=== PATIENT | male | born 1945 | race Caucasian/White ===

== ENCOUNTER 2018-11-20 11:04 | Inpatient (IN) ==
[~2018-11-20 11:04] MED LIST: *HR* Etomidate 20 MG/10 ML AMPUL IVP ONE; *HR* Norepinephrine 4 MG/4 ML VIAL IVC ONE; *HR* Succinylcholine 200 MG/10 ML VIAL IVP ONE; D5% in Water 250 ML IV BAG IV ONE
--- NOTE | 2018-11-20 13:12 | Pulmonology History & Physical ---
<Niranjan Ruiz - Last Filed: 11/20/18 15:39> Date of Encounter: 11/20/18 Time of Encounter: 13:12 Assessment and Plan (1) Sepsis Current visit: Yes Status: Acute -Likely 2/2 pneumonia -2L fluid bolus today at [facility] prior to transfer -Tachypneic, tachycardic, 95F rectal temp but BP stable on arrival -WBC 43.2, lactic 7.7, trop 0.06 -Received zosyn today at the [facility] -CT chest abd/plv -BC x2, UA and culture, sputum culture ordered -Start empiric broad spectrum abx which will deescalate as cultures return Qualifiers: Sepsis type: sepsis due to unspecified organism Qualified Code(s): A41.9 - Sepsis, unspecified organism (2) GI bleed Current visit: Yes Status: Suspected -Melena occasionally over the last 2 weeks -Hgb 11/18/18 13.4 at [facility] -Received new anticoagulation 2/2 DVT at the [facility] -Hgb on transfer here 7.3, BUN 46 -Getting type and screen, trending hgb -GI consult for likely endoscopy Qualifiers: GI bleed type/associated pathology: melena Qualified Code(s): K92.1 - Melena (3) ANY (acute kidney injury) Current visit: Yes Status: Acute -Cr at [facility] 11/19/18 0.79 -Cr on transfer from [facility] 1.74, BUN 46 -On vanc and zosyn now -Will continue trend renal function and avoid nephrotoxins as can (4) COPD (chronic obstructive pulmonary disease) Current visit: Yes Status: Acute -Hx of COPD -Progressive dyspnea and yellow productive cough over last 2 weeks -Scheduled bronchodilators Qualifiers: COPD type: emphysema Emphysema type: unspecified Qualified Code(s): J43.9 - Emphysema, unspecified (5) Anemia Current visit: Yes Status: Acute -Hgb 13.4 11/18/18 at the [facility] -Hgb on arrival here 7.3 -Occult stool pos at [facility] -GI bleed vs large rectus sheath hematoma on CT -Will transfuse PRBC today -Trend H&H Qualifiers: Anemia type: unspecified type Qualified Code(s): D64.9 - Anemia, unspecified (6) Lactic acidemia Current visit: Yes Status: Acute -Lactic on arrival 7.3 -Likely 2/2 sepsis basilar pneumonia (7) Leukocytosis Current visit: Yes Status: Acute -WBC 43.2 11/20/18 -Management as above Qualifiers: Leukocytosis type: unspecified Qualified Code(s): D72.829 - Elevated white blood cell count, unspecified (8) Elevated troponin Current visit: Yes Status: Acute -Likely 2/2 demand ischemia from hypotension -[facility] -Repeat here 0.06 -Will trend (9) Right leg DVT Current visit: Yes Status: Acute -R leg DVT at [facility] -RLE doppler here as no record Qualifiers: Affected thrombotic vein of extremity: unspecified vein of extremity Chronicity: unspecified Qualified Code(s): I82.401 - Acute embolism and thrombosis of unspecified deep veins of right lower extremity (10) DVT prophylaxis Current visit: Yes Status: Acute -SCDs as acute drop in hgb History of Present Illness Chief complaint: Acute anemia HPI: Mr. Gomez is a 73 year old male with pmh significant for COPD, HTN, HLD, and multiple previous CVA's. Over the last 2 weeks he has had a yellow productive cough, worsening dyspnea, and occasional black stools. He was admitted to the [facility] on 11/17/18 and was being treated for presumed pneumonia. He was found to have R lower leg asymmetrical swelling which d dimer was obtained and found to be normal. A subsequent LE doppler found a subacute DVT in RLE and was started on lovenox. He had a no evidence of PE on CTA chest. Today he was switched to apixaban for anticoagulation. This morning he became acutely hypotensive and unresponsive. He was given 2L fluid bolus which brought his BP to 80s/40s and mental status improved along with no acute ekg changes. Labs showed acute drop in hgb from 13.4 on 11/18/18 to 8.9 this morning, occult stool pos, wbc 36.6, Cr 1.2, and trop 0.07. [facility] and [facility] transfer to [facility] for continued management. He denies diplopia, blurry vision, dizziness/lightheadedness, chest pain, palpitations, dyspnea, hematemasis, N/V, dysuria, hematuria, new melena, hematochezia. Past Med Surg Social Fam HX - Past Medical History Medical history: COPD, hyperlipidemia, hypertension - Social History Smoking Status: Never smoker Smokeless Tobacco Status: No Alcohol use: none Medications and Allergies Acetaminophen [Tylenol] 650 mg PO Q8H PRN 11/20/18 [History] Amlodipine Besylate 2.5 mg PO DAILY 11/20/18 [History] Apixaban [Eliquis] 2.5 mg PO BID 11/20/18 [History] Atorvastatin Calcium [Lipitor] 20 mg PO DAILY 11/20/18 [History] Bisacodyl [Woman's Laxative] 10 mg PO DAILY PRN 11/20/18 [History] Budesonide/Formoterol 160/4.5 [Symbicort 160/4.5] 2 puff IH BIDR 11/20/18 [History] Calcium Carbonate 650 mg PO DAILY 11/20/18 [History] Carboxymethylcellulose Sodium [Refresh Tears] 1 drop BOTH EYES TID PRN 11/20/18 [History] Chlorhexidine Rinse 15 ml PO BID 11/20/18 [History] Clopidogrel [Plavix] 75 mg PO DAILY 11/20/18 [History] Docusate [Colace] 200 mg PO BID 11/20/18 [History] Escitalopram [Lexapro] 10 mg PO DAILY 11/20/18 [History] Guaifenesin 400 mg PO TID 11/20/18 [History] Insulin ASPART [NovoLOG] 0 unit SQ TIDWM 11/20/18 [History] Ipratropium/Albuterol Neb [Duoneb] 3 ml IH Q4HR PRN 11/20/18 [History] Lisinopril [Zestril] 20 mg PO DAILY 11/20/18 [History] Metoprolol Succinate [Toprol Xl] 75 mg PO DAILY 11/20/18 [History] Mineral Oil 133 ml RC DAILY PRN 11/20/18 [History] Omeprazole [PriLOSEC] 20 mg PO DAILY 11/20/18 [History] Simethicone [Gas-X] 160 mg PO BID PRN 11/20/18 [History] Tamsulosin HCl [Flomax] 0.4 mg PO DAILY 11/20/18 [History] Zolpidem [Ambien] 5 mg PO HS 11/20/18 [History] hydrOXYzine HCl [Hydroxyzine HCl] 25 mg PO TID 11/20/18 [History] Allergy/AdvReac Type Severity Reaction Status Date / Time tolmetin Allergy Rash Verified 11/05/18 14:39 All Systems: The remainder of the systems were reviewed and are negative Physical Examination General appearance: no acute distress, alert Eyes: nonicteric ENT: oropharynx dry Neck: supple Effort: normal Inspection: normal Auscultation: bilateral: diminished breath sounds, wheezes (scattered), rhonchi (scattered) Cardiovascular: regular rate and rhythm Gastrointestinal: normoactive bowel sounds, soft, non-tender, other (L sided palpable mass) Integumentary: normal Extremities: no cyanosis, no edema, pink and warm normal mental status, non-focal exam mood appropriate, affect normal Results - Laboratory Findings CBC and BMP: 11/20/18 12:43 11/20/18 12:45 <Kris Owusu M - Last Filed: 11/20/18 22:25> Date of Encounter: 11/20/18 History of Present Illness HPI: Mr. Gomez is a 73 year old male All Systems: The remainder of the systems were reviewed and are negative Results - Laboratory Findings CBC and BMP: 11/20/18 12:43 11/20/18 12:45 Abnormal lab findings: Abnormal lab results Chloride 113 mEq/L (98-107) H 11/20/18 12:45 Carbon Dioxide 21 mEq/L (23-29) L 11/20/18 12:45 BUN 46 mg/dL (8-23) H 11/20/18 12:45 1.74 mg/dL (0.70-1.30) H 11/20/18 12:45 Est GFR ( Amer) 47 (> 60) L 11/20/18 12:45 Est GFR (Non-Af Amer) 39 (> 60) L 11/20/18 12:45 Glucose 116 mg/dL (70-105) H 11/20/18 12:45 313 (280-300) H 11/20/18 12:45 Lactic Acid 7.7 mmol/L (0.5-2.2) H* 11/20/18 13:04 Calcium 7.1 mg/dL (8.6-10.3) L 11/20/18 12:45 0.06 ng/mL (< 0.04) H* 11/20/18 12:44 - Attending Attestation I examined this patient and my medical decision-making was reviewed with the Resident Physician. I agree with the documented findings, disposition and treatment plan as described except to the extent set forth below. Patient seen and examined. Received a call from physician from [facility] regarding this patient that he has evidence of bleeding and he has received anticoagulation and he was hypotensive and [facility]. Labs, radiology, chart personally reviewed. 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 I suspect this is metabolic in nature, Pulmonary: Acceptable oxygenation and ventilation and he has evidence of COPD and he is on bronchodilators. Unfortunately his condition worsen and with acute respiratory fialure and need to follow up on the ABG. Patient not able to protect his airway. Cardiovascular: stable at this time. I was told he is hypotensive in the [facility] and I recommended blood transfusion or fluid and stabilized blood pressure before he transferred to [facility].Subsequently patient in shock which is most likely combination of hemorrhagic and septic in nature. GI: Nutrition per dietary and GI prophylaxis per routine Heme: DVT prophylaxis per routine. Patient has evidence of anemia which is secondary to blood loss. 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 Patient has large hematoma and general surgery has been consulted. ID: Continue antibiotics and plan to de-escalation with lactic acidosis and this secondary to sepsis. Patient has received fluid in [facility] and will receive blood. Need to culture for source of sepsis, which could be pneumonia. Family said he was hospitalized in a different hospital. Renal; urine out put and renal funtion reviewed. Patient to be on bicarb drip.and there is evidence of ANY and suspect this could get worse. Endorcine: blood glucose is monitored Lines: all lines checked and no evidence of infections Skin: skin care to prevent pressure ulcers per nursing routine care Discussed plan of care with family at the bedside. Prognosis is poor with this s evere lactic acidosis. I spent 55 min of Critical Care time with this patient. It involved decision making of high complexity to assess, manipulate, and support vital organ system failure and/or to prevent further life threatening deterioration of the patient's condition. The time involved in the performance of separately reportable procedures was not counted toward critical care time.
[2018-11-20 13:33] LABS: Mean Platelet Volume 10.5 fL (9.4-12.4); Nucleated Red Blood Cells 0.1 /100 WBC (0); Red Cell Distribution Width 15.7 % (11.5-14.5)
[2018-11-20 13:35] LABS: Hematocrit 23.5 % (37.5-50.1); Hemoglobin 7.3 g/dL (12.9-16.9); Mean Corpuscular HGB Conc 31.1 g/dL (31.6-35.5); Mean Corpuscular Hemoglobin 29.9 pg (28.0-33.3); Mean Corpuscular Volume 96.3 fL (83.0-100.0); Platelet Count 190 K/mcL (140-400); Red Blood Count 2.44 M/mcL (4.19-5.50)
[2018-11-20 13:35] LABS: Calcium 7.1 mg/dL (8.6-10.3)
[2018-11-20] MEDS ORDERED: Acetaminophen 325 MG TABLET PO PRN (13:37)
[2018-11-20] MEDS ORDERED: Naloxone 0.4 MG/ML INJ IVP PRN (13:37)
[2018-11-20 13:48] LABS: Troponin I 0.06 ng/mL (< 0.04)
[2018-11-20 13:58] LABS: Lymphocytes # 0.9 K/mcL (0.6-4.6); Monocytes # 0.9 K/mcL (0.0-1.3); Neutrophils # 41.5 K/mcL (1.6-8.9); Platelet Estimate Normal (Normal)
[2018-11-20 13:59] LABS: Anisocytosis 1+ (Not Present)
[2018-11-20 14:00] LABS: Albumin 2.2 g/dL (3.5-5.7); Albumin/Globulin Ratio 1.8 (1.1-2.2); Bilirubin,Direct 0.2 mg/dL (0.0-0.2); Bilirubin,Indirect 0.7 mg/dL (0.0-1.2); Bilirubin,Total 0.9 mg/dL (0.3-1.0); Globulin 1.2 g/dL (2.4-3.5); Total Protein 3.4 g/dL (6.4-8.9)
[2018-11-20] MEDS ORDERED: *HR* Dextrose 50 % in Water (Syg) 50 ML SYRINGE IVP PRN (14:09)
[2018-11-20] MEDS ORDERED: Dextrose Gel 15 GM/37.5 ML TUBE PO PRN ×2 (14:09)
[2018-11-20] MEDS ORDERED: D5% in Water 1,000 ML IVC PRN (14:09)
[2018-11-20] MEDS ORDERED: Ipratropium/Albuterol Neb 3 ML IH PRN (14:13)
[2018-11-20 15:23] LABS: Estimated Average Glucose 140 mg/dl; Hemoglobin A1C 6.5 %
[2018-11-20] MEDS: Ipratropium/Albuterol Neb 3 ML IH SCH ×2 (16:12→22:10)
[2018-11-20 16:25] LABS: INR 1.4; Prothrombin Time 15.7 Seconds (9.4-12.1)
[2018-11-20 16:28] LABS: Activated Partial Thrombo Time 27.1 Seconds (26.0-36.0)
[2018-11-20] MEDS ORDERED: 0.9 % Sodium Chloride 250 ML ONE (16:34)
[2018-11-20] MEDS: Piperacillin/Tazobactam 3.375 GM in 0.9 % Sodium Chloride Mini Bag 100 ML IVPB SCH (16:56)
[2018-11-20 17:30] LABS: ABG Base Excess -12 mEq/L (-2 to 3); ABG HCO3 16 mEq/L (21-27); ABG Oxygen Saturation 96 % (95-98); ABG PCO2 44 mmHg (35-45); ABG PH 7.16 pH Units (7.32-7.45); ABG PO2 105 mmHg (85-104); ABG TCO2 17 mEq/L (20-26)
[2018-11-20] MEDS: Norepinephrine 4 MG in D5% in Water 250 ML IVC SCH ×2 (17:45→23:58)
--- NOTE | 2018-11-20 17:45 | AcuteCare Surgery Consult Note ---
Date of Encounter: 11/20/18 Time of Encounter: 17:42 Assessment and Plan (1) Anemia Current Visit: Yes Status: Acute 73M with sepsis and associated drop in blood pressure, GCS 6 and acute blood loss anemia wiht associated evidence of dehydration; strongly advise intubation to protect airway NPO IVF IV abx hold anticoagulation trend h/h transfuse as needed recommend treating sepsis actively and monitor hgb will continue to follow no acute surgery Qualifiers: Anemia type: unspecified type Qualified Code(s): D64.9 - Anemia, unspecified History of Present Illness Consult date: 11/20/18 History of present illness: 73M PMH significant for COPD, HTN, HLD, and multiple previous CVA's who was evaluated at an OSH for respiratory insufficiency, likely exacerbation of COPD vs PNA. While an inpatient he developed a DVT and started on therapeutic lovenox. He was transferred to [facility] due to acute blood loss anemia (hgb decrea sed from 13 to ~ 7). No reports of rectal bleeding. A CT scan was obtained which demonstrated a sizeable rectus sheath hematoma. At present the patient is unresponsive, pressures dropping but normal HR; General surgery was consulted for management recommendations; Past Med Surg Social Fam HX - Past Medical History Medical history: COPD, hyperlipidemia, hypertension - Social History Smoking Status: Never smoker Smokeless Tobacco Status: No Alcohol use: none - Additional Family History Additional family history: non contributory Medications and Allergies Acetaminophen [Tylenol] 650 mg PO Q8H PRN 11/20/18 [History] Amlodipine Besylate 2.5 mg PO DAILY 11/20/18 [History] Apixaban [Eliquis] 2.5 mg PO BID 11/20/18 [History] Atorvastatin Calcium [Lipitor] 20 mg PO DAILY 11/20/18 [History] Bisacodyl [Woman's Laxative] 10 mg PO DAILY PRN 11/20/18 [History] Budesonide/Formoterol 160/4.5 [Symbicort 160/4.5] 2 puff IH BIDR 11/20/18 [History] Calcium Carbonate 650 mg PO DAILY 11/20/18 [History] Carboxymethylcellulose Sodium [Refresh Tears] 1 drop BOTH EYES TID PRN 11/20/18 [History] Chlorhexidine Rinse 15 ml PO BID 11/20/18 [History] Clopidogrel [Plavix] 75 mg PO DAILY 11/20/18 [History] Docusate [Colace] 200 mg PO BID 11/20/18 [History] Escitalopram [Lexapro] 10 mg PO DAILY 11/20/18 [History] Guaifenesin 400 mg PO TID 11/20/18 [History] Insulin ASPART [NovoLOG] 0 unit SQ TIDWM 11/20/18 [History] Ipratropium/Albuterol Neb [Duoneb] 3 ml IH Q4HR PRN 11/20/18 [History] Lisinopril [Zestril] 20 mg PO DAILY 11/20/18 [History] Metoprolol Succinate [Toprol Xl] 75 mg PO DAILY 11/20/18 [History] Mineral Oil 133 ml RC DAILY PRN 11/20/18 [History] Omeprazole [PriLOSEC] 20 mg PO DAILY 11/20/18 [History] Simethicone [Gas-X] 160 mg PO BID PRN 11/20/18 [History] Tamsulosin HCl [Flomax] 0.4 mg PO DAILY 11/20/18 [History] Zolpidem [Ambien] 5 mg PO HS 11/20/18 [History] hydrOXYzine HCl [Hydroxyzine HCl] 25 mg PO TID 11/20/18 [History] Allergy/AdvReac Type Severity Reaction Status Date / Time tolmetin Allergy Rash Verified 11/05/18 14:39 Review of Systems All systems PM: 12 point ROS negative besides HPI findings General Surgery Exam Initial Vital Signs Pulse Resp BP Pulse Ox 101 27 130/102 92 11/20/18 13:11 11/20/18 13:11 11/20/18 13:11 11/20/18 13:11 - General physical appearance no distress, other (non responsive; does not respond to pain) - Eyes normal ocular movement - ENT normal mucosa, no hearing loss - Neck trachea midline, no lymphadectomy - Respiratory normal expansion, normal respiratory effort - Cardiovascular Cardiovascular exam: Present: RRR - Abdomen Abdomen general surgery: Present: soft, distended (point of distension along L side) - Integumentary Integumentary general surgery: Present: warm and dry - Neurologic Present: other (non responsive to pain and verbal stimuli, does not make verbal response; eyes are open, GCS ~ 6) Exam Initial Vital Signs Pulse Resp BP Pulse Ox 101 27 130/102 92 11/20/18 13:11 11/20/18 13:11 11/20/18 13:11 11/20/18 13:11 Results - Labs 11/20/18 12:43 11/20/18 12:45 Abnormal lab results WBC 43.2 K/mcL (4.3-11.1) H* 11/20/18 12:43 RBC 2.44 M/mcL (4.19-5.50) L 11/20/18 12:43 Hgb 7.3 g/dL (12.9-16.9) L 11/20/18 12:43 Hct 23.5 % (37.5-50.1) L 11/20/18 12:43 MCHC 31.1 g/dL (31.6-35.5) L 11/20/18 12:43 RDW 15.7 % (11.5-14.5) H 11/20/18 12:43 41.5 K/mcL (1.6-8.9) H 11/20/18 12:43 Nucleated RBCs/100 WBC 0.1 /100 WBC (0) H 11/20/18 12:43 1+ (Not Present) A 11/20/18 12:43 PT 15.7 Seconds (9.4-12.1) H 11/20/18 15:56 ABG pH 7.16 pH Units (7.32-7.45) L* 11/20/18 17:26 ABG pO2 105 mmHg (85-104) H 11/20/18 17:26 ABG HCO3 16 mEq/L (21-27) L 11/20/18 17:26 ABG Total CO2 17 mEq/L (20-26) L 11/20/18 17:26 ABG Base Excess -12 mEq/L (-2 to 3) L 11/20/18 17:26 Chloride 113 mEq/L (98-107) H 11/20/18 12:45 Carbon Dioxide 21 mEq/L (23-29) L 11/20/18 12:45 BUN 46 mg/dL (8-23) H 11/20/18 12:45 1.74 mg/dL (0.70-1.30) H 11/20/18 12:45 Est GFR ( Amer) 47 (> 60) L 11/20/18 12:45 Est GFR (Non-Af Amer) 39 (> 60) L 11/20/18 12:45 Glucose 116 mg/dL (70-105) H 11/20/18 12:45 6.5 % (-5.6) H 11/20/18 13:04 313 (280-300) H 11/20/18 12:45 Lactic Acid 9.8 mmol/L (0.5-2.2) H* 11/20/18 17:01 Calcium 7.1 mg/dL (8.6-10.3) L 11/20/18 12:45 AST 413 Units/L (13-39) H 11/20/18 12:44 ALT 651 Units/L (7-52) H 11/20/18 12:44 0.06 ng/mL (< 0.04) H* 11/20/18 12:44 3.4 g/dL (6.4-8.9) L 11/20/18 12:44 2.2 g/dL (3.5-5.7) L 11/20/18 12:44 1.2 g/dL (2.4-3.5) L 11/20/18 12:44 Crossmatch See Detail 11/20/18 13:04 Diabetes panel 11/20/18 11/20/18 11/20/18 Range/Units 12:44 12:45 13:04 Sodium 145 (136-145) mEq/L Potassium 5.0 (3.5-5.1) mEq/L Chloride 113 H (98-107) mEq/L Carbon Dioxide 21 L (23-29) mEq/L BUN 46 H (8-23) mg/dL Creatinine 1.74 H (0.70-1.30) mg/dL Glucose 116 H (70-105) mg/dL Hemoglobin A1c 6.5 H ( - 5.6) % Calcium 7.1 L (8.6-10.3) mg/dL AST 413 H (13-39) Units/L ALT 651 H (7-52) Units/L Alkaline Phosphatase 53 (34-104) Units/L Albumin 2.2 L (3.5-5.7) g/dL Calcium panel 11/20/18 11/20/18 Range/Units 12:44 12:45 Calcium 7.1 L (8.6-10.3) mg/dL Albumin 2.2 L (3.5-5.7) g/dL Pituitary panel 11/20/18 Range/Units 12:45 Sodium 145 (136-145) mEq/L Potassium 5.0 (3.5-5.1) mEq/L Chloride 113 H (98-107) mEq/L Carbon Dioxide 21 L (23-29) mEq/L BUN 46 H (8-23) mg/dL Creatinine 1.74 H (0.70-1.30) mg/dL Glucose 116 H (70-105) mg/dL Calcium 7.1 L (8.6-10.3) mg/dL Adrenal panel 11/20/18 11/20/18 Range/Units 12:44 12:45 Sodium 145 (136-145) mEq/L Potassium 5.0 (3.5-5.1) mEq/L Chloride 113 H (98-107) mEq/L Carbon Dioxide 21 L (23-29) mEq/L BUN 46 H (8-23) mg/dL Creatinine 1.74 H (0.70-1.30) mg/dL Glucose 116 H (70-105) mg/dL Calcium 7.1 L (8.6-10.3) mg/dL Total Bilirubin 0.9 (0.3-1.0) mg/dL AST 413 H (13-39) Units/L ALT 651 H (7-52) Units/L Alkaline Phosphatase 53 (34-104) Units/L Albumin 2.2 L (3.5-5.7) g/dL All other labs normal. - Imaging CT scan - abdomen: report reviewed, image reviewed CT scan - pelvis: report reviewed, image reviewed Consult Discharge Plan - Plan [facility]: [facility] [Primary Care Provider] -
--- NOTE | 2018-11-20 18:01 | Procedure Note ---
Date of procedure: 11/20/18 Pre-op diagnosis: Resp failure Post-op diagnosis: same Procedure: A time-out was completed verifying correct patient, procedure, site, positioning, and special equipment if applicable. The patient was placed in a flat position. Sedation was obtained using 20mg etomidate and paralyzed with 120mg succinylcholine. The patient was easily ventilated using an ambu bag. The MAC 3 blade was used and inserted into the oropharynx at which time there was a Grade 1 view of the vocal cords. A 7.5-martiniquais endotracheal tube was inserted and visualized going through the vocal cords. The stylette was removed. Colorimetric change was visualized on the CO2 meter. Breath sounds were heard in both lung hilliard equally. The endotracheal tube was placed at 22 cm, measured at the lips. Dr Nolasco was present for the entire procedure. A chest x-ray was ordered to assess for pneumothorax and verify endotrachealtube placement. Anesthesia: IV sedation Surgeon: Niranjan Ruiz Was there an marketing assistant manager present: No Estimated blood loss (cc): 0 Specimen: N/A Pathology: none sent Condition: critical Disposition: ICU
[2018-11-20] MEDS ORDERED: Artificial Tears SOLN 15 ML BOTTLE BOTH EYES PRN (18:09)
--- NOTE | 2018-11-20 18:57 | Procedure Note ---
<Karl Vences - Last Filed: 11/20/18 18:49> Date of procedure: 11/20/18 Pre-op diagnosis: Gastrointestinal Bleed Post-op diagnosis: same Procedure: Right Femoral central venous catheter was placed for hypotension secondary to gastrointestinal bleed. Signed consent was obtained from family as patient was sedated. Risks including bleeding, infection, were related as well as benefits of procedure including application of blood pressure supporting medications and high volume fluid resuscitation. Ultrasound was used to identify the right common femoral vein and artery. This site was cleaned and draped in the usual sterile fashion. Sterile ultrasound was again used to identify the right femoral vein. Introducer needle was inserted into the right common femoral vein under negative pressure under ultrasound guidance until dark venous blood return was noted. Introducer needle was held in place and guidewire was inserted without resistance, a small gallito in the skin was made and the dilator was introduced and withdrawn, a triple-lumen central venous catheter was then advanced over the guidewire and secured in place. Guidewire was then withdrawn and each lumen of the central venous catheter was tested for dark venous blood return and flushed without resistance. The central venous catheter was then sutured in place. The procedure was completed without incident and the patient tolerated it well. Dr. Dasilva was present during the entire procedure. . Anesthesia: IV sedation Surgeon: Karl Vences Was there an delinquent tax collection assistant present: Yes Shoe Dresser: Kevan Davenport Estimated blood loss (cc): 5 Specimen: none Pathology: none sent Condition: stable Disposition: ICU <Kris Owusu - Last Filed: 11/21/18 10:58> Procedure: I examined this patient and my medical decision-making was reviewed with the Resident Physician. I agree with the documented findings, disposition and treatment plan as described except to the extent set forth below. I was aware of central line placement, but physically was not there.
[2018-11-20] MEDS: FentaNYL (PF) 1,000 MCG in 0.9 % Sodium Chloride 80 ML IVC SCH (19:14)
[2018-11-20] MEDS: Dexmedetomidine HCl 400 MCG/100 ML MLS IVC SCH (19:59)
[2018-11-20] MEDS: Chlorhexidine Rinse 15 ML MOUTHWASH MM SCH (19:59)
[2018-11-20] MEDS: Sodium Bicarbonate 150 MEQ in D5% in Water 1,000 ML IVC SCH (20:19)
[2018-11-20] MEDS: Albumin 25% 25gram/100mL 25 GM/100 ML IV.SOLN IVC SCH ×2 (21:58→22:32)
[2018-11-20] MEDS: Insulin LISPRO 300 UNITS/3 ML VIAL SQ SCH (21:59)
[2018-11-20] MEDS: Pantoprazole 40 MG VIAL IVP SCH (22:00)
[2018-11-20] MEDS: Artificial Tears SOLN 15 ML BOTTLE BOTH EYES SCH (22:33)
[2018-11-21] MEDS: Piperacillin/Tazobactam 3.375 GM in 0.9 % Sodium Chloride Mini Bag 100 ML IVPB SCH ×3 (00:07→16:25)
[2018-11-21] MEDS: Insulin LISPRO 300 UNITS/3 ML VIAL SQ SCH ×4 (00:22→17:46)
[2018-11-21] MEDS: Artificial Tears SOLN 15 ML BOTTLE BOTH EYES SCH ×6 (00:22→21:12)
[2018-11-21] MEDS: Dexmedetomidine HCl 400 MCG/100 ML MLS IVC SCH ×2 (01:56→06:33)
[2018-11-21] MEDS: Norepinephrine 8 MG in D5% in Water 500 ML IVC SCH ×3 (01:57→19:11)
[2018-11-21] MEDS: Ipratropium/Albuterol Neb 3 ML IH SCH ×4 (03:28→21:25)
[2018-11-21 03:38] LABS: Monocytes % 1.6 %; Nucleated Red Blood Cells 0.1 /100 WBC (0)
[2018-11-21 03:39] LABS: Basophils # 0.1 K/mcL (0.0-0.2); Basophils % 0.2 %; Hematocrit 27.2 % (37.5-50.1); Immature Granulocytes % 1.9 % (0-4); Lymphocytes # 0.9 K/mcL (0.6-4.6); Mean Corpuscular HGB Conc 33.1 g/dL (31.6-35.5); Mean Corpuscular Volume 90.7 fL (83.0-100.0); Mean Platelet Volume 10.9 fL (9.4-12.4); Monocytes # 0.7 K/mcL (0.0-1.3); Neutrophils # 41.1 K/mcL (1.6-8.9); Platelet Count 119 K/mcL (140-400); Red Cell Distribution Width 16.2 % (11.5-14.5); Segmented Neutrophils % 94.3 %
[2018-11-21 03:46] LABS: INR 1.9; Prothrombin Time 21.7 Seconds (9.4-12.1)
[2018-11-21 03:57] LABS: Calcium 6.6 mg/dL (8.6-10.3); Magnesium 2.3 mg/dL (1.6-2.6); Phosphorous 10.3 mg/dL (2.7-4.5); Potassium 5.7 mEq/L (3.5-5.1)
[2018-11-21] MEDS: FentaNYL (PF) 1,000 MCG in 0.9 % Sodium Chloride 80 ML IVC SCH ×2 (04:05→22:25)
[2018-11-21 04:13] LABS: Platelet Estimate Decreased (Normal)
[2018-11-21 05:09] LABS: ABG Base Excess -8 mEq/L (-2 to 3); ABG HCO3 18 mEq/L (21-27); ABG Oxygen Saturation 94 % (95-98); ABG PCO2 36 mmHg (35-45); ABG PO2 78 mmHg (85-104); ABG TCO2 19 mEq/L (20-26); Blood Gas PEEP 5 cm H2O; Blood Gas Respiration Rate 12; Blood Gas VT 500 cc
[2018-11-21] MEDS: Pantoprazole 40 MG VIAL IVP SCH ×2 (05:17→17:39)
--- NOTE | 2018-11-21 06:50 | Pulmonology Progress Note ---
<Niranjan Ruiz - Last Filed: 11/21/18 10:53> Date of Encounter: 11/21/18 Time of Encounter: 06:50 Assessment and Plan (1) Sepsis Current Visit: Yes Status: Acute -Likely 2/2 pneumonia -2L fluid bolus 11/20/[address] prior to transfer -Tachypneic, tachycardic, 95F rectal temp but BP stable on arrival -WBC 43.2, lactic 7.7, trop 0.06 on arrival -Received zosyn 11/20/[address] -CT chest abd/plv 11/20/18: hazy opacities at lung bases atelectasis or pneumonia, underlying emphysema. Cholelithiasis. Very large left sided rectus sheath hematoma -WBC 43.6, lactic down from 9.8 to 7.3 after bicarb infusion started yesterday -Continue bicarb drip till tomorrow -BC x2, UA and culture, sputum culture pending -BP very labile yesterday with MAPs dropping into 40's, requiring pressor support to maintain MAP -Continue empiric vanc (day 2) and pip/tazo (day 2) which will deescalate as cultures return -TTE pending as BP remains very labile and start stress dose steroids Qualifiers: Sepsis type: sepsis due to unspecified organism Qualified Code(s): A41.9 - Sepsis, unspecified organism (2) Acute respiratory failure with hypoxia Current Visit: Yes Status: Acute -Awake, alert and talking on arrival -Resp and mental status declined and became hypoxic and apneic requiring intubation -ABG at time of intubation pH 7.16, paCO2 44, paO2 105, hco3 16, 96% on 13L O2 via oxymask -ABG 11/21/18: pH 7.3, paCO2 36, paO2 78, HCO3 18, 94% on 40% FiO2 -Continue mechanical ventilation today (3) GI bleed Current Visit: Yes Status: Suspected -Melena occasionally over the last 2 weeks -Hgb 11/18/[address] -Received new anticoagulation 2/[address] -Hgb on transfer here 11/20/18 7.3, BUN 46 -Got 2 units PRBCs yesterday and hgb stable today at -Acute care surg following without plans for intervention till more stable Qualifiers: GI bleed type/associated pathology: melena Qualified Code(s): K92.1 - Melena (4) ANY (acute kidney injury) Current Visit: Yes Status: Acute -Cr at CT 11/19/18 0.79 -Cr on transfer from CT 11/20/18 1.74, BUN 46 -On vanc and zosyn (day 2) -Renal function worsening. Cr 2.82, BUN 63 today -Will give some IVF today and transition from vanc and zosyn as early as can based on culture findings -Will continue trend renal function and avoid nephrotoxins as can (5) COPD (chronic obstructive pulmonary disease) Current Visit: Yes Status: Acute -Hx of COPD -Progressive dyspnea and yellow productive cough over last 2 weeks -Scheduled bronchodilators Qualifiers: COPD type: emphysema Emphysema type: unspecified Qualified Code(s): J43.9 - Emphysema, unspecified (6) Anemia Current Visit: Yes Status: Acute -Hgb 13.4 11/18/[address] -Hgb on arrival here 7.3 -Occult stool pos at CT -GI bleed vs large rectus sheath hematoma on CT -Transfused 2 units PRBC yesterday with hgb stable at 9 today -Trend H&H and transfuse as indicated Qualifiers: Anemia type: other cause Other causes of anemia: other cause, not class ified Qualified Code(s): D64.89 - Other specified anemias (7) Right leg DVT Current Visit: Yes Status: Acute -R leg DVT at CT -RLE doppler prelim pos for DVT R posterior tibial vein -Anticoagulation not indicated and pending final read might need IVC filter Qualifiers: Affected thrombotic vein of extremity: unspecified vein of extremity Chronicity: unspecified Qualified Code(s): I82.401 - Acute embolism and thromb osis of unspecified deep veins of right lower extremity (8) High anion gap metabolic acidosis Current Visit: Yes Status: Acute -AG 11 on arrival -AG increased today to 15 likely 2/2 lactic acidosis (9) Lactic acidemia Current Visit: Yes Status: Acute -Lactic on arrival 7.3 -Likely 2/2 sepsis basilar pneumonia -Peak 9.8 and repeat this morning 7.3 after bicarb drip (10) Leukocytosis Current Visit: Yes Status: Acute -WBC 43.2 11/20/18 -WBC 43.6 today -Management as above Qualifiers: Leukocytosis type: unspecified Qualified Code(s): D72.829 - Elevated white blood cell count, unspecified (11) Elevated troponin Current Visit: Yes Status: Acute -Likely 2/2 demand ischemia from hypotension -[facility]07 [facility] -Repeat here 0.06 -Minimal increase on repeats 0.11-0.16 -Will trend (12) DVT prophylaxis Current Visit: Yes Status: Acute -SCDs as acute drop in hgb Subjective Principal diagnosis: Sepsis Interval history: Period of being awake and alert overnight despite sedation running. BP continues to be labile with titration of pressors. Objective PUL Vital signs: Last Vital Signs Temp 97.2 F L 11/20/18 22:57 Pulse 90 11/21/18 06:00 Resp 21 11/21/18 06:00 BP 104/64 11/21/18 06:00 Pulse Ox 96 11/21/18 06:00 General appearance: no acute distress, other (follows commands with sedation lower) Eyes: nonicteric ENT: oropharynx dry Effort: other (on vent) Auscultation: bilateral: rhonchi (scattered ) Cardiovascular: regular rate and rhythm Gastrointestinal: hypoactive bowel sounds, soft, non-tender, other (L sided mass palpable ) Integumentary: other (scattered bruising ) Extremities: no cyanosis, pulses normal, cool, edema other (sedated but will follow commands and answer simple questions with lower sedation ) Ventilator Settings Ventilator Settings: Ventilator Settings, Last 8 Hours Ventilator Tidal Volume 500 Setting Ventilator Tidal Volume 500 Setting Ventilator Tidal Volume 500 Setting Ventilator Tidal Volume 500 Setting Ventilator Tidal Volume 500 Setting Ventilator Tidal Volume 500 Setting Ventilator Tidal Volume 500 Setting Ventilator Tidal Volume 500 Setting Ventilator Respiratory Rate 12 Setting Ventilator Respiratory Rate 12 Setting Ventilator Respiratory Rate 12 Setting Ventilator Respiratory Rate 12 Setting Ventilator Respiratory Rate 12 Setting Ventilator Respiratory Rate 12 Setting Ventilator Respiratory Rate 12 Setting Ventilator Respiratory Rate 12 Setting Actual Respiratory Rate 21 Actual Respiratory Rate 16 Actual Respiratory Rate 22 Positive End Expiratory 5 Pressure Positive End Expiratory 5 Pressure Positive End Expiratory 5 Pressure Positive End Expiratory 5 Pressure Positive End Expiratory 5 Pressure Positive End Expiratory 5 Pressure Positive End Expiratory 5 Pressure Positive End Expiratory 5 Pressure Peak Inspiratory Airway 16 Pressure Peak Inspiratory Airway 16 Pressure Peak Inspiratory Airway 17 Pressure Peak Inspiratory Airway 15 Pressure Peak Inspiratory Airway 11 Pressure Peak Inspiratory Airway 16 Pressure Peak Inspiratory Airway 15 Pressure Results - Laboratory Findings CBC and BMP: 11/21/18 03:20 11/21/18 03:20 ABG ABG pH 7.30 pH Units (7.32-7.45) L 11/21/18 05:05 ABG pCO2 36 mmHg (35-45) 11/21/18 05:05 ABG pO2 78 mmHg (85-104) L 11/21/18 05:05 ABG O2 Saturation 94 % (95-98) L 11/21/18 05:05 PT/INR, D-dimer PT 21.7 Seconds (9.4-12.1) H 11/21/18 03:20 Abnormal lab findings: Abnormal lab results WBC 43.6 K/mcL (4.3-11.1) H* 11/21/18 03:20 RBC 3.00 M/mcL (4.19-5.50) L 11/21/18 03:20 Hgb 9.0 g/dL (12.9-16.9) L D 11/21/18 03:20 Hct 27.2 % (37.5-50.1) L 11/21/18 03:20 MCHC 31.1 g/dL (31.6-35.5) L 11/20/18 12:43 RDW 16.2 % (11.5-14.5) H 11/21/18 03:20 Plt Count 119 K/mcL (140-400) L 11/21/18 03:20 41.1 K/mcL (1.6-8.9) H 11/21/18 03:20 Nucleated RBCs/100 WBC 0.1 /100 WBC (0) H 11/21/18 03:20 Decreased (Normal) L 11/21/18 03:20 1+ (Not Present) A 11/20/18 12:43 PT 21.7 Seconds (9.4-12.1) H 11/21/18 03:20 ABG pH 7.30 pH Units (7.32-7.45) L 11/21/18 05:05 ABG pO2 78 mmHg (85-104) L 11/21/18 05:05 ABG HCO3 18 mEq/L (21-27) L 11/21/18 05:05 ABG Total CO2 19 mEq/L (20-26) L 11/21/18 05:05 ABG O2 Saturation 94 % (95-98) L 11/21/18 05:05 ABG Base Excess -8 mEq/L (-2 to 3) L 11/21/18 05:05 Potassium 5.7 mEq/L (3.5-5.1) H 11/21/18 03:20 Chloride 113 mEq/L (98-107) H 11/20/18 12:45 Carbon Dioxide 22 mEq/L (23-29) L 11/21/18 03:20 BUN 63 mg/dL (8-23) H 11/21/18 03:20 2.82 mg/dL (0.70-1.30) H 11/21/18 03:20 Est GFR ( Amer) 27 (> 60) L 11/21/18 03:20 Est GFR (Non-Af Amer) 22 (> 60) L 11/21/18 03:20 Glucose 240 mg/dL (70-105) H 11/21/18 03:20 POC Glucose 131 mg/dL (70-99) H 11/21/18 00:12 6.5 % (-5.6) H 11/20/18 13:04 318 (280-300) H 11/21/18 03:20 Lactic Acid 7.3 mmol/L (0.5-2.2) H* 11/21/18 03:20 Calcium 6.6 mg/dL (8.6-10.3) L 11/21/18 03:20 Phosphorus 10.3 mg/dL (2.7-4.5) H 11/21/18 03:20 AST 413 Units/L (13-39) H 11/20/18 12:44 ALT 651 Units/L (7-52) H 11/20/18 12:44 0.16 ng/mL (< 0.04) H* 11/21/18 03:20 3.4 g/dL (6.4-8.9) L 11/20/18 12:44 2.2 g/dL (3.5-5.7) L 11/20/18 12:44 1.2 g/dL (2.4-3.5) L 11/20/18 12:44 Crossmatch See Detail 11/20/18 13:04 - Microbiology Findings Microbiology Findings: Microbiology, Last 48 Hours 11/20/18 14:37 Blood Culture - Preliminary Peripheral Venipuncture Culture is incubating and being continuously monitored for growth. Final report to follow. 11/20/18 14:26 Blood Culture - Preliminary Peripheral Venipuncture Culture is incubating and being continuously monit ored for growth. Final report to follow. - Clinical Findings Intake & Output: Intake & Output 11/20/18 11/20/18 11/21/18 15:59 23:59 07:59 Intake Total 3000 / 4399 1399 / 4399 928 / 928 Output Total 100 / 100 5 / 5 Balance 3000 / 4299 1299 / 4299 923 / 923 Weight 97 kg 99.7 kg Consult Discharge Plan - Plan [facility]errals: [facility] [Primary Care Provider[facility] - <Kris Owusu - Last Filed: 11/21/18 22:57> Date of Encounter: 11/21/18 Objective PUL Vital signs: Last Vital Signs Temp 98.3 F 11/21/18 09:00 Pulse 63 11/21/18 11:00 Resp 18 11/21/18 11:00 BP 88/51 11/21/18 11:00 Pulse Ox 94 11/21/18 11:00 Ventilator Settings Ventilator Settings: Ventilator Settings, Last 8 Hours Ventilator Tidal Volume 550 Setting Ventilator Tidal Volume 550 Setting Ventilator Tidal Volume 550 Setting Ventilator Tidal Volume 550 Setting Ventilator Tidal Volume 550 Setting Ventilator Tidal Volume 500 Setting Ventilator Tidal Volume 500 Setting Ventilator Tidal Volume 500 Setting Ventilator Tidal Volume 500 Setting Ventilator Respiratory Rate 12 Setting Ventilator Respiratory Rate 12 Setting Ventilator Respiratory Rate 12 Setting Ventilator Respiratory Rate 12 Setting Ventilator Respiratory Rate 12 Setting Ventilator Respiratory Rate 12 Setting Ventilator Respiratory Rate 12 Setting Ventilator Respiratory Rate 12 Setting Ventilator Respiratory Rate 12 Setting Actual Respiratory Rate 19 Actual Respiratory Rate 22 Actual Respiratory Rate 17 Actual Respiratory Rate 19 Actual Respiratory Rate 20 Actual Respiratory Rate 21 Positive End Expiratory 5 Pressure Positive End Expiratory 5 Pressure Positive End Expiratory 5 Pressure Positive End Expiratory 5 Pressure Positive End Expiratory 5 Pressure Positive End Expiratory 5 Pressure Positive End Expiratory 5 Pressure Positive End Expiratory 5 Pressure Positive End Expiratory 5 Pressure Peak Inspiratory Airway 18 Pressure Peak Inspiratory Airway 19 Pressure Peak Inspiratory Airway 18 Pressure Peak Inspiratory Airway 17 Pressure Peak Inspiratory Airway 16 Pressure Peak Inspiratory Airway 16 Pressure Peak Inspiratory Airway 16 Pressure Peak Inspiratory Airway 17 Pressure Results - Laboratory Findings CBC and BMP: 11/21/18 15:00 11/21/18 03:20 ABG ABG pH 7.30 pH Units (7.32-7.45) L 11/21/18 05:05 ABG pCO2 36 mmHg (35-45) 11/21/18 05:05 ABG pO2 78 mmHg (85-104) L 11/21/18 05:05 ABG O2 Saturation 94 % (95-98) L 11/21/18 05:05 PT/INR, D-dimer PT 21.7 Seconds (9.4-12.1) H 11/21/18 03:20 Abnormal lab findings: Abnormal lab results WBC 43.6 K/mcL (4.3-11.1) H* 11/21/18 03:20 RBC 3.00 M/mcL (4.19-5.50) L 11/21/18 03:20 Hgb 9.0 g/dL (12.9-16.9) L D 11/21/18 03:20 Hct 27.2 % (37.5-50.1) L 11/21/18 03:20 MCHC 31.1 g/dL (31.6-35.5) L 11/20/18 12:43 RDW 16.2 % (11.5-14.5) H 11/21/18 03:20 Plt Count 119 K/mcL (140-400) L 11/21/18 03:20 41.1 K/mcL (1.6-8.9) H 11/21/18 03:20 Nucleated RBCs/100 WBC 0.1 /100 WBC (0) H 11/21/18 03:20 Decreased (Normal) L 11/21/18 03:20 1+ (Not Present) A 11/20/18 12:43 PT 21.7 Seconds (9.4-12.1) H 11/21/18 03:20 ABG pH 7.30 pH Units (7.32-7.45) L 11/21/18 05:05 ABG pO2 78 mmHg (85-104) L 11/21/18 05:05 ABG HCO3 18 mEq/L (21-27) L 11/21/18 05:05 ABG Total CO2 19 mEq/L (20-26) L 11/21/18 05:05 ABG O2 Saturation 94 % (95-98) L 11/21/18 05:05 ABG Base Excess -8 mEq/L (-2 to 3) L 11/21/18 05:05 Potassium 5.7 mEq/L (3.5-5.1) H 11/21/18 03:20 Chloride 113 mEq/L (98-107) H 11/20/18 12:45 Carbon Dioxide 22 mEq/L (23-29) L 11/21/18 03:20 BUN 63 mg/dL (8-23) H 11/21/18 03:20 2.82 mg/dL (0.70-1.30) H 11/21/18 03:20 Est GFR ( Amer) 27 (> 60) L 11/21/18 03:20 Est GFR (Non-Af Amer) 22 (> 60) L 11/21/18 03:20 Glucose 240 mg/dL (70-105) H 11/21/18 03:20 POC Glucose 232 mg/dL (70-99) H 11/21/18 06:14 6.5 % (-5.6) H 11/20/18 13:04 318 (280-300) H 11/21/18 03:20 Lactic Acid 7.3 mmol/L (0.5-2.2) H* 11/21/18 03:20 Calcium 6.6 mg/dL (8.6-10.3) L 11/21/18 03:20 Phosphorus 10.3 mg/dL (2.7-4.5) H 11/21/18 03:20 AST 413 Units/L (13-39) H 11/20/18 12:44 ALT 651 Units/L (7-52) H 11/20/18 12:44 0.16 ng/mL (< 0.04) H* 11/21/18 03:20 3.4 g/dL (6.4-8.9) L 11/20/18 12:44 2.2 g/dL (3.5-5.7) L 11/20/18 12:44 1.2 g/dL (2.4-3.5) L 11/20/18 12:44 Turbid (Clear) A 11/21/18 08:50 Trace mg/dL (Negative) H 11/21/18 08:50 Small (Negative) H 11/21/18 08:50 5-15 per hpf (0-3) H 11/21/18 08:50 Ur Squamous Epith Cells Many per lpf (None-Few) H 11/21/18 08:50 Ur Culture Indicated? YES (NO) A 11/21/18 08:50 Crossmatch See Detail 11/20/18 13:04 - Microbiology Findings Microbiology Findings: Microbiology, Last 48 Hours 11/20/18 14:37 Blood Culture - Preliminary Peripheral Venipuncture Culture is incubating and being continuously mo nitored for growth. Final report to follow. 11/20/18 14:26 Blood Culture - Preliminary Peripheral Venipuncture Culture is incubating and being continuously monitored for growth. Final report to follow. - Clinical Findings Intake & Output: Intake & Output 11/20/18 11/21/18 11/21/18 23:59 07:59 15:59 Intake Total 1399 / 4399 928 / 2499 1571 / 2499 Output Total 100 / 100 5 / 80 75 / 80 Balance 1299 / 4299 923 / 2419 1496 / 2419 Weight 99.7 kg - Attending Attestation I examined this patient and my medical decision-making was reviewed with the Resident Physician. I agree with the documented findings, disposition and treatment plan as described except to the extent set forth below. Patient seen and examined. Labs, radiology, chart personally reviewed. 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 Mental status change is still not clear to me, suspect could be from hypoperfusion and anemia and will consider neurology consultation if no improvement. Pulmonary: Acceptable oxygenation and ventilation and overall reasonable and acceptable ABG with changing vent setting based on the ABG result. Cardiovascular: Patient remain in shock and still suspect septic in nature, however it is not clear source at this time and also could be hypoperfusion from blood loss and vasodilatory shock. Patient has received packed RBC. General surgery is consulted and appreciate the input. GI: Nutrition per dietary and GI prophylaxis per routine. A doubt to discuss his GI bleed, however may need endoscopy when more clinically stable. Heme: DVT prophylaxis per routine. Continue monitoring H&H. Awaiting for the result of the Doppler and then we will check with the vascular service if venus hernandez will need IVC filter since not able to anticoagulate him because of his bleeding. ID: Continue antibiotics and plan to de-escalation and clearly there is evidence of spesis and physician from [facility] called with the result of positive blood culture and he is already covered with bronad spectrum antibiotics. Renal; urine out put and renal function reviewed. There is evidence of acute kidney injury which is most likely ATN in nature and will give him more fluid hoping this is will improve his renal function, if no improvement then will consult nephrology for possible need of renal replacement therapy. Endorcine: blood glucose is monitored Lines: all lines checked and no evidence of infections Skin: skin care to prevent pressure ulcers per nursing routine care I spent 40 min of Critical Care time with this patient. It involved decision making of high complexity to assess, manipulate, and support vital organ system failure and/or to prevent further life threatening deterioration of the patient's condition. The time involved in the performance of separately reportable procedures was not counted toward critical care time.
[2018-11-21] MEDS ORDERED: 0.9 % Sodium Chloride 500 ML IVC ONE ×2 (08:11→16:22)
[2018-11-21] MEDS: Sodium Bicarbonate 150 MEQ in D5% in Water 1,000 ML IVC SCH ×2 (08:27→19:33)
[2018-11-21] MEDS ORDERED: 0.9 % Sodium Chloride 500 ML ONE ×2 (08:35→16:30)
[2018-11-21] MEDS: Chlorhexidine Rinse 15 ML MOUTHWASH MM SCH ×2 (08:38→21:12)
[2018-11-21 09:38] LABS: Bilirubin,Urine Small (Negative); Blood,Urine Negative (Negative); Clarity,Urine Turbid (Clear); Color,Urine Dark Yellow (Yellow); Glucose,Urine (UA) Normal (Normal); Ketones,Urine Trace mg/dL (Negative); Leukocyte Esterase,Urine Negative (Negative); Nitrite,Urine Negative (Negative); Protein,Urine Trace mg/dL (Neg-Trace); Specific Gravity,Urine 1.023 (1.010-1.025); Urobilinogen,Urine Normal (Normal)
[2018-11-21 09:41] LABS: Bacteria,Urine None Seen per hpf (None-Few); Hyaline Casts,Urine None Seen per lpf (None-Few); RBC,Urine 0-3 per hpf (0-3); Squamous Epithelial Cell,Urine Many per lpf (None-Few)
--- NOTE | 2018-11-21 10:29 | AcuteCareSurgery Progress Note ---
Date of Encounter: 11/21/18 Time of Encounter: 10:26 - Assessment and Plan (1) Anemia Current Visit: Yes Status: Acute 73M multiple comorbidities with rectus sheath hematoma; h/h stable, responded to transfusion; dehydrated related to acute blood loss anemia and sepsis (ABLA > sepsis). trend h/h; if stable x 48hrs, then no need to continue to trend if continues to drop consider bleeding scan vs angio for localization transfuse if needed sepsis and other ICU cares per primary/ICU will continue to follow Qualifiers: Anemia type: other cause Other causes of anemia: other cause, not classified Qualified Code(s): D64.89 - Other specified anemias Subjective Patient reports: other (intubated; on pressors; h/h responded appropriately to transfusions) Objective Vital Signs - Last 8 Hours Temp Pulse Resp BP Pulse Ox 11/21/18 10:00 79 19 93/50 11/21/18 09:45 19 115/72 97 11/21/18 09:00 98.3 F 66 19 110/48 96 11/21/18 08:00 98.3 F 81 20 114/55 96 11/21/18 07:36 19 64/35 95 11/21/18 07:00 82 19 110/46 94 11/21/18 06:00 90 21 104/64 96 11/21/18 05:00 94 24 89/56 96 11/21/18 04:00 93 21 106/47 95 11/21/18 03:28 22 110/56 96 11/21/18 03:00 84 20 82/69 94 Intake and Output 11/20/18 11/21/18 11/21/18 23:59 07:59 15:59 Intake Total 1399 / 4399 928 / 2499 1571 / 2499 Output Total 100 / 100 5 / 80 75 / 80 Balance 1299 / 4299 923 / 2419 1496 / 2419 Intake: IV Fluids 679 / 679 928 / 2499 1571 / 2499 0.9 % Sodium Chloride 250 ML @ 75 / 75 0 mls/hr .ROUTE .STK-MED ONE Rx #:[id number] PRECEDEX Premix 400 mcg In 100 200 / 218 18 / 218 ml @ 0.2 MCG/KG/HR 4.85 mls/hr IVC .[id number] [facility] Rx#:[id number] FentaNYL (PF) 1,000 MCG In 0.9 123 / 123 % Sodium Chloride 80 ML @ 50 MCG/HR 5 mls/hr IVC CONT [facility] Rx #:[id number] Levophed 4 MG In Dextrose 5% 254 / 254 250 ML @ 8 MCG/MIN 30.48 mls/hr IVC CONT [facility] Rx#:[id number] Levophed 8 MG In Dextrose 5% 508 / 508 500 ML @ 8 MCG/MIN 30.48 mls/hr IVC CONT [facility] Rx#:[id number] Diprivan 1,000 mg In 100 ml @ 5 40 / 40 MCG/KG/MIN 2.91 mls/hr IVC . Q24H [facility] Rx#:[id number] Sodium Bicarbonate 150 MEQ In 355 / 1150 795 / 1150 Dextrose 5% 1,000 ML @ 100 mls/ hr IVC .[id number] [facility] Rx#: [id number] Calcium Gluconate 1,000 MG In 0 110 / 110 .9 % Sodium Chloride 100 ML @ 220 mls/hr IVPB ONCE ONE Rx#: [id number] Zosyn 3.375 GM In 0.9 % Sodium 100 / 100 100 / 100 Chloride (Mini-Bag +) 100 ML @ 25 mls/hr IVPB Q8HR [facility] Rx#: [id number] Vancocin 1,500 MG In 0.9 % 250 / 250 250 / 250 Sodium Chloride 250 ML @ 166. 667 mls/hr IVPB Q24H [facility] Rx#: [id number] Oral 0 / 0 Blood Product 720 / 720 Rbcs Leuko Poor As-1 Unit 350 / 350 [id number] Rbcs Leuko Poor As-3 2nd Unit 370 / 370 [id number] Output: Catheter 100 / 100 5 / 30 25 / 30 Gastric Drainage 0 / 0 0 / 50 50 / 50 Other: # Urine Diapers 0 Weight 99.7 kg Blood Glucose* 74 131 Patient Weight 11/21/18 23:59 Weight 99.7 kg - General physical appearance other (intubated) - Respiratory other (vent breath sounds; equal chest wall expansion) - Cardiovascular Cardiovascular exam: Present: RRR - Abdomen Abdomen: Present: soft (non distended on my exam) - Labs 11/21/18 03:20 05/11/19 03:20 Diabetes panel 11/20/18 11/20/18 11/20/18 Range/Units 12:44 12:45 13:04 Sodium 145 (136-145) mEq/L Potassium 5.0 (3.5-5.1) mEq/L Chloride 113 H (98-107) mEq/L Carbon Dioxide 21 L (23-29) mEq/L BUN 46 H (8-23) mg/dL Creatinine 1.74 H (0.70-1.30) mg/dL Glucose 116 H (70-105) mg/dL Hemoglobin A1c 6.5 H ( - 5.6) % Calcium 7.1 L (8.6-10.3) mg/dL AST 413 H (13-39) Units/L ALT 651 H (7-52) Units/L Alkaline Phosphatase 53 (34-104) Units/L Albumin 2.2 L (3.5-5.7) g/dL 11/21/18 Range/Units 03:20 Sodium 141 (136-145) mEq/L Potassium 5.7 H (3.5-5.1) mEq/L Chloride 106 (98-107) mEq/L Carbon Dioxide 22 L (23-29) mEq/L BUN 63 H (8-23) mg/dL Creatinine 2.82 H (0.70-1.30) mg/dL Glucose 240 H (70-105) mg/dL Hemoglobin A1c ( - 5.6) % Calcium 6.6 L (8.6-10.3) mg/dL AST (13-39) Units/L ALT (7-52) Units/L Alkaline Phosphatase (34-104) Units/L Albumin (3.5-5.7) g/dL Calcium panel 11/20/18 11/20/18 11/21/18 Range/Units 12:44 12:45 03:20 Calcium 7.1 L 6.6 L (8.6-10.3) mg/dL Phosphorus 10.3 H (2.7-4.5) mg/dL Albumin 2.2 L (3.5-5.7) g/dL Pituitary panel 11/20/18 11/21/18 Range/Units 12:45 03:20 Sodium 145 141 (136-145) mEq/L Potassium 5.0 5.7 H (3.5-5.1) mEq/L Chloride 113 H 106 (98-107) mEq/L Carbon Dioxide 21 L 22 L (23-29) mEq/L BUN 46 H 63 H (8-23) mg/dL Creatinine 1.74 H 2.82 H (0.70-1.30) mg/dL Glucose 116 H 240 H (70-105) mg/dL Calcium 7.1 L 6.6 L (8.6-10.3) mg/dL Adrenal panel 11/20/18 11/20/18 11/21/18 Range/Units 12:44 12:45 03:20 Sodium 145 141 (136-145) mEq/L Potassium 5.0 5.7 H (3.5-5.1) mEq/L Chloride 113 H 106 (98-107) mEq/L Carbon Dioxide 21 L 22 L (23-29) mEq/L BUN 46 H 63 H (8-23) mg/dL Creatinine 1.74 H 2.82 H (0.70-1.30) mg/dL Glucose 116 H 240 H (70-105) mg/dL Calcium 7.1 L 6.6 L (8.6-10.3) mg/dL Total Bilirubin 0.9 (0.3-1.0) mg/dL AST 413 H (13-39) Units/L ALT 651 H (7-52) Units/L Alkaline Phosphatase 53 (34-104) Units/L Albumin 2.2 L (3.5-5.7) g/dL Consult Discharge Plan - Plan [facility]errals: [facility] [Primary Care Provider] -
[2018-11-21] MEDS: Hydrocortisone Sodium Succ 100 MG/2 ML VIAL IVP SCH ×2 (11:35→17:39)
[2018-11-21] MEDS ORDERED: Vancomycin 1 EACH in 0.9 % Sodium Chloride 250 ML IVPB PRN (14:15)
[2018-11-21 15:31] LABS: Hematocrit 26.2 % (37.5-50.1); Hemoglobin 8.8 g/dL (12.9-16.9)
[2018-11-21] MEDS ORDERED: Albumin 25% 25gram/100mL 25 GM/100 ML IV.SOLN IVPB ONE (16:16)
[2018-11-22] MEDS: Hydrocortisone Sodium Succ 100 MG/2 ML VIAL IVP SCH ×5 (00:04→23:04)
[2018-11-22] MEDS: Artificial Tears SOLN 15 ML BOTTLE BOTH EYES SCH ×7 (00:04→23:04)
[2018-11-22] MEDS: Dexmedetomidine HCl 400 MCG/100 ML MLS IVC SCH ×2 (00:04→08:33)
[2018-11-22] MEDS: Insulin LISPRO 300 UNITS/3 ML VIAL SQ SCH ×5 (00:05→23:44)
[2018-11-22] MEDS: Piperacillin/Tazobactam 3.375 GM in 0.9 % Sodium Chloride Mini Bag 100 ML IVPB SCH ×3 (00:05→19:19)
[2018-11-22] MEDS: Ipratropium/Albuterol Neb 3 ML IH SCH ×4 (03:28→22:01)
[2018-11-22 05:06] LABS: Basophils % 0.1 %; Hemoglobin 7.7 g/dL (12.9-16.9); Mean Corpuscular Volume 87.6 fL (83.0-100.0); Nucleated Red Blood Cells 0.2 /100 WBC (0); Red Cell Distribution Width 15.9 % (11.5-14.5)
[2018-11-22 05:08] LABS: Immature Granulocytes % 0.9 % (0-4); Lymphocytes # 0.8 K/mcL (0.6-4.6); Lymphocytes % 2.7 %; Mean Corpuscular Hemoglobin 30.7 pg (28.0-33.3); Mean Platelet Volume 11.7 fL (9.4-12.4); Monocytes # 0.2 K/mcL (0.0-1.3); Monocytes % 0.7 %; Neutrophils # 27.7 K/mcL (1.6-8.9); Red Blood Count 2.51 M/mcL (4.19-5.50); Segmented Neutrophils % 95.6 %
[2018-11-22] MEDS: Pantoprazole 40 MG VIAL IVP SCH ×2 (05:24→18:30)
[2018-11-22 05:28] LABS: Platelet Count 72 K/mcL (140-400)
[2018-11-22 05:29] LABS: Platelet Estimate Decreased (Normal)
[2018-11-22 05:39] LABS: Albumin 2.2 g/dL (3.5-5.7); Albumin/Globulin Ratio 1.8 (1.1-2.2); Bilirubin,Direct 0.6 mg/dL (0.0-0.2); Bilirubin,Indirect 0.5 mg/dL (0.0-1.2); Bilirubin,Total 1.1 mg/dL (0.3-1.0); Calcium 5.4 mg/dL (8.6-10.3); Globulin 1.2 g/dL (2.4-3.5); Phosphorous 7.3 mg/dL (2.7-4.5); Potassium 4.4 mEq/L (3.5-5.1); Total Protein 3.4 g/dL (6.4-8.9)
[2018-11-22 06:02] LABS: ABG Base Excess 1 mEq/L (-2 to 3); ABG HCO3 25 mEq/L (21-27); ABG Oxygen Saturation 94 % (95-98); ABG PCO2 35 mmHg (35-45); ABG PH 7.46 pH Units (7.32-7.45); ABG PO2 68 mmHg (85-104); ABG TCO2 26 mEq/L (20-26); Blood Gas Modality AF; Blood Gas PEEP 5 cm H2O; Blood Gas Respiration Rate 12; Blood Gas VT 550 cc
[2018-11-22] MEDS: Sodium Bicarbonate 150 MEQ in D5% in Water 1,000 ML IVC SCH ×2 (06:50→17:53)
[2018-11-22] MEDS: Chlorhexidine Rinse 15 ML MOUTHWASH MM SCH ×2 (08:32→20:06)
--- NOTE | 2018-11-22 08:55 | Pulmonology Progress Note ---
<JerocharlyKris balderas M - Last Filed: 11/22/18 10:30> Date of Encounter: 11/22/18 Objective PUL Vital signs: Last Vital Signs Temp 97.8 F 11/22/18 09:24 Pulse 87 11/22/18 09:24 Resp 22 11/22/18 09:29 BP 86/50 11/22/18 09:29 Pulse Ox 100 11/22/18 09:29 Ventilator Settings Ventilator Settings: Ventilator Settings, Last 8 Hours Ventilator Tidal Volume 500 Setting Ventilator Tidal Volume 500 Setting Ventilator Tidal Volume 500 Setting Ventilator Tidal Volume 550 Setting Ventilator Tidal Volume 550 Setting Ventilator Tidal Volume 550 Setting Ventilator Tidal Volume 550 Setting Ventilator Tidal Volume 550 Setting Ventilator Respiratory Rate 12 Setting Ventilator Respiratory Rate 12 Setting Ventilator Respiratory Rate 12 Setting Ventilator Respiratory Rate 12 Setting Ventilator Respiratory Rate 12 Setting Ventilator Respiratory Rate 12 Setting Ventilator Respiratory Rate 12 Setting Actual Respiratory Rate 18 Actual Respiratory Rate 18 Actual Respiratory Rate 17 Positive End Expiratory 5 Pressure Positive End Expiratory 5 Pressure Positive End Expiratory 5 Pressure Positive End Expiratory 5 Pressure Positive End Expiratory 5 Pressure Positive End Expiratory 5 Pressure Positive End Expiratory 5 Pressure Peak Inspiratory Airway 13 Pressure Peak Inspiratory Airway 6.5 Pressure Peak Inspiratory Airway 18 Pressure Peak Inspiratory Airway 17 Pressure Peak Inspiratory Airway 11 Pressure Peak Inspiratory Airway 18 Pressure Results - Laboratory Findings CBC and BMP: 11/22/18 04:45 11/22/18 04:45 ABG ABG pH 7.46 pH Units (7.32-7.45) H 11/22/18 05:58 ABG pCO2 35 mmHg (35-45) 11/22/18 05:58 ABG pO2 68 mmHg (85-104) L 11/22/18 05:58 ABG O2 Saturation 94 % (95-98) L 11/22/18 05:58 PT/INR, D-dimer PT 21.7 Seconds (9.4-12.1) H 11/21/18 03:20 Abnormal lab findings: Abnormal lab results WBC 29.0 K/mcL (4.3-11.1) H 11/22/18 04:45 RBC 2.51 M/mcL (4.19-5.50) L 11/22/18 04:45 Hgb 7.7 g/dL (12.9-16.9) L 11/22/18 04:45 Hct 22.0 % (37.5-50.1) L 11/22/18 04:45 MCHC 31.1 g/dL (31.6-35.5) L 11/20/18 12:43 RDW 15.9 % (11.5-14.5) H 11/22/18 04:45 Plt Count 72 K/mcL (140-400) L 11/22/18 04:45 27.7 K/mcL (1.6-8.9) H 11/22/18 04:45 Nucleated RBCs/100 WBC 0.2 /100 WBC (0) H 11/22/18 04:45 Decreased (Normal) L 11/22/18 04:45 1+ (Not Present) A 11/20/18 12:43 PT 21.7 Seconds (9.4-12.1) H 11/21/18 03:20 ABG pH 7.46 pH Units (7.32-7.45) H 11/22/18 05:58 ABG pO2 68 mmHg (85-104) L 11/22/18 05:58 ABG HCO3 18 mEq/L (21-27) L 11/21/18 05:05 ABG Total CO2 19 mEq/L (20-26) L 11/21/18 05:05 ABG O2 Saturation 94 % (95-98) L 11/22/18 05:58 ABG Base Excess -8 mEq/L (-2 to 3) L 11/21/18 05:05 Potassium 5.7 mEq/L (3.5-5.1) H 11/21/18 03:20 Chloride 113 mEq/L (98-107) H 11/20/18 12:45 Carbon Dioxide 22 mEq/L (23-29) L 11/21/18 03:20 BUN 74 mg/dL (8-23) H 11/22/18 04:45 4.16 mg/dL (0.70-1.30) H 11/22/18 04:45 Est GFR ( Amer) 17 (> 60) L 11/22/18 04:45 Est GFR (Non-Af Amer) 14 (> 60) L 11/22/18 04:45 Glucose 218 mg/dL (70-105) H 11/22/18 04:45 POC Glucose 232 mg/dL (70-99) H 11/21/18 06:14 6.5 % (-5.6) H 11/20/18 13:04 311 (280-300) H 11/22/18 04:45 Lactic Acid 3.3 mmol/L (0.5-2.2) H 11/22/18 04:45 Calcium 5.4 mg/dL (8.6-10.3) L* 11/22/18 04:45 Phosphorus 7.3 mg/dL (2.7-4.5) H 11/22/18 04:45 1.1 mg/dL (0.3-1.0) H 11/22/18 04:45 0.6 mg/dL (0.0-0.2) H 11/22/18 04:45 AST 2179 Units/L (13-39) H 11/22/18 04:45 ALT 3370 Units/L (7-52) H 11/22/18 04:45 0.21 ng/mL (< 0.04) H* 11/21/18 13:15 3.4 g/dL (6.4-8.9) L 11/22/18 04:45 2.2 g/dL (3.5-5.7) L 11/22/18 04:45 1.2 g/dL (2.4-3.5) L 11/22/18 04:45 Turbid (Clear) A 11/21/18 08:50 Trace mg/dL (Negative) H 11/21/18 08:50 Small (Negative) H 11/21/18 08:50 5-15 per hpf (0-3) H 11/21/18 08:50 Ur Squamous Epith Cells Many per lpf (None-Few) H 11/21/18 08:50 Ur Culture Indicated? YES (NO) A 11/21/18 08:50 Vancomycin Trough 23 mcg/mL (5-10) H 11/22/18 04:45 Crossmatch See Detail 11/20/18 13:04 - Microbiology Findings Microbiology Findings: Microbiology, Last 48 Hours 11/21/18 08:50 Urine Culture - Preliminary Urine,Clean Catch Culture is incubating. 11/20/18 14:37 Blood Culture - Preliminary Peripheral Venipuncture Culture is incubating and being continuously monitored for growth. Final report to follow. 11/20/18 14:26 Blood Culture - Preliminary Peripheral Venipuncture Culture is incubating and being continuously monitored for growth. Final report to follow. - Clinical Findings Intake & Output: Intake & Output 11/21/18 11/22/18 11/22/18 23:59 07:59 15:59 Intake Total 2349 / 5714 1350 / 1800 450 / 1800 Output Total 20 / 110 220 / 220 Balance 2329 / 5604 1130 / 1580 450 / 1580 Weight 106.1 kg Consult Discharge Plan - Plan [facility]errals: [facility] [Primary Care Provider] - - Attending Attestation I examined this patient and my medical decision-making was reviewed with the Resident Physician. I agree with the documented findings, disposition and treatment plan as described except to the extent set forth below. Patient seen and examined. Labs, radiology, chart personally reviewed. Agree with resident's history and physical, assessment, plan with following comments: CLIMBING GUIDE: Patient follows simple commands, continue sedation due to hemodynamic instability as well as management synchrony Pulmonary: Acceptable oxygenation and ventilation and patient is not stable for spontaneous breathing trial. Bronchoscopy was discussed with the family since no respiratory culture was able to obtain and for diagnostic BAL this procedure was done and also airway inspection. Change FiO2 and also reviewed ABG and a ppropriate and change was made. Cardiovascular: Patient remained in shock and septic in nature. Continue broad- spectrum antibiotics and transfused packed RBC which hopefully would help of blood pressure. GI: Nutrition per dietary and GI prophylaxis per routine. Suspect shock liver and supportive treatment at this time. Heme: DVT prophylaxis per routine ID: Continue antibiotics and plan to de-escalation Renal; urine out put and renal function reviewed and nephrology consultation. Discussed with urology to evaluate for scrotum hematoma which is unclear to me the cause behind it and it has any retirement consequences. Endorcine: blood glucose is monitored Lines: all lines checked and no evidence of infections Skin: skin care to prevent pressure ulcers per nursing routine care I spent 40 min of Critical Care time with this patient. It involved decision making of high complexity to assess, manipulate, and support vital organ system failure and/or to prevent further life threatening deterioration of the patient's condition. The time involved in the performance of separately reportable procedures was not counted toward critical care time. <Krystal Berkowitz - Last Filed: 11/22/18 13:55> Date of Encounter: 11/22/18 Time of Encounter: 13:12 Assessment and Plan (1) Sepsis Current Visit: Yes Status: Acute -Likely 2/2 pneumonia -2L fluid bolus 11/20/18 at [facility] prior to transfer -Tachypneic, tachycardic, 95F rectal temp but BP stable on arrival -WBC 43.2, lactic 7.7, trop 0.06 on arrival -Received zosyn 11/20/18 at the [facility] -CT chest abd/plv 11/20/18: hazy opacities at lung bases atelectasis or pneumonia, underlying emphysema. Cholelithiasis. Very large left sided rectus sheath hematoma -WBC 43.6, lactic down from 9.8 to 7.3 after bicarb infusion started 11/20/18 -Bicarb stopped 11/22/18 -BC x2, UA and culture NGTD - Sputum culture with BAL on 11/22/18, results pending -BP very labile yesterday with MAPs dropping into 40's, requiring pressor support to maintain MAP, currently on precedex, fentanyl, propofol, and levophed -Continue empiric vanc (day 3) and pip/tazo (day 3) which will deescalate as cultures return -Continue stress dose steroids -Patient's LFTs are also significantly elevated in the 1999/2999s today, suspect this is secondary to shock liver, we will start TPN feeds at this point in time, per dietitian recommendations TTE performed 11/21/18: did not show any structure on examination, spoke with cardiology, will order ELSA for patient Qualifiers: Sepsis type: sepsis due to unspecified organism Qualified Code(s): A41.9 - Sepsis, unspecified organism (2) GI bleed Current Visit: Yes Status: Suspected -Melena occasionally over the last 2 weeks -Hgb 11/18/18 13.4 at [facility] -Received lovenox and apixaban 2/2 DVT at the [facility] -Hgb on transfer here 11/20/18 7.3, BUN 46 -Got 2 units PRBCs 11/20/18 -Today Hgb of 7.7, will transfuse 1 unit today -Acute care surg following without plans for intervention till more stable Qualifiers: GI bleed type/associated pathology: melena Qualified Code(s): K92.1 - Melena (3) Acute respiratory failure with hypoxia Current Visit: Yes Status: Acute -Awake, alert and talking on arrival -Resp and mental status declined and became hypoxic and apneic requiring intubation -ABG at time of intubation pH 7.16, paCO2 44, paO2 105, hco3 16, 96% on 13L O2 via oxymask -ABG 11/21/18: pH 7.3, paCO2 36, paO2 78, HCO3 18, 94% on 40% FiO2 -ABG 11/22/18: pH 7.46 PaCO2 35, PaO2 68, HCO3 25 93% on 40 % FiO2 -Continue mechanical ventilation today (4) COPD (chronic obstructive pulmonary disease) Current Visit: Yes Status: Acute -Hx of COPD -Progressive dyspnea and yellow productive cough over last 2 weeks -Scheduled bronchodilators Qualifiers: COPD type: emphysema Emphysema type: unspecified Qualified Code(s): J43.9 - Emphysema, unspecified (5) Bruise of scrotum Current Visit: Yes Status: Acute -appears to be dependent scrotal edema with ecchymosis given rectus sheath bleed - will consult to urology for definitive treatment Qualifiers: Encounter type: initial encounter Qualified Code(s): S30.22XA - Contusion of scrotum and testes, initial encounter (6) Elevated troponin Current Visit: Yes Status: Acute -Likely 2/2 demand ischemia from hypotension -Trop 0.07 at [facility] today -Repeat here 0.06 -Minimal increase on repeats 0.11-0.16 --> 0.21 on 11/21/18 -Will trend (7) ANY (acute kidney injury) Current Visit: Yes Status: Acute -Cr at [facility] 11/19/18 0.79 -Cr on transfer from [facility] 11/20/18 1.74, BUN 46 -On vanc and zosyn (day 2) -Renal function worsening. Cr 2.82, BUN 63 11/21/18, Today SCreat 4.34, will consult to nephrology -Will give some IVF today and transition from vanc and zosyn as early as can based on culture findings -Will continue trend renal function and avoid nephrotoxins as can (8) High anion gap metabolic acidosis Current Visit: Yes Status: Acute -AG 11 on arrival -AG 13, down from 15 yesterday, likely 2/2 lactic acidosis (9) Lactic acidemia Current Visit: Yes Status: Acute LA continues to decrease, 3.3 today LA AG is 13 today Will continue to monitor (10) Right leg DVT Current Visit: Yes Status: Acute Patient with known R sided LE DVT Consult to vascular surgery Recommendation to give Vit K [address] Jimenez, will place right IVC filter FFP 2 units following IVC placement Qualifiers: Affected thrombotic vein of extremity: unspecified vein of extremity Chronicity: unspecified Qualified Code(s): I82.401 - Acute embolism and thrombosis of unspecified deep veins of right lower extremity (11) Anemia Current Visit: Yes Status: Acute -Hgb 13.4 11/18/18 at the [facility] -Hgb on arrival here 7.3 -Occult stool pos at [facility] -GI bleed vs large rectus sheath hematoma on CT -Transfused 3 units PRBCs total, 2 units FFP -Trend H&H and transfuse as indicated Qualifiers: Anemia type: other cause Other causes of anemia: other cause, not classified Qualified Code(s): D64.89 - Other specified anemias (12) DVT prophylaxis Current Visit: Yes Status: Acute SCDs IVC filter placed to the right IVC today per vascular Subjective Principal diagnosis: Sepsis Interval history: Patient is intubated, unable to provide further history. He is in no acute distress this morning. Objective PUL Vital signs: Last Vital Signs Temp 98.1 F 11/22/18 04:00 Pulse 83 11/22/18 08:00 Resp 22 11/22/18 08:00 BP 81/46 11/22/18 08:00 Pulse Ox 95 11/22/18 08:00 General appearance: no acute distress Eyes: nonicteric ENT: oropharynx dry Mallampati (class): 3 Neck: supple Effort: normal Auscultation: bilateral: diminished breath sounds Cardiovascular: regular rate and rhythm Gastrointestinal: normoactive bowel sounds, non-tender, other (Large distended abdomen) Integumentary: normal Extremities: no cyanosis, pulses normal Musculoskeletal: no deformities unable to assess due to mental status Ventilator Settings Ventilator Settings: Ventilator Settings, Last 8 Hours Ventilator Tidal Volume 500 Setting Ventilator Tidal Volume 500 Setting Ventilator Tidal Volume 550 Setting Ventilator Tidal Volume 550 Setting Ventilator Tidal Volume 550 Setting Ventilator Tidal Volume 550 Setting Ventilator Tidal Volume 550 Setting Ventilator Tidal Volume 550 Setting Ventilator Tidal Volume 550 Setting Ventilator Respiratory Rate 12 Setting Ventilator Respiratory Rate 12 Setting Ventilator Respiratory Rate 12 Setting Ventilator Respiratory Rate 12 Setting Ventilator Respiratory Rate 12 Setting Ventilator Respiratory Rate 12 Setting Ventilator Respiratory Rate 12 Setting Ventilator Respiratory Rate 12 Setting Actual Respiratory Rate 18 Actual Respiratory Rate 17 Actual Respiratory Rate 18 Positive End Expiratory 5 Pressure Positive End Expiratory 5 Pressure Positive End Expiratory 5 Pressure Positive End Expiratory 5 Pressure Positive End Expiratory 5 Pressure Positive End Expiratory 5 Pressure Positive End Expiratory 5 Pressure Positive End Expiratory 5 Pressure Peak Inspiratory Airway 6.5 Pressure Peak Inspiratory Airway 18 Pressure Peak Inspiratory Airway 17 Pressure Peak Inspiratory Airway 11 Pressure Peak Inspiratory Airway 18 Pressure Peak Inspiratory Airway 18 Pressure Peak Inspiratory Airway 19 Pressure Results - Laboratory Findings CBC and BMP: 11/22/18 10:20 11/22/18 10:20 ABG ABG pH 7.46 pH Units (7.32-7.45) H 11/22/18 05:58 ABG pCO2 35 mmHg (35-45) 11/22/18 05:58 ABG pO2 68 mmHg (85-104) L 11/22/18 05:58 ABG O2 Saturation 94 % (95-98) L 11/22/18 05:58 PT/INR, D-dimer PT 21.7 Seconds (9.4-12.1) H 11/21/18 03:20 Abnormal lab findings: Abnormal lab results WBC 29.0 K/mcL (4.3-11.1) H 11/22/18 04:45 RBC 2.51 M/mcL (4.19-5.50) L 11/22/18 04:45 Hgb 7.7 g/dL (12.9-16.9) L 11/22/18 04:45 Hct 22.0 % (37.5-50.1) L 11/22/18 04:45 MCHC 31.1 g/dL (31.6-35.5) L 11/20/18 12:43 RDW 15.9 % (11.5-14.5) H 11/22/18 04:45 Plt Count 72 K/mcL (140-400) L 11/22/18 04:45 27.7 K/mcL (1.6-8.9) H 11/22/18 04:45 Nucleated RBCs/100 WBC 0.2 /100 WBC (0) H 11/22/18 04:45 Decreased (Normal) L 11/22/18 04:45 1+ (Not Present) A 11/20/18 12:43 PT 21.7 Seconds (9.4-12.1) H 11/21/18 03:20 ABG pH 7.46 pH Units (7.32-7.45) H 11/22/18 05:58 ABG pO2 68 mmHg (85-104) L 11/22/18 05:58 ABG HCO3 18 mEq/L (21-27) L 11/21/18 05:05 ABG Total CO2 19 mEq/L (20-26) L 11/21/18 05:05 ABG O2 Saturation 94 % (95-98) L 11/22/18 05:58 ABG Base Excess -8 mEq/L (-2 to 3) L 11/21/18 05:05 Potassium 5.7 mEq/L (3.5-5.1) H 11/21/18 03:20 Chloride 113 mEq/L (98-107) H 11/20/18 12:45 Carbon Dioxide 22 mEq/L (23-29) L 11/21/18 03:20 BUN 74 mg/dL (8-23) H 11/22/18 04:45 4.16 mg/dL (0.70-1.30) H 11/22/18 04:45 Est GFR ( Amer) 17 (> 60) L 11/22/18 04:45 Est GFR (Non-Af Amer) 14 (> 60) L 11/22/18 04:45 Glucose 218 mg/dL (70-105) H 11/22/18 04:45 POC Glucose 232 mg/dL (70-99) H 11/21/18 06:14 6.5 % (-5.6) H 11/20/18 13:04 311 (280-300) H 11/22/18 04:45 Lactic Acid 3.3 mmol/L (0.5-2.2) H 11/22/18 04:45 Calcium 5.4 mg/dL (8.6-10.3) L* 11/22/18 04:45 Phosphorus 7.3 mg/dL (2.7-4.5) H 11/22/18 04:45 1.1 mg/dL (0.3-1.0) H 11/22/18 04:45 0.6 mg/dL (0.0-0.2) H 11/22/18 04:45 AST 2179 Units/L (13-39) H 11/22/18 04:45 ALT 3370 Units/L (7-52) H 11/22/18 04:45 0.21 ng/mL (< 0.04) H* 11/21/18 13:15 3.4 g/dL (6.4-8.9) L 11/22/18 04:45 2.2 g/dL (3.5-5.7) L 11/22/18 04:45 1.2 g/dL (2.4-3.5) L 11/22/18 04:45 Turbid (Clear) A 11/21/18 08:50 Trace mg/dL (Negative) H 11/21/18 08:50 Small (Negative) H 11/21/18 08:50 5-15 per hpf (0-3) H 11/21/18 08:50 Ur Squamous Epith Cells Many per lpf (None-Few) H 11/21/18 08:50 Ur Culture Indicated? YES (NO) A 11/21/18 08:50 Vancomycin Trough 23 mcg/mL (5-10) H 11/22/18 04:45 Crossmatch See Detail 11/20/18 13:04 - Microbiology Findings Microbiology Findings: Microbiology, Last 48 Hours 11/21/18 08:50 Urine Culture - Preliminary Urine,Clean Catch Culture is incubating. 11/20/18 14:37 Blood Culture - Preliminary Peripheral Venipuncture Culture is incubating and being continuously monitored for growth. Final report to follow. 11/20/18 14:26 Blood Culture - Preliminary Peripheral Venipuncture Culture is incubating and being continuously monitored for growth. Final report to follow. - Diagnostic Findings Chest x-ray: report reviewed, image reviewed - Clinical Findings Intake & Output: Intake & Output 11/21/18 11/22/18 11/22/18 23:59 07:59 15:59 Intake Total 2349 / 5714 1350 / 1450 100 / 1450 Output Total 20 / 110 220 / 220 Balance 2329 / 5604 1130 / 1230 100 / 1230 Weight 106.1 kg
[2018-11-22] MEDS ORDERED: 0.9 % Sodium Chloride 500 ML ONE ×3 (09:00→15:54)
[2018-11-22] MEDS ORDERED: Potassium Phosphate 44 MEQ in 0.9 % Sodium Chloride 250 ML IVPB PRN (09:06)
[2018-11-22] MEDS ORDERED: *HR* Phytonadione 10 MG/ML AMPUL SQ ONE ×2 (09:52→10:34)
[2018-11-22] MEDS ORDERED: Heparin 1,000 UNITS/500 mL 500 ML ONE (10:39)
[2018-11-22] MEDS ORDERED: ISOVUE-370 200 ML INFUS..BTL ONE (10:39)
[2018-11-22 10:44] LABS: Hematocrit 24.6 % (37.5-50.1); Hemoglobin 8.5 g/dL (12.9-16.9)
--- NOTE | 2018-11-22 10:45 | Vascular/Endovasc Consult Note ---
Date of Encounter: 11/22/18 Time of Encounter: 10:30 Assessment and Plan (1) Right leg DVT Current Visit: Yes Status: Acute The patient has a right lower extremity deep vein thrombosis. He has a large left rectus sheath hematoma and recent gastrointestinal bleeding. He is currently intubated. He is not a candidate for anticoagulation. An inferior vena cava filter has been recommended. The risks, benefits and alternatives were discussed with the patient's family and all questions were answered. This understanding and wished to proceed. Qualifiers: Affected thrombotic vein of extremity: unspecified vein of extremity Chronicity: unspecified Qualified Code(s): I82.401 - Acute embolism and thrombosis of unspecified deep veins of right lower extremity (2) GI bleed Current Visit: Yes Status: Suspected Qualifiers: GI bleed type/associated pathology: melena Qualified Code(s): K92.1 - Melena (3) COPD (chronic obstructive pulmonary disease) Current Visit: Yes Status: Acute The patient is currently being treated for pneumonia Qualifiers: COPD type: emphysema Emphysema type: unspecified Qualified Code(s): J43.9 - Emphysema, unspecified - History of Present Illness Consult date: 11/22/18 Requesting physician: Krystal Berkowitz Consult reason: Bleeding risk Chief complaint: Deep vein thrombosis History of present illness: Mr. Gomez is a 73 year old male with a history of hypertension, hyperlipidemia and COPD. The patient was admitted to [facility] with progressive pneumonia, deep vein thrombosis and gastrointestinal bleeding with anemia. He was found have a rectus sheath hematoma. The patient was intubated and due to his anemia he was not a candidate for further anticoagulation. Vascular surgery was counseled for further evaluation and consideration for inferior vena cava filter placement. The examination the patient is intubated and to provide additional details regarding his health. Past Med Surg Social Fam HX - Past Medical History Medical history: COPD, hyperlipidemia, hypertension - Social History Smoking Status: Never smoker Smokeless Tobacco Status: No Alcohol use: none - Additional Family History Additional family history: The patient is unable to provide a family history due to sedation and intubation. Medications and Allergies Acetaminophen [Tylenol] 650 mg PO Q8H PRN 11/20/18 [History] Amlodipine Besylate 2.5 mg PO DAILY 11/20/18 [History] Apixaban [Eliquis] 2.5 mg PO BID 11/20/18 [History] Atorvastatin Calcium [Lipitor] 20 mg PO DAILY 11/20/18 [History] Bisacodyl [Woman's Laxative] 10 mg PO DAILY PRN 11/20/18 [History] Budesonide/Formoterol 160/4.5 [Symbicort 160/4.5] 2 puff IH BIDR 11/20/18 [History] Calcium Carbonate 650 mg PO DAILY 11/20/18 [History] Carboxymethylcellulose Sodium [Refresh Tears] 1 drop BOTH EYES TID PRN 11/20/18 [History] Chlorhexidine Rinse 15 ml PO BID 11/20/18 [History] Clopidogrel [Plavix] 75 mg PO DAILY 11/20/18 [History] Docusate [Colace] 200 mg PO BID 11/20/18 [History] Escitalopram [Lexapro] 10 mg PO DAILY 11/20/18 [History] Guaifenesin 400 mg PO TID 11/20/18 [History] Insulin ASPART [NovoLOG] 0 unit SQ TIDWM 11/20/18 [History] Ipratropium/Albuterol Neb [Duoneb] 3 ml IH Q4HR PRN 11/20/18 [History] Lisinopril [Zestril] 20 mg PO DAILY 11/20/18 [History] Metoprolol Succinate [Toprol Xl] 75 mg PO DAILY 11/20/18 [History] Mineral Oil 133 ml RC DAILY PRN 11/20/18 [History] Omeprazole [PriLOSEC] 20 mg PO DAILY 11/20/18 [History] Simethicone [Gas-X] 160 mg PO BID PRN 11/20/18 [History] Tamsulosin HCl [Flomax] 0.4 mg PO DAILY 11/20/18 [History] Zolpidem [Ambien] 5 mg PO HS 11/20/18 [History] hydrOXYzine HCl [Hydroxyzine HCl] 25 mg PO TID 11/20/18 [History] Allergy/AdvReac Type Severity Reaction Status Date / Time tolmetin Allergy Rash Verified 11/05/18 14:39 All Systems Review: The remainder of the systems were reviewed and are negative Exam Vital Signs, Last 4 Hours Temp Pulse Resp BP Pulse Ox 11/22/18 09:29 22 86/50 100 11/22/18 09:24 97.8 F 87 22 94/56 100 11/22/18 09:09 98.5 F 80 22 110/52 11/22/18 08:00 83 22 81/46 95 11/22/18 07:00 81 19 111/56 94 General: Present: Other (Sedated and intubated) HEENT: Present: Normocephaly, Trachea midline, Pupils equal Neck: Absent: JVD, Lymphadenopathy, Left Carotid bruit, Right Carotid bruit Cardiac: Present: Reg Rate and Rhythm, Normal S1 and S2 Lungs: Present: Decreased breath sounds (Breath sounds decreased at the bilateral bases) Neuro: Present: Other (Patient unable to cooperate for a neurologic exam) Abdomen: Absent: Soft (Firmness tenderness and ecchymosis noted on the right lateral abdomen and flank) Vascular: Present: Normal capillary refill, Edema (Trace bilateral lower extremity edema). Absent: Cyanosis Consult Discharge Plan - Plan Referrals: [facility] [Primary Care Provider] -
[2018-11-22 10:49] LABS: VBG Ionized Calcium 0.69 mmol/L (1.15-1.35)
[2018-11-22 10:52] LABS: INR 1.5; Prothrombin Time 16.7 Seconds (9.4-12.1)
[2018-11-22 10:54] LABS: Activated Partial Thrombo Time 35.2 Seconds (26.0-36.0)
[2018-11-22 10:59] LABS: Basophils % 0.1 %; Immature Granulocytes % 0.7 % (0-4); Lymphocytes # 0.7 K/mcL (0.6-4.6); Lymphocytes % 2.5 %; Mean Corpuscular HGB Conc 34.7 g/dL (31.6-35.5); Mean Corpuscular Hemoglobin 29.8 pg (28.0-33.3); Mean Platelet Volume 11.5 fL (9.4-12.4); Monocytes # 0.2 K/mcL (0.0-1.3); Monocytes % 0.7 %; Neutrophils # 26.7 K/mcL (1.6-8.9); Nucleated Red Blood Cells 0.2 /100 WBC (0); Red Blood Count 2.85 M/mcL (4.19-5.50); Red Cell Distribution Width 15.5 % (11.5-14.5)
[2018-11-22 11:01] LABS: Platelet Count 67 K/mcL (140-400)
[2018-11-22 11:03] LABS: Phosphorous 7.2 mg/dL (2.7-4.5)
[2018-11-22 11:07] LABS: Calcium 5.7 mg/dL (8.6-10.3); Potassium 4.5 mEq/L (3.5-5.1)
--- NOTE | 2018-11-22 11:16 | Urology - Consult Note ---
Date of Encounter: 11/22/18 Time of Encounter: 11:13 - Assessment and Plan (1) Bruise of scrotum Current Visit: Yes Status: Acute Assessment and plan: Exam reveals developing mild to moderate scrotal edema with ecchymosis from tr acking of rectus sheath hematoma into the dartos layer of the scrotum. There is no evidence of vascular compromise. There is no evidence of infection. Plan: Though bruising may appear worse over the next day or 2, this should be a self- limited problem requiring no urologic interventions. We will follow along with you. Qualifiers: Encounter type: initial encounter Qualified Code(s): S30.22XA - Contusion of scrotum and testes, initial encounter Urology CN:HPI Consult date: 11/22/18 Requesting physician: Kris Owusu History of present illness: 73-year-old gentleman was placed on anticoagulation for DVT. The patient developed hypotension and rapidly developing anemia with drop in hemoglobin to 7. He is transferred to [place] further evaluation and management. These found have a spontaneous bleed of the rectus sheath with a large rectal sheath hematoma as source. Patient stabilizing in ICU when scrotal exam shows change with some ecchymosis noted. Patient is intubated and ventilated and is unable to give history. Past Med Surg Social Fam HX - Past Medical History Medical history: COPD, hyperlipidemia, hypertension - Social History Smoking Status: Never smoker Smokeless Tobacco Status: No Alcohol use: none Medications and Allergies Acetaminophen [Tylenol] 650 mg PO Q8H PRN 11/20/18 [History] Amlodipine Besylate 2.5 mg PO DAILY 11/20/18 [History] Apixaban [Eliquis] 2.5 mg PO BID 11/20/18 [History] Atorvastatin Calcium [Lipitor] 20 mg PO DAILY 11/20/18 [History] Bisacodyl [Woman's Laxative] 10 mg PO DAILY PRN 11/20/18 [History] Budesonide/Formoterol 160/4.5 [Symbicort 160/4.5] 2 puff IH BIDR 11/20/18 [History] Calcium Carbonate 650 mg PO DAILY 11/20/18 [History] Carboxymethylcellulose Sodium [Refresh Tears] 1 drop BOTH EYES TID PRN 11/20/18 [History] Chlorhexidine Rinse 15 ml PO BID 11/20/18 [History] Clopidogrel [Plavix] 75 mg PO DAILY 11/20/18 [History] Docusate [Colace] 200 mg PO BID 11/20/18 [History] Escitalopram [Lexapro] 10 mg PO DAILY 11/20/18 [History] Guaifenesin 400 mg PO TID 11/20/18 [History] Insulin ASPART [NovoLOG] 0 unit SQ TIDWM 11/20/18 [History] Ipratropium/Albuterol Neb [Duoneb] 3 ml IH Q4HR PRN 11/20/18 [History] Lisinopril [Zestril] 20 mg PO DAILY 11/20/18 [History] Metoprolol Succinate [Toprol Xl] 75 mg PO DAILY 11/20/18 [History] Mineral Oil 133 ml RC DAILY PRN 11/20/18 [History] Omeprazole [PriLOSEC] 20 mg PO DAILY 11/20/18 [History] Simethicone [Gas-X] 160 mg PO BID PRN 11/20/18 [History] Tamsulosin HCl [Flomax] 0.4 mg PO DAILY 11/20/18 [History] Zolpidem [Ambien] 5 mg PO HS 11/20/18 [History] hydrOXYzine HCl [Hydroxyzine HCl] 25 mg PO TID 11/20/18 [History] Allergy/AdvReac Type Severity Reaction Status Date / Time tolmetin Allergy Rash Verified 11/05/18 14:39 Review of Systems ROS unobtainable: due to endotracheal tube Exam Initial Vital Signs Pulse Resp BP Pulse Ox 101 27 130/102 92 11/20/18 13:11 11/20/18 13:11 11/20/18 13:11 11/20/18 13:11 - General physical appearance Present: other (Intubated sedated) - Eyes Present: other (Intubated sedated) - ENT Present: normal nares, normal mucosa - Neck Present: trachea midline - Respiratory Present: other (Intubated sedated) - Abdomen Abdomen: Present: soft, distended - Genitourinary Testicles: Present: other (Tracking of blood from rectus sheath hematoma into the subcutaneous tissues of the scrotum. There is mild to moderate edema with some ecchymosis. No evidence of vascular compromise.) - Integumentary Present: no rash, no growths - Neurologic Present: other (Intubated and sedated) - Musculoskeletal Present: other (Intubated and sedated) Urology Results - Labs 11/22/18 10:20 11/22/18 10:20 Abnormal lab results WBC 27.8 K/mcL (4.3-11.1) H 11/22/18 10:20 RBC 2.85 M/mcL (4.19-5.50) L 11/22/18 10:20 Hgb 8.5 g/dL (12.9-16.9) L 11/22/18 10:20 Hct 24.6 % (37.5-50.1) L 11/22/18 10:20 MCHC 31.1 g/dL (31.6-35.5) L 11/20/18 12:43 RDW 15.5 % (11.5-14.5) H 11/22/18 10:20 Plt Count 67 K/mcL (140-400) L 11/22/18 10:20 27.7 K/mcL (1.6-8.9) H 11/22/18 04:45 Nucleated RBCs/100 WBC 0.2 /100 WBC (0) H 11/22/18 10:20 Decreased (Normal) L 11/22/18 04:45 1+ (Not Present) A 11/20/18 12:43 PT 16.7 Seconds (9.4-12.1) H 11/22/18 10:20 ABG pH 7.46 pH Units (7.32-7.45) H 11/22/18 05:58 ABG pO2 68 mmHg (85-104) L 11/22/18 05:58 ABG HCO3 18 mEq/L (21-27) L 11/21/18 05:05 ABG Total CO2 19 mEq/L (20-26) L 11/21/18 05:05 ABG O2 Saturation 94 % (95-98) L 11/22/18 05:58 ABG Base Excess -8 mEq/L (-2 to 3) L 11/21/18 05:05 Potassium 5.7 mEq/L (3.5-5.1) H 11/21/18 03:20 Chloride 97 mEq/L (98-107) L 11/22/18 10:20 Carbon Dioxide 22 mEq/L (23-29) L 11/21/18 03:20 BUN 77 mg/dL (8-23) H 11/22/18 10:20 4.34 mg/dL (0.70-1.30) H 11/22/18 10:20 Est GFR ( Amer) 16 (> 60) L 11/22/18 10:20 Est GFR (Non-Af Amer) 14 (> 60) L 11/22/18 10:20 Glucose 248 mg/dL (70-105) H 11/22/18 10:20 POC Glucose 232 mg/dL (70-99) H 11/21/18 06:14 6.5 % (-5.6) H 11/20/18 13:04 315 (280-300) H 11/22/18 10:20 Lactic Acid 3.3 mmol/L (0.5-2.2) H 11/22/18 04:45 Calcium 5.7 mg/dL (8.6-10.3) L* 11/22/18 10:20 Venous Ioniz Calcium 0.69 mmol/L (1.15-1.35) L 11/22/18 10:46 Phosphorus 7.2 mg/dL (2.7-4.5) H 11/22/18 10:20 1.1 mg/dL (0.3-1.0) H 11/22/18 04:45 0.6 mg/dL (0.0-0.2) H 11/22/18 04:45 AST 2179 Units/L (13-39) H 11/22/18 04:45 ALT 3370 Units/L (7-52) H 11/22/18 04:45 0.21 ng/mL (< 0.04) H* 11/21/18 13:15 3.4 g/dL (6.4-8.9) L 11/22/18 04:45 2.2 g/dL (3.5-5.7) L 11/22/18 04:45 1.2 g/dL (2.4-3.5) L 11/22/18 04:45 Turbid (Clear) A 11/21/18 08:50 Trace mg/dL (Negative) H 11/21/18 08:50 Small (Negative) H 11/21/18 08:50 5-15 per hpf (0-3) H 11/21/18 08:50 Ur Squamous Epith Cells Many per lpf (None-Few) H 11/21/18 08:50 Ur Culture Indicated? YES (NO) A 11/21/18 08:50 Vancomycin Trough 23 mcg/mL (5-10) H 11/22/18 04:45 Crossmatch See Detail 11/20/18 13:04 Diabetes panel 11/22/18 11/22/18 Range/Units 04:45 10:20 Sodium 136 137 (136-145) mEq/L Potassium 4.4 4.5 (3.5-5.1) mEq/L Chloride 98 97 L (98-107) mEq/L Carbon Dioxide 27 27 (23-29) mEq/L BUN 74 H 77 H (8-23) mg/dL Creatinine 4.16 H 4.34 H (0.70-1.30) mg/dL Glucose 218 H 248 H (70-105) mg/dL Calcium 5.4 L* 5.7 L* (8.6-10.3) mg/dL AST 2179 H (13-39) Units/L ALT 3370 H (7-52) Units/L Alkaline Phosphatase 60 (34-104) Units/L Albumin 2.2 L (3.5-5.7) g/dL Calcium panel 11/22/18 11/22/18 11/22/18 Range/Units 04:45 10:20 10:20 Calcium 5.4 L* 5.7 L* (8.6-10.3) mg/dL Phosphorus 7.3 H 7.2 H (2.7-4.5) mg/dL Albumin 2.2 L (3.5-5.7) g/dL Pituitary panel 11/22/18 11/22/18 Range/Units 04:45 10:20 Sodium 136 137 (136-145) mEq/L Potassium 4.4 4.5 (3.5-5.1) mEq/L Chloride 98 97 L (98-107) mEq/L Carbon Dioxide 27 27 (23-29) mEq/L BUN 74 H 77 H (8-23) mg/dL Creatinine 4.16 H 4.34 H (0.70-1.30) mg/dL Glucose 218 H 248 H (70-105) mg/dL Calcium 5.4 L* 5.7 L* (8.6-10.3) mg/dL Adrenal panel 11/22/18 11/22/18 Range/Units 04:45 10:20 Sodium 136 137 (136-145) mEq/L Potassium 4.4 4.5 (3.5-5.1) mEq/L Chloride 98 97 L (98-107) mEq/L Carbon Dioxide 27 27 (23-29) mEq/L BUN 74 H 77 H (8-23) mg/dL Creatinine 4.16 H 4.34 H (0.70-1.30) mg/dL Glucose 218 H 248 H (70-105) mg/dL Calcium 5.4 L* 5.7 L* (8.6-10.3) mg/dL Total Bilirubin 1.1 H (0.3-1.0) mg/dL AST 2179 H (13-39) Units/L ALT 3370 H (7-52) Units/L Alkaline Phosphatase 60 (34-104) Units/L Albumin 2.2 L (3.5-5.7) g/dL All other labs normal. - Imaging CT scan - abdomen: image reviewed CT scan - pelvis: image reviewed (CT images reviewed and interpreted independently) Consult Discharge Plan - Plan [facility]Primary Care Provider[facility] -
--- NOTE | 2018-11-22 11:18 | Nephrology Consult Note ---
Date of Encounter: 11/22/18 Time of Encounter: 11:17 Assessment and Plan (1) ANY (acute kidney injury) Current Visit: Yes Status: Acute Patient has multifactorial oliguric ANY with a rapidly rising creatinine. Patient with anemia, vancomycin exposure, and septic shock. Patient may need dialysis in 1-2 days of renal function doesn't improved. Avoid unnecessary nephrotoxins. Adjust medications as needed for renal function. If no improvement will likely need a dialysis line and dialysis on Friday. Thank you for the consult. Will follow with you. Patient critically ill. 32 minutes spent in the care of this critically ill patient. (2) Septic shock Current Visit: Yes Status: Acute Per primary team. (3) Acute respiratory failure with hypoxia Current Visit: Yes Status: Acute Patient is intubated. (4) Anemia Current Visit: Yes Status: Acute Patient with hematoma. Qualifiers: Anemia type: other cause Other causes of anemia: other cause, not classifi ed Qualified Code(s): D64.89 - Other specified anemias (5) COPD (chronic obstructive pulmonary disease) Current Visit: Yes Status: Acute Qualifiers: COPD type: emphysema Emphysema type: unspecified Qualified Code(s): J43.9 - Emphysema, unspecified (6) Elevated troponin Current Visit: Yes Status: Acute Per primary team. (7) Right leg DVT Current Visit: Yes Status: Acute IVC filter placed by Vascular surgery. Qualifiers: Affected thrombotic vein of extremity: unspecified vein of extremity Chronicity: unspecified Qualified Code(s): I82.401 - Acute embolism and thrombosis of unspecified deep veins of right lower extremity History of Present Illness - Reason for Consult Consult date: 11/22/18 Acute Kidney Injury - Chief Complaint ANY - History of Present Illness Mr. Gomez is a 73 year old male with pmh significant for COPD, HTN, HLD, and multiple previous CVA's. He presented from [facility] where he was being treated for pnemonia. He developed shock and was transferred to [place]. Here he was found to have ANY with an unknown baseline. [facility] was consulted for assistance with ANY. Patient is critically ill, intubated and sedated unable to provide history. Past Med Surg Social Fam HX - Past Medical History Medical history: COPD, hyperlipidemia, hypertension - Social History Smoking Status: Never smoker Smokeless Tobacco Status: No Alcohol use: none Medications and Allergies Acetaminophen [Tylenol] 650 mg PO Q8H PRN 11/20/18 [History] Amlodipine Besylate 2.5 mg PO DAILY 11/20/18 [History] Apixaban [Eliquis] 2.5 mg PO BID 11/20/18 [History] Atorvastatin Calcium [Lipitor] 20 mg PO DAILY 11/20/18 [History] Bisacodyl [Woman's Laxative] 10 mg PO DAILY PRN 11/20/18 [History] Budesonide/Formoterol 160/4.5 [Symbicort 160/4.5] 2 puff IH BIDR 11/20/18 [History] Calcium Carbonate 650 mg PO DAILY 11/20/18 [History] Carboxymethylcellulose Sodium [Refresh Tears] 1 drop BOTH EYES TID PRN 11/20/18 [History] Chlorhexidine Rinse 15 ml PO BID 11/20/18 [History] Clopidogrel [Plavix] 75 mg PO DAILY 11/20/18 [History] Docusate [Colace] 200 mg PO BID 11/20/18 [History] Escitalopram [Lexapro] 10 mg PO DAILY 11/20/18 [History] Guaifenesin 400 mg PO TID 11/20/18 [History] Insulin ASPART [NovoLOG] 0 unit SQ TIDWM 11/20/18 [History] Ipratropium/Albuterol Neb [Duoneb] 3 ml IH Q4HR PRN 11/20/18 [History] Lisinopril [Zestril] 20 mg PO DAILY 11/20/18 [History] Metoprolol Succinate [Toprol Xl] 75 mg PO DAILY 11/20/18 [History] Mineral Oil 133 ml RC DAILY PRN 11/20/18 [History] Omeprazole [PriLOSEC] 20 mg PO DAILY 11/20/18 [History] Simethicone [Gas-X] 160 mg PO BID PRN 11/20/18 [History] Tamsulosin HCl [Flomax] 0.4 mg PO DAILY 11/20/18 [History] Zolpidem [Ambien] 5 mg PO HS 11/20/18 [History] hydrOXYzine HCl [Hydroxyzine HCl] 25 mg PO TID 11/20/18 [History] Allergy/AdvReac Type Severity Reaction Status Date / Time tolmetin Allergy Rash Verified 11/05/18 14:39 Review of Systems ROS unobtainable: due to endotracheal tube, due to mental status Exam - Vital Signs Vital signs: Initial Vital Signs Pulse Resp BP Pulse Ox 101 27 130/102 92 11/20/18 13:11 11/20/18 13:11 11/20/18 13:11 11/20/18 13:11 Vital Signs - Last 8 Hours Temp Pulse Resp BP Pulse Ox 11/22/18 10:54 97.7 F 85 24 141/73 96 11/22/18 09:29 22 86/50 100 11/22/18 09:24 97.8 F 87 22 94/56 100 11/22/18 09:09 98.5 F 80 22 110/52 11/22/18 08:00 83 22 81/46 95 11/22/18 07:00 81 19 111/56 94 11/22/18 06:11 18 96/54 94 11/22/18 06:00 80 19 96/54 95 11/22/18 05:00 82 23 125/62 91 11/22/18 04:00 98.1 F 84 18 120/53 94 11/22/18 03:29 17 129/55 94 Intake and Output 11/21/18 11/22/18 11/22/18 23:59 07:59 15:59 Intake Total 2349 / 5714 1350 / 1800 450 / 1800 Output Total 20 / 110 220 / 220 Balance 2329 / 5604 1130 / 1580 450 / 1580 Intake: IV Fluids 2349 / 5714 1350 / 1450 100 / 1450 0.9 % Sodium Chloride 500 ML @ 500 / 500 999 mls/hr IVC .Q31M [facility] Rx#: [id number] PRECEDEX Premix 400 mcg In 100 82 / 300 100 / 100 ml @ 0.2 MCG/KG/HR 4.85 mls/hr IVC .[id number] [facility] Rx#:[id number] FentaNYL (PF) 1,000 MCG In 0.9 77 / 200 % Sodium Chloride 80 ML @ 50 MCG/HR 5 mls/hr IVC CONT [facility] Rx #:[id number] Levophed 8 MG In Dextrose 5% 280 / 1054 500 ML @ 8 MCG/MIN 30.48 mls/hr IVC [facility] Rx#:[id number] Diprivan 1,000 mg In 100 ml @ 5 60 / 100 100 / 100 MCG/KG/MIN 2.91 mls/hr IVC . Q24H [facility] Rx#:[id number] Sodium Bicarbonate 150 MEQ In 1150 / 2300 1150 / 1150 Dextrose 5% 1,000 ML @ 100 mls/ hr IVC .[id number] [facility] Rx#: [id number] Flexbumin 25 gm In 100 ml @ 60 100 / 100 mls/hr IVPB ONCE [facility] Rx#: [id number] Zosyn 3.375 GM In 0.9 % Sodium 100 / 300 100 / 100 Chloride (Mini-Bag +) 100 ML @ 25 mls/hr IVPB Q8HR [facility] Rx#: [id number] Oral 0 / 0 Blood Product 350 / 350 Rbcs Leuko Poor As-3 2nd Unit 350 / 350 [id number] Output: Catheter 20 / 60 20 / 20 Gastric Drainage 0 / 50 200 / 200 Other: Weight 106.1 kg Blood Glucose* 232 215 Patient Weight 11/22/18 23:59 Weight 106.1 kg - General Appearance General appearance: well-developed, well-nourished EENT: ATNC Neck: supple Respiratory: course breath sounds Cardiology: edema, regular rate Gastrointestinal: no tenderness Integumentary: warm and dry Additional Comments: unobtainable. patient sedated. Musculoskeletal: no cyanosis Additional Comments: Unobtainable patient is sedated. Results - Lab Results 11/22/18 10:20 11/22/18 10:20 Most recent lab results 11/22/18 11/22/18 11/22/18 04:45 05:58 10:20 ABG pH 7.46 H ABG pCO2 35 ABG pO2 68 L ABG HCO3 25 ABG O2 Saturation 94 L Calcium 5.4 L* Phosphorus 7.3 H 7.2 H Magnesium 2.0 2.0 11/22/18 10:20 ABG pH ABG pCO2 ABG pO2 ABG HCO3 ABG O2 Saturation Calcium 5.7 L* Phosphorus Magnesium Consult Discharge Plan - Plan [facility]errals: [facility] [Primary Care Provider] -
[2018-11-22 11:27] LABS: Platelet Estimate Decreased (Normal)
--- NOTE | 2018-11-22 12:05 | AcuteCareSurgery Progress Note ---
<Phong Landa N - Last Filed: 11/22/18 12:03> Date of Encounter: 11/22/18 Time of Encounter: 09:30 - Assessment and Plan (1) Anemia Current Visit: Yes Status: Acute 73-year-old male with large rectus sheath hematoma required 3 packed RBCs Recommend continue to trend H&H and transfuse as needed Consider bleeding scan versus angio We will continue to follow Qualifiers: Anemia type: other cause Other causes of anemia: other cause, not classified Qualified Code(s): D64.89 - Other specified anemias Subjective Narrative: Patient remains on ventilator pressure support. 1 g decreased in hemoglobin since yesterday evening. Leukocytosis trending down but LFTs trended up. Objective Vital Signs - Last 8 Hours Temp Pulse Resp BP Pulse Ox 11/22/18 10:54 97.7 F 85 24 141/73 96 11/22/18 09:29 22 86/50 100 11/22/18 09:24 97.8 F 87 22 94/56 100 11/22/18 09:09 98.5 F 80 22 110/52 11/22/18 08:00 83 22 81/46 95 11/22/18 07:00 81 19 111/56 94 11/22/18 06:11 18 96/54 94 11/22/18 06:00 80 19 96/54 95 11/22/18 05:00 82 23 125/62 91 Intake and Output 11/21/18 11/22/18 11/22/18 23:59 07:59 15:59 Intake Total 2349 / 5714 1350 / 1800 450 / 1800 Output Total 20 / 110 220 / 220 Balance 2329 / 5604 1130 / 1580 450 / 1580 Intake: IV Fluids 2349 / 5714 1350 / 1450 100 / 1450 0.9 % Sodium Chloride 500 ML @ 500 / 500 999 mls/hr IVC .Q31M [facility] Rx#: [id number] PRECEDEX Premix 400 mcg In 100 82 / 300 100 / 100 ml @ 0.2 MCG/KG/HR 4.85 mls/hr IVC .[id number] [facility] Rx#:[id number] FentaNYL (PF) 1,000 MCG In 0.9 77 / 200 % Sodium Chloride 80 ML @ 50 MCG/HR 5 mls/hr IVC [facility] Rx #:[id number] Levophed 8 MG In Dextrose 5% 280 / 1054 500 ML @ 8 MCG/MIN 30.48 mls/hr IVC CONT [facility] Rx#:[id number] Diprivan 1,000 mg In 100 ml @ 5 60 / 100 100 / 100 MCG/KG/MIN 2.91 mls/hr IVC . Q24H [facility] Rx#:[id number] Sodium Bicarbonate 150 MEQ In 1150 / 2300 1150 / 1150 Dextrose 5% 1,000 ML @ 100 mls/ hr IVC .[id number] [facility] Rx#: [id number] Flexbumin 25 gm In 100 ml @ 60 100 / 100 mls/hr IVPB ONCE [facility] Rx#: [id number] Zosyn 3.375 GM In 0.9 % Sodium 100 / 300 100 / 100 Chloride (Mini-Bag +) 100 ML @ 25 mls/hr IVPB Q8HR [facility] Rx#: [id number] Oral 0 / 0 Blood Product 350 / 350 Rbcs Leuko Poor As-3 2nd Unit 350 / 350 [id number] Output: Catheter 20 60 20 / 20 Gastric Drainage 0 / 50 200 / 200 Other: Weight 106.1 kg Blood Glucose* 232 215 Patient Weight 11/22/18 23:59 Weight 106.1 kg - General physical appearance other (Ventilator dependent) - Respiratory other (Intubated) - Cardiovascular Cardiovascular exam: Present: RRR - Abdomen Abdomen: Present: bowel sounds present, soft - Labs 11/22/18 10:20 11/22/18 10:20 Diabetes panel 11/22/18 11/22/18 Range/Units 04:45 10:20 Sodium 136 137 (136-145) mEq/L Potassium 4.4 4.5 (3.5-5.1) mEq/L Chloride 98 97 L (98-107) mEq/L Carbon Dioxide 27 27 (23-29) mEq/L BUN 74 H 77 H (8-23) mg/dL Creatinine 4.16 H 4.34 H (0.70-1.30) mg/dL Glucose 218 H 248 H (70-105) mg/dL Calcium 5.4 L* 5.7 L* (8.6-10.3) mg/dL AST 2179 H (13-39) Units/L ALT 3370 H (7-52) Units/L Alkaline Phosphatase 60 (34-104) Units/L Albumin 2.2 L (3.5-5.7) g/dL Calcium panel 11/22/18 11/22/18 11/22/18 Range/Units 04:45 10:20 10:20 Calcium 5.4 L* 5.7 L* (8.6-10.3) mg/dL Phosphorus 7.3 H 7.2 H (2.7-4.5) mg/dL Albumin 2.2 L (3.5-5.7) g/dL Pituitary panel 11/22/18 11/22/18 Range/Units 04:45 10:20 Sodium 136 137 (136-145) mEq/L Potassium 4.4 4.5 (3.5-5.1) mEq/L Chloride 98 97 L (98-107) mEq/L Carbon Dioxide 27 27 (23-29) mEq/L BUN 74 H 77 H (8-23) mg/dL Creatinine 4.16 H 4.34 H (0.70-1.30) mg/dL Glucose 218 H 248 H (70-105) mg/dL Calcium 5.4 L* 5.7 L* (8.6-10.3) mg/dL Adrenal panel 11/22/18 11/22/18 Range/Units 04:45 10:20 Sodium 136 137 (136-145) mEq/L Potassium 4.4 4.5 (3.5-5.1) mEq/L Chloride 98 97 L (98-107) mEq/L Carbon Dioxide 27 27 (23-29) mEq/L BUN 74 H 77 H (8-23) mg/dL Creatinine 4.16 H 4.34 H (0.70-1.30) mg/dL Glucose 218 H 248 H (70-105) mg/dL Calcium 5.4 L* 5.7 L* (8.6-10.3) mg/dL Total Bilirubin 1.1 H (0.3-1.0) mg/dL AST 2179 H (13-39) Units/L ALT 3370 H (7-52) Units/L Alkaline Phosphatase 60 (34-104) Units/L Albumin 2.2 L (3.5-5.7) g/dL Consult Discharge Plan - Plan [facility]errals: [facility] [Primary Care Provider[facility] - <Dylon Dumas - Last Filed: 11/22/18 16:39> Date of Encounter: 11/22/18 - Assessment and Plan (1) Anemia Current Visit: Yes Status: Acute Qualifiers: Anemia type: other cause Other causes of anemia: other cause, not classified Qualified Code(s): D64.89 - Other specified anemias Objective Vital Signs - Last 8 Hours Temp Pulse Resp BP Pulse Ox 11/22/18 16:19 97.8 F 85 22 140/57 93 11/22/18 16:04 97.6 F 92 20 135/54 93 11/22/18 16:00 91 20 135/54 93 11/22/18 15:00 86 21 146/58 93 11/22/18 14:55 18 93 11/22/18 14:00 83 22 150/59 94 11/22/18 13:46 97.9 F 91 24 117/51 91 11/22/18 13:26 20 149/60 93 11/22/18 13:15 97.5 F L 90 20 149/60 93 11/22/18 13:00 97.5 F L 86 21 149/60 93 11/22/18 12:00 90 22 160/65 94 11/22/18 11:00 83 22 95 11/22/18 10:54 97.7 F 85 24 141/73 96 11/22/18 10:00 89 20 127/58 94 11/22/18 09:29 22 86/50 100 11/22/18 09:24 97.8 F 87 22 94/56 100 11/22/18 09:09 98.5 F 80 22 110/52 11/22/18 09:00 83 20 110/52 96 Intake and Output 11/22/18 11/22/18 11/22/18 07:59 15:59 23:59 Intake Total 1350 / 2839 1489 / 2839 0 / 2839 Output Total 220 / 220 0 / 220 Balance 1130 / 2619 1489 / 2619 0 / 2619 Intake: IV Fluids 1350 / 2130 780 / 2130 PRECEDEX Premix 400 mcg In 100 100 / 100 ml @ 0.2 MCG/KG/HR 4.85 mls/hr IVC .[id number] [facility] Rx#:[id number] Levophed 8 MG In Dextrose 5% 470 / 470 500 ML @ 8 MCG/MIN 30.48 mls/hr IVC [facility] Rx#:[id number] Diprivan 1,000 mg In 100 ml @ 5 100 / 100 MCG/KG/MIN 2.91 mls/hr IVC . Q24H [facility] Rx#:[id number] Sodium Bicarbonate 150 MEQ In 1150 / 1150 Dextrose 5% 1,000 ML @ 100 mls/ hr IVC .[id number] [facility] Rx#: [id number] Calcium Gluconate 1,000 MG In 0 110 / 110 .9 % Sodium Chloride 100 ML @ 220 mls/hr IVPB Q6HR [facility] Rx#: [id number] Zosyn 3.375 GM In 0.9 % Sodium 100 / 200 100 / 200 Chloride (Mini-Bag +) 100 ML @ 25 mls/hr IVPB Q8HR [facility] Rx#: [id number] Oral 0 / 0 0 / 0 Blood Product 649 / 649 0 / 649 Plasma Unit [id number] 299 / 299 Plasma Unit [id number] 0 / 0 Rbcs Leuko Poor As-3 2nd Unit 350 / 350 [id number] Free Water 60 / 60 Output: Catheter 20 / 20 0 / 20 Gastric Drainage 200 / 200 Other: Weight 106.1 kg Blood Glucose* 215 240 Patient Weight 11/22/18 23:59 Weight 106.1 kg - Labs 11/22/18 10:20 11/22/18 10:20 Diabetes panel 11/22/18 11/22/18 Range/Units 04:45 10:20 Sodium 136 137 (136-145) mEq/L Potassium 4.4 4.5 (3.5-5.1) mEq/L Chloride 98 97 L (98-107) mEq/L Carbon Dioxide 27 27 (23-29) mEq/L BUN 74 H 77 H (8-23) mg/dL Creatinine 4.16 H 4.34 H (0.70-1.30) mg/dL Glucose 218 H 248 H (70-105) mg/dL Calcium 5.4 L* 5.7 L* (8.6-10.3) mg/dL AST 2179 H (13-39) Units/L ALT 3370 H (7-52) Units/L Alkaline Phosphatase 60 (34-104) Units/L Albumin 2.2 L (3.5-5.7) g/dL Calcium panel 11/22/18 11/22/18 11/22/18 Range/Units 04:45 10:20 10:20 Calcium 5.4 L* 5.7 L* (8.6-10.3) mg/dL Phosphorus 7.3 H 7.2 H (2.7-4.5) mg/dL Albumin 2.2 L (3.5-5.7) g/dL Pituitary panel 11/22/18 11/22/18 Range/Units 04:45 10:20 Sodium 136 137 (136-145) mEq/L Potassium 4.4 4.5 (3.5-5.1) mEq/L Chloride 98 97 L (98-107) mEq/L Carbon Dioxide 27 27 (23-29) mEq/L BUN 74 H 77 H (8-23) mg/dL Creatinine 4.16 H 4.34 H (0.70-1.30) mg/dL Glucose 218 H 248 H (70-105) mg/dL Calcium 5.4 L* 5.7 L* (8.6-10.3) mg/dL Adrenal panel 11/22/18 11/22/18 Range/Units 04:45 10:20 Sodium 136 137 (136-145) mEq/L Potassium 4.4 4.5 (3.5-5.1) mEq/L Chloride 98 97 L (98-107) mEq/L Carbon Dioxide 27 27 (23-29) mEq/L BUN 74 H 77 H (8-23) mg/dL Creatinine 4.16 H 4.34 H (0.70-1.30) mg/dL Glucose 218 H 248 H (70-105) mg/dL Calcium 5.4 L* 5.7 L* (8.6-10.3) mg/dL Total Bilirubin 1.1 H (0.3-1.0) mg/dL AST 2179 H (13-39) Units/L ALT 3370 H (7-52) Units/L Alkaline Phosphatase 60 (34-104) Units/L Albumin 2.2 L (3.5-5.7) g/dL - Attending Attestation I have personally seen and examined the patient. I have reviewed pertinent labs, imaging, progress notes, including this one. I have discussed the plan in thorough detail with the resident and nurse practitioner. I agree with the above assessment and plan.
--- NOTE | 2018-11-22 12:16 | Invasive Diagnostic Lab Proc ---
Name: Jarocho Gomez Date of Study: 11/22/2018 Date: 1945 Ht: 183.0 in Medical Record#: [id number] Age: 73 Wt: 106.1 lb Gender: Male BSA: 2.28 Order #: [id number] BMI: 31.68 Physicians Performing MD: Mariusz Jimenez MD Referring MD: Referring MD: Staff Name Position Time In Destini Nikki RT (R) Monitor Corinne Roach RN Sewer Builder DestiniLou vernonlee RT (R) Scrub Indications DVT, Unilateral Procedures Performed IVC FILTER PLACEMENT Pre-Procedure Checklist Informed consent is complete signed and on chart. H&P is on chart. ID band is on and ID verified with patient. Patient NPO for procedure The procedure was described for the patient and questions were answered. Blood Pressure: 117/57 ECG is on chart. Rhythm: NSR Plan of Care Patient will tolerate the procedure without complications. Adequate level of comfort will be maintained. Hemodynamics will remain stable Patient will recover from procedure without complications. Respiratory function will be maintained. Cardiac rhythm will remain stable. Patient temperature will be maintained. Patient and/or family have verbalized understanding of the procedure. Patient Education Chief Complaint/Reason for Test: IVC filter Developmental Category: Geriatric (65+ years) Learning Barriers: Sedated Education Needs: Procedure Education Method: Verbal Information Taught: IVC filter Educational Evaluation: Not ready to learn Note: Educated family on procedure and gained consent from the daughter for IVC filter placement prior to procedure. Intravenous Access Time IV Size Location DC'd Fluid/Drip Rate Units RN 20g 1 1/4" Patent On Arrival Lt Antecubital 20g 1 1/4" Patent On Arrival Lt Hand 20g 1 1/4" Patent On Arrival Rt Antecubital Triple Lumen Rt Femoral All IV medications Corinne Roach RN Allergies nkda Vital Signs Time BP Systolic BP Diastolic HR O2 Sats ASA 11:26 AM 11:26 AM 11:19 AM 117 57 94 94 11:24 AM 113 55 92 95 11:29 AM 113 53 91 94 11:34 AM 118 58 91 94 11:39 AM 123 58 90 93 Procedure Medications Time Medication Dose Units Method Route 11:28 AM Lidocaine 2% 10 ml Subcutaneous 11:20 AM Sodium Bicarbonate 100 ml/hr Intravenous 11:20 AM Propofol 15 mcg/kg/min Intravenous 11:20 AM Precedex 0.2 mcg/kg/min Intravenous 11:20 AM Fentanyl 50 mcg/hr Intravenous 11:20 AM Levophed 7 mcg/min Intravenous ASA Classification: Emergent Procedure: ASA score is assumed Kelly Score Preprocedure Postprocedure Activity 2- Moves 4 extremities sustained head lift Activity 2- Moves 4 extremities sustained head lift Circulation 2- SBP +/= 20 points of pre-anesthetic level Circulation 2- SBP +/= 20 points of pre-anesthetic level Consciousness 2- Awake and alert oriented x 3 Consciousness 2- Awake and alert oriented x 3 O2 Saturation 2- Able to maintain O2 satruation of 92% on room air O2 Saturation 2- Able to maintain O2 satruation of 92% on room air Respiratory 2- Able to deep breathe and cough well Respiratory 2- Able to deep breathe and cough well Total Score 10 Total Score 10 Contrast: Isovue 300- 150ml Contrast Amount: 10 ml Fluoro Dose: 91 mGy Procedure Log Time Note Entered By 11:20 AM Pt arrived to lift slab operator 2 at 11:20 [facility] 11:20 AM Nato Sanchez RN Position: Monitor Time in: :20 [facility] 11:20 AM Corinne Roach RN Position: Sewer Builder Time in: :20 [facility] 11:20 AM Nikki Georges RT (R) Position: Scrub Time in: :20 [facility] 11:20 AM Hair removed from procedure site in procedure lab using clippers. Bilateral groin prepped with Chloraprep by Corinne Roach RN, then patient was draped. Skin intact. [facility] 11:20 AM Physician arrived : [facility] 11: AM Primo completed [facility] 11:20 AM Sign in performed according to hospital policy. [facility] 11:20 AM Procedure start 11: [facility] 11:25 AM Time out perfomed [facility] : AM Time: Is patient comfortable and pain free?: Yes [facility] :26 AM Time: :LOC: 3 = Answers simple questions/follows commands [facility] 11:28 AM 11:28 10 ml Lidocaine 2% to left groin Subcutaneous Given By Mariusz Jimenez MD [facility] 11:29 AM Patient Charges- Cook Celect IVC Filter SN/LOT# [id number],Tray Pack and Pulse Oximetry. [email or web address] 11:32 AM Access obtain and IVC Filter sheath inserted Lt Femoral vein. jcallihan 11:32 AM Inferiorvenacavagram performed. [email or web address] 11:33 AM IVC Filter inserted into the inferior vena cava jcallihan 11:34 AM IVC Filter deployed into the inferior vena cava jcallihan 11:35 AM Procedure completed at 11:35 jcallan 11:36 AM Sign Out completed: Radiation Dose 90.99 mGy Fluoro Time: 1.0 minutes. Isovue 300- 150ml contrast 10 ml given by Mariusz Jimenez MD. Complications: None. Confirmed administered medications:Yes Sedation minutes 16 jcallan 11:36 AM Isovue 300- 150ml,1 bottle(s) used. jcallihan 11:20 AM 11:20 Patient arrived with Sodium Bicarbonate @ 100 ml/hr Intravenous jcallihan 11:20 AM 11:20 Patient arrived with Propofol @ 15 mcg/kg/min Intravenous jcallihan 11:20 AM 11:20 Patient arrived with Precedex @ 0.2 mcg/kg/min Intravenous [email or web address] 11:20 AM 11:20 Patient arrived with Fentanyl @ 50 mcg/hr Intravenous jcallihan 11:20 AM 11:20 Patient arrived with Levophed @ 7 mcg/min Intravenous jcallihan 11:40 AM Estimated Blood Loss: minimal jcallihan 11:40 AM Post Blood Pressure: 123/58 jcallihan 11:40 AM Post EKG: NSR jcallihan 11:40 AM 11:40 Post Pulses: Bilateral DP & PT 1+. jcallihan 11:40 AM 11:40 Post Pulses: Bilateral radial 1+. jcallihan 11:40 AM Information taught: IVC filter jcallihan 11:40 AM Education needs: Procedure, Plan of Care, and [facility] AM Learning barriers: None allan 11:40 AM Education methods: Verbal jcallan 11:40 AM Education evaluation: Able to repeat information [facility] 11:40 AM Patient pain level 0/10 jcallihan 11:41 AM Time: 11:26 Is patient comfortable and pain free?: [facility] AM Report given to MATTRESS STUFFER. Pt taken to ICU, Room # 8 11:40 [facility] 11:42 AM Time: 11:26LOC: 3 = Answers simple questions/follows commands [facility] Jimenez called and spoke to daughter and updated her on the procedure. [facility] AM Complications: None [facility] AM Fluoro Time: 1.0 minutes [facility] AM Isovue 300- 150ml contrast 10 ml given by Mariusz Jimenez MD [facility]:43 AM Radiation Dose 90.99 mGy [facility] 11:46 AM Venous sheath pulled using manual compression and V+Pad for 9 minutes by Nikki Georges RT (R) [facility] 11:46 AM Opsite applied [facility] 11:47 AM Site status No bleeding/hematoma - Lt Groin as reported by Nikki Georges RT (R) at 11:46 [facility] AM Patient out of room 11:47 [facility] Post Procedure Information Blood Pressure: 123/58 mmHg Rhythm: NSR Post procedure instructions given Report Given To: Ace Site Checks Time Location Status Staff Sheath In? Note 11:46:00 AM Lt Groin No bleeding/hematoma Nikki Georges RT (R) Pulses Time Site Pre Procedure Post Procedure Note 11:40:00 AM Bilateral DP & PT 1+ 1+ 11:40:00 AM Bilateral radial 1+ 1+ Updated by Nato Sanchez RN on 11/22/2018 12:09:36 PM electronically signed on 11/22/2018 12:09:59 PM with status of Final
[2018-11-22] MEDS: Norepinephrine 8 MG in D5% in Water 500 ML IVC SCH (12:42)
[2018-11-22] MEDS: FentaNYL (PF) 1,000 MCG in 0.9 % Sodium Chloride 80 ML IVC SCH (19:17)
[2018-11-22 20:07] LABS: VBG Ionized Calcium 0.69 mmol/L (1.15-1.35)
[2018-11-22 21:52] LABS: Hematocrit 21.2 % (37.5-50.1); Hemoglobin 7.4 g/dL (12.9-16.9)
[2018-11-22 22:06] LABS: Appearance of Body Fluid Cloudy (Clear); Source of Body Fluid RIGHT LOWER LOBE LUN; Volume of Body Fluid 13 mL
[2018-11-23] MEDS: Dexmedetomidine HCl 400 MCG/100 ML MLS IVC SCH (00:39)
[2018-11-23] MEDS: Artificial Tears SOLN 15 ML BOTTLE BOTH EYES SCH ×5 (03:16→20:08)
[2018-11-23 03:40] LABS: VBG Ionized Calcium 0.71 mmol/L (1.15-1.35)
[2018-11-23 03:42] LABS: Hematocrit 21.9 % (37.5-50.1); Hemoglobin 7.5 g/dL (12.9-16.9); Mean Corpuscular HGB Conc 34.2 g/dL (31.6-35.5); Monocytes % 0.6 %
[2018-11-23 03:44] LABS: Basophils % 0.1 %; Immature Granulocytes % 0.8 % (0-4); Immature Platelets 6.1 % (1.1-6.1); Lymphocytes # 0.3 K/mcL (0.6-4.6); Lymphocytes % 1.5 %; Mean Corpuscular Hemoglobin 29.8 pg (28.0-33.3); Mean Corpuscular Volume 86.9 fL (83.0-100.0); Mean Platelet Volume 10.9 fL (9.4-12.4); Monocytes # 0.1 K/mcL (0.0-1.3); Nucleated Red Blood Cells 0.2 /100 WBC (0); Red Blood Count 2.52 M/mcL (4.19-5.50); Red Cell Distribution Width 15.2 % (11.5-14.5)
[2018-11-23] MEDS: Ipratropium/Albuterol Neb 3 ML IH SCH ×4 (03:48→22:02)
[2018-11-23 03:51] LABS: Neutrophils # 21.6 K/mcL (1.6-8.9); Platelet Count 36 K/mcL (140-400)
[2018-11-23] MEDS: Sodium Bicarbonate 150 MEQ in D5% in Water 1,000 ML IVC SCH ×2 (03:56→15:21)
[2018-11-23 04:03] LABS: Albumin 2.2 g/dL (3.5-5.7); Albumin/Globulin Ratio 1.6 (1.1-2.2); Bilirubin,Direct 0.6 mg/dL (0.0-0.2); Bilirubin,Indirect 0.5 mg/dL (0.0-1.2); Bilirubin,Total 1.1 mg/dL (0.3-1.0); Calcium 5.5 mg/dL (8.6-10.3); Globulin 1.4 g/dL (2.4-3.5); Potassium 4.2 mEq/L (3.5-5.1); Total Protein 3.6 g/dL (6.4-8.9)
[2018-11-23 04:30] LABS: Platelet Estimate Decreased (Normal)
[2018-11-23] MEDS: Pantoprazole 40 MG VIAL IVP SCH ×2 (05:02→18:15)
[2018-11-23] MEDS: Hydrocortisone Sodium Succ 100 MG/2 ML VIAL IVP SCH ×2 (05:02→18:15)
[2018-11-23] MEDS: Insulin LISPRO 300 UNITS/3 ML VIAL SQ SCH ×3 (05:03→18:15)
[2018-11-23 05:24] LABS: ABG Base Excess 6 mEq/L (-2 to 3); ABG HCO3 30 mEq/L (21-27); ABG Oxygen Saturation 95 % (95-98); ABG PCO2 39 mmHg (35-45); ABG PO2 67 mmHg (85-104); ABG TCO2 31 mEq/L (20-26); Blood Gas Modality VC; Blood Gas PEEP 5 cm H2O; Blood Gas Respiration Rate 12; Blood Gas VT 500 cc
[2018-11-23] MEDS: Piperacillin/Tazobactam 3.375 GM in 0.9 % Sodium Chloride Mini Bag 100 ML IVPB SCH ×2 (08:00→20:09)
[2018-11-23] MEDS: Chlorhexidine Rinse 15 ML MOUTHWASH MM SCH ×2 (08:00→20:09)
--- NOTE | 2018-11-23 08:57 | AcuteCareSurgery Progress Note ---
<Phong Landa N - Last Filed: 11/23/18 08:55> Date of Encounter: 11/23/18 Time of Encounter: 08:30 - Assessment and Plan (1) Anemia Current Visit: Yes Status: Acute 73-year-old male with large rectus sheath hematoma required 3 packed RBCs Patient's hemoglobin stable at 7.5 previous day Recommend continuing to trend H&H and transfuse as needed At this time no surgical intervention is warranted Acute care surgery will sign off Qualifiers: Anemia type: other cause Other causes of anemia: other cause, not classified Qualified Code(s): D64.89 - Other specified anemias Subjective Narrative: Patient seen and examined at bedside this morning. He opens his eyes. He is currently on CPAP trial. Hemoglobin stable at 7.5 since previous day. Objective Vital Signs - Last 8 Hours Temp Pulse Resp BP Pulse Ox 11/23/18 08:00 96 21 128/56 93 11/23/18 07:50 98.3 F 11/23/18 07:49 95 11/23/18 07:00 88 19 128/56 76 11/23/18 06:17 21 116/52 93 11/23/18 06:02 95 20 138/58 94 11/23/18 05:01 96 20 121/53 94 11/23/18 05:00 96 20 121/53 94 11/23/18 04:00 97 22 127/55 94 11/23/18 03:48 22 102/49 94 11/23/18 03:13 81 11/23/18 03:12 79 19 120/57 93 11/23/18 03:00 79 19 120/57 93 11/23/18 02:00 76 19 125/55 92 11/23/18 01:14 19 105/53 92 11/23/18 01:00 81 19 114/54 92 Intake and Output 11/22/18 11/23/18 11/23/18 23:59 07:59 15:59 Intake Total 1861 / 4700 1555 / 1555 Output Total 20 / 240 30 / 30 Balance 1841 / 4460 1525 / 1525 Intake: IV Fluids 1508 / 3638 1435 / 1435 PRECEDEX Premix 400 mcg In 100 15 / 115 85 / 85 ml @ 0.2 MCG/KG/HR 4.85 mls/hr IVC .[id number] [facility] Rx#:[id number] FentaNYL (PF) 1,000 MCG In 0.9 100 / 100 % Sodium Chloride 80 ML @ 50 MCG/HR 5 mls/hr IVC CONT [facility] Rx #:[id number] Levophed 8 MG In Dextrose 5% 33 / 503 500 ML @ 8 MCG/MIN 30.48 mls/hr IVC CONT [facility] Rx#:[id number] Diprivan 1,000 mg In 100 ml @ 5 100 / 200 100 / 100 MCG/KG/MIN 2.91 mls/hr IVC . Q24H [facility] Rx#:[id number] Sodium Bicarbonate 150 MEQ In 1150 / 2300 1150 / 1150 Dextrose 5% 1,000 ML @ 100 mls/ hr IVC .[id number] [facility] Rx#: [id number] Calcium Gluconate 1,000 MG In 0 110 / 220 .9 % Sodium Chloride 100 ML @ 220 mls/hr IVPB Q6HR [facility] Rx#: [id number] Zosyn 3.375 GM In 0.9 % Sodium 100 / 100 Chloride (Mini-Bag +) 100 ML @ 25 mls/hr IVPB Q12H [facility] Rx#: [id number] Oral 0 / 0 Tube Feeding 43 / 43 Blood Product 250 / 899 Plasma Unit [id number] 250 / 250 Free Water 60 / 120 Free Water Intake Amount 120 / 120 Output: Catheter 30 / 30 Other: Stool Size Moderate Stool Consistency loose Weight 108 kg Patient Weight 11/23/18 23:59 Weight 108 kg - General physical appearance well developed - Eyes PERRL - Respiratory other (Intubated) - Cardiovascular Cardiovascular exam: Present: RRR - Abdomen Abdomen: Present: bowel sounds present, soft - Labs 11/23/18 03:20 11/23/18 03:20 Diabetes panel 11/22/18 11/23/18 Range/Units 10:20 03:20 Sodium 137 136 (136-145) mEq/L Potassium 4.5 4.2 (3.5-5.1) mEq/L Chloride 97 L 92 L (98-107) mEq/L Carbon Dioxide 27 28 (23-29) mEq/L BUN 77 H 79 H (8-23) mg/dL Creatinine 4.34 H 4.91 H (0.70-1.30) mg/dL Glucose 248 H 235 H (70-105) mg/dL Calcium 5.7 L* 5.5 L* (8.6-10.3) mg/dL AST 487 H (13-39) Units/L ALT 1636 H (7-52) Units/L Alkaline Phosphatase 64 (34-104) Units/L Albumin 2.2 L (3.5-5.7) g/dL Calcium panel 11/22/18 11/22/18 11/23/18 Range/Units 10:20 10:20 03:20 Calcium 5.7 L* 5.5 L* (8.6-10.3) mg/dL Phosphorus 7.2 H (2.7-4.5) mg/dL Albumin 2.2 L (3.5-5.7) g/dL Pituitary panel 11/22/18 11/23/18 Range/Units 10:20 03:20 Sodium 137 136 (136-145) mEq/L Potassium 4.5 4.2 (3.5-5.1) mEq/L Chloride 97 L 92 L (98-107) mEq/L Carbon Dioxide 27 28 (23-29) mEq/L BUN 77 H 79 H (8-23) mg/dL Creatinine 4.34 H 4.91 H (0.70-1.30) mg/dL Glucose 248 H 235 H (70-105) mg/dL Calcium 5.7 L* 5.5 L* (8.6-10.3) mg/dL Adrenal panel 11/22/18 11/23/18 Range/Units 10:20 03:20 Sodium 137 136 (136-145) mEq/L Potassium 4.5 4.2 (3.5-5.1) mEq/L Chloride 97 L 92 L (98-107) mEq/L Carbon Dioxide 27 28 (23-29) mEq/L BUN 77 H 79 H (8-23) mg/dL Creatinine 4.34 H 4.91 H (0.70-1.30) mg/dL Glucose 248 H 235 H (70-105) mg/dL Calcium 5.7 L* 5.5 L* (8.6-10.3) mg/dL Total Bilirubin 1.1 H (0.3-1.0) mg/dL AST 487 H (13-39) Units/L ALT 1636 H (7-52) Units/L Alkaline Phosphatase 64 (34-104) Units/L Albumin 2.2 L (3.5-5.7) g/dL Consult Discharge Plan - Plan [facility]errals: [facility] Care Provider[facility] - <Krupa GomezCaridad F - Last Filed: 11/23/18 10:52> Date of Encounter: 11/23/18 Objective Vital Signs - Last 8 Hours Temp Pulse Resp BP Pulse Ox 11/23/18 10:00 87 21 112/61 92 11/23/18 09:00 88 19 105/51 76 11/23/18 08:00 96 21 128/56 93 11/23/18 07:50 98.3 F 11/23/18 07:49 95 11/23/18 07:00 88 19 128/56 76 11/23/18 06:17 21 116/52 93 11/23/18 06:02 95 20 138/58 94 11/23/18 05:01 96 20 121/53 94 11/23/18 05:00 96 20 121/53 94 11/23/18 04:00 97 22 127/55 94 11/23/18 03:48 22 102/49 94 11/23/18 03:13 81 11/23/18 03:12 79 19 120/57 93 11/23/18 03:00 79 19 120/57 93 Intake and Output 11/22/18 11/23/18 11/23/18 23:59 07:59 15:59 Intake Total 1861 / 4700 1555 / 2292.8 737.8 / 2292.8 Output Total 20 / 240 30 / 30 0 / 30 Balance 1841 / 4460 1525 / 2262.8 737.8 / 2262.8 Intake: IV Fluids 1508 / 3638 1435 / 2172.8 737.8 / 2172.8 PRECEDEX Premix 400 mcg In 100 15 / 115 85 / 157 72 / 157 ml @ 0.2 MCG/KG/HR 4.85 mls/hr IVC .[id number] [facility] Rx#:[id number] FentaNYL (PF) 1,000 MCG In 0.9 100 / 100 75 / 75 % Sodium Chloride 80 ML @ 50 MCG/HR 5 mls/hr IVC CONT [facility] Rx #:[id number] Levophed 8 MG In Dextrose 5% 33 / 503 500 ML @ 8 MCG/MIN 30.48 mls/hr IVC CONT [facility] Rx#:[id number] Diprivan 1,000 mg In 100 ml @ 5 100 / 200 100 / 190.8 90.8 / 190.8 MCG/KG/MIN 2.91 mls/hr IVC . Q24H [facility] Rx#:[id number] Sodium Bicarbonate 150 MEQ In 1150 / 2300 1150 / 1650 500 / 1650 Dextrose 5% 1,000 ML @ 100 mls/ hr IVC .[id number] [facility] Rx#: [id number] Calcium Gluconate 1,000 MG In 0 110 / 220 .9 % Sodium Chloride 100 ML @ 220 mls/hr IVPB Q6HR [facility] Rx#: [id number] Zosyn 3.375 GM In 0.9 % Sodium 100 / 100 Chloride (Mini-Bag +) 100 ML @ 25 mls/hr IVPB Q12H [facility] Rx#: [id number] Oral 0 / 0 Tube Feeding 43 / 43 Blood Product 250 / 899 Plasma Unit [id number] 250 / 250 Free Water 60 / 120 Free Water Intake Amount 120 / 120 Output: Catheter 20 / 40 30 / 30 0 / 30 Other: Stool Size Moderate Stool Consistency loose Weight 108 kg Patient Weight 11/23/18 23:59 Weight 108 kg - Labs 11/23/18 03:20 11/23/18 03:20 Diabetes panel 11/22/18 11/23/18 Range/Units 10:20 03:20 Sodium 137 136 (136-145) mEq/L Potassium 4.5 4.2 (3.5-5.1) mEq/L Chloride 97 L 92 L (98-107) mEq/L Carbon Dioxide 27 28 (23-29) mEq/L BUN 77 H 79 H (8-23) mg/dL Creatinine 4.34 H 4.91 H (0.70-1.30) mg/dL Glucose 248 H 235 H (70-105) mg/dL Calcium 5.7 L* 5.5 L* (8.6-10.3) mg/dL AST 487 H (13-39) Units/L ALT 1636 H (7-52) Units/L Alkaline Phosphatase 64 (34-104) Units/L Albumin 2.2 L (3.5-5.7) g/dL Calcium panel 05/12/19 05/12/19 05/13/19 Range/Units 10:20 10:20 03:20 Calcium 5.7 L* 5.5 L* (8.6-10.3) mg/dL Phosphorus 7.2 H (2.7-4.5) mg/dL Albumin 2.2 L (3.5-5.7) g/dL Pituitary panel 11/22/18 11/23/18 Range/Units 10:20 03:20 Sodium 137 136 (136-145) mEq/L Potassium 4.5 4.2 (3.5-5.1) mEq/L Chloride 97 L 92 L (98-107) mEq/L Carbon Dioxide 27 28 (23-29) mEq/L BUN 77 H 79 H (8-23) mg/dL Creatinine 4.34 H 4.91 H (0.70-1.30) mg/dL Glucose 248 H 235 H (70-105) mg/dL Calcium 5.7 L* 5.5 L* (8.6-10.3) mg/dL Adrenal panel 11/22/18 11/23/18 Range/Units 10:20 03:20 Sodium 137 136 (136-145) mEq/L Potassium 4.5 4.2 (3.5-5.1) mEq/L Chloride 97 L 92 L (98-107) mEq/L Carbon Dioxide 27 28 (23-29) mEq/L BUN 77 H 79 H (8-23) mg/dL Creatinine 4.34 H 4.91 H (0.70-1.30) mg/dL Glucose 248 H 235 H (70-105) mg/dL Calcium 5.7 L* 5.5 L* (8.6-10.3) mg/dL Total Bilirubin 1.1 H (0.3-1.0) mg/dL AST 487 H (13-39) Units/L ALT 1636 H (7-52) Units/L Alkaline Phosphatase 64 (34-104) Units/L Albumin 2.2 L (3.5-5.7) g/dL - Attending Attestation I examined this patient and my medical decision-making was reviewed with the Resident Physician. I agree with the documented findings, disposition and tr eatment plan as described except to the extent set forth below.
--- NOTE | 2018-11-23 11:02 | Urology Progress Note ---
Date of Encounter: 11/23/18 Time of Encounter: 10:20 - Assessment and Plan (1) Bruise of scrotum Current Visit: Yes Status: Acute Assessment and plan: Patient is a 73-year-old male who presents with scrotal edema and ecchymosis s econdary to a rectus sheath hematoma. Patient underwent anticoagulation for DVT, and became hemodynamically unstable with spontaneous development of acute hemorrhage of the rectus sheath. At this time, no urologic surgical intervention is anticipated. We will continue to follow with daily examina tions. Dr. Dior will be in to reevaluate patient later this afternoon. Qualifiers: Encounter type: initial encounter Qualified Code(s): S30.22XA - Contusion of scrotum and testes, initial encounter Progress Note Narrative: Patient seen and examined lying in bed in no apparent distress. Patient is under sedation with mechanical ventilation. Reynaga catheter indwelling and draining transparent, clear yellow urine into bedside bag. Objective Initial Vital Signs Pulse Resp BP Pulse Ox 101 27 130/102 92 11/20/18 13:11 11/20/18 13:11 11/20/18 13:11 11/20/18 13:11 - General physical appearance Present: no distress, no pain - Respiratory Present: normal expansion, normal respiratory effort (Mechanical ventilation) - Abdomen Present: soft. Absent: distended - Genitourinary Present: other (Diffuse, extensive scrotal ecchymosis and edema) Urine Appearance: Present: Clear - Integumentary Present: no rash, no abnormal pigmentation - Musculoskeletal Present: other (+2 pitting edema on bilateral lower extremities) - Psychiatric Present: other (Patient under sedation) - Labs 11/23/18 03:20 11/23/18 03:20 Diabetes panel 11/22/18 11/23/18 Range/Units 10:20 03:20 Sodium 137 136 (136-145) mEq/L Potassium 4.5 4.2 (3.5-5.1) mEq/L Chloride 97 L 92 L (98-107) mEq/L Carbon Dioxide 27 28 (23-29) mEq/L BUN 77 H 79 H (8-23) mg/dL Creatinine 4.34 H 4.91 H (0.70-1.30) mg/dL Glucose 248 H 235 H (70-105) mg/dL Calcium 5.7 L* 5.5 L* (8.6-10.3) mg/dL AST 487 H (13-39) Units/L ALT 1636 H (7-52) Units/L Alkaline Phosphatase 64 (34-104) Units/L Albumin 2.2 L (3.5-5.7) g/dL Calcium panel 11/22/18 11/22/18 11/23/18 Range/Units 10:20 10:20 03:20 Calcium 5.7 L* 5.5 L* (8.6-10.3) mg/dL Phosphorus 7.2 H (2.7-4.5) mg/dL Albumin 2.2 L (3.5-5.7) g/dL Pituitary panel 11/22/18 11/23/18 Range/Units 10:20 03:20 Sodium 137 136 (136-145) mEq/L Potassium 4.5 4.2 (3.5-5.1) mEq/L Chloride 97 L 92 L (98-107) mEq/L Carbon Dioxide 27 28 (23-29) mEq/L BUN 77 H 79 H (8-23) mg/dL Creatinine 4.34 H 4.91 H (0.70-1.30) mg/dL Glucose 248 H 235 H (70-105) mg/dL Calcium 5.7 L* 5.5 L* (8.6-10.3) mg/dL Adrenal panel 11/22/18 11/23/18 Range/Units 10:20 03:20 Sodium 137 136 (136-145) mEq/L Potassium 4.5 4.2 (3.5-5.1) mEq/L Chloride 97 L 92 L (98-107) mEq/L Carbon Dioxide 27 28 (23-29) mEq/L BUN 77 H 79 H (8-23) mg/dL Creatinine 4.34 H 4.91 H (0.70-1.30) mg/dL Glucose 248 H 235 H (70-105) mg/dL Calcium 5.7 L* 5.5 L* (8.6-10.3) mg/dL Total Bilirubin 1.1 H (0.3-1.0) mg/dL AST 487 H (13-39) Units/L ALT 1636 H (7-52) Units/L Alkaline Phosphatase 64 (34-104) Units/L Albumin 2.2 L (3.5-5.7) g/dL Consult Discharge Plan - Plan [facility]errals: [facility]Primary Care Provider[facility] -
--- NOTE | 2018-11-23 11:15 | Nephrology Progress Note ---
Date of Encounter: 11/23/18 Time of Encounter: 11:15 - Assessment and Plan (1) ANY (acute kidney injury) Current Visit: Yes Status: Acute Patient has multifactorial oliguric ANY with a rapidly rising creatinine that seems to be at a plateau. Patient with anemia, vancomycin exposure, and septic shock. Patient may need dialysis in 1-2 days of renal function doesn't improve, but with creatinine stabilizing and increase in UOP he may be recovering renal function.. Avoid unnecessary nephrotoxins. Adjust medications as needed for renal function. Will hold on dialysis today. Patient critically ill. 35 minutes spent in the care of this critically ill patient. (2) Septic shock Current Visit: Yes Status: Acute (3) Acute respiratory failure with hypoxia Current Visit: Yes Status: Acute (4) Anemia Current Visit: Yes Status: Acute Qualifiers: Anemia type: other cause Other causes of anemia: other cause, not classified Qualified Code(s): D64.89 - Other specified anemias (5) COPD (chronic obstructive pulmonary disease) Current Visit: Yes Status: Acute Qualifiers: COPD type: emphysema Emphysema type: unspecified Qualified Code(s): J43.9 - Emphysema, unspecified (6) Elevated troponin Current Visit: Yes Status: Acute (7) Right leg DVT Current Visit: Yes Status: Acute Qualifiers: Affected thrombotic vein of extremity: unspecified vein of extremity Chronicity: unspecified Qualified Code(s): I82.401 - Acute embolism and thrombosis of unspecified deep veins of right lower extremity Subjective Principal diagnosis: Sepsis Interval history: Patient seen. He remains critically ill on the ventilator. ROS is unobtainable. Objective - Vital Signs Vital signs: Vital Signs Temp Pulse Resp BP Pulse Ox 11/23/18 11:00 88 19 111/53 70 11/23/18 10:00 87 21 112/61 92 11/23/18 09:00 88 19 105/51 76 11/23/18 08:00 96 21 128/56 93 11/23/18 07:50 98.3 F 11/23/18 07:49 95 11/23/18 07:00 88 19 128/56 76 11/23/18 06:17 21 116/52 93 11/23/18 06:02 95 20 138/58 94 11/23/18 05:01 96 20 121/53 94 11/23/18 05:00 96 20 121/53 94 11/23/18 04:00 97 22 127/55 94 11/23/18 03:48 22 102/49 94 11/23/18 03:13 81 11/23/18 03:12 79 19 120/57 93 11/23/18 03:00 79 19 120/57 93 11/23/18 02:00 76 19 125/55 92 11/23/18 01:14 19 105/53 92 11/23/18 01:00 81 19 114/54 92 11/23/18 00:00 97.4 F L 84 20 122/51 92 11/22/18 23:38 19 122/51 93 11/22/18 23:29 85 11/22/18 23:00 79 18 124/51 94 11/22/18 22:13 82 21 128/55 91 11/22/18 22:01 20 128/55 95 11/22/18 21:00 73 20 110/87 91 11/22/18 20:01 84 21 147/61 91 11/22/18 19:46 97.9 F 11/22/18 19:42 21 106/48 94 11/22/18 19:11 88 11/22/18 19:00 82 20 118/50 93 11/22/18 18:00 82 20 138/55 93 11/22/18 17:56 97.8 F 86 20 148/61 93 11/22/18 17:32 20 93 11/22/18 17:07 97.5 F L 11/22/18 17:00 80 21 136/49 92 11/22/18 16:19 97.8 F 85 22 140/57 93 11/22/18 16:04 97.6 F 92 20 135/54 93 11/22/18 16:00 91 20 135/54 93 11/22/18 15:00 86 21 146/58 93 11/22/18 14:55 18 93 11/22/18 14:00 83 22 150/59 94 11/22/18 13:46 97.9 F 91 24 117/51 91 11/22/18 13:26 20 149/60 93 11/22/18 13:15 97.5 F L 90 20 149/60 93 11/22/18 13:00 97.5 F L 86 21 149/60 93 11/22/18 12:00 90 22 160/65 94 Intake and Output 11/22/18 11/23/18 11/23/18 23:59 07:59 15:59 Intake Total 1861 / 4700 1555 / 2292.8 737.8 / 2292.8 Output Total 20 / 240 30 / 30 0 / 30 Balance 1841 / 4460 1525 / 2262.8 737.8 / 2262.8 Intake: IV Fluids 1508 / 3638 1435 / 2172.8 737.8 / 2172.8 PRECEDEX Premix 400 mcg In 100 15 / 115 85 / 157 72 / 157 ml @ 0.2 MCG/KG/HR 4.85 mls/hr IVC .[id number] [facility] Rx#:[id number] FentaNYL (PF) 1,000 MCG In 0.9 100 / 100 75 / 75 % Sodium Chloride 80 ML @ 50 MCG/HR 5 mls/hr IVC CONT [facility] Rx #:[id number] Levophed 8 MG In Dextrose 5% 33 / 503 500 ML @ 8 MCG/MIN 30.48 mls/hr IVC CONT [facility] Rx#:[id number] Diprivan 1,000 mg In 100 ml @ 5 100 / 200 100 / 190.8 90.8 / 190.8 MCG/KG/MIN 2.91 mls/hr IVC . Q24H [facility] Rx#:[id number] Sodium Bicarbonate 150 MEQ In 1150 / 2300 1150 / 1650 500 / 1650 Dextrose 5% 1,000 ML @ 100 mls/ hr IVC .[id number] [facility] Rx#: [id number] Calcium Gluconate 1,000 MG In 0 110 / 220 .9 % Sodium Chloride 100 ML @ 220 mls/hr IVPB Q6HR [facility] Rx#: [id number] Zosyn 3.375 GM In 0.9 % Sodium 100 / 100 Chloride (Mini-Bag +) 100 ML @ 25 mls/hr IVPB Q12H [facility] Rx#: [id number] Oral 0 / 0 Tube Feeding 43 / 43 Blood Product 250 / 899 Plasma Unit [id number] 250 / 250 Free Water 60 / 120 Free Water Intake Amount 120 / 120 Output: Catheter 20 / 40 30 / 30 0 / 30 Other: Stool Size Moderate Stool Consistency loose Weight 108 kg Patient Weight 11/23/18 23:59 Weight 108 kg - General Appearance General appearance: Present: well-developed, well-nourished, obese EENT: Present: ATNC Neck: Present: supple Respiratory: Present: course breath sounds Cardiology: Present: edema, regular rate Gastrointestinal: Present: no tenderness, obese Integumentary: Present: warm and dry Neurologic: Present: alert and oriented x3 Musculoskeletal: Present: no cyanosis Psychiatric: Present: mood/affect appropriate - Lab 11/23/18 03:20 11/23/18 11:15 Most recent lab results 11/23/18 11/23/18 03:20 05:21 ABG pH 7.50 H ABG pCO2 39 ABG pO2 67 L ABG HCO3 30 H ABG O2 Saturation 95 Calcium 5.5 L* Consult Discharge Plan - Plan [facility]errals: [facility] [Primary Care Provider] -
[2018-11-23 11:38] LABS: INR 1.1; Prothrombin Time 12.6 Seconds (9.4-12.1)
[2018-11-23 11:40] LABS: Activated Partial Thrombo Time 30.8 Seconds (26.0-36.0)
--- NOTE | 2018-11-23 11:43 | Pulmonology Progress Note ---
<Niranjan Ruiz - Last Filed: 11/23/18 12:39> Date of Encounter: 11/23/18 Time of Encounter: 06:40 Assessment and Plan (1) Sepsis Current Visit: Yes Status: Acute -Likely 2/2 pneumonia -2L fluid bolus 11/20/18 at [facility] prior to transfer -Tachypneic, tachycardic, 95F rectal temp but BP stable on arrival -WBC 43.2, lactic 7.7, trop 0.06 on arrival -Received zosyn 11/20/18 at the [facility] -CT chest abd/plv 11/20/18: hazy opacities at lung bases atelectasis or pneumonia, underlying emphysema. Cholelithiasis. Very large left sided rectus sheath hematoma -WBC 43.6, lactic down from 9.8 to 7.3 after bicarb infusion started yesterday -Bicarb drip stopped today -BC x2, UA and culture pending -Repeat BC x2 today -BAL 11/22/18 cultures pending -BP very labile 11/20/18 with MAPs dropping into 40's, requiring pressor support to maintain MAP -Continue empiric vanc (day 4) and pip/tazo (day 4) which will deescalate as cultures return -TTE 11/21/18 not able to visualize structures. Will repeat TTE today Qualifiers: Sepsis type: sepsis due to unspecified organism Qualified Code(s): A41.9 - Sepsis, unspecified organism (2) Acute respiratory failure with hypoxia Current Visit: Yes Status: Acute -Awake, alert and talking on arrival -Resp and mental status declined and became hypoxic and apneic requiring intubation -ABG at time of intubation pH 7.16, paCO2 44, paO2 105, hco3 16, 96% on 13L O2 via oxymask -ABG 11/23/18: pH 7.5, paCO2 39, paO2 67, HCO3 30, 95% on 40% FiO2 -Continue mechanical ventilation today (3) GI bleed Current Visit: Yes Status: Suspected -Melena occasionally over the last 2 weeks -Hgb 11/18/18 13.4 at [facility] -Received new anticoagulation 2/2 DVT at the [facility] -Hgb on transfer here 11/20/18 7.3, BUN 46 -Got 2 units PRBCs 11/20/18 and repeat hgb 9 -Hgb today 7.5 -Will monitor and transfuse as indicated -Acute care surg following without plans for intervention till more stable Qualifiers: GI bleed type/associated pathology: melena Qualified Code(s): K92.1 - Melena (4) SCAR (acute kidney injury) Current Visit: Yes Status: Acute -Cr at [facility] 11/19/18 0.79 -Cr on transfer from [facility] 11/20/18 1.74, BUN 46 -On vanc and zosyn (day 4) -Renal function worsening. Cr 4.91, BUN 79 today -Will transition from vanc and zosyn as early as can based on culture findings -Will continue trend renal function and avoid nephrotoxins as can -Neph following and expects renal function to improve without dialysis (5) COPD (chronic obstructive pulmonary disease) Current Visit: Yes Status: Acute -Hx of COPD -Progressive dyspnea and yellow productive cough over last 2 weeks -Scheduled bronchodilators Qualifiers: COPD type: emphysema Emphysema type: unspecified Qualified Code(s): J43.9 - Emphysema, unspecified (6) Anemia Current Visit: Yes Status: Acute -Hgb 13.4 11/18/18 at the [facility] -Hgb on arrival here 7.3 -Occult stool pos at [facility] -GI bleed vs large rectus sheath hematoma on CT -Transfused 2 units PRBC 11/20/18 with hgb repeat at 9 -Hgb 7.5 today -Trend H&H and transfuse as indicated Qualifiers: Anemia type: other cause Other causes of anemia: other cause, not classified Qualified Code(s): D64.89 - Other specified anemias (7) Right leg DVT Current Visit: Yes Status: Acute -R leg DVT at [facility] -RLE doppler prelim pos for DVT R posterior tibial vein -SVC filter placed 11/22/18 as anticoagulation contraindicated Qualifiers: Affected thrombotic vein of extremity: unspecified vein of extremity Chroni city: unspecified Qualified Code(s): I82.401 - Acute embolism and thrombosis of unspecified deep veins of right lower extremity (8) High anion gap metabolic acidosis Current Visit: Yes Status: Acute -AG 11 on arrival -AG increased 11/21/18 to 15 likely 2/2 lactic acidosis -AG 16 today (9) Lactic acidemia Current Visit: Yes Status: Acute -Lactic on arrival 7.3 -Likely 2/2 sepsis basilar pneumonia -Peak 9.8 started bicarb drip -Lactic 3.3 11/22/18 -Stop bicarb drip today (10) Leukocytosis Current Visit: Yes Status: Acute -WBC 43.2 11/20/18 -WBC 43.6 11/21/18 -Trending down with wbc 22.3 today -Management as above Qualifiers: Leukocytosis type: unspecified Qualified Code(s): D72.829 - Elevated white blood cell count, unspecified (11) Elevated troponin Current Visit: Yes Status: Acute -Likely 2/2 demand ischemia from hypotension -[facility] -Repeat here 0.06 -Minimal increase on repeats 0.11-0.16-0.21 (12) DVT prophylaxis Current Visit: Yes Status: Acute -SCDs as acute drop in hgb Subjective Principal diagnosis: Sepsis Interval history: No acute events overnight. Awake and alert on minimal sedation. Complains of L sided abdominal pain. Objective PUL Vital signs: Last Vital Signs Temp 98.3 F 11/23/18 07:50 Pulse 94 11/23/18 11:00 Resp 18 11/23/18 11:00 BP 111/53 11/23/18 11:00 Pulse Ox 92 11/23/18 11:00 General appearance: no acute distress, other (intubated) Eyes: nonicteric ENT: oropharynx dry Effort: other (on vent) Auscultation: bilateral: rhonchi (scattered ) Cardiovascular: regular rate and rhythm Gastrointestinal: normoactive bowel sounds, soft, tender (mild l side), non- distended Integumentary: normal Extremities: no cyanosis, pulses normal, edema other (intubated and sedated) other (intubated and sedated) Ventilator Settings Ventilator Settings: Ventilator Settings, Last 8 Hours Ventilator Tidal Volume 500 Setting Ventilator Tidal Volume 500 Setting Ventilator Tidal Volume 500 Setting Ventilator Tidal Volume 500 Setting Ventilator Tidal Volume 500 Setting Ventilator Tidal Volume 500 Setting Ventilator Tidal Volume 500 Setting Ventilator Respiratory Rate 12 Setting Ventilator Respiratory Rate 12 Setting Ventilator Respiratory Rate 12 Setting Ventilator Respiratory Rate 12 Setting Ventilator Respiratory Rate 12 Setting Ventilator Respiratory Rate 12 Setting Ventilator Respiratory Rate 12 Setting Actual Respiratory Rate 20 Actual Respiratory Rate 22 Actual Respiratory Rate 20 Actual Respiratory Rate 20 Actual Respiratory Rate 20 Actual Respiratory Rate 20 Positive End Expiratory 5 Pressure Positive End Expiratory 5 Pressure Positive End Expiratory 5 Pressure Positive End Expiratory 5 Pressure Positive End Expiratory 5 Pressure Positive End Expiratory 5 Pressure Positive End Expiratory 5 Pressure Peak Inspiratory Airway 6.7 Pressure Peak Inspiratory Airway 6.9 Pressure Peak Inspiratory Airway 6.7 Pressure Peak Inspiratory Airway 6.7 Pressure Peak Inspiratory Airway 6.7 Pressure Peak Inspiratory Airway 6.7 Pressure Results - Laboratory Findings CBC and BMP: 11/23/18 03:20 11/23/18 11:15 ABG ABG pH 7.50 pH Units (7.32-7.45) H 11/23/18 05:21 ABG pCO2 39 mmHg (35-45) 11/23/18 05:21 ABG pO2 67 mmHg (85-104) L 11/23/18 05:21 ABG O2 Saturation 95 % (95-98) 11/23/18 05:21 PT/INR, D-dimer PT 16.7 Seconds (9.4-12.1) H 11/22/18 10:20 Abnormal lab findings: Abnormal lab results WBC 22.3 K/mcL (4.3-11.1) H 11/23/18 03:20 RBC 2.52 M/mcL (4.19-5.50) L 11/23/18 03:20 Hgb 7.5 g/dL (12.9-16.9) L 11/23/18 03:20 Hct 21.9 % (37.5-50.1) L 11/23/18 03:20 MCHC 31.1 g/dL (31.6-35.5) L 11/20/18 12:43 RDW 15.2 % (11.5-14.5) H 11/23/18 03:20 Plt Count 36 K/mcL (140-400) L 11/23/18 03:20 21.6 K/mcL (1.6-8.9) H 11/23/18 03:20 0.3 K/mcL (0.6-4.6) L 11/23/18 03:20 Nucleated RBCs/100 WBC 0.2 /100 WBC (0) H 11/23/18 03:20 Decreased (Normal) L 11/23/18 03:20 1+ (Not Present) A 11/20/18 12:43 PT 16.7 Seconds (9.4-12.1) H 11/22/18 10:20 ABG pH 7.50 pH Units (7.32-7.45) H 11/23/18 05:21 ABG pO2 67 mmHg (85-104) L 11/23/18 05:21 ABG HCO3 30 mEq/L (21-27) H 11/23/18 05:21 ABG Total CO2 31 mEq/L (20-26) H 11/23/18 05:21 ABG O2 Saturation 94 % (95-98) L 11/22/18 05:58 ABG Base Excess 6 mEq/L (-2 to 3) H 11/23/18 05:21 Potassium 5.7 mEq/L (3.5-5.1) H 11/21/18 03:20 Chloride 92 mEq/L (98-107) L 11/23/18 03:20 Carbon Dioxide 22 mEq/L (23-29) L 11/21/18 03:20 BUN 79 mg/dL (8-23) H 11/23/18 03:20 4.91 mg/dL (0.70-1.30) H 11/23/18 03:20 Est GFR ( Amer) 14 (> 60) L 11/23/18 03:20 Est GFR (Non-Af Amer) 12 (> 60) L 11/23/18 03:20 Glucose 235 mg/dL (70-105) H 11/23/18 03:20 POC Glucose 247 mg/dL (70-99) H 11/23/18 04:52 6.5 % (-5.6) H 11/20/18 13:04 313 (280-300) H 11/23/18 03:20 Lactic Acid 3.3 mmol/L (0.5-2.2) H 11/22/18 04:45 Calcium 5.5 mg/dL (8.6-10.3) L* 11/23/18 03:20 Venous Ioniz Calcium 0.71 mmol/L (1.15-1.35) L 11/23/18 03:37 Phosphorus 7.2 mg/dL (2.7-4.5) H 11/22/18 10:20 1.1 mg/dL (0.3-1.0) H 11/23/18 03:20 0.6 mg/dL (0.0-0.2) H 11/23/18 03:20 AST 487 Units/L (13-39) H 11/23/18 03:20 ALT 1636 Units/L (7-52) H 11/23/18 03:20 0.21 ng/mL (< 0.04) H* 11/21/18 13:15 3.6 g/dL (6.4-8.9) L 11/23/18 03:20 2.2 g/dL (3.5-5.7) L 11/23/18 03:20 1.4 g/dL (2.4-3.5) L 11/23/18 03:20 Turbid (Clear) A 11/21/18 08:50 Trace mg/dL (Negative) H 11/21/18 08:50 Small (Negative) H 11/21/18 08:50 5-15 per hpf (0-3) H 11/21/18 08:50 Ur Squamous Epith Cells Many per lpf (None-Few) H 11/21/18 08:50 Ur Culture Indicated? YES (NO) A 11/21/18 08:50 Fluid Appearance Cloudy (Clear) A 11/22/18 12:23 Vancomycin Trough 23 mcg/mL (5-10) H 11/22/18 04:45 Crossmatch See Detail 11/20/18 13:04 - Microbiology Findings Microbiology Findings: Microbiology, Last 48 Hours 11/22/18 12:23 Respiratory Culture - Preliminary Right Lower Lobe Lung 11/21/18 08:50 Urine Culture - Final Urine,Clean Catch No growth. - Clinical Findings Intake & Output: Intake & Output 11/22/18 11/23/18 11/23/18 23:59 07:59 15:59 Intake Total 1861 / 4700 1555 / 2352.8 797.8 / 2352.8 Output Total 20 / 240 30 / 30 0 / 30 Balance 1841 / 4460 1525 / 2322.8 797.8 / 2322.8 Weight 108 kg Consult Discharge Plan - Plan [facility]errals: [facility] [Primary Care Provider[facility] - <Kika Yang - Last Filed: 11/23/18 21:38> Date of Encounter: 11/23/18 Objective PUL Vital signs: Last Vital Signs Temp 98.4 F 11/23/18 19:49 Pulse 100 11/23/18 20:00 Resp 20 11/23/18 19:00 BP 166/67 11/23/18 19:00 Pulse Ox 92 11/23/18 19:00 Ventilator Settings Ventilator Settings: Ventilator Settings, Last 8 Hours Actual Respiratory Rate 19 Positive End Expiratory 5 Pressure Peak Inspiratory Airway 10 Pressure Results - Laboratory Findings CBC and BMP: 11/23/18 16:10 11/23/18 11:15 ABG ABG pH 7.50 pH Units (7.32-7.45) H 11/23/18 05:21 ABG pCO2 39 mmHg (35-45) 11/23/18 05:21 ABG pO2 67 mmHg (85-104) L 11/23/18 05:21 ABG O2 Saturation 95 % (95-98) 11/23/18 05:21 PT/INR, D-dimer PT 12.6 Seconds (9.4-12.1) H 11/23/18 11:15 Abnormal lab findings: Abnormal lab results WBC 23.4 K/mcL (4.3-11.1) H 11/23/18 16:10 RBC 2.55 M/mcL (4.19-5.50) L 11/23/18 16:10 Hgb 7.7 g/dL (12.9-16.9) L 11/23/18 16:10 Hct 22.1 % (37.5-50.1) L 11/23/18 16:10 MCHC 31.1 g/dL (31.6-35.5) L 11/20/18 12:43 RDW 15.0 % (11.5-14.5) H 11/23/18 16:10 Plt Count 37 K/mcL (140-400) L 11/23/18 16:10 22.5 K/mcL (1.6-8.9) H 11/23/18 16:10 0.5 K/mcL (0.6-4.6) L 11/23/18 16:10 Nucleated RBCs/100 WBC 0.1 /100 WBC (0) H 11/23/18 16:10 Decreased (Normal) L 11/23/18 16:10 Immature Plt Fraction 7.2 % (1.1-6.1) H 11/23/18 16:10 1+ (Not Present) A 11/20/18 12:43 PT 12.6 Seconds (9.4-12.1) H 11/23/18 11:15 ABG pH 7.50 pH Units (7.32-7.45) H 11/23/18 05:21 ABG pO2 67 mmHg (85-104) L 11/23/18 05:21 ABG HCO3 30 mEq/L (21-27) H 11/23/18 05:21 ABG Total CO2 31 mEq/L (20-26) H 11/23/18 05:21 ABG O2 Saturation 94 % (95-98) L 11/22/18 05:58 ABG Base Excess 6 mEq/L (-2 to 3) H 11/23/18 05:21 Potassium 5.7 mEq/L (3.5-5.1) H 11/21/18 03:20 Chloride 93 mEq/L (98-107) L 11/23/18 11:15 Carbon Dioxide 30 mEq/L (23-29) H 11/23/18 11:15 BUN 82 mg/dL (8-23) H 11/23/18 11:15 5.58 mg/dL (0.70-1.30) H 11/23/18 11:15 Est GFR ( Amer) 12 (> 60) L 11/23/18 11:15 Est GFR (Non-Af Amer) 10 (> 60) L 11/23/18 11:15 Glucose 198 mg/dL (70-105) H 11/23/18 11:15 POC Glucose 247 mg/dL (70-99) H 11/23/18 04:52 6.5 % (-5.6) H 11/20/18 13:04 312 (280-300) H 11/23/18 11:15 Lactic Acid 3.3 mmol/L (0.5-2.2) H 11/22/18 04:45 Calcium 6.0 mg/dL (8.6-10.3) L* 11/23/18 11:15 Venous Ioniz Calcium 0.76 mmol/L (1.15-1.35) L 11/23/18 16:57 Phosphorus 7.2 mg/dL (2.7-4.5) H 11/22/18 10:20 1.1 mg/dL (0.3-1.0) H 11/23/18 03:20 0.6 mg/dL (0.0-0.2) H 11/23/18 03:20 AST 487 Units/L (13-39) H 11/23/18 03:20 ALT 1636 Units/L (7-52) H 11/23/18 03:20 0.21 ng/mL (< 0.04) H* 11/21/18 13:15 3.6 g/dL (6.4-8.9) L 11/23/18 03:20 2.2 g/dL (3.5-5.7) L 11/23/18 03:20 1.4 g/dL (2.4-3.5) L 11/23/18 03:20 Turbid (Clear) A 11/21/18 08:50 Trace mg/dL (Negative) H 11/21/18 08:50 Small (Negative) H 11/21/18 08:50 5-15 per hpf (0-3) H 11/21/18 08:50 Ur Squamous Epith Cells Many per lpf (None-Few) H 11/21/18 08:50 Ur Culture Indicated? YES (NO) A 11/21/18 08:50 Fluid Appearance Cloudy (Clear) A 11/22/18 12:23 Vancomycin Trough 23 mcg/mL (5-10) H 11/22/18 04:45 Crossmatch See Detail 11/20/18 13:04 - Microbiology Findings Microbiology Findings: Microbiology, Last 48 Hours 11/22/18 12:23 Respiratory Culture - Preliminary Right Lower Lobe Lung 11/23/18 11:15 Blood Culture - Preliminary Peripheral Venipuncture Culture is incubating and being continuously monitored for growth. Final report to follow. 11/23/18 11:15 Blood Culture - Preliminary Peripheral Venipuncture Culture is incubating and being continuously monitored for growth. Final report to follow. 11/21/18 08:50 Urine Culture - Final Urine,Clean Catch No growth. - Clinical Findings Intake & Output: Intake & Output 11/23/18 11/23/18 11/23/18 07:59 15:59 23:59 Intake Total 1555 / 2812.8 1257.8 / 2812.8 Output Total 30 / 0 / 70 40 / 70 Balance 1525 / 2742.8 1257.8 / 2742.8 -40 / 2742.8 Weight 108 kg - Attending Attestation I saw and evaluated this patient and my medical decision-making was reviewed with the Resident Physician. I agree with the documented findings, disposition and treatment plan as described except to the extent set forth below. We independently had [id number] contact with the patient I spent 45 minutes of Critical Care time with this patient. It involved decision making of high complexity to assess, manipulate, and support vital organ system failure and/or to prevent further life threatening deterioration of the patient 's condition. The time involved in the performance of separately reportable procedures was not counted toward critical care time. Patient seen and examined at bedside Labs, radiology, chart personally reviewed. Management was reviewed during multidisciplinary critical care rounds. TAX CLERK: Patient is conscious oriented following commands no evidence of encephalopathy Pulm: Patient has acceptable V/Q mismatch patient tolerated the spontaneous breathing trial will patient has some hydrostatic pulmonary edema complicated by diuresis because of kidney injury it is difficult to do diuresis Cards: Patient is hemodynamically stable septic shock resolved blood cultures are negative transthoracic echo was done no need of a transesophageal echo for now. FEN-GI: Patient is extubated to advance diet as tolerated. Has most likely having sepsis and ischemic Hepatitis the reason for lactic acidosis most likely due to both liver and kidney failure. Renal:Patient has worsening Acute kidney injury mostly sepsis induced a Scar and discussed nephrology expected to improve ID: To continue broad-spectrum antibiotics blood cultures latest one is negative waiting for the first blood culture sensitivity with gram-positive cocci in clusters which grew in outside facility Heme/Onc: Patient has thrombocytopenia was likely sepsis induced Endo: Glucose Monitored Integ/MSK: Skin Care per routine ICU Nursing Protocol to prevent ulcers. Lines: All lines examined without evidence of infection : Dispo: Critically ill high chance of respiratory failure extubation CODE: Full code
[2018-11-23 11:49] LABS: Potassium 4.4 mEq/L (3.5-5.1)
[2018-11-23] MEDS ORDERED: Albumin 25% 25gram/100mL 25 GM/100 ML IV.SOLN IVPB ONE (12:00)
[2018-11-23] MEDS ORDERED: Calcium Gluconate 2,000 MG in 0.9 % Sodium Chloride 100 ML IVPB ONE (12:00)
[2018-11-23] MEDS ORDERED: Perflutren Lipid Microsphere 1.3 ML in 0.9 % Sodium Chloride 8.7 ML IVP ONE (15:03)
[2018-11-23] MEDS ORDERED: Furosemide 40 MG/4 ML VIAL IVP ONE (15:58)
[2018-11-23 16:35] LABS: Nucleated Red Blood Cells 0.1 /100 WBC (0)
[2018-11-23 16:37] LABS: Hematocrit 22.1 % (37.5-50.1); Hemoglobin 7.7 g/dL (12.9-16.9); Immature Platelets 7.2 % (1.1-6.1); Mean Corpuscular HGB Conc 34.8 g/dL (31.6-35.5); Mean Corpuscular Hemoglobin 30.2 pg (28.0-33.3); Mean Corpuscular Volume 86.7 fL (83.0-100.0); Mean Platelet Volume 12.2 fL (9.4-12.4); Neutrophils # 22.5 K/mcL (1.6-8.9); Red Blood Count 2.55 M/mcL (4.19-5.50)
[2018-11-23 16:40] LABS: Platelet Count 37 K/mcL (140-400)
[2018-11-23 16:57] LABS: Lymphocytes # 0.5 K/mcL (0.6-4.6); Monocytes # 0.5 K/mcL (0.0-1.3); Platelet Estimate Decreased (Normal)
[2018-11-23 17:00] LABS: VBG Ionized Calcium 0.76 mmol/L (1.15-1.35)
[2018-11-23] MEDS ORDERED: traMADol 50 MG TABLET PO PRN (19:57)
[2018-11-23] MEDS: OXYCODONE Oral CONC 10 MG/0.5 ML ORAL.SYG SL PRN (21:33)
[2018-11-24] MEDS: Norepinephrine 8 MG in D5% in Water 500 ML IVC SCH (00:46)
[2018-11-24] MEDS: Artificial Tears SOLN 15 ML BOTTLE BOTH EYES SCH ×3 (00:46→07:55)
[2018-11-24] MEDS: Insulin LISPRO 300 UNITS/3 ML VIAL SQ SCH ×4 (00:46→17:18)
[2018-11-24] MEDS: Ipratropium/Albuterol Neb 3 ML IH SCH ×4 (04:48→22:48)
[2018-11-24] MEDS: Sodium Bicarbonate 150 MEQ in D5% in Water 1,000 ML IVC SCH (05:07)
[2018-11-24] MEDS: Hydrocortisone Sodium Succ 100 MG/2 ML VIAL IVP SCH ×2 (05:15→17:11)
[2018-11-24] MEDS: Pantoprazole 40 MG VIAL IVP SCH ×2 (05:15→17:11)
[2018-11-24] MEDS: OXYCODONE Oral CONC 10 MG/0.5 ML ORAL.SYG SL PRN ×3 (05:15→20:37)
[2018-11-24 05:29] LABS: ABG Base Excess 5 mEq/L (-2 to 3); ABG HCO3 29 mEq/L (21-27); ABG Oxygen Saturation 95 % (95-98); ABG PCO2 37 mmHg (35-45); ABG PO2 71 mmHg (85-104); ABG TCO2 30 mEq/L (20-26)
[2018-11-24 05:46] LABS: Nucleated Red Blood Cells 0.1 /100 WBC (0)
[2018-11-24 05:47] LABS: Hematocrit 23.9 % (37.5-50.1); Hemoglobin 8.2 g/dL (12.9-16.9); Lymphocytes # 0.5 K/mcL (0.6-4.6); Mean Corpuscular HGB Conc 34.3 g/dL (31.6-35.5); Mean Corpuscular Hemoglobin 29.9 pg (28.0-33.3); Mean Corpuscular Volume 87.2 fL (83.0-100.0); Mean Platelet Volume 11.5 fL (9.4-12.4); Platelet Count 49 K/mcL (140-400); Red Blood Count 2.74 M/mcL (4.19-5.50); Red Cell Distribution Width 15.4 % (11.5-14.5)
[2018-11-24 05:50] LABS: VBG Ionized Calcium 0.74 mmol/L (1.15-1.35)
[2018-11-24 05:58] LABS: Calcium 6.8 mg/dL (8.6-10.3); Magnesium 2.1 mg/dL (1.6-2.6); Phosphorous 7.4 mg/dL (2.7-4.5); Potassium 4.9 mEq/L (3.5-5.1)
[2018-11-24 06:38] LABS: Neutrophils # 24.8 K/mcL (1.6-8.9); Platelet Estimate Decreased (Normal)
--- NOTE | 2018-11-24 06:48 | Pulmonology Progress Note ---
<Niranjan Ruiz - Last Filed: 11/24/18 07:10> Date of Encounter: 11/24/18 Time of Encounter: 06:48 Assessment and Plan (1) Sepsis Current Visit: Yes Status: Acute -Likely 2/2 pneumonia -2L fluid bolus 11/20/18 at [facility] prior to transfer -Tachypneic, tachycardic, 95F rectal temp but BP stable on arrival -WBC 43.2, lactic 7.7, trop 0.06 on arrival -Received zosyn 11/20/18 at the [facility] -CT chest abd/plv 11/20/18: hazy opacities at lung bases atelectasis or pneumonia, underlying emphysema. Cholelithiasis. Very large left sided rectus sheath hematoma -WBC 43.6, lactic down from 9.8 to 3.3 after bicarb infusion started 11/20/18 -Bicarb drip stopped 11/23/18 -BC x2 drawn 11/20/18 prelim neg -Repeat BC x2 drawn 11/23/18 prelim neg -Urine culture negative -BAL 11/22/18 cultures prelim neg -BP very labile 11/20/18 with MAPs dropping into 40's, requiring pressor support to maintain MAP. MAP adequate off pressors now -Continue empiric vanc (day 5) and pip/tazo (day 5) which will deescalate as cultures return -TTE 11/21/18 not able to visualize structures -TTE 11/23/18 EF 60-65%, atypical septal motion consistent with BBB, mild LV diastolic dysfunction, valves not well visualized Qualifiers: Sepsis type: sepsis due to unspecified organism Qualified Code(s): A41.9 - Sepsis, unspecified organism (2) Acute respiratory failure with hypoxia Current Visit: Yes Status: Acute -Awake, alert and talking on arrival -Resp and mental status declined and became hypoxic and apneic requiring intubation -ABG at time of intubation pH 7.16, paCO2 44, paO2 105, hco3 16, 96% on 13L O2 via oxymask -ABG 11/23/18: pH 7.5, paCO2 39, paO2 67, HCO3 30, 95% on 40% FiO2 -Successfully extubated 11/23/18 (3) GI bleed Current Visit: Yes Status: Suspected -Melena occasionally over the last 2 weeks -Hgb 11/18/18 13.4 at [facility] -Received new anticoagulation 2/2 DVT at the [facility] -Hgb on transfer here 11/20/18 7.3, BUN 46 -Got 2 units PRBCs 11/20/18 and repeat hgb 9 -Hgb today 8.2 -Will monitor and transfuse as indicated -Acute care surg following without plans for intervention till more stable Qualifiers: GI bleed type/associated pathology: melena Qualified Code(s): K92.1 - Melena (4) ANY (acute kidney injury) Current Visit: Yes Status: Acute -Cr at [facility] 11/19/18 0.79 -Cr on transfer from [facility] 11/20/18 1.74, BUN 46 -On vanc and zosyn (day 4) -Renal function worsening. Cr 6.39, BUN 94 today -Will transition from vanc and zosyn as early as can based on culture findings -Will continue trend renal function and avoid nephrotoxins as can -Neph following -Will place temp dialysis catheter today as HD likely needed (5) COPD (chronic obstructive pulmonary disease) Current Visit: Yes Status: Acute -Hx of COPD -Progressive dyspnea and yellow productive cough over last 2 weeks -Scheduled bronchodilators Qualifiers: COPD type: emphysema Emphysema type: unspecified Qualified Code(s): J43.9 - Emphysema, unspecified (6) Anemia Current Visit: Yes Status: Acute -Hgb 13.4 11/18/18 at the [facility] -Hgb on arrival here 7.3 -Occult stool pos at [facility] -GI bleed vs large rectus sheath hematoma on CT -Transfused 2 units PRBC 11/20/18 with hgb repeat at 9 -Hgb 8.6 today -Trend and transfuse as indicated Qualifiers: Anemia type: other cause Other causes of anemia: other cause, not classified Qualified Code(s): D64.89 - Other specified anemias (7) Right leg DVT Current Visit: Yes Status: Acute -R leg DVT at [facility] -RLE doppler prelim pos for DVT R posterior tibial vein -SVC filter placed 11/22/18 as anticoagulation contraindicated Qualifiers: Affected thrombotic vein of extremity: unspecified vein of extremity Chronicity: unspecified Qualified Code(s): I82.401 - Acute embolism and thrombosis of unspecified deep veins of right lower extremity (8) High anion gap metabolic acidosis Current Visit: Yes Status: Acute -AG 11 on arrival -AG increased 11/21/18 to 15 likely 2/2 lactic acidosis -AG 18 today (9) Lactic acidemia Current Visit: Yes Status: Acute -Lactic on arrival 7.3 -Likely 2/2 sepsis basilar pneumonia -Peak 9.8 started bicarb drip -Lactic 3.3 11/22/18 -Stop bicarb drip today (10) Leukocytosis Current Visit: Yes Status: Acute -WBC 43.2 11/20/18 -WBC 43.6 11/21/18 -Trended down with wbc 22.3 yesterday -Increased slightly to 25.3 today -Management as above Qualifiers: Leukocytosis type: unspecified Qualified Code(s): D72.829 - Elevated white blood cell count, unspecified (11) Elevated troponin Current Visit: Yes Status: Acute -Likely 2/2 demand ischemia from hypotension -[facility]07 [facility] -Repeat here 0.06 -Minimal increase on repeats 0.11-0.16-0.21 (12) DVT prophylaxis Current Visit: Yes Status: Acute -SCDs as acute drop in hgb Subjective Principal diagnosis: Sepsis Interval history: No acute events overnight. No problems since extubation yesterday. Complains of L sided abdominal pain and back pain. Objective PUL Vital signs: Last Vital Signs Temp 98.7 F 11/24/18 04:21 Pulse 103 11/24/18 06:00 Resp 18 11/24/18 06:00 BP 152/70 11/24/18 06:00 Pulse Ox 94 11/24/18 06:00 General appearance: no acute distress, alert Eyes: nonicteric ENT: oropharynx dry Neck: supple Effort: normal Auscultation: bilateral: diminished breath sounds, rhonchi (scattered) Cardiovascular: regular rate and rhythm Gastrointestinal: normoactive bowel sounds, soft, tender, other (Distended ) Extremities: no cyanosis, pink and warm, pulses normal, edema (2-3+) normal mental status, non-focal exam mood appropriate, affect normal Results - Laboratory Findings CBC and BMP: 11/24/18 04:00 11/24/18 04:00 ABG ABG pH 7.50 pH Units (7.32-7.45) H 11/24/18 05:26 ABG pCO2 37 mmHg (35-45) 11/24/18 05:26 ABG pO2 71 mmHg (85-104) L 11/24/18 05:26 ABG O2 Saturation 95 % (95-98) 11/24/18 05:26 PT/INR, D-dimer PT 12.6 Seconds (9.4-12.1) H 11/23/18 11:15 Abnormal lab findings: Abnormal lab results WBC 25.3 K/mcL (4.3-11.1) H 11/24/18 04:00 RBC 2.74 M/mcL (4.19-5.50) L 11/24/18 04:00 Hgb 8.2 g/dL (12.9-16.9) L 11/24/18 04:00 Hct 23.9 % (37.5-50.1) L 11/24/18 04:00 MCHC 31.1 g/dL (31.6-35.5) L 11/20/18 12:43 RDW 15.4 % (11.5-14.5) H 11/24/18 04:00 Plt Count 49 K/mcL (140-400) L 11/24/18 04:00 24.8 K/mcL (1.6-8.9) H 11/24/18 04:00 0.5 K/mcL (0.6-4.6) L 11/24/18 04:00 Nucleated RBCs/100 WBC 0.1 /100 WBC (0) H 11/24/18 04:00 Decreased (Normal) L 11/24/18 04:00 Immature Plt Fraction 7.2 % (1.1-6.1) H 11/23/18 16:10 1+ (Not Present) A 11/20/18 12:43 PT 12.6 Seconds (9.4-12.1) H 11/23/18 11:15 ABG pH 7.50 pH Units (7.32-7.45) H 11/24/18 05:26 ABG pO2 71 mmHg (85-104) L 11/24/18 05:26 ABG HCO3 29 mEq/L (21-27) H 11/24/18 05:26 ABG Total CO2 30 mEq/L (20-26) H 11/24/18 05:26 ABG O2 Saturation 94 % (95-98) L 11/22/18 05:58 ABG Base Excess 5 mEq/L (-2 to 3) H 11/24/18 05:26 Potassium 5.7 mEq/L (3.5-5.1) H 11/21/18 03:20 Chloride 91 mEq/L (98-107) L 11/24/18 04:00 Carbon Dioxide 30 mEq/L (23-29) H 11/23/18 11:15 BUN 94 mg/dL (8-23) H 11/24/18 04:00 6.39 mg/dL (0.70-1.30) H 11/24/18 04:00 Est GFR ( Amer) 10 (> 60) L 11/24/18 04:00 Est GFR (Non-Af Amer) 9 (> 60) L 11/24/18 04:00 Glucose 169 mg/dL (70-105) H 11/24/18 04:00 POC Glucose 168 mg/dL (70-99) H 11/23/18 23:30 6.5 % (-5.6) H 11/20/18 13:04 315 (280-300) H 11/24/18 04:00 Lactic Acid 3.3 mmol/L (0.5-2.2) H 11/22/18 04:45 Calcium 6.8 mg/dL (8.6-10.3) L 11/24/18 04:00 Venous Ioniz Calcium 0.74 mmol/L (1.15-1.35) L 11/24/18 05:37 Phosphorus 7.4 mg/dL (2.7-4.5) H 11/24/18 04:00 1.1 mg/dL (0.3-1.0) H 11/23/18 03:20 0.6 mg/dL (0.0-0.2) H 11/23/18 03:20 AST 487 Units/L (13-39) H 11/23/18 03:20 ALT 1636 Units/L (7-52) H 11/23/18 03:20 0.21 ng/mL (< 0.04) H* 11/21/18 13:15 3.6 g/dL (6.4-8.9) L 11/23/18 03:20 2.2 g/dL (3.5-5.7) L 11/23/18 03:20 1.4 g/dL (2.4-3.5) L 11/23/18 03:20 Turbid (Clear) A 11/21/18 08:50 Trace mg/dL (Negative) H 11/21/18 08:50 Small (Negative) H 11/21/18 08:50 5-15 per hpf (0-3) H 11/21/18 08:50 Ur Squamous Epith Cells Many per lpf (None-Few) H 11/21/18 08:50 Ur Culture Indicated? YES (NO) A 11/21/18 08:50 Fluid Appearance Cloudy (Clear) A 11/22/18 12:23 Vancomycin Trough 23 mcg/mL (5-10) H 11/22/18 04:45 Crossmatch See Detail 11/20/18 13:04 - Microbiology Findings Microbiology Findings: Microbiology, Last 48 Hours 11/22/18 12:23 Respiratory Culture - Preliminary Right Lower Lobe Lung 11/23/18 11:15 Blood Culture - Preliminary Peripheral Venipuncture Culture is incubating and being continuously monitored for growth. Final report to follow. 11/23/18 11:15 Blood Culture - Preliminary Peripheral Venipuncture Culture is incubating and being continuously monitored for growth. Final report to follow. 11/21/18 08:50 Urine Culture - Final Urine,Clean Catch No growth. - Clinical Findings Intake & Output: Intake & Output 11/23/18 11/23/18 11/24/18 15:59 23:59 07:59 Intake Total 1257.8 / 2812.8 100 / 100 Output Total 0 / 70 40 / 70 40 / 40 Balance 1257.8 / 2742.8 -40 / 2742.8 60 / 60 Weight 111.8 kg Consult Discharge Plan - Plan [facility]errals: [facility]Primary Care Provider[facility] - <Kika Yang - Last Filed: 11/24/18 22:41> Date of Encounter: 11/24/18 Objective PUL Vital signs: Last Vital Signs Temp 97.8 F 11/24/18 19:42 Pulse 98 11/24/18 22:00 Resp 22 11/24/18 22:00 BP 116/59 11/24/18 22:00 Pulse Ox 100 11/24/18 22:00 Results - Laboratory Findings CBC and BMP: 11/24/18 19:06 11/24/18 04:00 ABG ABG pH 7.50 pH Units (7.32-7.45) H 11/24/18 05:26 ABG pCO2 37 mmHg (35-45) 11/24/18 05:26 ABG pO2 71 mmHg (85-104) L 11/24/18 05:26 ABG O2 Saturation 95 % (95-98) 11/24/18 05:26 PT/INR, D-dimer PT 11.4 Seconds (9.4-12.1) 11/24/18 09:35 Abnormal lab findings: Abnormal lab results WBC 25.3 K/mcL (4.3-11.1) H 11/24/18 04:00 RBC 2.74 M/mcL (4.19-5.50) L 11/24/18 04:00 Hgb 7.4 g/dL (12.9-16.9) L 11/24/18 19:06 Hct 22.0 % (37.5-50.1) L 11/24/18 19:06 MCHC 31.1 g/dL (31.6-35.5) L 11/20/18 12:43 RDW 15.4 % (11.5-14.5) H 11/24/18 04:00 Plt Count 49 K/mcL (140-400) L 11/24/18 04:00 24.8 K/mcL (1.6-8.9) H 11/24/18 04:00 0.5 K/mcL (0.6-4.6) L 11/24/18 04:00 Nucleated RBCs/100 WBC 0.1 /100 WBC (0) H 11/24/18 04:00 Decreased (Normal) L 11/24/18 04:00 Immature Plt Fraction 7.2 % (1.1-6.1) H 11/23/18 16:10 1+ (Not Present) A 11/20/18 12:43 PT 12.6 Seconds (9.4-12.1) H 11/23/18 11:15 ABG pH 7.50 pH Units (7.32-7.45) H 11/24/18 05:26 ABG pO2 71 mmHg (85-104) L 11/24/18 05:26 ABG HCO3 29 mEq/L (21-27) H 11/24/18 05:26 ABG Total CO2 30 mEq/L (20-26) H 11/24/18 05:26 ABG O2 Saturation 94 % (95-98) L 11/22/18 05:58 ABG Base Excess 5 mEq/L (-2 to 3) H 11/24/18 05:26 Potassium 5.7 mEq/L (3.5-5.1) H 11/21/18 03:20 Chloride 91 mEq/L (98-107) L 11/24/18 04:00 Carbon Dioxide 30 mEq/L (23-29) H 11/23/18 11:15 BUN 94 mg/dL (8-23) H 11/24/18 04:00 6.39 mg/dL (0.70-1.30) H 11/24/18 04:00 Est GFR ( Amer) 10 (> 60) L 11/24/18 04:00 Est GFR (Non-Af Amer) 9 (> 60) L 11/24/18 04:00 Glucose 169 mg/dL (70-105) H 11/24/18 04:00 POC Glucose 168 mg/dL (70-99) H 11/23/18 23:30 6.5 % (-5.6) H 11/20/18 13:04 315 (280-300) H 11/24/18 04:00 Lactic Acid 3.3 mmol/L (0.5-2.2) H 11/22/18 04:45 Calcium 6.8 mg/dL (8.6-10.3) L 11/24/18 04:00 Venous Ioniz Calcium 0.74 mmol/L (1.15-1.35) L 11/24/18 05:37 Phosphorus 7.4 mg/dL (2.7-4.5) H 11/24/18 04:00 1.1 mg/dL (0.3-1.0) H 11/23/18 03:20 0.6 mg/dL (0.0-0.2) H 11/23/18 03:20 AST 487 Units/L (13-39) H 11/23/18 03:20 ALT 1636 Units/L (7-52) H 11/23/18 03:20 0.21 ng/mL (< 0.04) H* 11/21/18 13:15 3.6 g/dL (6.4-8.9) L 11/23/18 03:20 2.2 g/dL (3.5-5.7) L 11/23/18 03:20 1.4 g/dL (2.4-3.5) L 11/23/18 03:20 Turbid (Clear) A 11/21/18 08:50 Trace mg/dL (Negative) H 11/21/18 08:50 Small (Negative) H 11/21/18 08:50 5-15 per hpf (0-3) H 11/21/18 08:50 Ur Squamous Epith Cells Many per lpf (None-Few) H 11/21/18 08:50 Ur Culture Indicated? YES (NO) A 11/21/18 08:50 Fluid Appearance Cloudy (Clear) A 11/22/18 12:23 Vancomycin Trough 23 mcg/mL (5-10) H 11/22/18 04:45 Hep Bs Antibody < 3.10 mIU/mL (10.00-) L 11/24/18 09:35 Crossmatch See Detail 11/20/18 13:04 - Microbiology Findings Microbiology Findings: Microbiology, Last 48 Hours 11/22/18 12:23 Respiratory Culture - Preliminary Right Lower Lobe Lung Gram Negative Pranay 11/23/18 11:15 Blood Culture - Preliminary Peripheral Venipuncture Culture is incubating and being continuously monitored for growth. Final report to follow. 11/23/18 11:15 Blood Culture - Preliminary Peripheral Venipuncture Culture is incubating and being continuously monitored for growth. Final report to follow. - Clinical Findings Intake & Output: Intake & Output 11/24/18 11/24/18 11/24/18 07:59 15:59 23:59 Intake Total 100 / 800 100 / 800 600 / 800 Output Total 40 / 1004 80 / 1004 884 / 1004 Balance 60 / -204 20 / -204 -284 / -204 Weight 111.8 kg - Attending Attestation Attending Attestation I saw and evaluated this patient and my medical decision-making was reviewed with the Resident Physician. I agree with the documented findings, disposition and treatment plan as described except to the extent set forth below. We independently had [id number] contact with the patient I spent 55 minutes of Critical Care time with this patient. It involved decision making of high complexity to assess, manipulate, and support vital organ system failure and/or to prevent further life threatening deterioration of the patient's condition. The time involved in the performance of separately reportable procedures was not counted toward critical care time. Patient seen and examined at bedside Labs, radiology, chart personally reviewed. Management was reviewed during multidisciplinary critical care rounds. [employer]TER: Patient is conscious oriented following commands no evidence of encephalopathy Pulm: Patient has acceptable V/Q mismatch patient tolerated the spontaneous breathing trial will patient has some hydrostatic pulmonary edema complicated by diuresis because of kidney injury it is difficult to do diuresis 11/24 patient was worsening hypoxic respiratory failure complicated by a metastatic pulmonary edema to continue diuresis. Cards: Patient is hemodynamically stable septic shock resolved blood cultures are negative transthoracic echo was done no need of a transesophageal echo for now. Patient is hemodynamically stable blood culture is not growing anything FEN-GI: Patient is extubated to advance diet as tolerated. Has most likely having sepsis and ischemic Hepatitis the reason for lactic acidosis most likely due to both liver and kidney failure. 11/24 liver and kidneys slowly recovering. Renal:Patient has worsening Acute kidney injury mostly sepsis induced a Any and discussed nephrology expected to improve ID: To continue broad-spectrum antibiotics blood cultures latest one is negative waiting for the first blood culture sensitivity with gram-positive cocci in clusters which grew in outside facility Heme/Onc: Patient has thrombocytopenia was likely sepsis induced Endo: Glucose Monitored Integ/MSK: Skin Care per routine ICU Nursing Protocol to prevent ulcers. Lines: All lines examined without evidence of infection : Dispo: Critically ill high chance of respiratory failure extubation CODE: Full code
--- NOTE | 2018-11-24 06:56 | Vascular/[facility] Progress Note ---
Date of Encounter: 11/23/18 Time of Encounter: 08:20 - Assessment and plan (1) Right leg DVT Current Visit: Yes Status: Acute The patient has a rectus sheath hematoma and a right lower extremity deep vein thrombosis. Anticoagulation remains contraindicated due to recent gastro- intestinal bleeding and A rectus sheath hematoma. An inferior vena cava filter was placed yesterday without competitions. The patient is no evidence of a hematoma. Filters for permanent placement. Pacemaker follow-up with vascular surgery as needed. Qualifiers: Affected thrombotic vein of extremity: unspecified vein of extremity Chronicity: unspecified Qualified Code(s): I82.401 - Acute embolism and thrombosis of unspecified deep veins of right lower extremity (2) GI bleed Current Visit: Yes Status: Suspected Qualifiers: GI bleed type/associated pathology: melena Qualified Code(s): K92.1 - Melena (3) COPD (chronic obstructive pulmonary disease) Current Visit: Yes Status: Acute Qualifiers: COPD type: emphysema Emphysema type: unspecified Qualified Code(s): J43.9 - Emphysema, unspecified - Subjective Interval history: The patient is intubated but responds to commands and is able to answer questions with head gestures. He reports left-sided abdominal pain and tenderness. Vital Signs, Last 4 Hours Temp Pulse Resp BP Pulse Ox 11/24/18 06:00 103 18 152/70 94 11/24/18 05:00 109 20 157/69 94 11/24/18 04:49 18 93 11/24/18 04:21 98.7 F 11/24/18 04:00 107 18 166/67 94 11/24/18 03:00 106 20 162/70 94 - Physical Examination General: Present: Well developed HEENT: Present: Pupils equal Neck: Absent: JVD Cardiac: Present: Normal S1 and S2 Lungs: Present: Other (Percent bilaterally, scattered rhonchi) Neuro: Present: Alert and responsive, No focal deficits noted Vascular: Present: Normal capillary refill, Edema (Right lower extremity edema), Surgical incisions (No hematoma). Absent: Cyanosis Abdomen: Present: Soft, Other (Left-sided abdominal tenderness) Results 11/24/18 04:00 11/24/18 04:00 Lab Results, Last 24 hours 11/23/18 11/23/18 11/23/18 11:15 11:15 16:10 WBC 23.4 H Hgb 7.7 L Hct 22.1 L Plt Count 37 L INR 1.1 APTT 30.8 Sodium 136 Potassium 4.4 Chloride 93 L Carbon Dioxide 30 H BUN 82 H Creatinine 5.58 H Glucose 198 H Calcium 6.0 L* Magnesium 11/24/18 11/24/18 04:00 04:00 WBC 25.3 H Hgb 8.2 L Hct 23.9 L Plt Count 49 L INR APTT Sodium 136 Potassium 4.9 Chloride 91 L Carbon Dioxide 27 BUN 94 H Creatinine 6.39 H Glucose 169 H Calcium 6.8 L Magnesium 2.1 Consult Discharge Plan - Plan [facility]errals: [facility] [Primary Care Provider] -
[2018-11-24] MEDS ORDERED: 0.9 % Sodium Chloride 250 ML IVC PRN (07:35)
[2018-11-24] MEDS ORDERED: *HR* Heparin 10,000 UNIT/10 ML VIAL IV PRN (07:35)
[2018-11-24] MEDS ORDERED: 0.9 % Sodium Chloride 1,000 ML PRIME SCH (07:45)
[2018-11-24] MEDS: Chlorhexidine Rinse 15 ML MOUTHWASH MM SCH (07:55)
[2018-11-24] MEDS: Piperacillin/Tazobactam 3.375 GM in 0.9 % Sodium Chloride Mini Bag 100 ML IVPB SCH ×2 (08:01→20:36)
--- NOTE | 2018-11-24 10:03 | Urology Progress Note ---
Date of Encounter: 11/24/18 Time of Encounter: 09:15 - Assessment and Plan (1) Bruise of scrotum Current Visit: Yes Status: Acute Assessment and plan: Patient is a 73-year-old male who presents with a rectus sheath hematoma. Scr otum is diffusely edematous with some worsening in bruising. Hemoglobin appears to be stabilizing at 8.2. Continue with indwelling Reynaga catheter and scrotal support. Dr. Dior will be in to reevaluate patient. Qualifiers: Encounter type: initial encounter Qualified Code(s): S30.22XA - Contusion of scrotum and testes, initial encounter Progress Note Narrative: Patient seen and examined lying in bed in no apparent distress. Patient resting with his eyes closed, but he is responsive to his name. Patient admits to some scrotal discomfort. Objective Initial Vital Signs Pulse Resp BP Pulse Ox 101 27 130/102 92 11/20/18 13:11 11/20/18 13:11 11/20/18 13:11 11/20/18 13:11 - General physical appearance Present: no distress, moderate pain - Respiratory Present: normal expansion. Absent: normal respiratory effort - Abdomen Present: soft, non tender - Genitourinary Absent: testicles non-tender scrotal mass/hydrocele: bilateral (Scrotum is diffusely edematous with significant ecchymosis) Urine Appearance: Present: Clear (Reynaga catheter indwelling and draining transparent, clear yellow urine into bedside bag) - Integumentary Present: no rash, no abnormal pigmentation - Musculoskeletal Present: normal posture - Psychiatric Present: oriented to person - Labs 11/24/18 04:00 11/24/18 04:00 Diabetes panel 11/23/18 11/24/18 Range/Units 11:15 04:00 Sodium 136 136 (136-145) mEq/L Potassium 4.4 4.9 (3.5-5.1) mEq/L Chloride 93 L 91 L (98-107) mEq/L Carbon Dioxide 30 H 27 (23-29) mEq/L BUN 82 H 94 H (8-23) mg/dL Creatinine 5.58 H 6.39 H (0.70-1.30) mg/dL Glucose 198 H 169 H (70-105) mg/dL Calcium 6.0 L* 6.8 L (8.6-10.3) mg/dL Calcium panel 05/13/19 05/14/19 Range/Units 11:15 04:00 Calcium 6.0 L* 6.8 L (8.6-10.3) mg/dL Phosphorus 7.4 H (2.7-4.5) mg/dL Pituitary panel 11/23/18 11/24/18 Range/Units 11:15 04:00 Sodium 136 136 (136-145) mEq/L Potassium 4.4 4.9 (3.5-5.1) mEq/L Chloride 93 L 91 L (98-107) mEq/L Carbon Dioxide 30 H 27 (23-29) mEq/L BUN 82 H 94 H (8-23) mg/dL Creatinine 5.58 H 6.39 H (0.70-1.30) mg/dL Glucose 198 H 169 H (70-105) mg/dL Calcium 6.0 L* 6.8 L (8.6-10.3) mg/dL Adrenal panel 11/23/18 11/24/18 Range/Units 11:15 04:00 Sodium 136 136 (136-145) mEq/L Potassium 4.4 4.9 (3.5-5.1) mEq/L Chloride 93 L 91 L (98-107) mEq/L Carbon Dioxide 30 H 27 (23-29) mEq/L BUN 82 H 94 H (8-23) mg/dL Creatinine 5.58 H 6.39 H (0.70-1.30) mg/dL Glucose 198 H 169 H (70-105) mg/dL Calcium 6.0 L* 6.8 L (8.6-10.3) mg/dL Consult Discharge Plan - Plan [facility]errals: [facility] [Primary Care Provider] -
[2018-11-24 10:09] LABS: Prothrombin Time 11.4 Seconds (9.4-12.1)
[2018-11-24 10:30] LABS: Hepatitis B Surface Antibody < 3.10 mIU/mL
[2018-11-24 10:41] LABS: Hepatitis B Surface Antigen Nonreactive (Nonreactive)
[2018-11-24] MEDS ORDERED: *HR* FentaNYL (PF) 100 MCG/2 ML VIAL IVP ONE ×2 (12:01→12:30)
[2018-11-24] MEDS: Nitroglycerin 25 MG/250 ML INFUS..BTL IVC SCH (12:10)
--- NOTE | 2018-11-24 12:39 | Nephrology Progress Note ---
Date of Encounter: 11/24/18 Time of Encounter: 12:39 (\) - Assessment and Plan (1) ANY (acute kidney injury) Current Visit: Yes Status: Acute Patient has multifactorial oliguric ANY with a rapidly rising creatinine that seems to be at a plateau. Patient with anemia, vancomycin exposure, and septic shock. Patient with volume overload. Will initiate dialysis today for volume removal and to address azotemia. Avoid unnecessary nephrotoxins. Adjust medications as needed for renal function. Patient was seen on dialysis. Patient critically ill. 34 minutes spent in the care of this critically ill patient. (2) Septic shock Current Visit: Yes Status: Acute Per primary team. (3) Acute respiratory failure with hypoxia Current Visit: Yes Status: Acute Patient is on Bipap. (4) Anemia Current Visit: Yes Status: Acute Qualifiers: Anemia type: other cause Other causes of anemia: other cause, not classified Qualified Code(s): D64.89 - Other specified anemias (5) COPD (chronic obstructive pulmonary disease) Current Visit: Yes Status: Acute Qualifiers: COPD type: emphysema Emphysema type: unspecified Qualified Code(s): J43.9 - Emphysema, unspecified (6) Elevated troponin Current Visit: Yes Status: Acute (7) Right leg DVT Current Visit: Yes Status: Acute Qualifiers: Affected thrombotic vein of extremity: unspecified vein of extremity Chronicity: unspecified Qualified Code(s): I82.401 - Acute embolism and thrombosis of unspecified deep veins of right lower extremity Subjective Principal diagnosis: Sepsis Interval history: Patient seen. He has no new complaint. He is dypsnic. He denies chest pain. ROS otherwise is stable. Objective - Vital Signs Vital signs: Vital Signs Temp Pulse Resp BP Pulse Ox 11/24/18 12:00 112 20 160/73 94 11/24/18 11:20 102 11/24/18 11:00 97.8 F 110 20 169/69 94 11/24/18 10:00 99 20 173/70 94 11/24/18 09:00 101 20 171/69 94 11/24/18 08:34 98.3 F 11/24/18 08:00 103 20 167/72 94 11/24/18 07:50 102 11/24/18 07:00 105 20 159/70 94 11/24/18 06:00 103 18 152/70 94 11/24/18 05:00 109 20 157/69 94 11/24/18 04:49 18 93 11/24/18 04:21 98.7 F 11/24/18 04:00 107 18 166/67 94 11/24/18 03:00 106 20 162/70 94 11/24/18 02:00 105 20 165/70 93 11/24/18 01:01 98.5 F 11/24/18 01:00 107 22 160/66 93 11/24/18 00:00 107 18 162/70 93 11/23/18 23:00 108 20 165/72 93 11/23/18 22:03 16 164/72 93 11/23/18 22:00 109 18 172/69 91 11/23/18 21:00 103 20 182/70 92 11/23/18 20:00 102 20 170/71 92 11/23/18 19:49 98.4 F 11/23/18 19:00 101 20 166/67 92 11/23/18 18:00 96 18 168/65 92 11/23/18 17:00 100 18 162/65 92 11/23/18 16:31 20 92 11/23/18 16:19 97.9 F 11/23/18 16:16 95 11/23/18 16:00 93 18 160/64 92 11/23/18 15:10 94 20 139/60 90 11/23/18 15:00 88 25 111/53 90 11/23/18 14:00 96 20 138/59 92 11/23/18 13:35 19 129/58 93 11/23/18 13:00 88 19 111/53 70 11/23/18 12:51 95 Intake and Output 11/23/18 11/24/18 11/24/18 23:59 07:59 15:59 Intake Total 100 / 100 Output Total 40 / 70 40 / 70 30 / 70 Balance -40 / 2742.8 60 / 30 -30 / 30 Intake: IV Fluids 100 / 100 Zosyn 3.375 GM In 0.9 % Sodium 100 / 100 Chloride (Mini-Bag +) 100 ML @ 25 mls/hr IVPB Q12H [facility] Rx#: [id number] Output: Catheter 40 / 70 40 / 70 30 / 70 Other: Weight 111.8 kg Blood Glucose* 168 147 Patient Weight 11/24/18 23:59 Weight 111.8 kg - General Appearance General appearance: Present: well-developed, well-nourished, obese EENT: Present: ATNC Respiratory: Present: rales, rhonchi Cardiology: Present: edema Additional Comments: tachycardic Gastrointestinal: Present: no tenderness Integumentary: Present: warm and dry Neurologic: Present: alert and oriented x3 Musculoskeletal: Present: no cyanosis Psychiatric: Present: agitated - Lab 11/25/18 03:40 11/25/18 03:40 Most recent lab results 11/24/18 11/24/18 04:00 05:26 ABG pH 7.50 H ABG pCO2 37 ABG pO2 71 L ABG HCO3 29 H ABG O2 Saturation 95 Calcium 6.8 L Phosphorus 7.4 H Magnesium 2.1 Consult Discharge Plan - Plan [facility]errals: [facility] [Primary Care Provider] -
--- NOTE | 2018-11-24 13:07 | Procedure Note ---
Date of procedure: 11/24/18 Pre-op diagnosis: Acute Kidney Injury Post-op diagnosis: same Procedure: Under strict aseptic precautions attempted right HD catheter insertion tried guidewire exchange over a right femoral central venous access while dilating [id number]-[id number] the wire got kinked second serial dilator did not go through procedure was abandoned. Pressure dressing was applied on the right groin bleeding was stopped. We will attempt right intrajugular HD cath. Was there an publisher assistant present: Yes In Flight Refueling System Repairer: Niranjan Ruiz Estimated blood loss (cc): 10 Specimen: none Pathology: none sent Condition: critical Disposition: ICU
[2018-11-24] MEDS ORDERED: *HR* Heparin 5,000 UNIT/ML VIAL ONE ×2 (14:59→18:24)
--- NOTE | 2018-11-24 15:38 | IR Procedure Note ---
Date of procedure: 11/24/18 Consent Obtained: Written consent Timeout: Correct patient and procedure verified, Correct site verified, Time out performed, Skin prep completed Local anesthetic: Lidocaine 1% Indications: needs dialysis Procedure Performed: right IJ tempcath Was there an engineering assistant present: No Site/Technique: right IJ Results/Findings: 16 cm tempcath Estimated blood loss (cc): 0 Post Procedure Treatment Plan: ok to use catheter Specimen: NA
[2018-11-24] MEDS: FentaNYL (PF) 1,000 MCG in 0.9 % Sodium Chloride 80 ML IVC SCH (18:07)
[2018-11-24] MEDS: Norepinephrine 4 MG in D5% in Water 250 ML IVC SCH (20:38)
[2018-11-24 20:53] LABS: Hemoglobin 7.4 g/dL (12.9-16.9)
[2018-11-25] MEDS: Dexmedetomidine HCl 400 MCG/100 ML MLS IVC SCH ×3 (01:26→15:26)
[2018-11-25] MEDS: Insulin LISPRO 300 UNITS/3 ML VIAL SQ SCH ×5 (01:26→23:32)
[2018-11-25 03:58] LABS: Basophils % 0.1 %; Mean Corpuscular Volume 89.3 fL (83.0-100.0); Nucleated Red Blood Cells 0.2 /100 WBC (0)
[2018-11-25 03:59] LABS: VBG Ionized Calcium 0.77 mmol/L (1.15-1.35)
[2018-11-25 04:00] LABS: Hematocrit 20.9 % (37.5-50.1); Hemoglobin 7.1 g/dL (12.9-16.9); Immature Platelets 10.5 % (1.1-6.1); Lymphocytes # 0.6 K/mcL (0.6-4.6); Lymphocytes % 2.6 %; Mean Corpuscular Hemoglobin 30.3 pg (28.0-33.3); Mean Platelet Volume 12.6 fL (9.4-12.4); Monocytes # 0.4 K/mcL (0.0-1.3); Monocytes % 1.9 %; Neutrophils # 21.7 K/mcL (1.6-8.9); Red Blood Count 2.34 M/mcL (4.19-5.50); Segmented Neutrophils % 94.4 %
[2018-11-25 04:05] LABS: Platelet Count 34 K/mcL (140-400)
[2018-11-25 04:20] LABS: Calcium 6.8 mg/dL (8.6-10.3); Magnesium 2.3 mg/dL (1.6-2.6); Phosphorous 9.5 mg/dL (2.7-4.5); Potassium 5.8 mEq/L (3.5-5.1)
[2018-11-25] MEDS: Ipratropium/Albuterol Neb 3 ML IH SCH ×4 (04:30→21:19)
[2018-11-25 04:40] LABS: Anisocytosis 1+ (Not Present); Hypochromasia Present (Not Present); Platelet Estimate Decreased (Normal); Polychromasia 1+ (Not Present)
[2018-11-25] MEDS: Hydrocortisone Sodium Succ 100 MG/2 ML VIAL IVP SCH ×2 (05:37→18:20)
[2018-11-25] MEDS: Pantoprazole 40 MG VIAL IVP SCH ×2 (05:37→18:20)
--- NOTE | 2018-11-25 06:14 | Pulmonology Progress Note ---
<Niranjan Ruiz - Last Filed: 11/25/18 11:34> Date of Encounter: 11/25/18 Time of Encounter: 06:14 Assessment and Plan (1) Sepsis Current Visit: Yes Status: Acute -Likely 2/2 pneumonia -2L fluid bolus 11/20/18 at [facility] prior to transfer -Tachypneic, tachycardic, 95F rectal temp but BP stable on arrival -WBC 43.2, lactic 7.7, trop 0.06 on arrival -Received zosyn 11/20/18 at the [facility] -CT chest abd/plv 11/20/18: hazy opacities at lung bases atelectasis or pneumonia, underlying emphysema. Cholelithiasis. Very large left sided rectus sheath hematoma -WBC 43.6, lactic down from 9.8 to 3.3 after bicarb infusion started 11/20/18 -Bicarb drip stopped 11/23/18 -[facility] BC's 1/2 prelim pos for coagulase neg gram pos cocci -BC x2 drawn 11/20/18 prelim neg -Repeat BC x2 drawn 11/23/18 prelim neg -Urine culture negative -BAL 11/22/18 culture RLL postive for Stenotrophomonas maltophilia- sensitive to levofloxacin and tmp-smx -BP very labile 11/20/18 with MAPs dropping into 40's, requiring pressor support to maintain MAP. MAP adequate off pressors now -Received 6 days vancomycin stopped 11/25/18 -Continue pip/tazo (day 6) which will deescalate as cultures finalize -TTE 11/21/18 not able to visualize structures -TTE 11/23/18 EF 60-65%, atypical septal motion consistent with BBB, mild LV diastolic dysfunction, valves not well visualized -Will start levofloxacin renally dosed for S maltophilia today -DC vancomycin today Qualifiers: Sepsis type: sepsis due to unspecified organism Qualified Code(s): A41.9 - Sepsis, unspecified organism (2) Acute respiratory failure with hypoxia Current Visit: Yes Status: Acute -Awake, alert and talking on arrival -Resp and mental status declined and became hypoxic and apneic requiring intu bation -ABG at time of intubation pH 7.16, paCO2 44, paO2 105, hco3 16, 96% on 13L O2 via oxymask -ABG 11/23/18: pH 7.5, paCO2 39, paO2 67, HCO3 30, 95% on 40% FiO2 -Successfully extubated 11/23/18 -Acutely hypoxic yesterday requiring BiPAP which tolerated well overnight -Expect breathing to improve when starts dialysis today (3) GI bleed Current Visit: Yes Status: Suspected -Melena occasionally over the last 2 weeks -Hgb 11/18/18 13.4 at ID -Received new anticoagulation 2/2 DVT at the ID -Hgb on transfer here 11/20/18 7.3, BUN 46 -Got 2 units PRBCs 11/20/18 and repeat hgb 9 -Hgb today 7.1, will repeat H&H this afternoon -Will monitor and transfuse as indicated -Acute care surg following without plans for intervention till more stable Qualifiers: GI bleed type/associated pathology: melena Qualified Code(s): K92.1 - Melena (4) ANY (acute kidney injury) Current Visit: Yes Status: Acute -Cr at ID 11/19/18 0.79 -Cr on transfer from ID 11/20/18 1.74, BUN 46 -On vanc and zosyn (day 4) -Renal function worsening. Cr 7.03, BUN 110 today -Will transition from vanc and zosyn as early as can based on culture findings -Will continue trend renal function and avoid nephrotoxins as can -Neph following -Temp dialysis catheter placed by IR and yesterday but did not run well which was pulled back 1 cm and ran well after -Dialysis to begin today via neph (5) COPD (chronic obstructive pulmonary disease) Current Visit: Yes Status: Acute -Hx of COPD -Progressive dyspnea and yellow productive cough over last 2 weeks -Scheduled bronchodilators Qualifiers: COPD type: emphysema Emphysema type: unspecified Qualified Code(s): J43.9 - Emphysema, unspecified (6) Anemia Current Visit: Yes Status: Acute -Hgb 13.4 11/18/18 at the ID -Hgb on arrival here 7.3 -Occult stool pos at ID -GI bleed vs large rectus sheath hematoma on CT -Transfused 2 units PRBC 11/20/18 with hgb repeat at 9 -Hgb 7.1 today and transfusing 2 units PRBC's and 1 unit platelets -Trend and transfuse as indicated Qualifiers: Anemia type: other cause Other causes of anemia: other cause, not classified Qualified Code(s): D64.89 - Other specified anemias (7) Right leg DVT Current Visit: Yes Status: Acute -R leg DVT at ID -RLE doppler prelim pos for DVT R posterior tibial vein -SVC filter placed 11/22/18 as anticoagulation contraindicated Qualifiers: Affected thrombotic vein of extremity: unspecified vein of extremity Chronicity: unspecified Qualified Code(s): I82.401 - Acute embolism and thrombosis of unspecified deep veins of right lower extremity (8) High anion gap metabolic acidosis Current Visit: Yes Status: Acute -AG 11 on arrival -AG increased 11/21/18 to 15 likely 2/2 lactic acidosis -AG 18 today (9) Lactic acidemia Current Visit: Yes Status: Acute -Lactic on arrival 7.3 -Likely 2/2 sepsis basilar pneumonia -Peak 9.8 started bicarb drip -Lactic 3.3 11/22/18 -Stop bicarb drip 11/23/18 (10) Leukocytosis Current Visit: Yes Status: Acute -WBC 43.2 11/20/18 -WBC 43.6 11/21/18 -Trended down with wbc 22.3 yesterday -Increased down to 23 from 25.3 today -Management as above Qualifiers: Leukocytosis type: unspecified Qualified Code(s): D72.829 - Elevated white blood cell count, unspecified (11) Thrombocytopenia Current Visit: Yes Status: Acute -Platelets 190 on arrival -Trended down since and low of 34 today -Transfusing 1 unit platelets today (12) Elevated troponin Current Visit: Yes Status: Acute -Likely 2/2 demand ischemia from hypotension -Trop 0.07 at ID today -Repeat here 0.06 -Minimal increase on repeats 0.11-0.16-0.21 (13) DVT prophylaxis Current Visit: Yes Status: Acute -SCDs as acute drop in hgb Subjective Principal diagnosis: Sepsis Interval history: No acute events overnight. Desaturated yesterday afternoon with sats in 60s and oxygenated well on BiPAP overnight. Still complains of L sided abdominal pain and back pain. Objective PUL Vital signs: Last Vital Signs Temp 97.5 F L 11/25/18 04:00 Pulse 98 11/25/18 05:00 Resp 23 11/25/18 05:00 BP 106/55 11/25/18 05:00 Pulse Ox 96 11/25/18 05:00 General appearance: no acute distress, alert, other (On BiPAP) Eyes: nonicteric ENT: oropharynx dry Effort: mildly labored Auscultation: bilateral: diminished breath sounds, rhonchi Cardiovascular: regular rate and rhythm Gastrointestinal: hypoactive bowel sounds, soft, tender (Diffusely but worse L side), other (distended ) Integumentary: other (Large hematoma L flank, scrotal hematoma ) Extremities: no cyanosis, pink and warm, edema (3+) normal mental status, non-focal exam mood appropriate, affect normal Results - Laboratory Findings CBC and BMP: 11/25/18 03:40 11/25/18 03:40 ABG ABG pH 7.50 pH Units (7.32-7.45) H 11/24/18 05:26 ABG pCO2 37 mmHg (35-45) 11/24/18 05:26 ABG pO2 71 mmHg (85-104) L 11/24/18 05:26 ABG O2 Saturation 95 % (95-98) 11/24/18 05:26 PT/INR, D-dimer PT 11.4 Seconds (9.4-12.1) 11/24/18 09:35 Abnormal lab findings: Abnormal lab results WBC 23.0 K/mcL (4.3-11.1) H 11/25/18 03:40 RBC 2.34 M/mcL (4.19-5.50) L 11/25/18 03:40 Hgb 7.1 g/dL (12.9-16.9) L 11/25/18 03:40 Hct 20.9 % (37.5-50.1) L 11/25/18 03:40 MCHC 31.1 g/dL (31.6-35.5) L 11/20/18 12:43 RDW 16.0 % (11.5-14.5) H 11/25/18 03:40 Plt Count 34 K/mcL (140-400) L 11/25/18 03:40 MPV 12.6 fL (9.4-12.4) H 11/25/18 03:40 21.7 K/mcL (1.6-8.9) H 11/25/18 03:40 0.5 K/mcL (0.6-4.6) L 11/24/18 04:00 Nucleated RBCs/100 WBC 0.2 /100 WBC (0) H 11/25/18 03:40 Decreased (Normal) L 11/25/18 03:40 Immature Plt Fraction 10.5 % (1.1-6.1) H 11/25/18 03:40 1+ (Not Present) A 11/25/18 03:40 Present (Not Present) A 11/25/18 03:40 1+ (Not Present) A 11/25/18 03:40 PT 12.6 Seconds (9.4-12.1) H 11/23/18 11:15 ABG pH 7.50 pH Units (7.32-7.45) H 11/24/18 05:26 ABG pO2 71 mmHg (85-104) L 11/24/18 05:26 ABG HCO3 29 mEq/L (21-27) H 11/24/18 05:26 ABG Total CO2 30 mEq/L (20-26) H 11/24/18 05:26 ABG O2 Saturation 94 % (95-98) L 11/22/18 05:58 ABG Base Excess 5 mEq/L (-2 to 3) H 11/24/18 05:26 Potassium 5.8 mEq/L (3.5-5.1) H 11/25/18 03:40 Chloride 93 mEq/L (98-107) L 11/25/18 03:40 Carbon Dioxide 30 mEq/L (23-29) H 11/23/18 11:15 BUN 110 mg/dL (8-23) H 11/25/18 03:40 7.03 mg/dL (0.70-1.30) H 11/25/18 03:40 Est GFR ( Amer) 9 (> 60) L 11/25/18 03:40 Est GFR (Non-Af Amer) 8 (> 60) L 11/25/18 03:40 Glucose 135 mg/dL (70-105) H 11/25/18 03:40 POC Glucose 125 mg/dL (70-99) H 11/24/18 23:59 6.5 % (-5.6) H 11/20/18 13:04 323 (280-300) H 11/25/18 03:40 Lactic Acid 3.3 mmol/L (0.5-2.2) H 11/22/18 04:45 Calcium 6.8 mg/dL (8.6-10.3) L 11/25/18 03:40 Venous Ioniz Calcium 0.77 mmol/L (1.15-1.35) L 11/25/18 03:56 Phosphorus 9.5 mg/dL (2.7-4.5) H 11/25/18 03:40 1.1 mg/dL (0.3-1.0) H 11/23/18 03:20 0.6 mg/dL (0.0-0.2) H 11/23/18 03:20 AST 487 Units/L (13-39) H 11/23/18 03:20 ALT 1636 Units/L (7-52) H 11/23/18 03:20 0.21 ng/mL (< 0.04) H* 11/21/18 13:15 3.6 g/dL (6.4-8.9) L 11/23/18 03:20 2.2 g/dL (3.5-5.7) L 11/23/18 03:20 1.4 g/dL (2.4-3.5) L 11/23/18 03:20 Turbid (Clear) A 11/21/18 08:50 Trace mg/dL (Negative) H 11/21/18 08:50 Small (Negative) H 11/21/18 08:50 5-15 per hpf (0-3) H 11/21/18 08:50 Ur Squamous Epith Cells Many per lpf (None-Few) H 11/21/18 08:50 Ur Culture Indicated? YES (NO) A 11/21/18 08:50 Fluid Appearance Cloudy (Clear) A 11/22/18 12:23 Vancomycin Trough 23 mcg/mL (5-10) H 11/22/18 04:45 Hep Bs Antibody < 3.10 mIU/mL (10.00-) L 11/24/18 09:35 Crossmatch See Detail 11/20/18 13:04 - Microbiology Findings Microbiology Findings: Microbiology, Last 48 Hours 11/22/18 12:23 Respiratory Culture - Preliminary Right Lower Lobe Lung Gram Negative Pranay 11/23/18 11:15 Blood Culture - Preliminary Peripheral Venipuncture Culture is incubating and being continuously monitored for growth. Final report to follow. 11/23/18 11:15 Blood Culture - Preliminary Peripheral Venipuncture Culture is incubating and being continuously monitored for growth. Final report to follow. - Clinical Findings Intake & Output: Intake & Output 11/24/18 11/24/18 11/25/18 15:59 23:59 07:59 Intake Total 100 / 800 600 / 800 210 / 210 Output Total 80 / 1004 884 / 1004 25 / 25 Balance 20 / -204 -284 / -204 185 / 185 Weight 110.3 kg Consult Discharge Plan - Plan [facility]errals: [facility] [Primary Care Provider[facility] - <Kika Yang - Last Filed: 11/25/18 22:11> Date of Encounter: 11/25/18 Objective PUL Vital signs: Last Vital Signs Temp 98.2 F 11/25/18 20:00 Pulse 65 11/25/18 21:00 Resp 17 11/25/18 21:21 BP 153/49 11/25/18 21:21 Pulse Ox 96 11/25/18 21:21 Ventilator Settings Ventilator Settings: Ventilator Settings, Last 8 Hours Ventilator Tidal Volume 450 Setting Ventilator Tidal Volume 450 Setting Ventilator Tidal Volume 450 Setting Ventilator Tidal Volume 450 Setting Ventilator Tidal Volume 450 Setting Ventilator Tidal Volume 450 Setting Ventilator Tidal Volume 450 Setting Ventilator Tidal Volume 450 Setting Ventilator Tidal Volume 450 Setting Ventilator Tidal Volume 450 Setting Ventilator Tidal Volume 450 Setting Ventilator Respiratory Rate 14 Setting Ventilator Respiratory Rate 14 Setting Ventilator Respiratory Rate 14 Setting Ventilator Respiratory Rate 14 Setting Ventilator Respiratory Rate 14 Setting Ventilator Respiratory Rate 14 Setting Ventilator Respiratory Rate 14 Setting Ventilator Respiratory Rate 14 Setting Ventilator Respiratory Rate 14 Setting Ventilator Respiratory Rate 14 Setting Ventilator Respiratory Rate 14 Setting Actual Respiratory Rate 16 Actual Respiratory Rate 17 Actual Respiratory Rate 18 Actual Respiratory Rate 20 Actual Respiratory Rate 21 Actual Respiratory Rate 17 Positive End Expiratory 5 Pressure Positive End Expiratory 5 Pressure Positive End Expiratory 5 Pressure Positive End Expiratory 5 Pressure Positive End Expiratory 5 Pressure Positive End Expiratory 5 Pressure Positive End Expiratory 5 Pressure Positive End Expiratory 5 Pressure Positive End Expiratory 5 Pressure Positive End Expiratory 5 Pressure Positive End Expiratory 5 Pressure Peak Inspiratory Airway 14 Pressure Peak Inspiratory Airway 8.7 Pressure Peak Inspiratory Airway 11 Pressure Peak Inspiratory Airway 8.5 Pressure Peak Inspiratory Airway 9.0 Pressure Peak Inspiratory Airway 11 Pressure Peak Inspiratory Airway 8.7 Pressure Peak Inspiratory Airway 7.9 Pressure Peak Inspiratory Airway 24 Pressure Peak Inspiratory Airway 24 Pressure Results - Laboratory Findings CBC and BMP: 11/25/18 03:40 11/25/18 03:40 ABG ABG pH 7.33 pH Units (7.32-7.45) 11/25/18 14:07 ABG pCO2 51 mmHg (35-45) H 11/25/18 14:07 ABG pO2 153 mmHg (85-104) H 11/25/18 14:07 ABG O2 Saturation 99 % (95-98) H 11/25/18 14:07 PT/INR, D-dimer PT 11.4 Seconds (9.4-12.1) 11/24/18 09:35 Abnormal lab findings: Abnormal lab results WBC 23.0 K/mcL (4.3-11.1) H 11/25/18 03:40 RBC 2.34 M/mcL (4.19-5.50) L 11/25/18 03:40 Hgb 7.1 g/dL (12.9-16.9) L 11/25/18 03:40 Hct 20.9 % (37.5-50.1) L 11/25/18 03:40 MCHC 31.1 g/dL (31.6-35.5) L 11/20/18 12:43 RDW 16.0 % (11.5-14.5) H 11/25/18 03:40 Plt Count 34 K/mcL (140-400) L 11/25/18 03:40 MPV 12.6 fL (9.4-12.4) H 11/25/18 03:40 21.7 K/mcL (1.6-8.9) H 11/25/18 03:40 0.5 K/mcL (0.6-4.6) L 11/24/18 04:00 Nucleated RBCs/100 WBC 0.2 /100 WBC (0) H 11/25/18 03:40 Decreased (Normal) L 11/25/18 03:40 Immature Plt Fraction 10.5 % (1.1-6.1) H 11/25/18 03:40 1+ (Not Present) A 11/25/18 03:40 Present (Not Present) A 11/25/18 03:40 1+ (Not Present) A 11/25/18 03:40 PT 12.6 Seconds (9.4-12.1) H 11/23/18 11:15 ABG pH 7.50 pH Units (7.32-7.45) H 11/24/18 05:26 ABG pCO2 51 mmHg (35-45) H 11/25/18 14:07 ABG pO2 153 mmHg (85-104) H 11/25/18 14:07 ABG HCO3 29 mEq/L (21-27) H 11/24/18 05:26 ABG Total CO2 28 mEq/L (20-26) H 11/25/18 14:07 ABG O2 Saturation 99 % (95-98) H 11/25/18 14:07 ABG Base Excess 5 mEq/L (-2 to 3) H 11/24/18 05:26 Potassium 5.8 mEq/L (3.5-5.1) H 11/25/18 03:40 Chloride 93 mEq/L (98-107) L 11/25/18 03:40 Carbon Dioxide 30 mEq/L (23-29) H 11/23/18 11:15 BUN 110 mg/dL (8-23) H 11/25/18 03:40 7.03 mg/dL (0.70-1.30) H 11/25/18 03:40 Est GFR ( Amer) 9 (> 60) L 11/25/18 03:40 Est GFR (Non-Af Amer) 8 (> 60) L 11/25/18 03:40 Glucose 135 mg/dL (70-105) H 11/25/18 03:40 POC Glucose 125 mg/dL (70-99) H 11/24/18 23:59 6.5 % (-5.6) H 11/20/18 13:04 323 (280-300) H 11/25/18 03:40 Lactic Acid 3.3 mmol/L (0.5-2.2) H 11/22/18 04:45 Calcium 6.8 mg/dL (8.6-10.3) L 11/25/18 03:40 Venous Ioniz Calcium 0.77 mmol/L (1.15-1.35) L 11/25/18 03:56 Phosphorus 9.5 mg/dL (2.7-4.5) H 11/25/18 03:40 1.1 mg/dL (0.3-1.0) H 11/23/18 03:20 0.6 mg/dL (0.0-0.2) H 11/23/18 03:20 AST 487 Units/L (13-39) H 11/23/18 03:20 ALT 1636 Units/L (7-52) H 11/23/18 03:20 0.21 ng/mL (< 0.04) H* 11/21/18 13:15 3.6 g/dL (6.4-8.9) L 11/23/18 03:20 2.2 g/dL (3.5-5.7) L 11/23/18 03:20 1.4 g/dL (2.4-3.5) L 11/23/18 03:20 Turbid (Clear) A 11/21/18 08:50 Trace mg/dL (Negative) H 11/21/18 08:50 Small (Negative) H 11/21/18 08:50 5-15 per hpf (0-3) H 11/21/18 08:50 Ur Squamous Epith Cells Many per lpf (None-Few) H 11/21/18 08:50 Ur Culture Indicated? YES (NO) A 11/21/18 08:50 Fluid Appearance Cloudy (Clear) A 11/22/18 12:23 Vancomycin Trough 23 mcg/mL (5-10) H 11/22/18 04:45 Hep Bs Antibody < 3.10 mIU/mL (10.00-) L 11/24/18 09:35 Crossmatch See Detail 11/25/18 14:51 - Microbiology Findings Microbiology Findings: Microbiology, Last 48 Hours 11/20/18 14:26 Blood Culture - Final Peripheral Venipuncture No growth. Final report. 11/20/18 14:37 Blood Culture - Final Peripheral Venipuncture No growth. Final report. 11/22/18 12:23 Respiratory Culture - Final Right Lower Lobe Lung Stenotrophomonas maltophilia - Clinical Findings Intake & Output: Intake & Output 11/25/18 11/25/18 11/25/18 07:59 15:59 23:59 Intake Total 320 / 3413.4 1225 / 3413.4 1868.4 / 3413.4 Output Total 65 / 467 377 / 467 Balance 295 / 2946.4 1160 / 2946.4 1491.4 / 2946.4 Weight 110.3 kg - Attending Attestation Attending Attestation I saw and evaluated this patient and my medical decision-making was reviewed with the Resident Physician. I agree with the documented findings, disposition and treatment plan as described except to the extent set forth below. We independently had [id number] contact with the patient I spent 60 minutes of Critical Care time with this patient. It involved decision making of high complexity to assess, manipulate, and support vital organ system failure and/or to prevent further life threatening deterioration of the margarette ent's condition. The time involved in the performance of separately reportable procedures was not counted toward critical care time. Patient seen and examined at bedside Labs, radiology, chart personally reviewed. Management was reviewed during multidisciplinary critical care rounds. 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 Pulm: Patient has acceptable V/Q mismatch patient tolerated the spontaneous breathing trial will patient has some hydrostatic pulmonary edema complicated by diuresis because of kidney injury it is difficult to do diuresis 11/24 patient was worsening hypoxic respiratory failure complicated by pulmonary edema to continue diuresis. 11/25 patient was worsening hypoxic respiratory failure complicated by a hydr ostatic pulmonary edema as of acute kidney injury we cannot diurese him. Cards: Patient is hemodynamically stable septic shock resolved blood cultures are negative transthoracic echo was done no need of a transesophageal echo for now. Patient is hemodynamically stable blood culture is not growing anything 11/25 patient had a transthoracic echo history the patient developed hemodynamic instability while doing dialysis dialysis was stopped. FEN-GI: Patient is extubated to advance diet as tolerated. Has most likely having sepsis and ischemic Hepatitis the reason for lactic acidosis most likely due to both liver and kidney failure. 11/24 liver and kidneys slowly recovering. 11/25 developed acute hypoxic respiratory failure contributed by worsening encephalopathy to continue lactulose any workup. Will help in hepatic en cephalopathy. Renal:Patient has worsening Acute kidney injury mostly sepsis induced a Any and discussed nephrology expected to improve. 11/25 patient was started on intermittent hemodialysis patient did not tolerated well might need [facility] tonight ID: To continue broad-spectrum antibiotics blood cultures latest one is negative waiting for the first blood culture sensitivity with gram-positive cocci in clusters which grew in outside facility 11/25 with broad-spectrum antibiotics the first blood cultures quite coagulase negative Staphylococcus will de-escalate vancomycin. Heme/Onc: Patient has thrombocytopenia was likely sepsis induced Endo: Glucose Monitored Integ/MSK: Skin Care per routine ICU Nursing Protocol to prevent ulcers. Lines: All lines examined without evidence of infection : Dispo: Critically ill CODE: Full code
[2018-11-25] MEDS: Piperacillin/Tazobactam 3.375 GM in 0.9 % Sodium Chloride Mini Bag 100 ML IVPB SCH ×2 (07:45→19:54)
[2018-11-25] MEDS ORDERED: Aminoglycoside Consult 1 EACH MC ONE (07:49)
[2018-11-25] MEDS ORDERED: *HR* Etomidate 20 MG/10 ML AMPUL IVP ONE (08:01)
[2018-11-25] MEDS ORDERED: *HR* Heparin 10,000 UNIT/10 ML VIAL IV PRN (08:04)
[2018-11-25] MEDS ORDERED: 0.9 % Sodium Chloride 250 ML IVC PRN (08:04)
[2018-11-25] MEDS ORDERED: Levofloxacin 750 MG/150 ML 750 MG/150 ML BAG IVPB SCH (09:00)
--- NOTE | 2018-11-25 10:18 | Urology Progress Note ---
Date of Encounter: 11/25/18 Time of Encounter: 09:40 - Assessment and Plan (1) Bruise of scrotum Current Visit: Yes Status: Acute Assessment and plan: Patient is a 73-year-old male who presents with a rectus sheath hematoma and s ubsequent ecchymosis of the scrotum. Continue with strict scrotal support. Pulmonary team anticipates improvement with dialysis. I do not anticipate any surgical intervention with urology, but we will continue to follow patient. Qualifiers: Encounter type: initial encounter Qualified Code(s): S30.22XA - Contusion of scrotum and testes, initial encounter Progress Note Narrative: Patient seen and examined lying in bed in no apparent distress. Nursing staff at bedside. Reynaga catheter indwelling and draining transparent, scant, clear yellow urine into bedside bag. Objective Initial Vital Signs Pulse Resp BP Pulse Ox 101 27 130/102 92 11/20/18 13:11 11/20/18 13:11 11/20/18 13:11 11/20/18 13:11 - General physical appearance Present: no distress, no pain - Respiratory Present: normal expansion. Absent: normal respiratory effort (moderate effort with BiPap) - Abdomen Present: soft, non tender - Genitourinary scrotal mass/hydrocele: bilateral (Significant, diffuse scrotal edema and ecchymosis relatively unchanged from yesterday's examination) Urine Appearance: Present: Clear - Integumentary Present: no rash, no growths - Musculoskeletal Present: other (+2 pitting edema bilateral lower extremities) - Psychiatric Present: oriented to person - Labs 11/25/18 03:40 11/25/18 03:40 Diabetes panel 11/25/18 Range/Units 03:40 Sodium 138 (136-145) mEq/L Potassium 5.8 H (3.5-5.1) mEq/L Chloride 93 L (98-107) mEq/L Carbon Dioxide 26 (23-29) mEq/L BUN 110 H (8-23) mg/dL Creatinine 7.03 H (0.70-1.30) mg/dL Glucose 135 H (70-105) mg/dL Calcium 6.8 L (8.6-10.3) mg/dL Calcium panel 11/25/18 Range/Units 03:40 Calcium 6.8 L (8.6-10.3) mg/dL Phosphorus 9.5 H (2.7-4.5) mg/dL Pituitary panel 11/25/18 Range/Units 03:40 Sodium 138 (136-145) mEq/L Potassium 5.8 H (3.5-5.1) mEq/L Chloride 93 L (98-107) mEq/L Carbon Dioxide 26 (23-29) mEq/L BUN 110 H (8-23) mg/dL Creatinine 7.03 H (0.70-1.30) mg/dL Glucose 135 H (70-105) mg/dL Calcium 6.8 L (8.6-10.3) mg/dL Adrenal panel 11/25/18 Range/Units 03:40 Sodium 138 (136-145) mEq/L Potassium 5.8 H (3.5-5.1) mEq/L Chloride 93 L (98-107) mEq/L Carbon Dioxide 26 (23-29) mEq/L BUN 110 H (8-23) mg/dL Creatinine 7.03 H (0.70-1.30) mg/dL Glucose 135 H (70-105) mg/dL Calcium 6.8 L (8.6-10.3) mg/dL Consult Discharge Plan - Plan [facility]errals: [facility] [Primary Care Provider] -
[2018-11-25] MEDS: Norepinephrine 4 MG in D5% in Water 250 ML IVC SCH ×3 (10:38→20:11)
[2018-11-25] MEDS ORDERED: 0.9 % Sodium Chloride 250 ML ONE (11:06)
[2018-11-25] MEDS ORDERED: Calcium Chloride 4,000 MG in 0.9 % Sodium Chloride 1,000 ML IVPB ONE (11:23)
[2018-11-25] MEDS: FentaNYL (PF) 1,000 MCG in 0.9 % Sodium Chloride 80 ML IVC SCH ×2 (11:27→18:21)
--- NOTE | 2018-11-25 11:46 | Nephrology Progress Note ---
Date of Encounter: 11/25/18 Time of Encounter: 11:46 - Assessment and Plan (1) ANY (acute kidney injury) Current Visit: Yes Status: Acute Patient has multifactorial oliguric AYN with a rapidly rising creatinine that seems to be at a plateau. Patient with anemia, vancomycin exposure, and septic shock. Patient with volume overload. Will attempt dialysis today after line change for volume removal and to address azotemia. Avoid unnecessary nephrotoxins. Adjust medications as needed for renal function. Patient was seen on dialysis. Patient was intubated prior to receiving dialysis today secondary to worsening respiratory failure. Patient critically ill. 31 minutes spent in the care of this critically ill patient. (2) Septic shock Current Visit: Yes Status: Acute Per primary team. (3) Acute respiratory failure with hypoxia Current Visit: Yes Status: Acute Patient is intubated. (4) Anemia Current Visit: Yes Status: Acute Qualifiers: Anemia type: other cause Other causes of anemia: other cause, not classified Qualified Code(s): D64.89 - Other specified anemias (5) COPD (chronic obstructive pulmonary disease) Current Visit: Yes Status: Acute Qualifiers: COPD type: emphysema Emphysema type: unspecified Qualified Code(s): J43.9 - Emphysema, unspecified (6) Elevated troponin Current Visit: Yes Status: Acute (7) Right leg DVT Current Visit: Yes Status: Acute Qualifiers: Affected thrombotic vein of extremity: unspecified vein of extremity Chronicity: unspecified Qualified Code(s): I82.401 - Acute embolism and thrombosis of unspecified deep veins of right lower extremity Subjective Principal diagnosis: Sepsis Interval history: Patient seen. He remains with dyspnea. Unable to perform dialysis yesterday secondary to the access malfunction. Objective - Vital Signs Vital signs: Vital Signs Temp Pulse Resp BP Pulse Ox 11/25/18 11:30 97.6 F 117 23 150/70 100 11/25/18 11:26 23 130/75 100 11/25/18 11:15 97.9 F 102 22 151/70 11/25/18 11:00 108 12 129/92 96 11/25/18 10:00 91 22 125/73 97 11/25/18 09:00 93 20 112/39 97 11/25/18 08:00 99 18 107/59 100 11/25/18 07:41 97.5 F L 11/25/18 07:00 99 20 114/53 95 11/25/18 06:00 100 22 110/53 96 11/25/18 05:00 98 23 106/55 96 11/25/18 04:31 20 107/55 99 11/25/18 04:00 97.5 F L 94 20 113/52 99 11/25/18 03:28 95 11/25/18 03:00 97 22 109/56 99 11/25/18 02:00 98 20 105/48 99 11/25/18 01:00 99 21 117/60 99 11/25/18 00:28 97 F L 11/25/18 00:00 98 20 114/59 99 11/24/18 23:00 98 24 114/65 99 11/24/18 22:50 21 118/61 100 11/24/18 22:00 98 22 116/59 100 11/24/18 21:00 98 23 115/55 100 11/24/18 20:00 108 25 108/62 100 11/24/18 19:42 97.8 F 11/24/18 19:00 110 20 102/53 100 11/24/18 18:00 115 20 95/49 100 11/24/18 17:40 97.7 F 18 104/65 11/24/18 17:32 72/40 11/24/18 17:20 109/55 11/24/18 17:05 120/68 11/24/18 17:00 114 20 120/60 100 11/24/18 16:40 66/47 11/24/18 16:35 110/98 11/24/18 16:20 20 143/67 11/24/18 16:00 107 20 136/67 100 11/24/18 15:56 18 138/69 100 11/24/18 15:52 97.9 F 11/24/18 15:18 102 11/24/18 15:00 106 20 135/71 94 11/24/18 14:00 108 20 160/75 94 11/24/18 13:00 108 20 142/66 94 11/24/18 12:00 112 20 160/73 94 Intake and Output 11/24/18 11/25/18 11/25/18 23:59 07:59 15:59 Intake Total 600 / 800 320 / 349 29 / 349 Output Total 884 / 1004 Balance -284 / -204 295 / 324 29 / 324 Intake: IV Fluids 320 / 349 29 / 349 PRECEDEX Premix 400 mcg In 100 4 / 4 ml @ 0.2 MCG/KG/HR 4.85 mls/hr IVC .[id number] [facility] Rx#:[id number] FentaNYL (PF) 1,000 MCG In 0.9 5 / 5 % Sodium Chloride 80 ML @ 50 MCG/HR 5 mls/hr IVC CONT [facility] Rx #:[id number] Levophed 4 MG In Dextrose 5% 20 / 20 250 ML @ 8 MCG/MIN 30.48 mls/hr IVC CONT [facility] Rx#:[id number] Calcium Gluconate 1,000 MG In 0 220 / 220 .9 % Sodium Chloride 100 ML @ 220 mls/hr IVPB Q6HR PRN Rx#: [id number] Zosyn 3.375 GM In 0.9 % Sodium 100 / 100 Chloride (Mini-Bag +) 100 ML @ 25 mls/hr IVPB Q12H [facility] Rx#: [id number] Blood Product 0 / 0 Platelet Pheresis Lp Irr 2nd 0 / 0 Unit [id number] Intake, Rinseback and Flushes 600 / 600 Output: Total Dialysis (HD) Output 884 / 884 Catheter Other: Weight 110.3 kg Blood Glucose* 125 Hemodialysis Net Fluid Removed 284 (mL) Patient Weight 11/25/18 23:59 Weight 110.3 kg - General Appearance General appearance: Present: well-developed, well-nourished, obese EENT: Present: ATNC Neck: Present: supple Respiratory: Present: course breath sounds Cardiology: Present: regular rate Dialysis Vascular Access: Venous Catheter Integumentary: Present: warm and dry Additional Comments: lethargic Musculoskeletal: Present: no cyanosis Psychiatric: Present: mood/affect appropriate - Lab 11/25/18 03:40 11/25/18 03:40 Most recent lab results 11/25/18 03:40 Calcium 6.8 L Phosphorus 9.5 H Magnesium 2.3 Consult Discharge Plan - Plan [facility]errals: [facility] [Primary Care Provider] -
--- NOTE | 2018-11-25 12:22 | Procedure Note ---
<Krystal Berkowitz - Last Filed: 11/25/18 12:33> Date of procedure: 11/25/18 Procedure: Endotracheal Intubation Date: 11/25/18 Time: 1115 Indication: Respiratory Distress Resident: Krystal Berkowitz DO Attending: Dr. Yang A time-out was completed verifying correct patient, procedure, site, positioning, and special equipment if applicable. The patient was placed in a flat position. Sedation was obtained using Etomidate 20mg. The patient was easily ventilated using an ambu bag. The [employer] was used and inse rted into the oropharynx at which time there was a Grade 1 view of the vocal cords. A 7.5-icelandic endotracheal tube was inserted and visualized going through the vocal cords. The stylette was removed. Colorimetric change was visualized on the CO2 meter. Breath sounds were heard in both lung hilliard equally. The endotracheal tube was placed at 21 cm, measured at the lips. Dr. Yang was present for the entire procedure. A chest x-ray was ordered to assess for pneumothorax and verify endotrachealtube placement. Estimated Blood Loss: 0ml The patient tolerated the procedure well and there were no complications. Was there an internet marketing assistant present: Yes Car Clerk Pullman: Kika Yang Estimated blood loss (cc): 0 Specimen: N/A Pathology: none sent <Kika Yang - Last Filed: 11/25/18 22:02> Procedure: I was present during the entire procedure consisting in the critical portion of the procedure.
[2018-11-25] MEDS ORDERED: CALCIUM CHLORIDE IVPB ONE (13:15)
[2018-11-25] MEDS ORDERED: SODIUM CHLORIDE 0.9% IVPB ONE (13:15)
[2018-11-25 14:09] LABS: ABG Base Excess 1 mEq/L (-2 to 3); ABG HCO3 27 mEq/L (21-27); ABG Oxygen Saturation 99 % (95-98); ABG PCO2 51 mmHg (35-45); ABG PH 7.33 pH Units (7.32-7.45); ABG PO2 153 mmHg (85-104); ABG TCO2 28 mEq/L (20-26); Blood Gas Modality ASSIST CONTROL; Blood Gas PEEP 5 cm H2O; Blood Gas Respiration Rate 14; Blood Gas VT 450 cc
[2018-11-25] MEDS ORDERED: *HR* Heparin 5,000 UNIT/ML VIAL ONE (14:20)
[2018-11-25] MEDS: Artificial Tears SOLN 15 ML BOTTLE BOTH EYES SCH ×3 (15:07→23:33)
[2018-11-25] MEDS ORDERED: 0.9 % Sodium Chloride 2,000 ML ONE (15:28)
[2018-11-25] MEDS ORDERED: 0.9 % Sodium Chloride 500 ML ONE (16:13)
[2018-11-25] MEDS: Nitroglycerin 25 MG/250 ML INFUS..BTL IVC SCH (19:47)
[2018-11-25] MEDS: Chlorhexidine Rinse 15 ML MOUTHWASH MM SCH (19:53)
[2018-11-25] MEDS ORDERED: *HR* Heparin 5,000 UNIT/ML VIAL IV PRN (20:33)
[2018-11-25] MEDS ORDERED: *HR* Alteplase (Cathflo) 2 MG VIAL IVP PRN (20:33)
[2018-11-25] MEDS: 0.9 % Sodium Chloride 1,000 ML PRIME SCH ×5 (22:25→23:32)
[2018-11-25] MEDS: PrismaSATE BGK 4/2.5 5,000 ML CRRT SCH ×3 (22:25)
[2018-11-25 23:09] LABS: Basophils % 0.2 %; Hematocrit 27.4 % (37.5-50.1); Immature Granulocytes % 2.4 % (0-4); Immature Platelets 9.5 % (1.1-6.1); Lymphocytes # 0.2 K/mcL (0.6-4.6); Lymphocytes % 0.9 %; Mean Corpuscular HGB Conc 32.8 g/dL (31.6-35.5); Mean Corpuscular Hemoglobin 29.7 pg (28.0-33.3); Mean Corpuscular Volume 90.4 fL (83.0-100.0); Mean Platelet Volume 12.5 fL (9.4-12.4); Monocytes # 0.5 K/mcL (0.0-1.3); Monocytes % 2.3 %; Neutrophils # 18.3 K/mcL (1.6-8.9); Nucleated Red Blood Cells 0.4 /100 WBC (0); Red Blood Count 3.03 M/mcL (4.19-5.50); Red Cell Distribution Width 15.4 % (11.5-14.5); Segmented Neutrophils % 94.2 %
[2018-11-25 23:11] LABS: VBG Ionized Calcium 0.93 mmol/L (1.15-1.35)
[2018-11-25 23:14] LABS: Platelet Count 23 K/mcL (140-400)
[2018-11-25 23:41] LABS: Platelet Estimate Marked Decrease (Normal)
[2018-11-26] MEDS: PrismaSATE BGK 4/2.5 5,000 ML CRRT SCH ×22 (01:04→21:06)
[2018-11-26] MEDS: 0.9 % Sodium Chloride 1,000 ML PRIME SCH ×17 (01:05→19:39)
[2018-11-26] MEDS: Norepinephrine 4 MG in D5% in Water 250 ML IVC SCH (01:27)
[2018-11-26] MEDS: Norepinephrine 8 MG in D5% in Water 250 ML IVC SCH (01:36)
[2018-11-26] MEDS: FentaNYL (PF) 1,000 MCG in 0.9 % Sodium Chloride 80 ML IVC SCH ×3 (03:02→19:08)
[2018-11-26] MEDS: Artificial Tears SOLN 15 ML BOTTLE BOTH EYES SCH ×6 (03:05→23:03)
[2018-11-26 04:00] LABS: VBG Ionized Calcium 0.96 mmol/L (1.15-1.35)
[2018-11-26] MEDS: Ipratropium/Albuterol Neb 3 ML IH SCH ×4 (04:04→21:45)
[2018-11-26 04:11] LABS: INR 0.9; Prothrombin Time 10.1 Seconds (9.4-12.1)
[2018-11-26 04:22] LABS: Albumin 2.6 g/dL (3.5-5.7); Albumin/Globulin Ratio 1.4 (1.1-2.2); Bilirubin,Direct 1.3 mg/dL (0.0-0.2); Bilirubin,Indirect 0.9 mg/dL (0.0-1.2); Bilirubin,Total 2.2 mg/dL (0.3-1.0); Globulin 1.8 g/dL (2.4-3.5); Total Protein 4.4 g/dL (6.4-8.9)
[2018-11-26 04:23] LABS: Calcium 7.8 mg/dL (8.6-10.3); Magnesium 2.3 mg/dL (1.6-2.6); Phosphorous 6.5 mg/dL (2.7-4.5); Potassium 5.6 mEq/L (3.5-5.1)
[2018-11-26 04:25] LABS: Lymphocytes % 1.8 %; Mean Corpuscular Hemoglobin 29.8 pg (28.0-33.3); Nucleated Red Blood Cells 0.1 /100 WBC (0)
[2018-11-26 04:27] LABS: Basophils % 0.1 %; Hematocrit 27.6 % (37.5-50.1); Hemoglobin 9.1 g/dL (12.9-16.9); Immature Granulocytes % 1.8 % (0-4); Lymphocytes # 0.3 K/mcL (0.6-4.6); Mean Corpuscular Volume 90.5 fL (83.0-100.0); Mean Platelet Volume 12.5 fL (9.4-12.4); Monocytes # 0.3 K/mcL (0.0-1.3); Monocytes % 2.2 %; Red Blood Count 3.05 M/mcL (4.19-5.50); Red Cell Distribution Width 15.5 % (11.5-14.5); Segmented Neutrophils % 94.1 %
[2018-11-26 04:32] LABS: Neutrophils # 14.3 K/mcL (1.6-8.9); Platelet Count 18 K/mcL (140-400)
[2018-11-26 04:52] LABS: Platelet Estimate Marked Decrease (Normal)
[2018-11-26 05:05] LABS: ABG Base Excess 2 mEq/L (-2 to 3); ABG HCO3 28 mEq/L (21-27); ABG Oxygen Saturation 96 % (95-98); ABG PCO2 50 mmHg (35-45); ABG PH 7.36 pH Units (7.32-7.45); ABG PO2 86 mmHg (85-104); ABG TCO2 30 mEq/L (20-26); Blood Gas Modality AutoFlow; Blood Gas PEEP 5 cm H2O; Blood Gas VT 450 cc
[2018-11-26] MEDS: Pantoprazole 40 MG VIAL IVP SCH ×2 (05:21→17:41)
[2018-11-26] MEDS: Hydrocortisone Sodium Succ 100 MG/2 ML VIAL IVP SCH ×2 (05:21→17:41)
[2018-11-26] MEDS: Insulin LISPRO 300 UNITS/3 ML VIAL SQ SCH ×4 (05:29→23:03)
--- NOTE | 2018-11-26 07:09 | Pulmonology Progress Note ---
<Niranjan Ruiz - Last Filed: 11/26/18 11:02> Date of Encounter: 11/26/18 Time of Encounter: 07:08 Assessment and Plan (1) Sepsis Current Visit: Yes Status: Acute -Likely 2/2 pneumonia -2L fluid bolus 11/20/18 at [facility] prior to transfer -Tachypneic, tachycardic, 95F rectal temp but BP stable on arrival -WBC 43.2, lactic 7.7, trop 0.06 on arrival -Received zosyn 11/20/18 at the [place] -CT chest abd/plv 11/20/18: hazy opacities at lung bases atelectasis or pneumonia, underlying emphysema. Cholelithiasis. Very large left sided rectus sheath hematoma -WBC 43.6, lactic down from 9.8 to 3.3 after bicarb infusion started 11/20/18 -Bicarb drip stopped 11/23/18 -[facility] BC's 1/2 prelim pos for coagulase neg gram pos cocci -BC x2 drawn 11/20/18 negative -Repeat BC x2 drawn 11/23/18 prelim neg -Urine culture negative -BAL 11/22/18 culture RLL postive for Stenotrophomonas maltophilia- sensitive to levofloxacin and tmp-smx -BP very labile 11/20/18 with MAPs dropping into 40's, requiring pressor support to maintain MAP. MAP adequate off pressors now -Received 6 days vancomycin stopped 11/25/18 -Continue pip/tazo (day 7) which will deescalate as cultures finalize -TTE 11/21/18 not able to visualize structures -TTE 11/23/18 EF 60-65%, atypical septal motion consistent with BBB, mild LV diastolic dysfunction, valves not well visualized -Continue levofloxacin (day 2) renally dosed for S maltophilia Qualifiers: Sepsis type: sepsis due to unspecified organism Qualified Code(s): A41.9 - Sepsis, unspecified organism (2) Acute respiratory failure with hypoxia Current Visit: Yes Status: Acute -Awake, alert and talking on arrival -Resp and mental status declined and became hypoxic and apneic requiring intubation -ABG at time of intubation pH 7.16, paCO2 44, paO2 105, hco3 16, 96% on 13L O2 via oxymask -Successfully extubated 11/23/18 -Acutely hypoxic 11/24/18 requiring BiPAP which tolerated well overnight -11/25/18 became apneic and hypoxic acutely with subsequent intubation -ABG 11/26/18: pH 7.36, paCO2 50, paO2 86, HCO3 28, 96% on 50% FiO2 -[employer] started yesterday via neph -Continue mechanical ventilation and expect breathing to improve with dialysis (3) GI bleed Current Visit: Yes Status: Suspected Likely bleeding 2/2 rectus sheath hematoma > GI bleed -Melena occasionally over the last 2 weeks -Hgb 11/18/18 13.4 at [facility] -Received new anticoagulation 2/2 DVT at the [facility] -Hgb on transfer here 11/20/18 7.3, BUN 46 -Got 2 units PRBCs 11/20/18 and repeat hgb 9 -Hgb today 9.1 -Will monitor and transfuse as indicated -Acute care surg following without plans for intervention till more stable Qualifiers: GI bleed type/associated pathology: melena Qualified Code(s): K92.1 - Melena (4) ANY (acute kidney injury) Current Visit: Yes Status: Acute -Cr at [facility] 11/19/18 0.79 -Cr on transfer from [facility] 11/20/18 1.74, BUN 46 -Renal function worsened to peak of Cr 7.03, BUN 110 on 11/25/18 -Will continue trend renal function and avoid nephrotoxins as can -Neph following -Temp dialysis catheter placed by IR -[employer] started 11/25/18 via neph -Cr 4.35, BUN 68, K 5.6 today (5) COPD (chronic obstructive pulmonary disease) Current Visit: Yes Status: Acute -Hx of COPD -Progressive dyspnea and yellow productive cough over last 2 weeks -Scheduled bronchodilators Qualifiers: COPD type: emphysema Emphysema type: unspecified Qualified Code(s): J43.9 - Emphysema, unspecified (6) Anemia Current Visit: Yes Status: Acute -Hgb 13.4 11/18/18 at the [facility] -Hgb on arrival here 7.3 -Occult stool pos at [facility] -GI bleed vs large rectus sheath hematoma on CT -Transfused 2 units PRBC 11/20/18 with hgb repeat at 9 -Transfused total 5 units PRBCs -Hgb 9.1 today -Trend and transfuse as indicated Qualifiers: Anemia type: other cause Other causes of anemia: other cause, not classified Qualified Code(s): D64.89 - Other specified anemias (7) Right leg DVT Current Visit: Yes Status: Acute -R leg DVT at [facility] -RLE doppler prelim pos for DVT R posterior tibial vein -SVC filter placed 11/22/18 as anticoagulation contraindicated Qualifiers: Affected thrombotic vein of extremity: unspecified vein of extremity Chronicity: unspecified Qualified Code(s): I82.401 - Acute embolism and thrombosis of unspecified deep veins of right lower extremity (8) High anion gap metabolic acidosis Current Visit: Yes Status: Acute -AG 11 on arrival -AG increased 11/21/18 to 15 likely 2/2 lactic acidosis -AG 13 today (9) Lactic acidemia Current Visit: Yes Status: Acute -Lactic on arrival 7.3 -Likely 2/2 sepsis basilar pneumonia -Peak 9.8 started bicarb drip -Lactic 3.3 11/22/18 -Stop bicarb drip 11/23/18 (10) Leukocytosis Current Visit: Yes Status: Acute -WBC 43.2 11/20/18 -WBC 43.6 11/21/18 -Continuing to trend down, wbc 15.2 today -Management as above Qualifiers: Leukocytosis type: unspecified Qualified Code(s): D72.829 - Elevated white blood cell count, unspecified (11) Thrombocytopenia Current Visit: Yes Status: Acute -Platelets 190 on arrival -Trended down since and low of 18 today -Has transfused total 2 unit's platelets (12) Elevated troponin Current Visit: Yes Status: Acute -Likely 2/2 demand ischemia from hypotension -Trop 0.07 at [facility] today -Repeat here 0.06 -Minimal increase on repeats 0.11-0.16-0.21 (13) DVT prophylaxis Current Visit: Yes Status: Acute -SCDs as acute drop in hgb Subjective Principal diagnosis: Sepsis Interval history: No acute events overnight. Repeat cbc after platelets 18 and second pack ordered. Intubated yesterday. Mallorie started. Objective PUL Vital signs: Last Vital Signs Temp 96.6 F L 11/26/18 06:54 Pulse 90 11/26/18 06:54 Resp 15 11/26/18 06:54 BP 132/65 11/26/18 06:54 Pulse Ox 100 11/26/18 06:54 General appearance: no acute distress, other (intubated and sedated) Eyes: nonicteric ENT: oropharynx dry Auscultation: bilateral: diminished breath sounds, rhonchi (scattered) Cardiovascular: regular rate and rhythm Gastrointestinal: hypoactive bowel sounds, soft, other (distended, large L flank hematoma ) Integumentary: other (Large L flank hematoma, scrotal hematoma ) Extremities: no cyanosis, pink and warm, pulses normal, edema other (sedated) other (sedated) Ventilator Settings Ventilator Settings: Ventilator Settings, Last 8 Hours Ventilator Tidal Volume 450 Setting Ventilator Tidal Volume 450 Setting Ventilator Tidal Volume 450 Setting Ventilator Tidal Volume 450 Setting Ventilator Tidal Volume 450 Setting Ventilator Tidal Volume 450 Setting Ventilator Tidal Volume 450 Setting Ventilator Tidal Volume 450 Setting Ventilator Tidal Volume 450 Setting Ventilator Tidal Volume 450 Setting Ventilator Tidal Volume 450 Setting Ventilator Tidal Volume 450 Setting Ventilator Respiratory Rate 14 Setting Ventilator Respiratory Rate 14 Setting Ventilator Respiratory Rate 14 Setting Ventilator Respiratory Rate 14 Setting Ventilator Respiratory Rate 14 Setting Ventilator Respiratory Rate 14 Setting Ventilator Respiratory Rate 14 Setting Ventilator Respiratory Rate 14 Setting Ventilator Respiratory Rate 14 Setting Ventilator Respiratory Rate 14 Setting Ventilator Respiratory Rate 14 Setting Ventilator Respiratory Rate 14 Setting Actual Respiratory Rate 15 Actual Respiratory Rate 16 Actual Respiratory Rate 17 Actual Respiratory Rate 16 Actual Respiratory Rate 18 Actual Respiratory Rate 15 Actual Respiratory Rate 15 Actual Respiratory Rate 15 Actual Respiratory Rate 15 Actual Respiratory Rate 17 Actual Respiratory Rate 19 Positive End Expiratory 5 Pressure Positive End Expiratory 5 Pressure Positive End Expiratory 5 Pressure Positive End Expiratory 5 Pressure Positive End Expiratory 5 Pressure Positive End Expiratory 5 Pressure Positive End Expiratory 5 Pressure Positive End Expiratory 5 Pressure Positive End Expiratory 5 Pressure Positive End Expiratory 5 Pressure Positive End Expiratory 5 Pressure Positive End Expiratory 5 Pressure Peak Inspiratory Airway 4.8 Pressure Peak Inspiratory Airway 25 Pressure Peak Inspiratory Airway 25 Pressure Peak Inspiratory Airway 25 Pressure Peak Inspiratory Airway 22 Pressure Peak Inspiratory Airway 26 Pressure Peak Inspiratory Airway 23 Pressure Peak Inspiratory Airway 25 Pressure Peak Inspiratory Airway 11 Pressure Peak Inspiratory Airway 12 Pressure Peak Inspiratory Airway 11 Pressure Results - Laboratory Findings CBC and BMP: 11/26/18 03:32 11/26/18 03:32 ABG ABG pH 7.36 pH Units (7.32-7.45) 11/26/18 05:02 ABG pCO2 50 mmHg (35-45) H 11/26/18 05:02 ABG pO2 86 mmHg (85-104) 11/26/18 05:02 ABG O2 Saturation 96 % (95-98) 11/26/18 05:02 PT/INR, D-dimer PT 10.1 Seconds (9.4-12.1) 11/26/18 03:32 Abnormal lab findings: Abnormal lab results WBC 15.2 K/mcL (4.3-11.1) H 11/26/18 03:32 RBC 3.05 M/mcL (4.19-5.50) L 11/26/18 03:32 Hgb 9.1 g/dL (12.9-16.9) L 11/26/18 03:32 Hct 27.6 % (37.5-50.1) L 11/26/18 03:32 MCHC 31.1 g/dL (31.6-35.5) L 11/20/18 12:43 RDW 15.5 % (11.5-14.5) H 11/26/18 03:32 Plt Count 18 K/mcL (140-400) L* 11/26/18 03:32 MPV 12.5 fL (9.4-12.4) H 11/26/18 03:32 14.3 K/mcL (1.6-8.9) H 11/26/18 03:32 0.3 K/mcL (0.6-4.6) L 11/26/18 03:32 Nucleated RBCs/100 WBC 0.1 /100 WBC (0) H 11/26/18 03:32 Marked Decrease (Normal) L 11/26/18 03:32 Immature Plt Fraction 14.0 % (1.1-6.1) H 11/26/18 03:32 1+ (Not Present) A 11/25/18 03:40 Present (Not Present) A 11/25/18 03:40 1+ (Not Present) A 11/25/18 03:40 PT 12.6 Seconds (9.4-12.1) H 11/23/18 11:15 618 mg/dL (169-393) H D 11/26/18 03:32 ABG pH 7.50 pH Units (7.32-7.45) H 11/24/18 05:26 ABG pCO2 50 mmHg (35-45) H 11/26/18 05:02 ABG pO2 153 mmHg (85-104) H 11/25/18 14:07 ABG HCO3 28 mEq/L (21-27) H 11/26/18 05:02 ABG Total CO2 30 mEq/L (20-26) H 11/26/18 05:02 ABG O2 Saturation 99 % (95-98) H 11/25/18 14:07 ABG Base Excess 5 mEq/L (-2 to 3) H 11/24/18 05:26 Potassium 5.6 mEq/L (3.5-5.1) H 11/26/18 03:32 Chloride 97 mEq/L (98-107) L 11/26/18 03:32 Carbon Dioxide 30 mEq/L (23-29) H 11/23/18 11:15 BUN 68 mg/dL (8-23) H 11/26/18 03:32 4.35 mg/dL (0.70-1.30) H 11/26/18 03:32 Est GFR ( Amer) 16 (> 60) L 11/26/18 03:32 Est GFR (Non-Af Amer) 14 (> 60) L 11/26/18 03:32 Glucose 151 mg/dL (70-105) H 11/26/18 03:32 POC Glucose 130 mg/dL (70-99) H 11/25/18 23:15 6.5 % (-5.6) H 11/20/18 13:04 307 (280-300) H 11/26/18 03:32 Lactic Acid 3.3 mmol/L (0.5-2.2) H 11/22/18 04:45 Calcium 7.8 mg/dL (8.6-10.3) L 11/26/18 03:32 Venous Ioniz Calcium 0.96 mmol/L (1.15-1.35) L 11/26/18 03:57 Phosphorus 6.5 mg/dL (2.7-4.5) H 11/26/18 03:32 2.2 mg/dL (0.3-1.0) H 11/26/18 03:32 1.3 mg/dL (0.0-0.2) H 11/26/18 03:32 AST 66 Units/L (13-39) H 11/26/18 03:32 ALT 382 Units/L (7-52) H 11/26/18 03:32 108 Units/L (34-104) H 11/26/18 03:32 0.21 ng/mL (< 0.04) H* 11/21/18 13:15 4.4 g/dL (6.4-8.9) L 11/26/18 03:32 2.6 g/dL (3.5-5.7) L 11/26/18 03:32 1.8 g/dL (2.4-3.5) L 11/26/18 03:32 Turbid (Clear) A 11/21/18 08:50 Trace mg/dL (Negative) H 11/21/18 08:50 Small (Negative) H 11/21/18 08:50 5-15 per hpf (0-3) H 11/21/18 08:50 Ur Squamous Epith Cells Many per lpf (None-Few) H 11/21/18 08:50 Ur Culture Indicated? YES (NO) A 11/21/18 08:50 Fluid Appearance Cloudy (Clear) A 11/22/18 12:23 Vancomycin Trough 23 mcg/mL (5-10) H 11/22/18 04:45 Hep Bs Antibody < 3.10 mIU/mL (10.00-) L 11/24/18 09:35 Crossmatch See Detail 11/25/18 14:51 - Microbiology Findings Microbiology Findings: Microbiology, Last 48 Hours 11/20/18 14:26 Blood Culture - Final Peripheral Venipuncture No growth. Final report. 11/20/18 14:37 Blood Culture - Final Peripheral Venipuncture No growth. Final report. 11/22/18 12:23 Respiratory Culture - Final Right Lower Lobe Lung Stenotrophomonas maltophilia - Clinical Findings Intake & Output: Intake & Output 11/25/18 11/25/18 11/26/18 15:59 23:59 07:59 Intake Total 1225 / 4187.0 2570.0 / 4187.0 1172.2 / 1172.2 Output Total 65 / 675 531 / 675 293 / 293 Balance 1160 / 3512.0 2039.0 / 3512.0 879.2 / 879.2 Weight 110 kg 114 kg Consult Discharge Plan - Plan Referrals: [facility] [Primary Care Provider[facility] - <Kika Yang - Last Filed: 11/27/18 00:11> Date of Encounter: 11/27/18 Objective PUL Vital signs: Last Vital Signs Temp 97.4 F L 11/26/18 23:00 Pulse 94 11/26/18 23:00 Resp 20 11/26/18 23:42 BP 136/72 11/26/18 23:42 Pulse Ox 98 11/26/18 23:42 Ventilator Settings Ventilator Settings: Ventilator Settings, Last 8 Hours Ventilator Tidal Volume 450 Setting Ventilator Tidal Volume 450 Setting Ventilator Tidal Volume 450 Setting Ventilator Tidal Volume 450 Setting Ventilator Tidal Volume 450 Setting Ventilator Tidal Volume 450 Setting Ventilator Tidal Volume 450 Setting Ventilator Tidal Volume 450 Setting Ventilator Tidal Volume 450 Setting Ventilator Tidal Volume 450 Setting Ventilator Respiratory Rate 14 Setting Ventilator Respiratory Rate 14 Setting Ventilator Respiratory Rate 14 Setting Ventilator Respiratory Rate 14 Setting Ventilator Respiratory Rate 14 Setting Ventilator Respiratory Rate 14 Setting Ventilator Respiratory Rate 14 Setting Ventilator Respiratory Rate 14 Setting Ventilator Respiratory Rate 14 Setting Ventilator Respiratory Rate 14 Setting Actual Respiratory Rate 23 Actual Respiratory Rate 25 Actual Respiratory Rate 20 Actual Respiratory Rate 24 Actual Respiratory Rate 25 Actual Respiratory Rate 25 Actual Respiratory Rate 25 Actual Respiratory Rate 27 Actual Respiratory Rate 25 Actual Respiratory Rate 19 Positive End Expiratory 5 Pressure Positive End Expiratory 5 Pressure Positive End Expiratory 5 Pressure Positive End Expiratory 5 Pressure Positive End Expiratory 5 Pressure Positive End Expiratory 5 Pressure Positive End Expiratory 5 Pressure Positive End Expiratory 5 Pressure Positive End Expiratory 5 Pressure Positive End Expiratory 5 Pressure Peak Inspiratory Airway 12 Pressure Peak Inspiratory Airway 15 Pressure Peak Inspiratory Airway 15 Pressure Peak Inspiratory Airway 15 Pressure Peak Inspiratory Airway 14 Pressure Peak Inspiratory Airway 14 Pressure Peak Inspiratory Airway 14 Pressure Peak Inspiratory Airway 15 Pressure Peak Inspiratory Airway 11 Pressure Peak Inspiratory Airway 35 Pressure Results - Laboratory Findings CBC and BMP: 11/26/18 03:32 11/26/18 03:32 ABG ABG pH 7.36 pH Units (7.32-7.45) 11/26/18 05:02 ABG pCO2 50 mmHg (35-45) H 11/26/18 05:02 ABG pO2 86 mmHg (85-104) 11/26/18 05:02 ABG O2 Saturation 96 % (95-98) 11/26/18 05:02 PT/INR, D-dimer PT 10.1 Seconds (9.4-12.1) 11/26/18 03:32 Abnormal lab findings: Abnormal lab results WBC 15.2 K/mcL (4.3-11.1) H 11/26/18 03:32 RBC 3.05 M/mcL (4.19-5.50) L 11/26/18 03:32 Hgb 9.1 g/dL (12.9-16.9) L 11/26/18 03:32 Hct 27.6 % (37.5-50.1) L 11/26/18 03:32 MCHC 31.1 g/dL (31.6-35.5) L 11/20/18 12:43 RDW 15.5 % (11.5-14.5) H 11/26/18 03:32 Plt Count 18 K/mcL (140-400) L* 11/26/18 03:32 MPV 12.5 fL (9.4-12.4) H 11/26/18 03:32 14.3 K/mcL (1.6-8.9) H 11/26/18 03:32 0.3 K/mcL (0.6-4.6) L 11/26/18 03:32 Nucleated RBCs/100 WBC 0.1 /100 WBC (0) H 11/26/18 03:32 Marked Decrease (Normal) L 11/26/18 03:32 Immature Plt Fraction 14.0 % (1.1-6.1) H 11/26/18 03:32 1+ (Not Present) A 11/25/18 03:40 Present (Not Present) A 11/25/18 03:40 1+ (Not Present) A 11/25/18 03:40 PT 12.6 Seconds (9.4-12.1) H 11/23/18 11:15 618 mg/dL (169-393) H D 11/26/18 03:32 ABG pH 7.50 pH Units (7.32-7.45) H 11/24/18 05:26 ABG pCO2 50 mmHg (35-45) H 11/26/18 05:02 ABG pO2 153 mmHg (85-104) H 11/25/18 14:07 ABG HCO3 28 mEq/L (21-27) H 11/26/18 05:02 ABG Total CO2 30 mEq/L (20-26) H 11/26/18 05:02 ABG O2 Saturation 99 % (95-98) H 11/25/18 14:07 ABG Base Excess 5 mEq/L (-2 to 3) H 11/24/18 05:26 Potassium 5.6 mEq/L (3.5-5.1) H 11/26/18 03:32 Chloride 97 mEq/L (98-107) L 11/26/18 03:32 Carbon Dioxide 30 mEq/L (23-29) H 11/23/18 11:15 BUN 68 mg/dL (8-23) H 11/26/18 03:32 4.35 mg/dL (0.70-1.30) H 11/26/18 03:32 Est GFR ( Amer) 16 (> 60) L 11/26/18 03:32 Est GFR (Non-Af Amer) 14 (> 60) L 11/26/18 03:32 Glucose 151 mg/dL (70-105) H 11/26/18 03:32 POC Glucose 130 mg/dL (70-99) H 11/25/18 23:15 6.5 % (-5.6) H 11/20/18 13:04 307 (280-300) H 11/26/18 03:32 Lactic Acid 3.3 mmol/L (0.5-2.2) H 11/22/18 04:45 Calcium 7.8 mg/dL (8.6-10.3) L 11/26/18 03:32 Venous Ioniz Calcium 0.98 mmol/L (1.15-1.35) L 11/26/18 20:51 Phosphorus 6.5 mg/dL (2.7-4.5) H 11/26/18 03:32 2.2 mg/dL (0.3-1.0) H 11/26/18 03:32 1.3 mg/dL (0.0-0.2) H 11/26/18 03:32 AST 66 Units/L (13-39) H 11/26/18 03:32 ALT 382 Units/L (7-52) H 11/26/18 03:32 108 Units/L (34-104) H 11/26/18 03:32 0.21 ng/mL (< 0.04) H* 11/21/18 13:15 4.4 g/dL (6.4-8.9) L 11/26/18 03:32 2.6 g/dL (3.5-5.7) L 11/26/18 03:32 1.8 g/dL (2.4-3.5) L 11/26/18 03:32 Turbid (Clear) A 11/21/18 08:50 Trace mg/dL (Negative) H 11/21/18 08:50 Small (Negative) H 11/21/18 08:50 5-15 per hpf (0-3) H 11/21/18 08:50 Ur Squamous Epith Cells Many per lpf (None-Few) H 11/21/18 08:50 Ur Culture Indicated? YES (NO) A 11/21/18 08:50 Fluid Appearance Cloudy (Clear) A 11/22/18 12:23 Vancomycin Trough 23 mcg/mL (5-10) H 11/22/18 04:45 Hep Bs Antibody < 3.10 mIU/mL (10.00-) L 11/24/18 09:35 Crossmatch See Detail 11/25/18 14:51 - Microbiology Findings Microbiology Findings: Microbiology, Last 48 Hours 11/20/18 14:26 Blood Culture - Final Peripheral Venipuncture No growth. Final report. 11/20/18 14:37 Blood Culture - Final Peripheral Venipuncture No growth. Final report. 11/22/18 12:23 Respiratory Culture - Final Right Lower Lobe Lung Stenotrophomonas maltophilia - Clinical Findings Intake & Output: Intake & Output 11/26/18 11/26/18 11/27/18 15:59 23:59 07:59 Intake Total 677.3 / 2498.9 649.4 / 2498.9 Output Total 5 / 298 0 / 298 Balance 672.3 / 2200.9 649.4 / 2200.9 Weight 114 kg 114 kg - Attending Attestation Attending Attestation I saw and evaluated this patient and my medical decision-making was reviewed with the Resident Physician. I agree with the documented findings, disposition and treatment plan as described except to the extent set forth below. We independently had [id number] contact with the patient I spent 45 minutes of Critical Care time with this patient. It involved decision making of high complexity to assess, manipulate, and support vital organ system failure and/or to prevent further life threatening deterioration of the patient's condition. The time involved in the performance of separately reportable procedures was not counted toward critical care time. Patient seen and examined at bedside Labs, radiology, chart personally reviewed. Management was reviewed during multidisciplinary critical care rounds. SAW FEEDER: Patient is conscious oriented following commands no evidence of encephalopathy , suddenly developed altered mental status with agonal breathing patient was intubated and mechanical ventilated. 11/26 Patient has toxic /metabolic encephalopathy Pulm: Patient has acceptable V/Q mismatch patient tolerated the spontaneous breathing trial will patient has some hydrostatic pulmonary edema complicated by diuresis because of kidney injury it is difficult to do diuresis 11/24 patient was worsening hypoxic respiratory failure complicated by pulmonary edema to continue diuresis. 11/25 patient was worsening hypoxic respiratory failure complicated by a hydrostatic pulmonary edema as of acute kidney injury we cannot diurese him. 11/26 Patient has acceptable oxygenation and ventilation . Complicated by hydrostatic pulmonary edema Cards: Patient is hemodynamically stable septic shock resolved blood cultures are negative transthoracic echo was done no need of a transesophageal echo for now. Patient is hemodynamically stable blood culture is not growing anything 11/25 patient had a transthoracic echo history the patient developed hemodynamic instability while doing dialysis dialysis was stopped. 11/26 Patient is hemodynamically stable FEN-GI: Patient is extubated to advance diet as tolerated. Has most likely having sepsis and ischemic Hepatitis the reason for lactic acidosis most likely due to both liver and kidney failure. 11/24 liver and kidneys slowly recovering. 11/25 developed acute hypoxic respiratory failure contributed by worsening encephalopathy to continue lactulose any workup. Will help in hepatic encep halopathy. 11/26 To continue tube feeds Renal:Patient has worsening Acute kidney injury mostly sepsis induced a Any and discussed nephrology expected to improve. 11/25 patient was started on intermittent hemodialysis patient did not tolerated well might need CVVH tonight 11/26 To continue CVVH ID: To continue broad-spectrum antibiotics blood cultures latest one is negative waiting for the first blood culture sensitivity with gram-positive cocci in clusters which grew in outside facility 11/25 with broad-spectrum antibiotics the first blood cultures quite coagulase negative Staphylococcus will de-escalate vancomycin. 11/25 To descalate antibiotics antibiotics Heme/Onc: Patient has thrombocytopenia was likely sepsis induced to monitor Endo: Glucose Monitored Integ/MSK: Skin Care per routine ICU Nursing Protocol to prevent ulcers. Lines: All lines examined without evidence of infection : Dispo: Critically ill CODE: Full code
[2018-11-26] MEDS ORDERED: 0.9 % Sodium Chloride 250 ML ONE (08:20)
[2018-11-26] MEDS: Levofloxacin 750 MG/150 ML 750 MG/150 ML BAG IVPB SCH (08:38)
[2018-11-26] MEDS: Chlorhexidine Rinse 15 ML MOUTHWASH MM SCH ×2 (08:39→20:43)
[2018-11-26] MEDS: Piperacillin/Tazobactam 3.375 GM in 0.9 % Sodium Chloride Mini Bag 100 ML IVPB SCH ×3 (08:42→23:00)
--- NOTE | 2018-11-26 10:49 | Urology Progress Note ---
Date of Encounter: 11/26/18 Time of Encounter: 10:05 - Assessment and Plan (1) Bruise of scrotum Current Visit: Yes Status: Acute Assessment and plan: Patient is a 73-year-old male who presents with diffuse ecchymosis of his scro corinne secondary to a rectus sheath hematoma. Plan to continue with scrotal support. No urologic intervention is anticipated at this time. Recommend to continue indwelling Reynaga catheter, and please call us with any problems with drainage. Urology will sign off, but we are available at any time if needed. Qualifiers: Encounter type: initial encounter Qualified Code(s): S30.22XA - Contusion of scrotum and testes, initial encounter Progress Note Narrative: Patient seen and examined lying in bed in no apparent distress. Patient is under sedation and being mechanically ventilated. Reynaga catheter is indwelling and draining scant amount of clear yellow urine into bedside bag. Objective Initial Vital Signs Pulse Resp BP Pulse Ox 101 27 130/102 92 11/20/18 13:11 11/20/18 13:11 11/20/18 13:11 11/20/18 13:11 - General physical appearance Present: no distress, no pain - Respiratory Present: normal expansion. Absent: normal respiratory effort (Mechanical ventilation) - Abdomen Present: soft. Absent: distended - Genitourinary scrotal mass/hydrocele: bilateral (Diffusely edematous scrotum with severe ecchymosis; relatively unchanged from yesterday's examination) Urine Appearance: Present: Clear - Integumentary Present: no rash, no abnormal pigmentation - Musculoskeletal Present: normal posture - Psychiatric Present: other (Patient being mechanically ventilated and is under sedation). Absent: oriented to time, oriented to person, oriented to place, speech is normal, memory intact - Labs 11/26/18 03:32 11/26/18 03:32 Diabetes panel 11/26/18 11/26/18 Range/Units 03:32 03:32 Sodium 137 (136-145) mEq/L Potassium 5.6 H (3.5-5.1) mEq/L Chloride 97 L (98-107) mEq/L Carbon Dioxide 26 (23-29) mEq/L BUN 68 H (8-23) mg/dL Creatinine 4.35 H (0.70-1.30) mg/dL Glucose 151 H (70-105) mg/dL Calcium 7.8 L (8.6-10.3) mg/dL AST 66 H (13-39) Units/L ALT 382 H (7-52) Units/L Alkaline Phosphatase 108 H (34-104) Units/L Albumin 2.6 L (3.5-5.7) g/dL Calcium panel 11/26/18 11/26/18 Range/Units 03:32 03:32 Calcium 7.8 L (8.6-10.3) mg/dL Phosphorus 6.5 H (2.7-4.5) mg/dL Albumin 2.6 L (3.5-5.7) g/dL Pituitary panel 11/26/18 Range/Units 03:32 Sodium 137 (136-145) mEq/L Potassium 5.6 H (3.5-5.1) mEq/L Chloride 97 L (98-107) mEq/L Carbon Dioxide 26 (23-29) mEq/L BUN 68 H (8-23) mg/dL Creatinine 4.35 H (0.70-1.30) mg/dL Glucose 151 H (70-105) mg/dL Calcium 7.8 L (8.6-10.3) mg/dL Adrenal panel 11/26/18 11/26/18 Range/Units 03:32 03:32 Sodium 137 (136-145) mEq/L Potassium 5.6 H (3.5-5.1) mEq/L Chloride 97 L (98-107) mEq/L Carbon Dioxide 26 (23-29) mEq/L BUN 68 H (8-23) mg/dL Creatinine 4.35 H (0.70-1.30) mg/dL Glucose 151 H (70-105) mg/dL Calcium 7.8 L (8.6-10.3) mg/dL Total Bilirubin 2.2 H (0.3-1.0) mg/dL AST 66 H (13-39) Units/L ALT 382 H (7-52) Units/L Alkaline Phosphatase 108 H (34-104) Units/L Albumin 2.6 L (3.5-5.7) g/dL Consult Discharge Plan - Plan Referrals: [facility] [Primary Care Provider] -
[2018-11-26] MEDS: Nitroglycerin 25 MG/250 ML INFUS..BTL IVC SCH (12:14)
[2018-11-26] MEDS: Docusate Oral Soln 100 MG/10 ML UDC GTUBE SCH ×2 (12:46→20:43)
--- NOTE | 2018-11-26 12:46 | Nephrology Progress Note ---
Date of Encounter: 11/26/18 Time of Encounter: 12:45 - Assessment and Plan (1) ANY (acute kidney injury) Current Visit: Yes Status: Acute Patient has multifactorial oliguric ANY with a rapidly rising creatinine and then additional contrast dye exposure. Patient with anemia, vancomycin exposure, and septic shock and contrast dye contributing to his ANY. Patient with volume overload. Intermittent HD was unsuccessful so patient was started on CVVHDF. Avoid unnecessary nephrotoxins. Adjust medications as needed for renal function. Patient was seen on CVVHDF will continue. Patient remains intubated. Patient critically ill. 33 minutes spent in the care of this critically ill patient. (2) Septic shock Current Visit: Yes Status: Acute Per primary team. (3) Acute respiratory failure with hypoxia Current Visit: Yes Status: Acute Patient is intubated. (4) Anemia Current Visit: Yes Status: Acute Qualifiers: Anemia type: other cause Other causes of anemia: other cause, not classified Qualified Code(s): D64.89 - Other specified anemias (5) COPD (chronic obstructive pulmonary disease) Current Visit: Yes Status: Acute Qualifiers: COPD type: emphysema Emphysema type: unspecified Qualified Code(s): J43.9 - Emphysema, unspecified (6) Elevated troponin Current Visit: Yes Status: Acute (7) Right leg DVT Current Visit: Yes Status: Acute Qualifiers: Affected thrombotic vein of extremity: unspecified vein of extremity Chronicity: unspecified Qualified Code(s): I82.401 - Acute embolism and thrombosis of unspecified deep veins of right lower extremity Subjective Principal diagnosis: Sepsis Interval history: Patient seen and evaluated. He is now intubated and sedated. He remains critically ill. He remains on CVVHDF. Objective - Vital Signs Vital signs: Vital Signs Temp Pulse Resp BP Pulse Ox 11/26/18 12:00 97 18 152/69 98 11/26/18 11:00 95 17 128/55 99 11/26/18 10:30 97.4 F L 93 17 138/64 11/26/18 10:00 93 17 131/57 100 11/26/18 09:57 18 127/71 98 11/26/18 09:00 90 18 142/56 98 11/26/18 08:38 97.3 F L 70 17 123/51 11/26/18 08:23 97.4 F L 86 17 121/59 11/26/18 08:00 86 17 158/118 96 11/26/18 07:24 16 102/64 100 11/26/18 07:00 90 11/26/18 06:54 96.6 F L 90 15 132/65 100 11/26/18 06:00 89 16 129/61 100 11/26/18 05:00 86 17 129/57 100 11/26/18 04:06 20 100 11/26/18 04:00 96 F L 76 18 103/55 100 11/26/18 03:12 81 11/26/18 03:00 80 15 123/57 100 11/26/18 02:00 63 15 144/56 100 11/26/18 01:20 14 125/52 100 11/26/18 01:00 55 15 134/49 100 11/26/18 00:00 97.5 F L 63 28 105/45 100 11/25/18 23:20 66 11/25/18 23:13 20 157/66 97 11/25/18 23:00 70 19 157/66 99 11/25/18 22:05 98.4 F 71 18 153/47 95 11/25/18 22:00 98.4 F 86 18 152/50 95 11/25/18 21:21 17 153/49 96 11/25/18 21:00 65 16 145/51 98 11/25/18 20:28 17 129/52 98 11/25/18 20:00 98.2 F 68 18 129/52 97 11/25/18 19:37 98.2 F 99 22 136/53 94 11/25/18 19:22 98.5 F 101 21 125/53 94 11/25/18 19:00 100 20 113/80 93 11/25/18 18:00 112 18 120/85 93 11/25/18 17:55 97.8 F 24 91/48 11/25/18 17:43 66/50 05 17:40 91/48 11/25/18 17:34 21 93/55 95 11/25/18 17:25 92/55 11/25/18 17:22 97.8 F 114 24 109/90 92 11/25/18 17:10 98/73 11/25/18 17:00 98.2 F 95 19 124/90 92 11/25/18 16:55 86/64 05/15/19 16:45 98.7 F 111 18 119/95 11/25/18 16:40 114/46 11/25/18 16:25 98.7 F 20 132/55 11/25/18 16:00 72 18 140/46 96 11/25/18 15:57 88 11/25/18 15:46 98.0 F 11/25/18 15:42 17 100 11/25/18 15:00 63 19 136/54 100 11/25/18 14:21 97.8 F 93 17 121/51 100 11/25/18 14:00 81 21 143/72 100 11/25/18 13:00 94 16 125/46 100 Intake and Output 11/25/18 11/26/18 11/26/18 23:59 07:59 15:59 Intake Total 2570.0 / 4187.0 1172.2 / 1671.0 498.8 / 1671.0 Output Total 531 / 675 293 / 293 0 / 293 Balance 2039.0 / 3512.0 879.2 / 1378.0 498.8 / 1378.0 Intake: IV Fluids 1152.0 / 1847.0 653.2 / 1017.0 363.8 / 1017.0 PrismaSATE BGK 4/2.5 5,000 ML @ 0 / 0 0 / 0 0 / 0 1600 mls/hr CRRT [facility] Rx#: [id number] PRECEDEX Premix 400 mcg In 100 61.4 / 161.4 12.5 / 12.5 ml @ 0.2 MCG/KG/HR 4.85 mls/hr IVC .[id number] [facility] Rx#:[id number] FentaNYL (PF) 1,000 MCG In 0.9 95 / 100 152.2 / 212.0 59.8 / 212.0 % Sodium Chloride 80 ML @ 50 MCG/HR 5 mls/hr IVC [facility] Rx #:[id number] Nitroglycerin Premix 25 MG/250 3 / 3 ML 25 mg In 250 ml @ 5 MCG/MIN 3 mls/hr IVC .Q24H [facility] Rx#: [id number] Levophed 8 MG In Dextrose 5% 677.5 / 697.5 79.1 / 79.1 250 ML @ 8 MCG/MIN 15.48 mls/hr IVC CONT [facility] Rx#:[id number] Diprivan 1,000 mg In 100 ml @ 5 28.1 / 28.1 89.4 / 140.4 51 / 140.4 MCG/KG/MIN 2.91 mls/hr IVC . Q24H [facility] Rx#:[id number] Calcium Chloride 4,000 MG In 0. 290 / 290 9 % Sodium Chloride 250 ML @ 72 .5 mls/hr IVPB [facility] Rx#: [id number] Calcium Gluconate 1,000 MG In 0 220 / 220 .9 % Sodium Chloride 100 ML @ 220 mls/hr IVPB Q6HR [facility] Rx#: [id number] Levaquin Premix 750mg/150 mL 150 / 150 750 mg In 150 ml @ 100 mls/hr IVPB Q24H [facility] Rx#:[id number] Zosyn 3.375 GM In 0.9 % Sodium 100 / 200 100 / 200 Chloride (Mini-Bag +) 100 ML @ 25 mls/hr IVPB Q8H [facility] Rx#: [id number] Oral 0 / 0 Blood Product 700 / 950 75 / 75 Platelet Pheresis Lp Irr 1st 75 / 75 Unit [id number] Rbcs Leuko Poor As-1 Unit 350 / 350 [id number] Rbcs Leuko Poor As-1 Unit 350 / 350 [id number] Other 118 / 190 519 / 519 Intake, Rinseback and Flushes 600 / 1200 Free Water Intake Amount 60 / 60 Output: Urine 0 / 0 Total Dialysis (HD) Output 377 / 377 Mallorie 4 / 58 261 / 261 Catheter 0 / 40 12 / 12 0 / 12 Gastric Drainage 150 / 200 20 / 20 0 / 20 Other: Weight 110 kg 114 kg 114 kg Blood Glucose* 120 Hemodialysis Net Fluid Removed 27 (mL) Fluid Removed by Prismaflex 4 16 174 Patient Weight 11/26/18 23:59 Weight 114 kg - General Appearance General appearance: Present: well-developed, well-nourished, sedated on ventilator, intubated EENT: Present: ATNC Neck: Present: supple Respiratory: Present: course breath sounds Cardiology: Present: regular rate Integumentary: Present: warm and dry Musculoskeletal: Present: no cyanosis - Lab 11/26/18 03:32 11/26/18 03:32 Most recent lab results 11/26/18 11/26/18 03:32 05:02 ABG pH 7.36 ABG pCO2 50 H ABG pO2 86 ABG HCO3 28 H ABG O2 Saturation 96 Calcium 7.8 L Phosphorus 6.5 H Magnesium 2.3 Consult Discharge Plan - Plan [facility]errals: [facility] [Primary Care Provider] -
[2018-11-26 21:03] LABS: VBG Ionized Calcium 0.98 mmol/L (1.15-1.35)
[2018-11-27] MEDS: PrismaSATE BGK 4/2.5 5,000 ML CRRT SCH ×9 (00:19→06:30)
[2018-11-27] MEDS: FentaNYL (PF) 1,000 MCG in 0.9 % Sodium Chloride 80 ML IVC SCH ×3 (02:00→17:50)
[2018-11-27] MEDS: Artificial Tears SOLN 15 ML BOTTLE BOTH EYES SCH ×5 (03:23→20:58)
[2018-11-27] MEDS: Ipratropium/Albuterol Neb 3 ML IH SCH ×4 (03:50→21:38)
[2018-11-27] MEDS: 0.9 % Sodium Chloride 1,000 ML PRIME SCH ×7 (03:52→08:27)
[2018-11-27 03:58] LABS: Basophils % 0.1 %
[2018-11-27 04:00] LABS: Hematocrit 24.2 % (37.5-50.1); Hemoglobin 7.9 g/dL (12.9-16.9); Immature Granulocytes % 1.1 % (0-4); Immature Platelets 9.2 % (1.1-6.1); Lymphocytes # 0.3 K/mcL (0.6-4.6); Lymphocytes % 2.6 %; Mean Corpuscular HGB Conc 32.6 g/dL (31.6-35.5); Mean Corpuscular Hemoglobin 30.3 pg (28.0-33.3); Mean Corpuscular Volume 92.7 fL (83.0-100.0); Monocytes # 0.3 K/mcL (0.0-1.3); Neutrophils # 9.6 K/mcL (1.6-8.9); Nucleated Red Blood Cells 0.6 /100 WBC (0); Red Blood Count 2.61 M/mcL (4.19-5.50); Red Cell Distribution Width 16.2 % (11.5-14.5); Segmented Neutrophils % 93.2 %
[2018-11-27 04:01] LABS: VBG Ionized Calcium 1.07 mmol/L (1.15-1.35)
[2018-11-27 04:13] LABS: Platelet Count 25 K/mcL (140-400)
[2018-11-27 04:17] LABS: Calcium 7.4 mg/dL (8.6-10.3); Magnesium 2.4 mg/dL (1.6-2.6); Phosphorous 3.8 mg/dL (2.7-4.5); Potassium 5.1 mEq/L (3.5-5.1)
[2018-11-27 04:18] LABS: Albumin 2.5 g/dL (3.5-5.7); Albumin/Globulin Ratio 1.3 (1.1-2.2); Bilirubin,Direct 1.3 mg/dL (0.0-0.2); Bilirubin,Indirect 0.6 mg/dL (0.0-1.2); Bilirubin,Total 1.9 mg/dL (0.3-1.0); Globulin 1.9 g/dL (2.4-3.5); Total Protein 4.4 g/dL (6.4-8.9)
[2018-11-27 04:41] LABS: Anisocytosis 1+ (Not Present); Platelet Estimate Marked Decrease (Normal)
[2018-11-27 04:51] LABS: ABG Base Excess 0 mEq/L (-2 to 3); ABG HCO3 27 mEq/L (21-27); ABG Oxygen Saturation 93 % (95-98); ABG PCO2 53 mmHg (35-45); ABG PH 7.31 pH Units (7.32-7.45); ABG PO2 75 mmHg (85-104); ABG TCO2 28 mEq/L (20-26); Blood Gas Modality ASSIST CONTROL; Blood Gas PEEP 5 cm H2O; Blood Gas Respiration Rate 14; Blood Gas VT 450 cc
[2018-11-27] MEDS: Pantoprazole 40 MG VIAL IVP SCH ×2 (05:01→18:02)
[2018-11-27] MEDS: Hydrocortisone Sodium Succ 100 MG/2 ML VIAL IVP SCH ×2 (05:01→18:02)
[2018-11-27] MEDS: Norepinephrine 8 MG in D5% in Water 250 ML IVC SCH ×2 (05:05→23:29)
[2018-11-27] MEDS: Insulin LISPRO 300 UNITS/3 ML VIAL SQ SCH ×3 (05:06→18:01)
[2018-11-27] MEDS: Piperacillin/Tazobactam 3.375 GM in 0.9 % Sodium Chloride Mini Bag 100 ML IVPB SCH (08:37)
[2018-11-27] MEDS: Levofloxacin 750 MG/150 ML 750 MG/150 ML BAG IVPB SCH (08:38)
[2018-11-27] MEDS: Chlorhexidine Rinse 15 ML MOUTHWASH MM SCH ×2 (08:39→20:58)
[2018-11-27] MEDS: Docusate Oral Soln 100 MG/10 ML UDC GTUBE SCH ×2 (08:39→20:58)
[2018-11-27 08:46] LABS: VBG Ionized Calcium 1.09 mmol/L (1.15-1.35)
--- NOTE | 2018-11-27 08:49 | Nephrology Progress Note ---
Date of Encounter: 11/29/18 Time of Encounter: 08:20 - Assessment and Plan (1) ANY (acute kidney injury) Current Visit: Yes Status: Acute His BPs are actually quite good in the 130-140s, so this makes him a strong candidate for conversion back to iHD, which I've ordered for today. His CVVHDF filter has been clotting frequently and is about to clot already this AM. Now that the hemodynamics are improved, I have placed intermittent HD orders, and discussed this closely with my dialysis nurse. Continue to follow a renal protective strategy as able: Strict I's and O's, daily weights, avoidance of nephrotoxic agents, and renal dosing. We will continue to closely follow with you. He will likely need daily treatments of renal replacement therapy to maintain his hypervolemic volume status. (2) Anasarca Current Visit: Yes Status: Acute He is hypervolemic on exam, and will likely need daily renal replacement therapy options such as alternating HD with UF to maintain his volume status. (3) COPD (chronic obstructive pulmonary disease) Current Visit: Yes Status: Acute As per primary Qualifiers: COPD type: emphysema Emphysema type: unspecified Qualified Code(s): J43.9 - Emphysema, unspecified (4) Right leg DVT Current Visit: Yes Status: Acute IVC filter placed by Vascular surgery. Qualifiers: Affected thrombotic vein of extremity: unspecified vein of extremity Chronicity: unspecified Qualified Code(s): I82.401 - Acute embolism and thrombosis of unspecified deep veins of right lower extremity (5) Anemia Current Visit: Yes Status: Acute Goal hemoglobin 10-11, and we will monitor. Transfusion parameters as per primary. Qualifiers: Anemia type: other cause Other causes of anemia: other cause, not classified Qualified Code(s): D64.89 - Other specified anemias (6) Acute respiratory failure with hypoxia Current Visit: Yes Status: Acute Patient is intubated. (7) Septic shock Current Visit: Yes Status: Acute Per primary team. Subjective Principal diagnosis: Sepsis Interval history: The patient was seen and examined in the ICU earlier in the day. The patient remains critically ill, and was unable to supplement further subjective history which limited this portion of this note. Discussed with the [employer]. Objective - Vital Signs Vital signs: Vital Signs Temp Pulse Resp BP Pulse Ox 11/27/18 08:00 97.4 F L 84 16 126/64 96 11/27/18 07:38 15 96 11/27/18 07:00 89 14 128/55 96 11/27/18 06:00 93 20 133/59 95 11/27/18 05:10 19 131/66 95 11/27/18 05:00 89 14 131/66 96 11/27/18 04:00 97.3 F L 90 17 150/64 96 11/27/18 03:52 19 153/65 96 11/27/18 03:00 92 16 126/53 100 11/27/18 02:00 92 14 115/54 100 11/27/18 01:21 12 118/58 100 11/27/18 01:00 91 17 121/58 98 11/27/18 00:00 96 19 145/70 98 11/26/18 23:42 20 136/72 98 11/26/18 23:00 97.4 F L 94 25 126/88 97 11/26/18 22:00 98 20 115/101 99 11/26/18 21:47 21 128/100 99 11/26/18 21:00 107 23 140/60 99 11/26/18 20:00 98.6 F 112 25 146/65 99 11/26/18 19:56 28 158/65 97 11/26/18 19:00 115 27 149/65 98 11/26/18 18:00 118 25 148/64 96 11/26/18 17:00 106 19 147/72 99 11/26/18 16:00 103 25 147/73 98 11/26/18 15:48 22 141/68 99 11/26/18 15:00 101 22 101/81 99 11/26/18 14:00 102 21 147/73 99 11/26/18 13:00 100 19 154/64 99 11/26/18 12:00 97.5 F L 97 18 152/69 98 11/26/18 11:00 95 17 128/55 99 11/26/18 10:30 97.4 F L 93 17 138/64 11/26/18 10:00 93 17 131/57 100 11/26/18 09:57 18 127/71 98 11/26/18 09:00 90 18 142/56 98 Intake and Output 11/26/18 11/27/18 11/27/18 23:59 07:59 15:59 Intake Total 649.4 / 2704.2 873.7 / 907.7 34 / 907.7 Output Total 0 / 298 0 / 10 10 / 10 Balance 649.4 / 2406.2 873.7 / 897.7 24 / 897.7 Intake: IV Fluids 529.4 / 1865.2 583.7 / 583.7 0.9 % Sodium Chloride 250 ML @ 0 / 0 0 mls/hr .ROUTE .ST[facility] Rx #:[id number] PrismaSATE BGK 4/2.5 5,000 ML @ 0 / 0 0 / 0 1600 mls/hr CRRT CONT [facility] Rx#: [id number] FentaNYL (PF) 1,000 MCG In 0.9 110.5 / 373.9 113.9 / 113.9 % Sodium Chloride 80 ML @ 50 MCG/HR 5 mls/hr IVC CONT [facility] Rx #:[id number] Diprivan 1,000 mg In 100 ml @ 5 118.9 / 306.7 149.8 / 149.8 MCG/KG/MIN 2.91 mls/hr IVC . Q24H [facility] Rx#:[id number] Calcium Gluconate 1,000 MG In 0 220 / 220 .9 % Sodium Chloride 100 ML @ 220 mls/hr IVPB Q6HR PRN Rx#: [id number] Zosyn 3.375 GM In 0.9 % Sodium 100 / 200 100 / 100 Chloride (Mini-Bag +) 100 ML @ 25 mls/hr IVPB Q8H [facility] Rx#: [id number] 0.9 % Sodium Chloride 1,000 ML 200 / 200 @ 999 mls/hr PRIME .Q1H1M [facility] Rx#:[id number] Oral 0 / 0 Tube Feeding 60 / 80 200 / 234 34 / 234 Free Water 90 / 90 Free Water Intake Amount 60 / 120 Output: Catheter 0 / 17 0 / 10 10 / 10 Gastric Drainage 0 / 20 Other: Weight 114 kg 114 kg 114 kg Blood Glucose* 127 142 Fluid Removed by Prismaflex 99 216 159 Patient Weight 11/27/18 23:59 Weight 114 kg - General Appearance General appearance: Present: obese, chronically ill, sedated on ventilator, intubated, fatigue, frail EENT: Present: ATNC Additional Comments: intubated Respiratory: Present: course breath sounds (with diminished breath sounds and scatter rhonchi) Cardiology: Present: edema, regular rate, regular rhythm, normal S1, normal S2 Dialysis Vascular Access: Venous Catheter (Right IJ temporary HD catheter in place with dressing C/D/I) Gastrointestinal: Present: normoactive bowel sounds, obese, distended Integumentary: Present: warm and dry, ecchymotic Neurologic: Present: no focal deficit (but intubated / sedated so the neuro exam is limited) Musculoskeletal: Present: no deformities - Lab 11/29/18 15:51 11/29/18 03:40 Most recent lab results 11/27/18 11/27/18 03:45 04:48 ABG pH 7.31 L ABG pCO2 53 H ABG pO2 75 L ABG HCO3 27 ABG O2 Saturation 93 L Calcium 7.4 L Phosphorus 3.8 Magnesium 2.4 Consult Discharge Plan - Plan [facility]errals: [facility] [Primary Care Provider] -
[2018-11-27] MEDS ORDERED: 0.9 % Sodium Chloride 250 ML IVC PRN (08:50)
[2018-11-27] MEDS ORDERED: *HR* Heparin 5,000 UNIT/ML VIAL IVP ONE (09:14)
[2018-11-27] MEDS ORDERED: *HR* Heparin 5,000 UNIT/ML VIAL ONE ×2 (09:27→09:32)
[2018-11-27] MEDS: Nitroglycerin 25 MG/250 ML INFUS..BTL IVC SCH (10:54)
[2018-11-27] MEDS ORDERED: Albumin 25% 25gram/100mL 25 GM/100 ML IV.SOLN IVPB ONE (12:14)
[2018-11-27] MEDS ORDERED: Albumin 25% 25gram/100mL 25 GM/100 ML IV.SOLN ONE (12:15)
--- NOTE | 2018-11-27 13:20 | Pulmonology Progress Note ---
<Niranjan Ruiz - Last Filed: 11/27/18 13:28> Date of Encounter: 11/27/18 Time of Encounter: 08:10 Assessment and Plan (1) Sepsis Current Visit: Yes Status: Acute -Likely 2/2 pneumonia -2L fluid bolus 11/20/18 at [facility] prior to transfer -Tachypneic, tachycardic, 95F rectal temp but BP stable on arrival -WBC 43.2, lactic 7.7, trop 0.06 on arrival -Received zosyn 11/20/18 at the [facility] -CT chest abd/plv 11/20/18: hazy opacities at lung bases atelectasis or pneumonia, underlying emphysema. Cholelithiasis. Very large left sided rectus sheath hematoma -WBC 43.6, lactic down from 9.8 to 3.3 after bicarb infusion started 11/20/18 -Bicarb drip stopped 11/23/18 -[facility] BC's 1/2 prelim pos for coagulase neg gram pos cocci -BC x2 drawn 11/20/18 negative -Repeat BC x2 drawn 11/23/18 prelim neg -Urine culture negative -BAL 11/22/18 culture RLL postive for Stenotrophomonas maltophilia- sensitive to levofloxacin and tmp-smx -BP very labile 11/20/18 with MAPs dropping into 40's, requiring pressor support to maintain MAP. MAP adequate off pressors now -Received 6 days vancomycin stopped 11/25/18 -Dc pip/tazo (7 days) -TTE 11/21/18 not able to visualize structures -TTE 11/23/18 EF 60-65%, atypical septal motion consistent with BBB, mild LV diastolic dysfunction, valves not well visualized -Continue levofloxacin (day 3) renally dosed for S maltophilia Qualifiers: Sepsis type: sepsis due to unspecified organism Qualified Code(s): A41.9 - Sepsis, unspecified organism (2) Acute respiratory failure with hypoxia Current Visit: Yes Status: Acute -Awake, alert and talking on arrival -Resp and mental status declined and became hypoxic and apneic requiring intubation -ABG at time of intubation pH 7.16, paCO2 44, paO2 105, hco3 16, 96% on 13L O2 via oxymask -Successfully extubated 11/23/18 -Acutely hypoxic 11/24/18 requiring BiPAP which tolerated well overnight -11/25/18 became apneic and hypoxic acutely with subsequent intubation -ABG 11/27/18: pH 7.31, paCO2 53, paO2 75, HCO3 28, 97% on 40% FiO2 -COLORER HIDES AND SKINS started 11/25/18 via neph -Continue mechanical ventilation and expect breathing to improve with dialysis (3) GI bleed Current Visit: Yes Status: Suspected Likely bleeding 2/2 rectus sheath hematoma > GI bleed -Melena occasionally over the last 2 weeks -Hgb 11/18/18 13.4 at [facility] -Received new anticoagulation 2/2 DVT at the [facility] -Hgb on transfer here 11/20/18 7.3, BUN 46 -Got 2 units PRBCs 11/20/18 and repeat hgb 9 -Hgb today 7.9 -Will monitor and transfuse as indicated -Acute care surg following without plans for intervention till more stable Qualifiers: GI bleed type/associated pathology: melena Qualified Code(s): K92.1 - Melena (4) ANY (acute kidney injury) Current Visit: Yes Status: Acute -Cr at [facility] 11/19/18 0.79 -Cr on transfer from [facility] 11/20/18 1.74, BUN 46 -Renal function worsened to peak of Cr 7.03, BUN 110 on 11/25/18 -Will continue trend renal function and avoid nephrotoxins as can -Neph following -Temp dialysis catheter placed by IR -COLORER HIDES AND SKINS started 11/25/18 via neph -Cr 1.68, BUN 29, K 5.1 today -Mallorie switching to HD today (5) COPD (chronic obstructive pulmonary disease) Current Visit: Yes Status: Acute -Hx of COPD -Progressive dyspnea and yellow productive cough over last 2 weeks -Scheduled bronchodilators Qualifiers: COPD type: emphysema Emphysema type: unspecified Qualified Code(s): J43.9 - Emphysema, unspecified (6) Anemia Current Visit: Yes Status: Acute -Hgb 13.4 11/18/18 at the [facility] -Hg on arrival here 7.3 -Occult stool pos at [facility] -GI bleed vs large rectus sheath hematoma on CT -Transfused 2 units PRBC 11/20/18 with hgb repeat at 9 -Transfused total 5 units PRBCs -Hgb 7.9 today -Trend and transfuse as indicated Qualifiers: Anemia type: other cause Other causes of anemia: other cause, not classified Qualified Code(s): D64.89 - Other specified anemias (7) Right leg DVT Current Visit: Yes Status: Acute -R leg DVT at [facility] -RLE doppler prelim pos for DVT R posterior tibial vein -SVC filter placed 11/22/18 as anticoagulation contraindicated Qualifiers: Affected thrombotic vein of extremity: unspecified vein of extremity Chronicity: unspecified Qualified Code(s): I82.401 - Acute embolism and thrombosis of unspecified deep veins of right lower extremity (8) High anion gap metabolic acidosis Current Visit: Yes Status: Resolved -AG 11 on arrival -AG increased 11/21/18 to 15 likely 2/2 lactic acidosis -AG 9 today (9) Lactic acidemia Current Visit: Yes Status: Acute -Lactic on arrival 7.3 -Likely 2/2 sepsis basilar pneumonia -Peak 9.8 started bicarb drip -Lactic 3.3 11/22/18 -Stop bicarb drip 11/23/18 (10) Leukocytosis Current Visit: Yes Status: Acute -WBC 43.2 11/20/18 -WBC 43.6 11/21/18 -Continuing to trend down, wbc 10.3 today -Management as above Qualifiers: Leukocytosis type: unspecified Qualified Code(s): D72.829 - Elevated white blood cell count, unspecified (11) Thrombocytopenia Current Visit: Yes Status: Acute -Platelets 190 on arrival -Trended down since and low of 18 11/26/18 -Has transfused total 2 unit's platelets -Fibrinogen elevated with normal coags -Will get peripheral smear today (12) Elevated troponin Current Visit: Yes Status: Acute -Likely 2/2 demand ischemia from hypotension -Trop 0.07 at [facility] today -Repeat here 0.06 -Minimal increase on repeats 0.11-0.16-0.21 (13) DVT prophylaxis Current Visit: Yes Status: Acute -SCDs as acute drop in hgb Subjective Principal diagnosis: Sepsis Interval history: No acute events overnight. Remains intubated and sedated. Mallorie running Objective PUL Vital signs: Last Vital Signs Temp 98.1 F 11/27/18 11:20 Pulse 113 11/27/18 13:00 Resp 19 11/27/18 13:00 BP 126/54 11/27/18 13:05 Pulse Ox 96 11/27/18 13:00 General appearance: no acute distress, other (intubated and sedated ) Eyes: nonicteric ENT: oropharynx dry Effort: other (on vent ) Auscultation: bilateral: rhonchi (scattered ) Cardiovascular: regular rate and rhythm Gastrointestinal: hypoactive bowel sounds, soft, other (distended, large L flank hematoma ) Integumentary: other (Large L flank hematoma and scrotal hematoma ) Extremities: no cyanosis, no clubbing, pink and warm, no ischemia or petechiae, edema (2-3+) other (sedated) other (sedated) Ventilator Settings Ventilator Settings: Ventilator Settings, Last 8 Hours Ventilator Tidal Volume 450 Setting Ventilator Tidal Volume 450 Setting Ventilator Tidal Volume 450 Setting Ventilator Tidal Volume 450 Setting Ventilator Tidal Volume 450 Setting Ventilator Tidal Volume 450 Setting Ventilator Tidal Volume 450 Setting Ventilator Tidal Volume 450 Setting Ventilator Tidal Volume 450 Setting Ventilator Tidal Volume 450 Setting Ventilator Tidal Volume 450 Setting Ventilator Respiratory Rate 14 Setting Ventilator Respiratory Rate 14 Setting Ventilator Respiratory Rate 14 Setting Ventilator Respiratory Rate 14 Setting Ventilator Respiratory Rate 14 Setting Ventilator Respiratory Rate 14 Setting Ventilator Respiratory Rate 14 Setting Ventilator Respiratory Rate 14 Setting Ventilator Respiratory Rate 14 Setting Ventilator Respiratory Rate 14 Setting Ventilator Respiratory Rate 14 Setting Actual Respiratory Rate 19 Actual Respiratory Rate 18 Actual Respiratory Rate 19 Actual Respiratory Rate 17 Actual Respiratory Rate 17 Actual Respiratory Rate 15 Actual Respiratory Rate 16 Actual Respiratory Rate 16 Actual Respiratory Rate 16 Actual Respiratory Rate 14 Actual Respiratory Rate 20 Positive End Expiratory 5 Pressure Positive End Expiratory 5 Pressure Positive End Expiratory 5 Pressure Positive End Expiratory 5 Pressure Positive End Expiratory 5 Pressure Positive End Expiratory 5 Pressure Positive End Expiratory 5 Pressure Positive End Expiratory 5 Pressure Positive End Expiratory 5 Pressure Positive End Expiratory 5 Pressure Positive End Expiratory 5 Pressure Peak Inspiratory Airway 6.8 Pressure Peak Inspiratory Airway 7.9 Pressure Peak Inspiratory Airway 6.8 Pressure Peak Inspiratory Airway 8.6 Pressure Peak Inspiratory Airway 6.5 Pressure Peak Inspiratory Airway 10 Pressure Peak Inspiratory Airway 11 Pressure Peak Inspiratory Airway 18 Pressure Peak Inspiratory Airway 13 Pressure Peak Inspiratory Airway 26 Pressure Peak Inspiratory Airway 33 Pressure Results - Laboratory Findings CBC and BMP: 11/27/18 03:45 11/27/18 03:45 ABG ABG pH 7.31 pH Units (7.32-7.45) L 11/27/18 04:48 ABG pCO2 53 mmHg (35-45) H 11/27/18 04:48 ABG pO2 75 mmHg (85-104) L 11/27/18 04:48 ABG O2 Saturation 93 % (95-98) L 11/27/18 04:48 PT/INR, D-dimer PT 10.1 Seconds (9.4-12.1) 11/26/18 03:32 Abnormal lab findings: Abnormal lab results WBC 15.2 K/mcL (4.3-11.1) H 11/26/18 03:32 RBC 2.61 M/mcL (4.19-5.50) L 11/27/18 03:45 Hgb 7.9 g/dL (12.9-16.9) L 11/27/18 03:45 Hct 24.2 % (37.5-50.1) L 11/27/18 03:45 MCHC 31.1 g/dL (31.6-35.5) L 11/20/18 12:43 RDW 16.2 % (11.5-14.5) H 11/27/18 03:45 Plt Count 25 K/mcL (140-400) L* 11/27/18 03:45 MPV 12.5 fL (9.4-12.4) H 11/26/18 03:32 9.6 K/mcL (1.6-8.9) H 11/27/18 03:45 0.3 K/mcL (0.6-4.6) L 11/27/18 03:45 Nucleated RBCs/100 WBC 0.6 /100 WBC (0) H 11/27/18 03:45 Marked Decrease (Normal) L 11/27/18 03:45 Immature Plt Fraction 9.2 % (1.1-6.1) H 11/27/18 03:45 1+ (Not Present) A 11/25/18 03:40 Present (Not Present) A 11/25/18 03:40 1+ (Not Present) A 11/27/18 03:45 PT 12.6 Seconds (9.4-12.1) H 11/23/18 11:15 618 mg/dL (169-393) H D 11/26/18 03:32 ABG pH 7.31 pH Units (7.32-7.45) L 11/27/18 04:48 ABG pCO2 53 mmHg (35-45) H 11/27/18 04:48 ABG pO2 75 mmHg (85-104) L 11/27/18 04:48 ABG HCO3 28 mEq/L (21-27) H 11/26/18 05:02 ABG Total CO2 28 mEq/L (20-26) H 11/27/18 04:48 ABG O2 Saturation 93 % (95-98) L 11/27/18 04:48 ABG Base Excess 5 mEq/L (-2 to 3) H 11/24/18 05:26 Potassium 5.6 mEq/L (3.5-5.1) H 11/26/18 03:32 Chloride 97 mEq/L (98-107) L 11/26/18 03:32 Carbon Dioxide 30 mEq/L (23-29) H 11/23/18 11:15 BUN 29 mg/dL (8-23) H 11/27/18 03:45 1.68 mg/dL (0.70-1.30) H 11/27/18 03:45 Est GFR ( Amer) 49 (> 60) L 11/27/18 03:45 Est GFR (Non-Af Amer) 40 (> 60) L 11/27/18 03:45 Glucose 147 mg/dL (70-105) H 11/27/18 03:45 POC Glucose 127 mg/dL (70-99) H 11/26/18 22:58 6.5 % (-5.6) H 11/20/18 13:04 307 (280-300) H 11/26/18 03:32 Lactic Acid 3.3 mmol/L (0.5-2.2) H 11/22/18 04:45 Calcium 7.4 mg/dL (8.6-10.3) L 11/27/18 03:45 Venous Ioniz Calcium 1.09 mmol/L (1.15-1.35) L 11/27/18 08:42 Phosphorus 6.5 mg/dL (2.7-4.5) H 11/26/18 03:32 1.9 mg/dL (0.3-1.0) H 11/27/18 03:45 1.3 mg/dL (0.0-0.2) H 11/27/18 03:45 AST 60 Units/L (13-39) H 11/27/18 03:45 ALT 270 Units/L (7-52) H 11/27/18 03:45 108 Units/L (34-104) H 11/26/18 03:32 0.21 ng/mL (< 0.04) H* 11/21/18 13:15 4.4 g/dL (6.4-8.9) L 11/27/18 03:45 2.5 g/dL (3.5-5.7) L 11/27/18 03:45 1.9 g/dL (2.4-3.5) L 11/27/18 03:45 Turbid (Clear) A 11/21/18 08:50 Trace mg/dL (Negative) H 11/21/18 08:50 Small (Negative) H 11/21/18 08:50 5-15 per hpf (0-3) H 11/21/18 08:50 Ur Squamous Epith Cells Many per lpf (None-Few) H 11/21/18 08:50 Ur Culture Indicated? YES (NO) A 11/21/18 08:50 Fluid Appearance Cloudy (Clear) A 11/22/18 12:23 Vancomycin Trough 23 mcg/mL (5-10) H 11/22/18 04:45 Hep Bs Antibody < 3.10 mIU/mL (10.00-) L 11/24/18 09:35 Crossmatch See Detail 11/25/18 14:51 - Microbiology Findings Microbiology Findings: Microbiology, Last 48 Hours 11/20/18 14:26 Blood Culture - Final Peripheral Venipuncture No growth. Final report. 11/20/18 14:37 Blood Culture - Final Peripheral Venipuncture No growth. Final report. - Clinical Findings Intake & Output: Intake & Output 11/26/18 11/27/18 11/27/18 23:59 07:59 15:59 Intake Total 649.4 / 2704.2 873.7 / 1856.6 982.9 / 1856.6 Output Total 0 / 298 0 / 10 Balance 649.4 / 2406.2 873.7 / 1846.6 972.9 / 1846.6 Weight 114 kg 114 kg 114 kg Consult Discharge Plan - Plan [facility]errals: [facility]Primary Care Provider[facility] - <Donny Lindquist W - Last Filed: 11/27/18 13:50> Date of Encounter: 11/27/18 Objective PUL Vital signs: Last Vital Signs Temp 98.1 F 11/27/18 11:20 Pulse 113 11/27/18 13:00 Resp 19 11/27/18 13:00 BP 134/55 11/27/18 13:35 Pulse Ox 96 11/27/18 13:00 Ventilator Settings Ventilator Settings: Ventilator Settings, Last 8 Hours Ventilator Tidal Volume 450 Setting Ventilator Tidal Volume 450 Setting Ventilator Tidal Volume 450 Setting Ventilator Tidal Volume 450 Setting Ventilator Tidal Volume 450 Setting Ventilator Tidal Volume 450 Setting Ventilator Tidal Volume 450 Setting Ventilator Tidal Volume 450 Setting Ventilator Tidal Volume 450 Setting Ventilator Tidal Volume 450 Setting Ventilator Tidal Volume 450 Setting Ventilator Respiratory Rate 14 Setting Ventilator Respiratory Rate 14 Setting Ventilator Respiratory Rate 14 Setting Ventilator Respiratory Rate 14 Setting Ventilator Respiratory Rate 14 Setting Ventilator Respiratory Rate 14 Setting Ventilator Respiratory Rate 14 Setting Ventilator Respiratory Rate 14 Setting Ventilator Respiratory Rate 14 Setting Ventilator Respiratory Rate 14 Setting Ventilator Respiratory Rate 14 Setting Actual Respiratory Rate 19 Actual Respiratory Rate 18 Actual Respiratory Rate 19 Actual Respiratory Rate 17 Actual Respiratory Rate 17 Actual Respiratory Rate 15 Actual Respiratory Rate 16 Actual Respiratory Rate 16 Actual Respiratory Rate 16 Actual Respiratory Rate 14 Actual Respiratory Rate 20 Positive End Expiratory 5 Pressure Positive End Expiratory 5 Pressure Positive End Expiratory 5 Pressure Positive End Expiratory 5 Pressure Positive End Expiratory 5 Pressure Positive End Expiratory 5 Pressure Positive End Expiratory 5 Pressure Positive End Expiratory 5 Pressure Positive End Expiratory 5 Pressure Positive End Expiratory 5 Pressure Positive End Expiratory 5 Pressure Peak Inspiratory Airway 6.8 Pressure Peak Inspiratory Airway 7.9 Pressure Peak Inspiratory Airway 6.8 Pressure Peak Inspiratory Airway 8.6 Pressure Peak Inspiratory Airway 6.5 Pressure Peak Inspiratory Airway 10 Pressure Peak Inspiratory Airway 11 Pressure Peak Inspiratory Airway 18 Pressure Peak Inspiratory Airway 13 Pressure Peak Inspiratory Airway 26 Pressure Peak Inspiratory Airway 33 Pressure Results - Laboratory Findings CBC and BMP: 11/27/18 03:45 11/27/18 03:45 ABG ABG pH 7.31 pH Units (7.32-7.45) L 11/27/18 04:48 ABG pCO2 53 mmHg (35-45) H 11/27/18 04:48 ABG pO2 75 mmHg (85-104) L 11/27/18 04:48 ABG O2 Saturation 93 % (95-98) L 11/27/18 04:48 PT/INR, D-dimer PT 10.1 Seconds (9.4-12.1) 11/26/18 03:32 Abnormal lab findings: Abnormal lab results WBC 15.2 K/mcL (4.3-11.1) H 11/26/18 03:32 RBC 2.61 M/mcL (4.19-5.50) L 11/27/18 03:45 Hgb 7.9 g/dL (12.9-16.9) L 11/27/18 03:45 Hct 24.2 % (37.5-50.1) L 11/27/18 03:45 MCHC 31.1 g/dL (31.6-35.5) L 11/20/18 12:43 RDW 16.2 % (11.5-14.5) H 11/27/18 03:45 Plt Count 25 K/mcL (140-400) L* 11/27/18 03:45 MPV 12.5 fL (9.4-12.4) H 11/26/18 03:32 9.6 K/mcL (1.6-8.9) H 11/27/18 03:45 0.3 K/mcL (0.6-4.6) L 11/27/18 03:45 Nucleated RBCs/100 WBC 0.6 /100 WBC (0) H 11/27/18 03:45 Marked Decrease (Normal) L 11/27/18 03:45 Immature Plt Fraction 9.2 % (1.1-6.1) H 11/27/18 03:45 1+ (Not Present) A 11/25/18 03:40 Present (Not Present) A 11/25/18 03:40 1+ (Not Present) A 11/27/18 03:45 PT 12.6 Seconds (9.4-12.1) H 11/23/18 11:15 618 mg/dL (169-393) H D 11/26/18 03:32 ABG pH 7.31 pH Units (7.32-7.45) L 11/27/18 04:48 ABG pCO2 53 mmHg (35-45) H 11/27/18 04:48 ABG pO2 75 mmHg (85-104) L 11/27/18 04:48 ABG HCO3 28 mEq/L (21-27) H 11/26/18 05:02 ABG Total CO2 28 mEq/L (20-26) H 11/27/18 04:48 ABG O2 Saturation 93 % (95-98) L 11/27/18 04:48 ABG Base Excess 5 mEq/L (-2 to 3) H 11/24/18 05:26 Potassium 5.6 mEq/L (3.5-5.1) H 11/26/18 03:32 Chloride 97 mEq/L (98-107) L 11/26/18 03:32 Carbon Dioxide 30 mEq/L (23-29) H 11/23/18 11:15 BUN 29 mg/dL (8-23) H 11/27/18 03:45 1.68 mg/dL (0.70-1.30) H 11/27/18 03:45 Est GFR ( Amer) 49 (> 60) L 11/27/18 03:45 Est GFR (Non-Af Amer) 40 (> 60) L 11/27/18 03:45 Glucose 147 mg/dL (70-105) H 11/27/18 03:45 POC Glucose 127 mg/dL (70-99) H 11/26/18 22:58 6.5 % (-5.6) H 11/20/18 13:04 307 (280-300) H 11/26/18 03:32 Lactic Acid 3.3 mmol/L (0.5-2.2) H 11/22/18 04:45 Calcium 7.4 mg/dL (8.6-10.3) L 11/27/18 03:45 Venous Ioniz Calcium 1.09 mmol/L (1.15-1.35) L 11/27/18 08:42 Phosphorus 6.5 mg/dL (2.7-4.5) H 11/26/18 03:32 1.9 mg/dL (0.3-1.0) H 11/27/18 03:45 1.3 mg/dL (0.0-0.2) H 11/27/18 03:45 AST 60 Units/L (13-39) H 11/27/18 03:45 ALT 270 Units/L (7-52) H 11/27/18 03:45 108 Units/L (34-104) H 11/26/18 03:32 0.21 ng/mL (< 0.04) H* 11/21/18 13:15 4.4 g/dL (6.4-8.9) L 11/27/18 03:45 2.5 g/dL (3.5-5.7) L 11/27/18 03:45 1.9 g/dL (2.4-3.5) L 11/27/18 03:45 Turbid (Clear) A 11/21/18 08:50 Trace mg/dL (Negative) H 11/21/18 08:50 Small (Negative) H 11/21/18 08:50 5-15 per hpf (0-3) H 11/21/18 08:50 Ur Squamous Epith Cells Many per lpf (None-Few) H 11/21/18 08:50 Ur Culture Indicated? YES (NO) A 11/21/18 08:50 Fluid Appearance Cloudy (Clear) A 11/22/18 12:23 Vancomycin Trough 23 mcg/mL (5-10) H 11/22/18 04:45 Hep Bs Antibody < 3.10 mIU/mL (10.00-) L 11/24/18 09:35 Crossmatch See Detail 11/25/18 14:51 - Microbiology Findings Microbiology Findings: Microbiology, Last 48 Hours 11/20/18 14:26 Blood Culture - Final Peripheral Venipuncture No growth. Final report. 11/20/18 14:37 Blood Culture - Final Peripheral Venipuncture No growth. Final report. - Clinical Findings Intake & Output: Intake & Output 11/26/18 11/27/18 11/27/18 23:59 07:59 15:59 Intake Total 649.4 / 2704.2 873.7 / 1856.6 982.9 / 1856.6 Output Total 0 / 298 0 10 Balance 649.4 / 2406.2 873.7 / 1846.6 972.9 / 1846.6 Weight 114 kg 114 kg 114 kg - Attending Attestation I examined this patient and my medical decision-making was reviewed with the Resident Physician. I agree with the documented findings, disposition and laura atment plan as described except to the extent set forth below. We independently had [id number] contact with the patient I spent 31min of Critical Care time with this patient. It involved decision making of high complexity to assess, manipulate, and support vital organ system failure and/or to prevent further life threatening deterioration of the patient's condition. The time involved in the performance of separately reportable procedures was not counted toward critical care time. Patient seen and examined at bedside Labs, radiology, chart personally reviewed. Management was reviewed during multidisciplinary critical care rounds. CHIEF KNOWLEDGE OFFICER: Persistent encephalopathy secondary to metabolic derangements and critical illness We will focus on oriental orthodox of sleep-wake cycle. avoid sensory deprivation, and avoid CHIEF KNOWLEDGE OFFICER depressant medications as able. And we will continue daily sedation holiday Pulm: Hypoxic respiratory failure on the vent patient has except for gas exchange today but mental status is still poor for consideration of liberation but will trial CPAP today if able. Cards: Blood pressure monitored currently stable and however patient had noted drop in blood pressure when on hemodialysis he has recent history of shock which is improving GI: GI prophylaxis while on vent Nutrition: Enteral nutrition per dietary recommendations Renal: Acute kidney injury with severe metabolic acidosis requiring continuous renal replacement can consider intermittent hemodialysis per nephrology appreciate their recommendations UOP Monitored, Cont to Trend sCr and monitor Electrolytes. ID: He is being treated for stenotrophomonas pneumonia with Levaquin however he remains on Zosyn which I suspect is contributing to thrombocytopenia and we will stop this given improvement clinically with proper antimicrobial selection for known pathogenic organism Heme/Onc: Persistent thrombocytopenia which is multifactorial including sepsis continual renal replacement therapy use of penicillin based antibiotic there is no evidence of DIC send for peripheral spare today no overt evidence of hemorrhage Endo: Glucose Monitored Integ/MSK: Skin Care per routine ICU Nursing Protocol to prevent ulcers. Lines: All lines examined without evidence of infection : Dispo: Monitor in ICU for critical illness and vent management CODE: Full
[2018-11-27 15:34] LABS: Mean Corpuscular HGB Conc 32.7 g/dL (31.6-35.5)
[2018-11-27 15:35] LABS: Hematocrit 21.1 % (37.5-50.1); Hemoglobin 6.9 g/dL (12.9-16.9); Immature Platelets 14.8 % (1.1-6.1); Mean Corpuscular Volume 91.7 fL (83.0-100.0); Mean Platelet Volume 12.3 fL (9.4-12.4); Red Blood Count 2.3 M/mcL (4.19-5.50)
[2018-11-27 15:43] LABS: Prothrombin Time 10.7 Seconds (9.4-12.1)
[2018-11-27 15:48] LABS: VBG Ionized Calcium 1.08 mmol/L (1.15-1.35)
[2018-11-27] MEDS: Dexmedetomidine HCl 400 MCG/100 ML MLS IVC SCH (15:49)
[2018-11-27] MEDS ORDERED: 0.9 % Sodium Chloride 250 ML ONE (18:21)
[2018-11-27 22:42] LABS: Basophils % 0.1 %; Mean Corpuscular Volume 92.7 fL (83.0-100.0)
[2018-11-27 22:44] LABS: Eosinophils % 0.3 %; Hematocrit 21.6 % (37.5-50.1); Immature Granulocytes % 1.7 % (0-4); Immature Platelets 7.7 % (1.1-6.1); Lymphocytes # 0.4 K/mcL (0.6-4.6); Lymphocytes % 3.6 %; Mean Corpuscular HGB Conc 32.4 g/dL (31.6-35.5); Monocytes # 0.3 K/mcL (0.0-1.3); Monocytes % 2.9 %; Neutrophils # 10.1 K/mcL (1.6-8.9); Nucleated Red Blood Cells 1.1 /100 WBC (0); Red Blood Count 2.33 M/mcL (4.19-5.50); Red Cell Distribution Width 16.3 % (11.5-14.5); Segmented Neutrophils % 91.4 %
[2018-11-27 22:47] LABS: Platelet Count 34 K/mcL (140-400)
[2018-11-27 23:20] LABS: Platelet Estimate Marked Decrease (Normal)
[2018-11-27 23:21] LABS: Anisocytosis 1+ (Not Present)
[2018-11-28] MEDS: Insulin LISPRO 300 UNITS/3 ML VIAL SQ SCH ×4 (00:09→18:11)
[2018-11-28] MEDS: Artificial Tears SOLN 15 ML BOTTLE BOTH EYES SCH ×6 (00:09→20:20)
[2018-11-28] MEDS: FentaNYL (PF) 1,000 MCG in 0.9 % Sodium Chloride 80 ML IVC SCH ×3 (00:58→16:09)
[2018-11-28] MEDS: Ipratropium/Albuterol Neb 3 ML IH SCH ×4 (04:29→22:25)
[2018-11-28] MEDS ORDERED: *HR* Labetalol 20 MG/4 ML SYRINGE IVP ONE (04:42)
[2018-11-28 04:59] LABS: ABG Base Excess 6 mEq/L (-2 to 3); ABG HCO3 31 mEq/L (21-27); ABG Oxygen Saturation 92 % (95-98); ABG PCO2 46 mmHg (35-45); ABG PH 7.43 pH Units (7.32-7.45); ABG PO2 63 mmHg (85-104); ABG TCO2 32 mEq/L (20-26); Blood Gas PEEP 5 cm H2O; Blood Gas Respiration Rate 14; Blood Gas VT 450 cc
[2018-11-28] MEDS: Pantoprazole 40 MG VIAL IVP SCH ×2 (04:59→17:09)
[2018-11-28] MEDS: Hydrocortisone Sodium Succ 100 MG/2 ML VIAL IVP SCH ×2 (04:59→17:08)
[2018-11-28 06:10] LABS: Basophils % 0.1 %; Eosinophils % 0.5 %; Mean Corpuscular Hemoglobin 29.4 pg (28.0-33.3)
[2018-11-28 06:11] LABS: VBG Ionized Calcium 1.07 mmol/L (1.15-1.35)
[2018-11-28 06:12] LABS: Eosinophils # 0.1 K/mcL (0.0-0.6); Hematocrit 26.1 % (37.5-50.1); Hemoglobin 8.5 g/dL (12.9-16.9); Immature Granulocytes % 2.1 % (0-4); Immature Platelets 7.7 % (1.1-6.1); Lymphocytes # 0.3 K/mcL (0.6-4.6); Lymphocytes % 2.7 %; Mean Corpuscular HGB Conc 32.6 g/dL (31.6-35.5); Mean Corpuscular Volume 90.3 fL (83.0-100.0); Mean Platelet Volume 10.9 fL (9.4-12.4); Monocytes # 0.2 K/mcL (0.0-1.3); Monocytes % 2.2 %; Neutrophils # 9.6 K/mcL (1.6-8.9); Nucleated Red Blood Cells 0.7 /100 WBC (0); Red Blood Count 2.89 M/mcL (4.19-5.50); Segmented Neutrophils % 92.4 %
[2018-11-28 06:16] LABS: Platelet Count 41 K/mcL (140-400)
[2018-11-28 06:29] LABS: Magnesium 2.4 mg/dL (1.6-2.6); Phosphorous 3.9 mg/dL (2.7-4.5); Potassium 4.6 mEq/L (3.5-5.1)
[2018-11-28 06:31] LABS: Albumin 2.7 g/dL (3.5-5.7); Albumin/Globulin Ratio 1.6 (1.1-2.2); Bilirubin,Direct 0.9 mg/dL (0.0-0.2); Bilirubin,Indirect 0.5 mg/dL (0.0-1.2); Bilirubin,Total 1.4 mg/dL (0.3-1.0); Globulin 1.7 g/dL (2.4-3.5); Platelet Estimate Decreased (Normal); Total Protein 4.4 g/dL (6.4-8.9)
[2018-11-28] MEDS ORDERED: 0.9 % Sodium Chloride 250 ML IVC PRN (07:17)
--- NOTE | 2018-11-28 07:19 | Nephrology Progress Note ---
Date of Encounter: 11/29/18 Time of Encounter: 08:15 - Assessment and Plan (1) ANY (acute kidney injury) Current Visit: Yes Status: Acute With ongoing Anuria and since his volume status is important to control while intubated, I recommend iHD today (Friday) as well. Orders placed. (2) Anasarca Current Visit: Yes Status: Acute He is hypervolemic on exam, and will likely need daily renal replacement therapy options such as alternating HD with UF to maintain his volume status. (3) COPD (chronic obstructive pulmonary disease) Current Visit: Yes Status: Acute As per primary Qualifiers: COPD type: emphysema Emphysema type: unspecified Qualified Code(s): J43.9 - Emphysema, unspecified (4) Right leg DVT Current Visit: Yes Status: Acute Qualifiers: Affected thrombotic vein of extremity: unspecified vein of extremity Chronicity: unspecified Qualified Code(s): I82.401 - Acute embolism and thrombosis of unspecified deep veins of right lower extremity (5) Anemia Current Visit: Yes Status: Acute Goal hemoglobin 10-11, and we will monitor. Transfusion parameters as per primary. Qualifiers: Anemia type: other cause Other causes of anemia: other cause, not classified Qualified Code(s): D64.89 - Other specified anemias (6) Acute respiratory failure with hypoxia Current Visit: Yes Status: Acute Patient is intubated. (7) Septic shock Current Visit: Yes Status: Acute Per primary team. Subjective Principal diagnosis: Sepsis Interval history: The patient was seen and examined, and he remained intubated when he was evaluated earlier in the day, so he was not able to supplements further history Objective - Vital Signs Vital signs: Vital Signs Temp Pulse Resp BP Pulse Ox 11/28/18 06:00 92 22 161/57 92 11/28/18 05:21 22 94 11/28/18 05:00 102 20 188/57 96 11/28/18 04:43 98.9 F 108 19 191/59 96 11/28/18 04:31 20 96 11/28/18 04:00 103 21 183/64 96 11/28/18 03:30 98.9 F 11/28/18 03:07 99.9 F H 112 26 175/57 96 11/28/18 03:00 104 21 177/59 96 11/28/18 02:52 99.9 F H 108 26 175/57 95 05/18/19 02:50 99.9 F H 108 26 175/57 95 05/18/19 02:00 113 26 175/57 95 05/18/19 01:17 25 163/58 95 05/18/19 01:00 115 25 175/64 95 05/18/ 00:59 99.3 F 115 25 163/58 95 05/18/19 00:44 99.3 F 116 23 177/61 93 05/18/19 00:30 99.3 F 114 26 178/63 93 05/18/ 00:00 114 26 178/63 93 05/17/ 23:52 25 170/67 93 11/27/18 23:43 99.3 F 05 23:23 99.9 F H 110 22 181/58 92 05 23:00 111 22 181/58 92 11/27/18 22:35 99.9 F H 110 27 165/63 92 11/27/18 22:00 110 27 165/63 92 11/27/18 21:38 25 155/66 91 05 21:00 111 24 163/62 93 11/27/18 20:00 110 23 152/66 93 05 19:50 100.4 F H 11/27/18 19:00 115 23 151/60 93 05 18:48 100.8 F H 115 24 146/58 93 11/27/18 18:33 99.4 F 116 23 147/54 93 05 18:00 119 24 149/56 93 11/27/18 17:00 119 22 153/56 94 11/27/18 16:00 114 22 149/58 94 11/27/18 15:47 21 93 05 15:00 116 20 150/51 93 05 14:35 99.8 F H 20 151/55 05 14:20 140/60 05 14:12 20 97 05/ 14:05 143/58 05 14:00 115 19 143/58 97 11/27/ 13:50 140/59 05 13:35 134/55 [id number] 13:20 110/65 05 13:05 126/54 05/17/19 13:00 113 19 125/51 96 11/27/18 12:50 125/51 11/27/18 12:35 134/94 11/27/18 12:25 112/50 11/27/18 12:20 116/53 11/27/18 12:15 112/53 11/27/18 12:10 102/52 11/27/18 12:05 104/50 11/27/18 12:00 112 18 102/49 92 11/27/18 11:55 102/53 11/27/18 11:50 107/49 11/27/18 11:45 111/52 11/27/18 11:37 18 94 11/27/18 11:35 137/63 11/27/18 11:20 98.1 F 20 151/59 11/27/18 11:00 98.3 F 113 17 167/80 94 11/27/18 10:00 107 17 132/59 94 11/27/18 09:53 16 95 11/27/18 09:00 95 16 128/90 96 11/27/18 08:00 97.4 F L 84 16 126/64 96 11/27/18 07:38 15 96 Intake and Output 11/27/18 11/27/18 11/28/18 15:59 23:59 07:59 Intake Total 1264.9 / 3479.6 1341 / 3479.6 1534.0 / 1534.0 Output Total 1610 / 1660 50 / 1660 0 / 0 Balance -345.1 / 1819.6 1291 / 1819.6 1534.0 / 1534.0 Intake: IV Fluids 317.9 / 1411.6 510 / 1411.6 384.0 / 384.0 FentaNYL (PF) 1,000 MCG In 0.9 26.6 / 240.5 100 / 240.5 184 / 184 % Sodium Chloride 80 ML @ 50 MCG/HR 5 mls/hr IVC CONT [facility] Rx #:[id number] Diprivan 1,000 mg In 100 ml @ 5 31.3 / 381.1 200 / 381.1 200.0 / 200.0 MCG/KG/MIN 2.91 mls/hr IVC . Q24H [facility] Rx#:[id number] Flexbumin 25 gm In 100 ml @ 60 100 / 100 mls/hr IVPB ONCE ONE Rx#: [id number] Calcium Gluconate 1,000 MG In 0 110 / 440 110 / 440 .9 % Sodium Chloride 100 ML @ 220 mls/hr IVPB Q6HR PRN Rx#: [id number] Levaquin Premix 750mg/150 mL 150 / 150 750 mg In 150 ml @ 100 mls/hr IVPB Q24H [facility] Rx#:[id number] Oral 0 / 0 Tube Feeding 302 / 883 381 / 883 Blood Product 450 / 450 1150 / 1150 Platelet Ph Acd-A Pasc Lp Irr2 450 / 450 Unit [id number] Platelet Pheresis Lp Irr 3rd 0 / 0 450 / 450 Unit [id number] Rbcs Leuko Poor As-3 2nd Unit 350 / 350 [id number] Rbcs Leuko Poor As-3 Ph Unit 350 / 350 [id number] Free Water 45 / 135 Intake, Rinseback and Flushes 600 / 600 Output: Urine 0 / 0 Total Dialysis (HD) Output 1600 / 1600 Catheter 10 / 60 50 / 60 0 / 0 Gastric Drainage 0 / 0 0 / 0 Other: Weight 114 kg 110.1 kg Blood Glucose* 173 208 Hemodialysis Net Fluid Removed 1000 (mL) Fluid Removed by Prismaflex 118 Patient Weight 11/28/18 23:59 Weight 110.1 kg - General Appearance Exam: General appearance: Present: obese, chronically ill, sedated on ventilator, intubated, fatigue, frail EENT: Present: ATNC Additional Comments: intubated Respiratory: Present: course breath sounds (with diminished breath sounds and scatter rhonchi) Cardiology: Present: edema that is consistent with anasarca, regular rate, regular rhythm, normal S1, normal S2 Dialysis Vascular Access: Venous Catheter (Right IJ temporary HD catheter in place with dressing C/D/I) Gastrointestinal: Present: normoactive bowel sounds, obese, distended Integumentary: Present: warm and dry, ecchymotic Neurologic: Present: no focal deficit (but intubated / sedated so the neuro exam is limited) Musculoskeletal: Present: no deformities - Lab 11/29/18 15:51 11/29/18 03:40 Most recent lab results 11/28/18 11/28/18 04:00 04:55 ABG pH 7.43 ABG pCO2 46 H ABG pO2 63 L ABG HCO3 31 H ABG O2 Saturation 92 L Calcium 8.0 L Phosphorus 3.9 Magnesium 2.4 Consult Discharge Plan - Plan Referrals: [facility] [Primary Care Provider] -
[2018-11-28] MEDS: Chlorhexidine Rinse 15 ML MOUTHWASH MM SCH ×2 (07:50→20:19)
[2018-11-28] MEDS: Docusate Oral Soln 100 MG/10 ML UDC GTUBE SCH ×2 (07:50→20:19)
[2018-11-28] MEDS ORDERED: 0.9 % Sodium Chloride 2,000 ML ONE (08:20)
--- NOTE | 2018-11-28 08:36 | Pulmonology Progress Note ---
<Niranjan Ruiz - Last Filed: 11/28/18 10:37> Date of Encounter: 11/28/18 Time of Encounter: 08:00 Assessment and Plan (1) Sepsis Current Visit: Yes Status: Acute -Likely 2/2 pneumonia -2L fluid bolus 11/20/18 at [facility] prior to transfer -Tachypneic, tachycardic, 95F rectal temp but BP stable on arrival -WBC 43.2, lactic 7.7, trop 0.06 on arrival -Received zosyn 11/20/18 at the [facility] -CT chest abd/plv 11/20/18: hazy opacities at lung bases atelectasis or pneumonia, underlying emphysema. Cholelithiasis. Very large left sided rectus sheath hematoma -WBC 43.6, lactic down from 9.8 to 3.3 after bicarb infusion started 11/20/18 -Bicarb drip stopped 11/23/18 -[facility] BC's 1/2 prelim pos for coagulase neg gram pos cocci -BC x2 drawn 11/20/18 negative -Repeat BC x2 drawn 11/23/18 prelim neg -Urine culture negative -BAL 11/22/18 culture RLL postive for Stenotrophomonas maltophilia- sensitive to levofloxacin and tmp-smx -BP very labile 11/20/18 with MAPs dropping into 40's, requiring pressor support to maintain MAP. MAP adequate off pressors now -Received 6 days vancomycin stopped 11/25/18 and 7 days pip/tazo stopped 11/27/18 -TTE 11/21/18 not able to visualize structures -TTE 11/23/18 EF 60-65%, atypical septal motion consistent with BBB, mild LV diastolic dysfunction, valves not well visualized -Continue levofloxacin (day 4) renally dosed for S maltophilia Qualifiers: Sepsis type: sepsis due to unspecified organism Qualified Code(s): A41.9 - Sepsis, unspecified organism (2) Acute respiratory failure with hypoxia Current Visit: Yes Status: Acute -Awake, alert and talking on arrival -Resp and mental status declined and became hypoxic and apneic requiring intubation -ABG at time of intubation pH 7.16, paCO2 44, paO2 105, hco3 16, 96% on 13L O2 via oxymask -Successfully extubated 11/23/18 -Acutely hypoxic 11/24/18 requiring BiPAP which tolerated well overnight -11/25/18 became apneic and hypoxic acutely with subsequent intubation -ABG 11/28/18: pH 7.43, paCO2 46, paO2 63, HCO3 31, 92% on 40% FiO2 -FIXED ASSETS ACCOUNTANT started 11/25/18 via neph and switched to HD 11/27/18 -Continue mechanical ventilation and expect breathing to improve with dialysis (3) GI bleed Current Visit: Yes Status: Suspected Likely bleeding 2/2 rectus sheath hematoma > GI bleed -Melena occasionally over the last 2 weeks -Hgb 11/18/18 13.4 at [facility] -Received new anticoagulation 2/2 DVT at the [facility] on transfer here 11/20/18 7.3, BUN 46 -Got 2 units PRBCs 11/20/18 and repeat hgb 9 -Hgb today 8.5 today after 2 units PRBCs yesterday -Will monitor and transfuse as indicated -Acute care surg following without plans for intervention till more stable Qualifiers: GI bleed type/associated pathology: melena Qualified Code(s): K92.1 - Melena (4) ANY (acute kidney injury) Current Visit: Yes Status: Acute -Cr at [facility] 11/19/18 0.79 -Cr on transfer from [place] 11/20/18 1.74, BUN 46 -Renal function worsened to peak of Cr 7.03, BUN 110 on 11/25/18 -Will continue trend renal function and avoid nephrotoxins as can -Neph following -Temp dialysis catheter placed by IR -FIXED ASSETS ACCOUNTANT started 11/25/18 via neph and switched to HD 11/27/18 -Cr 2.17, BUN 37, K 4.6 today -HD today (5) COPD (chronic obstructive pulmonary disease) Current Visit: Yes Status: Acute -Hx of COPD -Progressive dyspnea and yellow productive cough over last 2 weeks -Scheduled bronchodilators Qualifiers: COPD type: emphysema Emphysema type: unspecified Qualified Code(s): J43.9 - Emphysema, unspecified (6) Anemia Current Visit: Yes Status: Acute -Hgb 13.4 11/18/18 at the [facility] on arrival here 7.3 -Occult stool pos at [place] -GI bleed vs large rectus sheath hematoma on CT -Transfused total 7 units PRBCs -Hgb 8.5 today -Trend and transfuse as indicated -Repeat CT abd for evaluation for expanding hematoma -Heme consulted and requested anemia and thrombocytopenia labs Qualifiers: Anemia type: other cause Other causes of anemia: other cause, not classified Qualified Code(s): D64.89 - Other specified anemias (7) Right leg DVT Current Visit: Yes Status: Acute -R leg DVT at [facility] -RLE doppler prelim pos for DVT R posterior tibial vein -SVC filter placed 11/22/18 as anticoagulation contraindicated Qualifiers: Affected thrombotic vein of extremity: unspecified vein of extremity Chronicity: unspecified Qualified Code(s): I82.401 - Acute embolism and thrombosis of unspecified deep veins of right lower extremity (8) High anion gap metabolic acidosis Current Visit: Yes Status: Resolved -AG 11 on arrival -AG increased 11/21/18 to 15 likely 2/2 lactic acidosis -AG 7 today -Resolved (9) Lactic acidemia Current Visit: Yes Status: Acute -Lactic on arrival 7.3 -Likely 2/2 sepsis basilar pneumonia -Peak 9.8 started bicarb drip -Lactic 3.3 11/22/18 -Stop bicarb drip 11/23/18 (10) Leukocytosis Current Visit: Yes Status: Acute -WBC 43.2 11/20/18 -WBC 43.6 11/21/18 -Continuing to trend down, wbc 10.4 today -Management as above Qualifiers: Leukocytosis type: unspecified Qualified Code(s): D72.829 - Elevated white blood cell count, unspecified (11) Thrombocytopenia Current Visit: Yes Status: Acute -Platelets 190 on arrival -Trended down since and low of 18 11/26/18 -Has transfused total 2 packs platelets -Fibrinogen elevated with normal coags -Platelets 41 today after 1 pack platelets yesterday -Peripheral smear pending -Repeat fibrinogen, coags, PF4, and consult heme today -Keep platelets >50 and transfuse as indicated -Transfuse 1 pack platelets today (12) Elevated troponin Current Visit: Yes Status: Acute -Likely 2/2 demand ischemia from hypotension -Trop 0.07 at [facility] today -Repeat here 0.06 -Minimal increase on repeats 0.11-0.16-0.21 (13) DVT prophylaxis Current Visit: Yes Status: Acute -SCDs as acute drop in hgb Subjective Principal diagnosis: Sepsis Interval history: No acute events overnight. Remains intubated and sedated. HD yesterday. While awake off sedation complained of abdominal pain. Objective PUL Vital signs: Last Vital Signs Temp 98.3 F 11/28/18 07:20 Pulse 92 11/28/18 06:00 Resp 16 11/28/18 08:03 BP 159/54 11/28/18 08:03 Pulse Ox 95 11/28/18 08:03 General appearance: no acute distress, other (intubated and sedated ) Eyes: nonicteric ENT: oropharynx dry Effort: other (on vent ) Auscultation: bilateral: rhonchi (scattered) Cardiovascular: regular rate and rhythm Gastrointestinal: hypoactive bowel sounds, soft, other (distended ) Integumentary: other (Large L flank hematoma, scrotal hematoma ) Extremities: no cyanosis, no clubbing, pink and warm, edema (3+) other (intubated and sedated ) other (intubated and sedated ) Ventilator Settings Ventilator Settings: Ventilator Settings, Last 8 Hours Ventilator Tidal Volume 450 Setting Ventilator Tidal Volume 450 Setting Ventilator Tidal Volume 450 Setting Ventilator Tidal Volume 450 Setting Ventilator Tidal Volume 450 Setting Ventilator Tidal Volume 450 Setting Ventilator Tidal Volume 450 Setting Ventilator Tidal Volume 450 Setting Ventilator Tidal Volume 450 Setting Ventilator Tidal Volume 450 Setting Ventilator Tidal Volume 450 Setting Ventilator Respiratory Rate 14 Setting Ventilator Respiratory Rate 14 Setting Ventilator Respiratory Rate 14 Setting Ventilator Respiratory Rate 14 Setting Ventilator Respiratory Rate 14 Setting Ventilator Respiratory Rate 14 Setting Ventilator Respiratory Rate 14 Setting Ventilator Respiratory Rate 14 Setting Ventilator Respiratory Rate 14 Setting Ventilator Respiratory Rate 14 Setting Ventilator Respiratory Rate 14 Setting Actual Respiratory Rate 16 Actual Respiratory Rate 22 Actual Respiratory Rate 23 Actual Respiratory Rate 20 Actual Respiratory Rate 21 Actual Respiratory Rate 21 Actual Respiratory Rate 21 Actual Respiratory Rate 26 Actual Respiratory Rate 23 Actual Respiratory Rate 25 Positive End Expiratory 5 Pressure Positive End Expiratory 5 Pressure Positive End Expiratory 5 Pressure Positive End Expiratory 5 Pressure Positive End Expiratory 5 Pressure Positive End Expiratory 5 Pressure Positive End Expiratory 5 Pressure Positive End Expiratory 5 Pressure Positive End Expiratory 5 Pressure Positive End Expiratory 5 Pressure Positive End Expiratory 5 Pressure Peak Inspiratory Airway 8 Pressure Peak Inspiratory Airway 20 Pressure Peak Inspiratory Airway 20 Pressure Peak Inspiratory Airway 14 Pressure Peak Inspiratory Airway 29 Pressure Peak Inspiratory Airway 21 Pressure Peak Inspiratory Airway 21 Pressure Peak Inspiratory Airway 21 Pressure Peak Inspiratory Airway 21 Pressure Peak Inspiratory Airway 21 Pressure Results - Laboratory Findings CBC and BMP: 11/28/18 04:00 11/28/18 04:00 ABG ABG pH 7.43 pH Units (7.32-7.45) 11/28/18 04:55 ABG pCO2 46 mmHg (35-45) H 11/28/18 04:55 ABG pO2 63 mmHg (85-104) L 11/28/18 04:55 ABG O2 Saturation 92 % (95-98) L 11/28/18 04:55 PT/INR, D-dimer PT 10.7 Seconds (9.4-12.1) 11/27/18 15:20 Abnormal lab findings: Abnormal lab results WBC 15.2 K/mcL (4.3-11.1) H 11/26/18 03:32 RBC 2.89 M/mcL (4.19-5.50) L 11/28/18 04:00 Hgb 8.5 g/dL (12.9-16.9) L D 11/28/18 04:00 Hct 26.1 % (37.5-50.1) L 11/28/18 04:00 MCHC 31.1 g/dL (31.6-35.5) L 11/20/18 12:43 RDW 16.0 % (11.5-14.5) H 11/28/18 04:00 Plt Count 41 K/mcL (140-400) L 11/28/18 04:00 MPV 12.5 fL (9.4-12.4) H 11/26/18 03:32 9.6 K/mcL (1.6-8.9) H 11/28/18 04:00 0.3 K/mcL (0.6-4.6) L 11/28/18 04:00 Nucleated RBCs/100 WBC 0.7 /100 WBC (0) H 11/28/18 04:00 Decreased (Normal) L 11/28/18 04:00 Immature Plt Fraction 7.7 % (1.1-6.1) H 11/28/18 04:00 1+ (Not Present) A 11/25/18 03:40 Present (Not Present) A 11/25/18 03:40 1+ (Not Present) A 11/27/18 22:30 PT 12.6 Seconds (9.4-12.1) H 11/23/18 11:15 618 mg/dL (169-393) H D 11/26/18 03:32 ABG pH 7.31 pH Units (7.32-7.45) L 11/27/18 04:48 ABG pCO2 46 mmHg (35-45) H 11/28/18 04:55 ABG pO2 63 mmHg (85-104) L 11/28/18 04:55 ABG HCO3 31 mEq/L (21-27) H 11/28/18 04:55 ABG Total CO2 32 mEq/L (20-26) H 11/28/18 04:55 ABG O2 Saturation 92 % (95-98) L 11/28/18 04:55 ABG Base Excess 6 mEq/L (-2 to 3) H 11/28/18 04:55 Potassium 5.6 mEq/L (3.5-5.1) H 11/26/18 03:32 Chloride 97 mEq/L (98-107) L 11/26/18 03:32 Carbon Dioxide 30 mEq/L (23-29) H 11/23/18 11:15 BUN 37 mg/dL (8-23) H 11/28/18 04:00 2.17 mg/dL (0.70-1.30) H 11/28/18 04:00 Est GFR ( Amer) 37 (> 60) L 11/28/18 04:00 Est GFR (Non-Af Amer) 30 (> 60) L 11/28/18 04:00 Glucose 165 mg/dL (70-105) H 11/28/18 04:00 POC Glucose 208 mg/dL (70-99) H 11/27/18 23:43 6.5 % (-5.6) H 11/20/18 13:04 307 (280-300) H 11/26/18 03:32 Lactic Acid 3.3 mmol/L (0.5-2.2) H 11/22/18 04:45 Calcium 8.0 mg/dL (8.6-10.3) L 11/28/18 04:00 Venous Ioniz Calcium 1.07 mmol/L (1.15-1.35) L 11/28/18 06:09 Phosphorus 6.5 mg/dL (2.7-4.5) H 11/26/18 03:32 1.4 mg/dL (0.3-1.0) H 11/28/18 04:00 0.9 mg/dL (0.0-0.2) H 11/28/18 04:00 AST 60 Units/L (13-39) H 11/28/18 04:00 ALT 162 Units/L (7-52) H 11/28/18 04:00 108 Units/L (34-104) H 11/26/18 03:32 0.21 ng/mL (< 0.04) H* 11/21/18 13:15 4.4 g/dL (6.4-8.9) L 11/28/18 04:00 2.7 g/dL (3.5-5.7) L 11/28/18 04:00 1.7 g/dL (2.4-3.5) L 11/28/18 04:00 Turbid (Clear) A 11/21/18 08:50 Trace mg/dL (Negative) H 11/21/18 08:50 Small (Negative) H 11/21/18 08:50 5-15 per hpf (0-3) H 11/21/18 08:50 Ur Squamous Epith Cells Many per lpf (None-Few) H 11/21/18 08:50 Ur Culture Indicated? YES (NO) A 11/21/18 08:50 Fluid Appearance Cloudy (Clear) A 11/22/18 12:23 Vancomycin Trough 23 mcg/mL (5-10) H 11/22/18 04:45 Hep Bs Antibody < 3.10 mIU/mL (10.00-) L 11/24/18 09:35 Crossmatch See Detail 11/25/18 14:51 - Clinical Findings Intake & Output: Intake & Output 11/27/18 11/28/18 11/28/18 23:59 07:59 15:59 Intake Total 1341 / 3479.6 1550.0 / 1550.0 Output Total 50 / 1660 0 / 0 Balance 1291 / 1819.6 1550.0 / 1550.0 Weight 110.1 kg Consult Discharge Plan - Plan [facility]: [facility]Primary Care Provider[facility] - <Donny Lindquist - Last Filed: 11/28/18 12:52> Date of Encounter: 11/28/18 Objective PUL Vital signs: Last Vital Signs Temp 98 F 11/28/18 12:00 Pulse 93 11/28/18 10:00 Resp 22 11/28/18 12:00 BP 177/63 11/28/18 12:45 Pulse Ox 96 11/28/18 11:53 Ventilator Settings Ventilator Settings: Ventilator Settings, Last 8 Hours Ventilator Tidal Volume 450 Setting Ventilator Tidal Volume 450 Setting Ventilator Tidal Volume 450 Setting Ventilator Tidal Volume 450 Setting Ventilator Tidal Volume 450 Setting Ventilator Tidal Volume 450 Setting Ventilator Tidal Volume 450 Setting Ventilator Tidal Volume 450 Setting Ventilator Tidal Volume 450 Setting Ventilator Tidal Volume 450 Setting Ventilator Tidal Volume 450 Setting Ventilator Respiratory Rate 14 Setting Ventilator Respiratory Rate 14 Setting Ventilator Respiratory Rate 14 Setting Ventilator Respiratory Rate 14 Setting Ventilator Respiratory Rate 14 Setting Ventilator Respiratory Rate 14 Setting Ventilator Respiratory Rate 14 Setting Ventilator Respiratory Rate 14 Setting Ventilator Respiratory Rate 14 Setting Ventilator Respiratory Rate 14 Setting Ventilator Respiratory Rate 14 Setting Actual Respiratory Rate 18 Actual Respiratory Rate 21 Actual Respiratory Rate 16 Actual Respiratory Rate 17 Actual Respiratory Rate 16 Actual Respiratory Rate 15 Actual Respiratory Rate 17 Actual Respiratory Rate 22 Actual Respiratory Rate 23 Actual Respiratory Rate 20 Positive End Expiratory 5 Pressure Positive End Expiratory 5 Pressure Positive End Expiratory 5 Pressure Positive End Expiratory 5 Pressure Positive End Expiratory 5 Pressure Positive End Expiratory 5 Pressure Positive End Expiratory 5 Pressure Positive End Expiratory 5 Pressure Positive End Expiratory 5 Pressure Positive End Expiratory 5 Pressure Positive End Expiratory 5 Pressure Peak Inspiratory Airway 7 Pressure Peak Inspiratory Airway 7.4 Pressure Peak Inspiratory Airway 6.6 Pressure Peak Inspiratory Airway 6.7 Pressure Peak Inspiratory Airway 8 Pressure Peak Inspiratory Airway 14 Pressure Peak Inspiratory Airway 6.6 Pressure Peak Inspiratory Airway 20 Pressure Peak Inspiratory Airway 20 Pressure Peak Inspiratory Airway 14 Pressure Results - Laboratory Findings CBC and BMP: 11/28/18 04:00 11/28/18 04:00 ABG ABG pH 7.43 pH Units (7.32-7.45) 11/28/18 04:55 ABG pCO2 46 mmHg (35-45) H 11/28/18 04:55 ABG pO2 63 mmHg (85-104) L 11/28/18 04:55 ABG O2 Saturation 92 % (95-98) L 11/28/18 04:55 PT/INR, D-dimer PT 10.6 Seconds (9.4-12.1) 11/28/18 11:20 Abnormal lab findings: Abnormal lab results WBC 15.2 K/mcL (4.3-11.1) H 11/26/18 03:32 RBC 2.89 M/mcL (4.19-5.50) L 11/28/18 04:00 Hgb 8.5 g/dL (12.9-16.9) L D 11/28/18 04:00 Hct 26.1 % (37.5-50.1) L 11/28/18 04:00 MCHC 31.1 g/dL (31.6-35.5) L 11/20/18 12:43 RDW 16.0 % (11.5-14.5) H 11/28/18 04:00 Plt Count 41 K/mcL (140-400) L 11/28/18 04:00 MPV 12.5 fL (9.4-12.4) H 11/26/18 03:32 Reticulocyte # 0.13 M/mcL (0.05-0.10) H 11/28/18 11:20 9.6 K/mcL (1.6-8.9) H 11/28/18 04:00 0.3 K/mcL (0.6-4.6) L 11/28/18 04:00 Nucleated RBCs/100 WBC 0.7 /100 WBC (0) H 11/28/18 04:00 Decreased (Normal) L 11/28/18 04:00 Immature Plt Fraction 7.7 % (1.1-6.1) H 11/28/18 04:00 1+ (Not Present) A 11/25/18 03:40 Present (Not Present) A 11/25/18 03:40 1+ (Not Present) A 11/27/18 22:30 Percent Retic 4.3 % (1.6-2.8) H 11/28/18 11:20 PT 12.6 Seconds (9.4-12.1) H 11/23/18 11:15 568 mg/dL (169-393) H 11/28/18 11:20 ABG pH 7.31 pH Units (7.32-7.45) L 11/27/18 04:48 ABG pCO2 46 mmHg (35-45) H 11/28/18 04:55 ABG pO2 63 mmHg (85-104) L 11/28/18 04:55 ABG HCO3 31 mEq/L (21-27) H 11/28/18 04:55 ABG Total CO2 32 mEq/L (20-26) H 11/28/18 04:55 ABG O2 Saturation 92 % (95-98) L 11/28/18 04:55 ABG Base Excess 6 mEq/L (-2 to 3) H 11/28/18 04:55 Potassium 5.6 mEq/L (3.5-5.1) H 11/26/18 03:32 Chloride 97 mEq/L (98-107) L 11/26/18 03:32 Carbon Dioxide 30 mEq/L (23-29) H 11/23/18 11:15 BUN 37 mg/dL (8-23) H 11/28/18 04:00 2.17 mg/dL (0.70-1.30) H 11/28/18 04:00 Est GFR ( Amer) 37 (> 60) L 11/28/18 04:00 Est GFR (Non-Af Amer) 30 (> 60) L 11/28/18 04:00 Glucose 165 mg/dL (70-105) H 11/28/18 04:00 POC Glucose 208 mg/dL (70-99) H 11/27/18 23:43 6.5 % (-5.6) H 11/20/18 13:04 307 (280-300) H 11/26/18 03:32 Lactic Acid 3.3 mmol/L (0.5-2.2) H 11/22/18 04:45 Calcium 8.0 mg/dL (8.6-10.3) L 11/28/18 04:00 Venous Ioniz Calcium 1.07 mmol/L (1.15-1.35) L 11/28/18 06:09 Phosphorus 6.5 mg/dL (2.7-4.5) H 11/26/18 03:32 Iron 64 mcg/dL (65-175) L 11/28/18 11:20 158 mg/dL (203-362) L 11/28/18 11:20 1.4 mg/dL (0.3-1.0) H 11/28/18 04:00 0.9 mg/dL (0.0-0.2) H 11/28/18 04:00 AST 60 Units/L (13-39) H 11/28/18 04:00 ALT 162 Units/L (7-52) H 11/28/18 04:00 108 Units/L (34-104) H 11/26/18 03:32 379 Units/L (140-271) H 11/28/18 11:20 0.21 ng/mL (< 0.04) H* 11/21/18 13:15 4.4 g/dL (6.4-8.9) L 11/28/18 04:00 2.7 g/dL (3.5-5.7) L 11/28/18 04:00 1.7 g/dL (2.4-3.5) L 11/28/18 04:00 Turbid (Clear) A 11/21/18 08:50 Trace mg/dL (Negative) H 11/21/18 08:50 Small (Negative) H 11/21/18 08:50 5-15 per hpf (0-3) H 11/21/18 08:50 Ur Squamous Epith Cells Many per lpf (None-Few) H 11/21/18 08:50 Ur Culture Indicated? YES (NO) A 11/21/18 08:50 Fluid Appearance Cloudy (Clear) A 11/22/18 12:23 Vancomycin Trough 23 mcg/mL (5-10) H 11/22/18 04:45 Hep Bs Antibody < 3.10 mIU/mL (10.00-) L 11/24/18 09:35 Crossmatch See Detail 11/25/18 14:51 - Microbiology Findings Microbiology Findings: Microbiology, Last 48 Hours 11/23/18 11:15 Blood Culture - Final Peripheral Venipuncture No growth. Final report. 11/23/18 11:15 Blood Culture - Final Peripheral Venipuncture No growth. Final report. - Clinical Findings Intake & Output: Intake & Output 11/27/18 11/28/18 11/28/18 23:59 07:59 15:59 Intake Total 1341 / 3479.6 1550.0 / 2150.0 600 / 2150.0 Output Total 50 / 1660 0 / 0 Balance 1291 / 1819.6 1550.0 / 2150.0 600 / 2150.0 Weight 110.1 kg - Attending Attestation I examined this patient and my medical decision-making was reviewed with the Resident Physician. I agree with the documented findings, disposition and treatment plan as described except to the extent set forth below. We independently had [id number] contact with the patient Patient seen and examined at bedside Labs, radiology, chart personally reviewed. Management was reviewed during multidisciplinary critical care rounds. FINISHER DENTURE: Remains on sedation for goal Hill around 2 sedation holiday today showed patient is neurologically intact medical to follow commands Pulm: Acute hypoxic respiratory failure remains on vent will need continued volume removal hydrostatic pulmonary edema prior to liberation Cards: Blood pressure monitored shock has resolved patient actually had time despite hypertensive may need to start antihypertensive medication for this GI: GI prophylaxis given Nutrition: cont enteral nutrition Renal: UOP Monitored, Cont to Trend sCr and monitor Electrolytes. ID: He is on antibiotics with planned to de-escalate Heme/Onc: Modest drop in H&H yesterday likely from losing at hematoma site CT of the abdomen and pelvis shows stable hematoma but that increased extravasation into the subcutaneous tissue this is likely secondary to thrombocytopenia if continued to drop in H&H will likely need to arteriogram I personally discuss the results of the CT scan with the radiologist. We will consult hematology for recommendations regarding thrombocytopenia at this juncture would to try to keep up platelets around 50,000 Endo: Glucose Monitored Integ/MSK: Skin Care per routine ICU Nursing Protocol to prevent ulcers. Lines: All lines examined without evidence of infection : Dispo: Monitor in ICU for vent management CODE: Full
[2018-11-28 11:34] LABS: Immature Reticulocyte % 30.5 % (11.0-38.0); Retculocyte # 0.13 M/mcL (0.05-0.10); Reticulocyte % 4.3 % (1.6-2.8)
[2018-11-28 11:44] LABS: INR 0.9; Prothrombin Time 10.6 Seconds (9.4-12.1)
[2018-11-28 11:52] LABS: % Iron Saturation 29 % (20-55); Iron 64 mcg/dL (65-175); Lactate Dehydrogenase 379 Units/L (140-271); Transferrin 158 mg/dL (203-362)
[2018-11-28] MEDS: Dexmedetomidine HCl 400 MCG/100 ML MLS IVC SCH (14:24)
[2018-11-28 16:00] LABS: Hematocrit 28.7 % (37.5-50.1); Hemoglobin 9.6 g/dL (12.9-16.9)
[2018-11-28] MEDS: Nitroglycerin 25 MG/250 ML INFUS..BTL IVC SCH (16:08)
[2018-11-28] MEDS ORDERED: 0.9 % Sodium Chloride 250 ML ONE (16:24)
[2018-11-28 22:12] LABS: Eosinophils % 0.2 %
[2018-11-28 22:14] LABS: Basophils % 0.1 %; Hematocrit 27.6 % (37.5-50.1); Immature Granulocytes % 1.6 % (0-4); Immature Platelets 7.9 % (1.1-6.1); Lymphocytes # 0.5 K/mcL (0.6-4.6); Lymphocytes % 3.5 %; Mean Corpuscular HGB Conc 32.6 g/dL (31.6-35.5); Mean Corpuscular Hemoglobin 29.5 pg (28.0-33.3); Mean Corpuscular Volume 90.5 fL (83.0-100.0); Mean Platelet Volume 10.4 fL (9.4-12.4); Monocytes # 0.3 K/mcL (0.0-1.3); Monocytes % 2.5 %; Neutrophils # 12.2 K/mcL (1.6-8.9); Red Blood Count 3.05 M/mcL (4.19-5.50); Red Cell Distribution Width 17.1 % (11.5-14.5); Segmented Neutrophils % 92.1 %
[2018-11-28 22:21] LABS: Platelet Count 33 K/mcL (140-400)
[2018-11-28 22:28] LABS: Toxic Granulation Present (Not Present)
[2018-11-28 22:29] LABS: Large Platelets Present (Not Present); Platelet Estimate Marked Decrease (Normal)
[2018-11-29] MEDS: FentaNYL (PF) 1,000 MCG in 0.9 % Sodium Chloride 80 ML IVC SCH ×2 (00:09→07:43)
[2018-11-29] MEDS: Artificial Tears SOLN 15 ML BOTTLE BOTH EYES SCH ×6 (00:11→20:12)
[2018-11-29] MEDS: Insulin LISPRO 300 UNITS/3 ML VIAL SQ SCH ×4 (03:24→17:40)
[2018-11-29] MEDS: Norepinephrine 8 MG in D5% in Water 250 ML IVC SCH (03:25)
[2018-11-29 03:50] LABS: Hematocrit 26.7 % (37.5-50.1); Hemoglobin 8.6 g/dL (12.9-16.9); Mean Corpuscular HGB Conc 32.2 g/dL (31.6-35.5); Mean Corpuscular Hemoglobin 29.4 pg (28.0-33.3); Mean Corpuscular Volume 91.1 fL (83.0-100.0); Mean Platelet Volume 11.9 fL (9.4-12.4); Nucleated Red Blood Cells 0.2 /100 WBC (0); Red Blood Count 2.93 M/mcL (4.19-5.50); Red Cell Distribution Width 17.1 % (11.5-14.5)
[2018-11-29 03:51] LABS: Platelet Count 33 K/mcL (140-400)
[2018-11-29] MEDS: Ipratropium/Albuterol Neb 3 ML IH SCH ×4 (03:53→21:46)
[2018-11-29 04:09] LABS: Lymphocytes # 0.7 K/mcL (0.6-4.6); Monocytes # 0.7 K/mcL (0.0-1.3); Neutrophils # 10.4 K/mcL (1.6-8.9); Platelet Estimate Decreased (Normal); Potassium 4.2 mEq/L (3.5-5.1)
[2018-11-29 04:31] LABS: Albumin 2.6 g/dL (3.5-5.7); Albumin/Globulin Ratio 1.4 (1.1-2.2); Bilirubin,Direct 0.7 mg/dL (0.0-0.2); Bilirubin,Indirect 0.6 mg/dL (0.0-1.2); Bilirubin,Total 1.3 mg/dL (0.3-1.0); Globulin 1.9 g/dL (2.4-3.5); Total Protein 4.5 g/dL (6.4-8.9)
[2018-11-29 04:52] LABS: ABG Base Excess 5 mEq/L (-2 to 3); ABG HCO3 30 mEq/L (21-27); ABG Oxygen Saturation 95 % (95-98); ABG PCO2 47 mmHg (35-45); ABG PH 7.42 pH Units (7.32-7.45); ABG PO2 72 mmHg (85-104); ABG TCO2 32 mEq/L (20-26); Blood Gas Modality ASSIST CONTROL; Blood Gas PEEP 5 cm H2O; Blood Gas Respiration Rate 14; Blood Gas VT 450 cc
[2018-11-29 05:14] LABS: VBG Ionized Calcium 1.07 mmol/L (1.15-1.35)
[2018-11-29] MEDS: Pantoprazole 40 MG VIAL IVP SCH ×2 (05:39→17:37)
[2018-11-29] MEDS: Hydrocortisone Sodium Succ 100 MG/2 ML VIAL IVP SCH ×2 (05:39→17:37)
[2018-11-29] MEDS: Docusate Oral Soln 100 MG/10 ML UDC GTUBE SCH ×2 (07:37→20:10)
[2018-11-29] MEDS: Chlorhexidine Rinse 15 ML MOUTHWASH MM SCH ×2 (07:37→20:10)
[2018-11-29] MEDS: Dexmedetomidine HCl 400 MCG/100 ML MLS IVC SCH (09:36)
--- NOTE | 2018-11-29 09:38 | Pulmonology Progress Note ---
<LeonoratianaDonny W - Last Filed: 11/29/18 13:53> Date of Encounter: 11/29/18 Objective PUL Vital signs: Last Vital Signs Temp 97.0 F L 11/29/18 12:35 Pulse 117 11/29/18 09:00 Resp 18 11/29/18 11:15 BP 129/75 11/29/18 13:45 Pulse Ox 100 11/29/18 09:27 Ventilator Settings Ventilator Settings: Ventilator Settings, Last 8 Hours Ventilator Tidal Volume 450 Setting Ventilator Respiratory Rate 14 Setting Actual Respiratory Rate 19 Actual Respiratory Rate 18 Positive End Expiratory 5 Pressure Positive End Expiratory 5 Pressure Peak Inspiratory Airway 12 Pressure Peak Inspiratory Airway 6.6 Pressure Results - Laboratory Findings CBC and BMP: 11/29/18 03:40 11/29/18 03:40 ABG ABG pH 7.42 pH Units (7.32-7.45) 11/29/18 04:48 ABG pCO2 47 mmHg (35-45) H 11/29/18 04:48 ABG pO2 72 mmHg (85-104) L 11/29/18 04:48 ABG O2 Saturation 95 % (95-98) 11/29/18 04:48 PT/INR, D-dimer PT 10.6 Seconds (9.4-12.1) 11/28/18 11:20 Abnormal lab findings: Abnormal lab results WBC 11.8 K/mcL (4.3-11.1) H 11/29/18 03:40 RBC 2.93 M/mcL (4.19-5.50) L 11/29/18 03:40 Hgb 8.6 g/dL (12.9-16.9) L 11/29/18 03:40 Hct 26.7 % (37.5-50.1) L 11/29/18 03:40 MCHC 31.1 g/dL (31.6-35.5) L 11/20/18 12:43 RDW 17.1 % (11.5-14.5) H 11/29/18 03:40 Plt Count 33 K/mcL (140-400) L 11/29/18 03:40 MPV 12.5 fL (9.4-12.4) H 11/26/18 03:32 Reticulocyte # 0.13 M/mcL (0.05-0.10) H 11/28/18 11:20 10.0 % (0-4) H 11/29/18 03:40 10.4 K/mcL (1.6-8.9) H 11/29/18 03:40 0.5 K/mcL (0.6-4.6) L 11/28/18 22:00 Nucleated RBCs/100 WBC 0.2 /100 WBC (0) H 11/29/18 03:40 Present (Not Present) A 11/28/18 22:00 Decreased (Normal) L 11/29/18 03:40 Present (Not Present) A 11/28/18 22:00 Immature Plt Fraction 7.9 % (1.1-6.1) H 11/28/18 22:00 1+ (Not Present) A 11/25/18 03:40 Present (Not Present) A 11/25/18 03:40 1+ (Not Present) A 11/27/18 22:30 Percent Retic 4.3 % (1.6-2.8) H 11/28/18 11:20 PT 12.6 Seconds (9.4-12.1) H 11/23/18 11:15 568 mg/dL (169-393) H 11/28/18 11:20 ABG pH 7.31 pH Units (7.32-7.45) L 11/27/18 04:48 ABG pCO2 47 mmHg (35-45) H 11/29/18 04:48 ABG pO2 72 mmHg (85-104) L 11/29/18 04:48 ABG HCO3 30 mEq/L (21-27) H 11/29/18 04:48 ABG Total CO2 32 mEq/L (20-26) H 11/29/18 04:48 ABG O2 Saturation 92 % (95-98) L 11/28/18 04:55 ABG Base Excess 5 mEq/L (-2 to 3) H 11/29/18 04:48 Potassium 5.6 mEq/L (3.5-5.1) H 11/26/18 03:32 Chloride 97 mEq/L (98-107) L 11/26/18 03:32 Carbon Dioxide 30 mEq/L (23-29) H 11/23/18 11:15 BUN 37 mg/dL (8-23) H 11/29/18 03:40 2.35 mg/dL (0.70-1.30) H 11/29/18 03:40 Est GFR ( Amer) 33 (> 60) L 11/29/18 03:40 Est GFR (Non-Af Amer) 27 (> 60) L 11/29/18 03:40 Glucose 129 mg/dL (70-105) H 11/29/18 03:40 POC Glucose 129 mg/dL (70-99) H 11/29/18 00:21 6.5 % (-5.6) H 11/20/18 13:04 307 (280-300) H 11/26/18 03:32 Lactic Acid 3.3 mmol/L (0.5-2.2) H 11/22/18 04:45 Calcium 8.0 mg/dL (8.6-10.3) L 11/29/18 03:40 Venous Ioniz Calcium 1.07 mmol/L (1.15-1.35) L 11/29/18 05:12 Phosphorus 6.5 mg/dL (2.7-4.5) H 11/26/18 03:32 Iron 64 mcg/dL (65-175) L 11/28/18 11:20 158 mg/dL (203-362) L 11/28/18 11:20 1.3 mg/dL (0.3-1.0) H 11/29/18 03:40 0.7 mg/dL (0.0-0.2) H 11/29/18 03:40 AST 70 Units/L (13-39) H 11/29/18 03:40 ALT 139 Units/L (7-52) H 11/29/18 03:40 108 Units/L (34-104) H 11/26/18 03:32 379 Units/L (140-271) H 11/28/18 11:20 0.21 ng/mL (< 0.04) H* 11/21/18 13:15 4.5 g/dL (6.4-8.9) L 11/29/18 03:40 2.6 g/dL (3.5-5.7) L 11/29/18 03:40 1.9 g/dL (2.4-3.5) L 11/29/18 03:40 Turbid (Clear) A 11/21/18 08:50 Trace mg/dL (Negative) H 11/21/18 08:50 Small (Negative) H 11/21/18 08:50 5-15 per hpf (0-3) H 11/21/18 08:50 Ur Squamous Epith Cells Many per lpf (None-Few) H 11/21/18 08:50 Ur Culture Indicated? YES (NO) A 11/21/18 08:50 Fluid Appearance Cloudy (Clear) A 11/22/18 12:23 Vancomycin Trough 23 mcg/mL (5-10) H 11/22/18 04:45 Hep Bs Antibody < 3.10 mIU/mL (10.00-) L 11/24/18 09:35 Crossmatch See Detail 11/25/18 14:51 - Microbiology Findings Microbiology Findings: Microbiology, Last 48 Hours 11/23/18 11:15 Blood Culture - Final Peripheral Venipuncture No growth. Final report. 11/23/18 11:15 Blood Culture - Final Peripheral Venipuncture No growth. Final report. - Clinical Findings Intake & Output: Intake & Output 11/28/18 11/29/18 11/29/18 23:59 07:59 15:59 Intake Total 550 / 3010.0 300 / 1105 805 / 1105 Output Total 0 / 2600 15 / 165 150 / 165 Balance 550 / 410.0 285 / 940 655 / 940 Weight 108.4 kg Consult Discharge Plan - Plan Referrals: [facility] [Primary Care Provider] - - Attending Attestation I examined this patient and my medical decision-making was reviewed with the Resident Physician. I agree with the documented findings, disposition and treatment plan as described except to the extent set forth below. We independently had [id number] contact with the patient Patient seen and examined at bedside Labs, radiology, chart personally reviewed. Management was reviewed during multidisciplinary critical care rounds. RN CVOR: Awake and alert off sedation no focal deficits Pulm: Respiratory failure liberated from the vent continue BiPAP today Cards: Blood pressure monitored and stable can likely start antihypertensive for persistent hypertension GI: Continue to monitor Nutrition: Nothing By mouth Renal: Acute kidney injury nephrology following will likely need ultrafiltration for anasarca UOP Monitored, Cont to Trend sCr and monitor Electrolytes. ID: Continue antibiotics for pneumonia Heme/Onc: Persistent anemia and thrombocytopenia hematology consulted counts look fairly stable today hematomas also decreased in size radiographically Endo: Glucose Monitored Integ/MSK: Skin Care per routine ICU Nursing Protocol to prevent ulcers. Lines: All lines examined without evidence of infection : Dispo: We will monitor in ICU post extubation CODE: Johana <Krystal Berkowitz - Last Filed: 11/29/18 14:40> Date of Encounter: 11/29/18 Time of Encounter: 14:22 Assessment and Plan (1) Acute respiratory failure with hypoxia Current Visit: Yes Status: Acute -Awake, alert and talking on arrival -Resp and mental status declined and became hypoxic and apneic requiring intubation -ABG at time of intubation pH 7.16, paCO2 44, paO2 105, hco3 16, 96% on 13L O2 via oxymask -Successfully extubated 11/23/18 -Acutely hypoxic 11/24/18 requiring BiPAP which tolerated well overnight -11/25/18 became apneic and hypoxic acutely with subsequent intubation -ABG 11/28/18: pH 7.43, paCO2 46, paO2 63, HCO3 31, 92% on 40% FiO2 -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 11/25/18 via neph and switched to HD 11/27/18 -Continue mechanical ventilation and expect breathing to improve with dialysis Plan today for extubation, patient with positive trial of CPAP and BiPAP, currently on BiPAP and extubated Patient is able she has had yesterday, is unable to be conversational at this time secondary to respiratory status (2) Thrombocytopenia Current Visit: Yes Status: Acute Patient with thrombocytopenia, most likely secondary to pneumonia and septic picture Platelets of 33 today, hemoglobin is 8.6, slight drop from yesterday at 9.0 Given the patient continues to be thrombocytopenic despite platelet transfusions Will consult hematology for further recommendations Per hematology recommendations transfuse 1 unit of platelets for platelets of <50, mostly secondary to sepsis and pneumonia picture. Plan for transfusion of platelets later today, currently waiting on hemoglobin and hematocrit repeat see if PRBCs also need to be given (3) Sepsis Current Visit: Yes Status: Acute -Likely 2/2 pneumonia -2L fluid bolus 11/20/18 at [facility] prior to transfer -Tachypneic, tachycardic, 95F rectal temp but BP stable on arrival -WBC 43.2, lactic 7.7, trop 0.06 on arrival -Received zosyn 11/20/18 at the [facility] -CT chest abd/plv 11/20/18: hazy opacities at lung bases atelectasis or pneumonia, underlying emphysema. Cholelithiasis. Very large left sided rectus sheath hematoma -WBC 43.6, lactic down from 9.8 to 3.3 after bicarb infusion started 11/20/18 -Bicarb drip stopped 11/23/18 -[facility] BC's 1/2 prelim pos for coagulase neg gram pos cocci -BC x2 drawn 11/20/18 negative -Repeat BC x2 drawn 11/23/18 prelim neg -Urine culture negative -BAL 11/22/18 culture RLL postive for Stenotrophomonas maltophilia- sensitive to levofloxacin and tmp-smx -BP very labile 11/20/18 with MAPs dropping into 40's, requiring pressor support to maintain MAP. MAP adequate off pressors now -Received 6 days vancomycin stopped 11/25/18 and 7 days pip/tazo stopped 11/27/18 -TTE 11/21/18 not able to visualize structures -TTE 11/23/18 EF 60-65%, atypical septal motion consistent with BBB, mild LV diastolic dysfunction, valves not well visualized -Continue levofloxacin (day 5) renally dosed for S maltophilia Qualifiers: Sepsis type: sepsis due to unspecified organism Qualified Code(s): A41.9 - Sepsis, unspecified organism (4) GI bleed Current Visit: Yes Status: Suspected Likely bleeding 2/2 rectus sheath hematoma > GI bleed -Melena occasionally over the last 2 weeks -Hgb 11/18/18 13.4 at [facility] -Received new anticoagulation 2/2 DVT at the [facility] -Hgb on transfer here 11/20/18 7.3, BUN 46 -Got 2 units PRBCs 11/20/18 and repeat hgb 9 -Will monitor and transfuse as indicated -Acute care surg following without plans for intervention till more stable Plan for platelet transfusion as platelets are less than 50, awaiting hemoglobin and hematocrit repeat this afternoon to determine if patient needs PRBCs. Qualifiers: GI bleed type/associated pathology: melena Qualified Code(s): K92.1 - Melena (5) COPD (chronic obstructive pulmonary disease) Current Visit: Yes Status: Acute -Hx of COPD -Progressive dyspnea and yellow productive cough over last 2 weeks -Scheduled bronchodilators Qualifiers: COPD type: emphysema Emphysema type: unspecified Qualified Code(s): J43.9 - Emphysema, unspecified (6) ANY (acute kidney injury) Current Visit: Yes Status: Acute -Cr at [facility] 11/19/18 0.79 -Cr on transfer from [facility] 11/20/18 1.74, BUN 46 -Renal function worsened to peak of Cr 7.03, BUN 110 on 11/25/18 -Will continue trend renal function and avoid nephrotoxins as can -Neph following -Temp dialysis catheter placed by IR -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 11/25/18 via neph and switched to HD 11/27/18 Given anuria and volume status importance while on BiPAP, per nephrology recommendation SOLAR POWER INSTALLER today (7) Right leg DVT Current Visit: Yes Status: Acute Patient with known R sided LE DVT IVC filter placed on 11/22/2018 Qualifiers: Affected thrombotic vein of extremity: unspecified vein of extremity Chronicity: unspecified Qualified Code(s): I82.401 - Acute embolism and thrombosis of unspecified deep veins of right lower extremity (8) Anemia Current Visit: Yes Status: Acute -Hgb 13.4 11/18/18 at the [facility] -Transfused 7 units PRBCs total, 2 units FFP, 5 units of platelets -Trend H&H and transfuse as indicated Qualifiers: Anemia type: other cause Other causes of anemia: other cause, not classified Qualified Code(s): D64.89 - Other specified anemias (9) DVT prophylaxis Current Visit: Yes Status: Acute SCDs IVC filter placed to the right IVC 11/22/18 (10) Bruise of scrotum Current Visit: Yes Status: Acute -appears to be dependent scrotal edema with ecchymosis given rectus sheath bleed Appears to have mostly resolved at this time Qualifiers: Encounter type: initial encounter Qualified Code(s): S30.22XA - Contusion of scrotum and testes, initial encounter Subjective Principal diagnosis: Sepsis Interval history: Patient is currently on BiPAP, able to shake his head yes and no, however has 1- 2 word dyspnea and is unable to complete sentences. He states that he is short of breath with abdominal pain. No further complaints were noted. Objective PUL Vital signs: Last Vital Signs Temp 98.5 F 11/29/18 07:45 Pulse 106 05/19/19 05:59 Resp 18 11/29/18 09:27 BP 174/85 11/29/18 09:08 Pulse Ox 100 11/29/18 09:27 General appearance: appears uncomfortable Eyes: nonicteric ENT: oropharynx dry Mallampati (class): 3 Neck: supple Effort: mildly labored Auscultation: bilateral: diminished breath sounds Cardiovascular: regular rate and rhythm Gastrointestinal: normoactive bowel sounds, tender (throughout), non-distended Integumentary: other (Large L flank hematoma, scrotal hematoma) Extremities: pink and warm, edema (3+ to the LE BL) non-focal exam, pupils equal and round, motor strength normal and symmetric mood appropriate Ventilator Settings Ventilator Settings: Ventilator Settings, Last 8 Hours Ventilator Tidal Volume 450 Setting Ventilator Tidal Volume 450 Setting Ventilator Tidal Volume 450 Setting Ventilator Tidal Volume 450 Setting Ventilator Tidal Volume 450 Setting Ventilator Tidal Volume 450 Setting Ventilator Tidal Volume 450 Setting Ventilator Tidal Volume 450 Setting Ventilator Respiratory Rate 14 Setting Ventilator Respiratory Rate 14 Setting Ventilator Respiratory Rate 14 Setting Ventilator Respiratory Rate 14 Setting Ventilator Respiratory Rate 14 Setting Ventilator Respiratory Rate 14 Setting Ventilator Respiratory Rate 14 Setting Ventilator Respiratory Rate 14 Setting Actual Respiratory Rate 19 Actual Respiratory Rate 18 Actual Respiratory Rate 17 Actual Respiratory Rate 17 Actual Respiratory Rate 17 Actual Respiratory Rate 18 Actual Respiratory Rate 17 Actual Respiratory Rate 17 Positive End Expiratory 5 Pressure Positive End Expiratory 5 Pressure Positive End Expiratory 5 Pressure Positive End Expiratory 5 Pressure Positive End Expiratory 5 Pressure Positive End Expiratory 5 Pressure Positive End Expiratory 5 Pressure Positive End Expiratory 5 Pressure Positive End Expiratory 5 Pressure Peak Inspiratory Airway 12 Pressure Peak Inspiratory Airway 6.6 Pressure Peak Inspiratory Airway 6.7 Pressure Peak Inspiratory Airway 13 Pressure Peak Inspiratory Airway 6.7 Pressure Peak Inspiratory Airway 12 Pressure Peak Inspiratory Airway 6.7 Pressure Peak Inspiratory Airway 6.5 Pressure Results - Laboratory Findings CBC and BMP: 11/29/18 03:40 11/29/18 03:40 ABG ABG pH 7.42 pH Units (7.32-7.45) 11/29/18 04:48 ABG pCO2 47 mmHg (35-45) H 11/29/18 04:48 ABG pO2 72 mmHg (85-104) L 11/29/18 04:48 ABG O2 Saturation 95 % (95-98) 11/29/18 04:48 PT/INR, D-dimer PT 10.6 Seconds (9.4-12.1) 11/28/18 11:20 Abnormal lab findings: Abnormal lab results WBC 11.8 K/mcL (4.3-11.1) H 11/29/18 03:40 RBC 2.93 M/mcL (4.19-5.50) L 11/29/18 03:40 Hgb 8.6 g/dL (12.9-16.9) L 11/29/18 03:40 Hct 26.7 % (37.5-50.1) L 11/29/18 03:40 MCHC 31.1 g/dL (31.6-35.5) L 11/20/18 12:43 RDW 17.1 % (11.5-14.5) H 11/29/18 03:40 Plt Count 33 K/mcL (140-400) L 11/29/18 03:40 MPV 12.5 fL (9.4-12.4) H 11/26/18 03:32 Reticulocyte # 0.13 M/mcL (0.05-0.10) H 11/28/18 11:20 10.0 % (0-4) H 11/29/18 03:40 10.4 K/mcL (1.6-8.9) H 11/29/18 03:40 0.5 K/mcL (0.6-4.6) L 11/28/18 22:00 Nucleated RBCs/100 WBC 0.2 /100 WBC (0) H 11/29/18 03:40 Present (Not Present) A 11/28/18 22:00 Decreased (Normal) L 11/29/18 03:40 Present (Not Present) A 11/28/18 22:00 Immature Plt Fraction 7.9 % (1.1-6.1) H 11/28/18 22:00 1+ (Not Present) A 11/25/18 03:40 Present (Not Present) A 11/25/18 03:40 1+ (Not Present) A 11/27/18 22:30 Percent Retic 4.3 % (1.6-2.8) H 11/28/18 11:20 PT 12.6 Seconds (9.4-12.1) H 11/23/18 11:15 568 mg/dL (169-393) H 11/28/18 11:20 ABG pH 7.31 pH Units (7.32-7.45) L 11/27/18 04:48 ABG pCO2 47 mmHg (35-45) H 11/29/18 04:48 ABG pO2 72 mmHg (85-104) L 11/29/18 04:48 ABG HCO3 30 mEq/L (21-27) H 11/29/18 04:48 ABG Total CO2 32 mEq/L (20-26) H 11/29/18 04:48 ABG O2 Saturation 92 % (95-98) L 11/28/18 04:55 ABG Base Excess 5 mEq/L (-2 to 3) H 11/29/18 04:48 Potassium 5.6 mEq/L (3.5-5.1) H 11/26/18 03:32 Chloride 97 mEq/L (98-107) L 11/26/18 03:32 Carbon Dioxide 30 mEq/L (23-29) H 11/23/18 11:15 BUN 37 mg/dL (8-23) H 11/29/18 03:40 2.35 mg/dL (0.70-1.30) H 11/29/18 03:40 Est GFR ( Amer) 33 (> 60) L 11/29/18 03:40 Est GFR (Non-Af Amer) 27 (> 60) L 11/29/18 03:40 Glucose 129 mg/dL (70-105) H 11/29/18 03:40 POC Glucose 129 mg/dL (70-99) H 11/29/18 00:21 6.5 % (-5.6) H 11/20/18 13:04 307 (280-300) H 11/26/18 03:32 Lactic Acid 3.3 mmol/L (0.5-2.2) H 11/22/18 04:45 Calcium 8.0 mg/dL (8.6-10.3) L 11/29/18 03:40 Venous Ioniz Calcium 1.07 mmol/L (1.15-1.35) L 11/29/18 05:12 Phosphorus 6.5 mg/dL (2.7-4.5) H 11/26/18 03:32 Iron 64 mcg/dL (65-175) L 11/28/18 11:20 158 mg/dL (203-362) L 11/28/18 11:20 1.3 mg/dL (0.3-1.0) H 11/29/18 03:40 0.7 mg/dL (0.0-0.2) H 11/29/18 03:40 AST 70 Units/L (13-39) H 11/29/18 03:40 ALT 139 Units/L (7-52) H 11/29/18 03:40 108 Units/L (34-104) H 11/26/18 03:32 379 Units/L (140-271) H 11/28/18 11:20 0.21 ng/mL (< 0.04) H* 11/21/18 13:15 4.5 g/dL (6.4-8.9) L 11/29/18 03:40 2.6 g/dL (3.5-5.7) L 11/29/18 03:40 1.9 g/dL (2.4-3.5) L 11/29/18 03:40 Turbid (Clear) A 11/21/18 08:50 Trace mg/dL (Negative) H 11/21/18 08:50 Small (Negative) H 11/21/18 08:50 5-15 per hpf (0-3) H 11/21/18 08:50 Ur Squamous Epith Cells Many per lpf (None-Few) H 11/21/18 08:50 Ur Culture Indicated? YES (NO) A 11/21/18 08:50 Fluid Appearance Cloudy (Clear) A 11/22/18 12:23 Vancomycin Trough 23 mcg/mL (5-10) H 11/22/18 04:45 Hep Bs Antibody < 3.10 mIU/mL (10.00-) L 11/24/18 09:35 Crossmatch See Detail 11/25/18 14:51 - Microbiology Findings Microbiology Findings: Microbiology, Last 48 Hours 11/23/18 11:15 Blood Culture - Final Peripheral Venipuncture No growth. Final report. 11/23/18 11:15 Blood Culture - Final Peripheral Venipuncture No growth. Final report. - Diagnostic Findings Chest x-ray: report reviewed CT scan - chest: report reviewed - Clinical Findings Intake & Output: Intake & Output 05/18/19 05/19/19 05/19/19 23:59 07:59 15:59 Intake Total 550 / 3010.0 300 / 315 15 / 315 Output Total 0 / 2600 15 / 15 Balance 550 / 410.0 285 / 300 15 / 300 Weight 108.4 kg
[2018-11-29] MEDS ORDERED: 0.9 % Sodium Chloride 250 ML IVC PRN (10:30)
[2018-11-29] MEDS ORDERED: Albumin 25% 25gram/100mL 25 GM/100 ML IV.SOLN IVPB PRN (10:30)
--- NOTE | 2018-11-29 10:30 | Nephrology Progress Note ---
Date of Encounter: 11/29/18 Time of Encounter: 09:40 - Assessment and Plan (1) ANY (acute kidney injury) Current Visit: Yes Status: Acute With ongoing Anuria and since his volume status is important to control while on BIPAP (he was just recently extubated within the last 24hr), I recommend C[employer] C[employer] SW[employer]ER today (Friday) as well. Orders placed. (2) Anasarca Current Visit: Yes Status: Acute He is hypervolemic on exam, and will likely need daily renal replacement therapy options such as alternating HD with UF to maintain his volume status. (3) COPD (chronic obstructive pulmonary disease) Current Visit: Yes Status: Acute As per primary Qualifiers: COPD type: emphysema Emphysema type: unspecified Qualified Code(s): J43.9 - Emphysema, unspecified (4) Right leg DVT Current Visit: Yes Status: Acute Qualifiers: Affected thrombotic vein of extremity: unspecified vein of extremity Chronicity: unspecified Qualified Code(s): I82.401 - Acute embolism and thrombosis of unspecified deep veins of right lower extremity (5) Anemia Current Visit: Yes Status: Acute Goal hemoglobin 10-11, and we will monitor. Transfusion parameters as per primary. Thrombocytopneia: Appreciate Heme/Onc Qualifiers: Anemia type: other cause Other causes of anemia: other cause, not classified Qualified Code(s): D64.89 - Other specified anemias (6) Acute respiratory failure with hypoxia Current Visit: Yes Status: Acute Patient is intubated. (7) Septic shock Current Visit: Yes Status: Acute Per primary team. Subjective Principal diagnosis: Sepsis Interval history: He was S/E today. He was wearing BiPAP, and was able to awaken to my verbal commands, but because of his fatigue and work of breathing, he was not able to provide any subjective history or answer any of my questions, thus limiting the subjective portion of this note Objective - Vital Signs Vital signs: Vital Signs Temp Pulse Resp BP Pulse Ox 11/29/18 09:27 18 100 11/29/18 09:08 18 174/85 100 11/29/18 09:02 174/85 100 11/29/18 09:00 117 16 174/85 93 11/29/18 08:00 110 20 171/80 96 11/29/18 07:57 18 11/29/18 07:52 18 96 11/29/18 07:45 98.5 F 05 07:00 107 19 168/77 98 05// 05:59 106 16 120/70 98 05// 05:00 105 16 110/51 98 05 04:00 98.3 F 107 18 115/48 96 05// 03:53 18 156/59 96 05// 03:15 98 05 03:00 107 18 167/67 96 05 02:00 104 17 152/67 99 0519 01:33 18 148/69 100 05/ 01:00 106 16 167/66 99 05//19 00:22 98.8 F 11/29/18 00:00 106 17 165/74 99 0518/19 23:56 20 160/66 97 05/18/19 23:00 104 20 165/68 97 05/18/19 22:26 20 150/82 95 05/18/19 22:00 102 18 150/82 96 0518/19 21:00 103 18 160/68 97 05/18/19 20:00 104 18 166/71 99 05/18/19 19:57 98.1 F 0518/19 19:45 104 05/18/19 19:40 19 163/69 97 05/18/19 19:00 102 18 160/66 98 05/18/19 18:12 97.5 F L 101 18 143/62 98 05/18/19 18:00 101 18 143/62 98 05/18/19 17:58 18 146/67 98 05/18/19 17:00 103 18 147/67 100 05/18/19 16:26 103 14 147/61 100 05/18/19 16:00 103 17 172/61 100 05/18/19 15:53 14 175/61 100 05/18/19 15:45 97.5 F L 05/18/19 15:32 97.5 F L 18 171/63 05/18/19 15:15 166/71 05/18/19 15:00 169/74 05/18/19 14:45 164/61 05/18/19 14:30 147/84 05/18/19 14:25 17 121/55 100 05/18/19 14:15 116/51 05/18/19 14:00 93 17 147/84 100 11/28/18 13:45 130/53 11/28/18 13:30 121/52 11/28/18 13:15 132/53 11/28/18 13:00 65 16 143/58 96 11/28/18 12:45 177/63 11/28/18 12:30 177/63 11/28/18 12:15 185/64 11/28/18 12:00 98 F 85 16 177/63 96 11/28/18 11:53 19 183/70 96 11/28/18 11:00 92 17 173/73 96 11/28/18 10:55 16 100 Intake and Output 11/28/18 11/29/18 11/29/18 23:59 07:59 15:59 Intake Total 550 / 3010.0 300 / 395 95 / 395 Output Total 0 / 2600 15 / 15 Balance 550 / 410.0 285 / 380 95 / 380 Intake: IV Fluids 100 / 810.0 300 / 395 95 / 395 FentaNYL (PF) 1,000 MCG In 0.9 200 / 215 15 / 215 % Sodium Chloride 80 ML @ 50 MCG/HR 5 mls/hr IVC [facility] Rx #:[id number] Diprivan 1,000 mg In 100 ml @ 5 100 / 400.0 100 / 180 80 / 180 MCG/KG/MIN 2.91 mls/hr IVC . Q24H [facility] Rx#:[id number] Blood Product 450 / 1600 Platelet Pheresis Lp Irr 3rd 450 / 450 Unit [id number] Output: Catheter 0 / 0 15 / 15 Gastric Drainage 0 / 0 0 / 0 Other: Weight 108.4 kg Blood Glucose* 129 Patient Weight 11/29/18 23:59 Weight 108.4 kg - General Appearance General appearance: Present: well-developed, well-nourished, appears started age, obese, fatigue, frail EENT: Present: ATNC, PERRL, mucous membranes moist Additional Comments: Breathing via BIPAP Neck: Present: supple Respiratory: Present: rales, course breath sounds, rhonchi Cardiology: Present: edema (1+ hand edema bilaterally with 2+ pretibial pitting edema bilaterally) Dialysis Vascular Access: Venous Catheter (RIJ temporary HD catheter, triple lumen, with dressing in place) Gastrointestinal: Present: normoactive bowel sounds, no tenderness, no guarding, obese Integumentary: Present: warm and dry, ecchymotic Neurologic: Present: no focal deficit Additional Comments: follows verbal commands Musculoskeletal: Present: no erythema, no cyanosis Psychiatric: Present: mood/affect appropriate, cooperative - Lab 11/29/18 15:51 11/29/18 03:40 Most recent lab results 11/29/18 11/29/18 03:40 04:48 ABG pH 7.42 ABG pCO2 47 H ABG pO2 72 L ABG HCO3 30 H ABG O2 Saturation 95 Calcium 8.0 L Consult Discharge Plan - Plan Referrals: [facility] [Primary Care Provider] -
[2018-11-29] MEDS ORDERED: 0.9 % Sodium Chloride 1,000 ML ONE (10:44)
[2018-11-29] MEDS ORDERED: *HR* Heparin 10,000 UNIT/10 ML VIAL IV PRN (10:46)
[2018-11-29] MEDS: Nitroglycerin 25 MG/250 ML INFUS..BTL IVC SCH (11:40)
--- NOTE | 2018-11-29 12:47 | Oncology Inp Consult Note ---
Date of Encounter: 11/29/18 Time of Encounter: 12:38 - Data of Consult Requesting Physician: Kika Yang MD Primary Care Provider: PCP [facility] - Consult Narrative Reason for consult: Anemia/thrombocytopenia History of present illness: A/P: Anemia -Likely 2/2 underlying sepsis, rectus sheath hematoma, and possible GIB -Transfused 7 units of PRBCs since admission. -H/H 8.6/ 26.7 with an MCV 91.1, please continue to monitor H/H q12h. -Please transfuse 1 unit of PRBCs for Hgb < 7.0 -LDH 379, haptoglobin pending. -PT/INR 10.6/ 0.9. aPTT 30.8. Fibrinogen 568. -Reticulocyte count 0.13 and responding appropriately. -B12 846, Folate 6.0. Fe 64, % sat 29, Transferrin 158. -Blood smear pending -CT A/P w/o contrast shows left rectus abdominus intramuscular hematoma has significantly decreased in size. However, there is severe diffuse progressive body wall edema and probable disseminated hemorrhage. There is no new acute intramuscular hematoma seen. A centrally stable, mild pelvic properitoneal hemorrhage that is dissected from the left rectus hematoma is seen as well. Thrombocytopenia -Plts 33. Decreased likely 2/2 to underlying sepsis/ PNA -Please transfuse 1 unit of plts for plts < 50 in light of recent rectus sheath hematoma and concern for possible GIB -Please Check HIT Ab; plts 33 and did receive lovenox at the NH per notes Leukocytosis -Likely 2/2 sepsis/ PNA -WBC trending down to 11.8 from 43.2 -Nucleated RBCs seen on differential but can occur in acute, inflammatory setting as well. May need BMB as an outpatient if they persist. ANY, Anemia, thrombocytopenia, and MS changes -TTP vs aHUS less likely, however for thoroughness would recommend ruling these out -Please send off for [id number] -Please check C3, C4, CH50 Rectus Sheath hematoma -Appears to have stabilized per CT A/P w/o contrast below -Please continue to monitor H/H closely Sepsis 2/2 to PNA -Managed by primary team -WBC trending down from 43.2 to 11.8 -Lactic acid 7.7 to 0.6 -Patient clinically improving. Acute DVT -RLE DVT diagnosed at the NH -RLE doppler DVT R posterior tibial vein -IVC filter placed 5/12/19 -Hold anticoagulation as platelets < 50, and in light of rectus sheath hematoma and concern for GIB. I spent 45 min of Critical Care time with this patient, evaluating, reviewing, and providing care based on his presentation. It involved decision making of high complexity to assess, manipulate, and support vital organ systems. Thanks for the consult! We will continue to follow along with you. HPI: The patient is a 73 yo WM w/h/o COPD, HTN, HLD, and multiple previous CVA's. Over the past few weeks he has had a yellow productive cough, worsening dyspnea, and occasional black stools. He was admitted to the NH on 11/17/18 and was treated for presumed pneumonia. He was then found to have R lower leg asymmetrical swelling; a d-dimer was obtained and found to be normal. A subsequent LE duplex US was done and showed a subacute DVT in his RLE; he was started on lovenox for therapeutic anticoagulation. He had a no evidence of a PE on the CTA chest that was performed. Soon after, he was switched to apixaban for therapeutic anticoagulation but then became acutely hypotensive and unresponsive. He was given 2L fluid boluses which brought up his BP to 80s/40s and his mental status improved. No changes were seen on the EKG done at that time. Labs showed an acute drop in his Hgb from 13.4 on 11/18/18 to 8.9 on the day of admission, FOBT positve, WBC 36.6, Cr 1.2, and trop 0.07. The NH was concerned of an acute GI bleed and requested transfer to the [place] ICU for continued management. We have been consulted for anemia/ thrombocytopenia. Since admission, he has been intubated and extubated (now on BIPAP), had a bronchoscopy with BAL done that was positive for stenotrophomonas maltophilia, and found to have a large, left sided rectus sheath hematoma that has now stabilized, melena, ANY requiring [employer] and now on HD, and been septic requiring pressors. Today, he endorses chills, fevers, abdominal pain, and SOB. He can only nod to questions and has his BIPAP in place. He remains sedated. ROS: 12 point ROS attempted as he has a BIPAP in place and is currently sedated. Not able to fully complete. PE: Gen: On BIPAP, sedated but responsive to voice and commands. HEENT: NC/AT, EOMI, MMM CV: RRR, no MRGs LUNGS: Coarse BS b/l, no w/r/r. ABD: Soft, obese, slightly distended. Hypoactive BS. NT. EXT: 2-3+ pitting edema in LEs b/l. No cyanosis or clubbing. Neuro: Sedated and on BIPAP. Moves all four 4 extremities. Past Med Surg Social Fam HX - Past Medical History Medical history: COPD, hyperlipidemia, hypertension - Social History Smoking Status: Never smoker Smokeless Tobacco Status: No Alcohol use: none Medications and Allergies Acetaminophen [Tylenol] 650 mg PO Q8H PRN 11/20/18 [History] Amlodipine Besylate 2.5 mg PO DAILY 11/20/18 [History] Apixaban [Eliquis] 2.5 mg PO BID 11/20/18 [History] Atorvastatin Calcium [Lipitor] 20 mg PO DAILY 11/20/18 [History] Bisacodyl [Woman's Laxative] 10 mg PO DAILY PRN 11/20/18 [History] Budesonide/Formoterol 160/4.5 [Symbicort 160/4.5] 2 puff IH BIDR 11/20/18 [Hi story] Calcium Carbonate 650 mg PO DAILY 11/20/18 [History] Carboxymethylcellulose Sodium [Refresh Tears] 1 drop BOTH EYES TID PRN 11/20/18 [History] Chlorhexidine Rinse 15 ml PO BID 11/20/18 [History] Clopidogrel [Plavix] 75 mg PO DAILY 11/20/18 [History] Docusate [Colace] 200 mg PO BID 11/20/18 [History] Escitalopram [Lexapro] 10 mg PO DAILY 11/20/18 [History] Guaifenesin 400 mg PO TID 11/20/18 [History] Insulin ASPART [NovoLOG] 0 unit SQ TIDWM 11/20/18 [History] Ipratropium/Albuterol Neb [Duoneb] 3 ml IH Q4HR PRN 11/20/18 [History] Lisinopril [Zestril] 20 mg PO DAILY 11/20/18 [History] Metoprolol Succinate [Toprol Xl] 75 mg PO DAILY 11/20/18 [History] Mineral Oil 133 ml RC DAILY PRN 11/20/18 [History] Omeprazole [PriLOSEC] 20 mg PO DAILY 11/20/18 [History] Simethicone [Gas-X] 160 mg PO BID PRN 11/20/18 [History] Tamsulosin HCl [Flomax] 0.4 mg PO DAILY 11/20/18 [History] Zolpidem [Ambien] 5 mg PO HS 11/20/18 [History] hydrOXYzine HCl [Hydroxyzine HCl] 25 mg PO TID 11/20/18 [History] Allergy/AdvReac Type Severity Reaction Status Date / Time tolmetin Allergy Rash Verified 11/05/18 14:39 Oncology Inpatient Results Labs: 11/28/18 11/29/18 11/29/18 11:20 03:40 03:40 WBC 11.8 H RBC 2.93 L Hgb 8.6 L Hct 26.7 L MCV 91.1 MCH 29.4 MCHC 32.2 RDW 17.1 H Plt Count 33 L MPV 11.9 Seg Neutrophils % 78.0 Band Neutrophils % 10.0 H Lymphocytes % 6.0 Monocytes % 6.0 Neutrophils # 10.4 H Lymphocytes # 0.7 Monocytes # 0.7 Nucleated RBCs/100 WBC 0.2 H Platelet Estimate Decreased L PT 10.6 INR 0.9 Fibrinogen 568 H Sodium 136 Potassium 4.2 Chloride 98 Carbon Dioxide 28 BUN 37 H Creatinine 2.35 H Est GFR ( Amer) 33 L Est GFR (Non-Af Amer) 27 L BUN/Creatinine Ratio 16 Glucose 129 H Calculated Osmolality 292 Calcium 8.0 L Total Bilirubin 1.3 H Direct Bilirubin 0.7 H Indirect Bilirubin 0.6 AST 70 H ALT 139 H Alkaline Phosphatase 80 Serum Total Protein 4.5 L Albumin 2.6 L Globulin 1.9 L Albumin/Globulin Ratio 1.4 Imaging: CT/CT abd pelvis wo no iv no oral 11/28/18 IMPRESSION: 1. The previously identified left rectus abdominus intramuscular hematoma has significantly decreased in size. There is severe diffuse progressive body wall edema and probable disseminated hemorrhage. There is no new acute intramuscular hematoma. 2. Centrally stable mild pelvic properitoneal hemorrhage that is dissected from the left rectus hematoma. New mild ascites and progressive peritoneal and retroperitoneal edema. No significant retroperitoneal hematoma. 3. Developing mild adynamic small-bowel ileus. Mild progressive focal stool in the distal sigmoid colon through the rectum which may relate to constipation/impaction. 4. Progressive mild-moderate left pleural effusion with lower lobe atelectasis. New trace left pleural effusion with mild right lung base atelectasis versus pneumonia. Venous Duplex US b/l LE 11/2018 Impressions: Lower extremity abnormal deep exam: right posterior tibial vein demonstrates acute thrombosis. Normal contralateral venous exam. Consult Discharge Plan - Plan [facility]errals: [facility] [Primary Care Provider[facility] - Inpatient Charges Provider: Dr. Spencer Neumann Consult - Inpatient: [id number]
[2018-11-29] MEDS: OXYCODONE Oral CONC 10 MG/0.5 ML ORAL.SYG SL PRN ×2 (15:13→20:20)
[2018-11-29] MEDS: Levofloxacin 500 MG/100 ML 500 MG/100 ML BAG IVPB SCH (15:13)
[2018-11-29] MEDS ORDERED: *HR* FentaNYL (PF) 100 MCG/2 ML VIAL IVP ONE (16:04)
[2018-11-29] MEDS: Ondansetron 4 MG/2 ML VIAL IVP PRN (16:21)
[2018-11-29 16:44] LABS: Eosinophils % 0.6 %
[2018-11-29 16:46] LABS: Basophils % 0.2 %; Eosinophils # 0.1 K/mcL (0.0-0.6); Hematocrit 28.7 % (37.5-50.1); Hemoglobin 9.5 g/dL (12.9-16.9); Immature Platelets 11.6 % (1.1-6.1); Lymphocytes # 0.5 K/mcL (0.6-4.6); Lymphocytes % 4.3 %; Mean Corpuscular HGB Conc 33.1 g/dL (31.6-35.5); Mean Corpuscular Hemoglobin 29.9 pg (28.0-33.3); Mean Corpuscular Volume 90.3 fL (83.0-100.0); Mean Platelet Volume 13.2 fL (9.4-12.4); Monocytes # 0.3 K/mcL (0.0-1.3); Monocytes % 2.7 %; Neutrophils # 10.7 K/mcL (1.6-8.9); Red Blood Count 3.18 M/mcL (4.19-5.50); Red Cell Distribution Width 17.1 % (11.5-14.5); Segmented Neutrophils % 90.2 %
[2018-11-29 16:51] LABS: Platelet Count 23 K/mcL (140-400)
[2018-11-29 17:13] LABS: Platelet Estimate Marked Decrease (Normal)
[2018-11-29] MEDS ORDERED: *HR* Metoprolol 5 MG/5 ML VIAL IVP PRN (18:16)
[2018-11-29] MEDS ORDERED: 0.9 % Sodium Chloride 250 ML ONE (18:29)
[2018-11-30] MEDS: Artificial Tears SOLN 15 ML BOTTLE BOTH EYES SCH ×3 (00:12→08:13)
[2018-11-30] MEDS: Insulin LISPRO 300 UNITS/3 ML VIAL SQ SCH ×5 (00:12→23:54)
[2018-11-30] MEDS: OXYCODONE Oral CONC 10 MG/0.5 ML ORAL.SYG SL PRN ×2 (01:16→05:59)
[2018-11-30 01:17] LABS: Hematocrit 26.2 % (37.5-50.1); Hemoglobin 8.5 g/dL (12.9-16.9)
[2018-11-30] MEDS: Ipratropium/Albuterol Neb 3 ML IH SCH ×4 (03:34→21:59)
[2018-11-30 04:20] LABS: Hematocrit 26.4 % (37.5-50.1); Hemoglobin 8.5 g/dL (12.9-16.9); Mean Corpuscular HGB Conc 32.2 g/dL (31.6-35.5); Mean Corpuscular Hemoglobin 29.4 pg (28.0-33.3); Mean Corpuscular Volume 91.3 fL (83.0-100.0); Mean Platelet Volume 10.7 fL (9.4-12.4); Red Blood Count 2.89 M/mcL (4.19-5.50); Red Cell Distribution Width 17.1 % (11.5-14.5)
[2018-11-30 04:21] LABS: Platelet Count 59 K/mcL (140-400)
[2018-11-30 04:31] LABS: Calcium 8.6 mg/dL (8.6-10.3); Potassium 4.7 mEq/L (3.5-5.1)
[2018-11-30 04:33] LABS: Albumin 2.9 g/dL (3.5-5.7); Albumin/Globulin Ratio 1.4 (1.1-2.2); Bilirubin,Direct 0.8 mg/dL (0.0-0.2); Bilirubin,Indirect 0.5 mg/dL (0.0-1.2); Bilirubin,Total 1.3 mg/dL (0.3-1.0); Globulin 2.1 g/dL (2.4-3.5)
[2018-11-30 04:34] LABS: Prothrombin Time 11.1 Seconds (9.4-12.1)
[2018-11-30 04:36] LABS: Activated Partial Thrombo Time 26.9 Seconds (26.0-36.0)
[2018-11-30 04:55] LABS: Eosinophils # 0.2 K/mcL (0.0-0.6); Lymphocytes # 0.4 K/mcL (0.6-4.6); Monocytes # 0.4 K/mcL (0.0-1.3); Platelet Estimate Decreased (Normal)
[2018-11-30 05:11] LABS: Magnesium 2.3 mg/dL (1.6-2.6); Phosphorous 5.3 mg/dL (2.7-4.5)
[2018-11-30 05:13] LABS: VBG Ionized Calcium 1.07 mmol/L (1.15-1.35)
[2018-11-30] MEDS: Pantoprazole 40 MG VIAL IVP SCH ×2 (06:00→18:09)
[2018-11-30] MEDS: Hydrocortisone Sodium Succ 100 MG/2 ML VIAL IVP SCH ×2 (06:01→18:08)
[2018-11-30] MEDS ORDERED: 0.9 % Sodium Chloride 250 ML IVC PRN (07:12)
[2018-11-30] MEDS ORDERED: 0.9 % Sodium Chloride 1,000 ML PRIME SCH (07:15)
[2018-11-30] MEDS: Dexmedetomidine HCl 400 MCG/100 ML MLS IVC SCH (08:12)
[2018-11-30] MEDS: Norepinephrine 8 MG in D5% in Water 250 ML IVC SCH ×2 (08:13→23:25)
[2018-11-30] MEDS: Docusate Oral Soln 100 MG/10 ML UDC GTUBE SCH ×2 (08:16→19:24)
[2018-11-30] MEDS: Chlorhexidine Rinse 15 ML MOUTHWASH MM SCH (08:16)
[2018-11-30] MEDS ORDERED: 0.9 % Sodium Chloride 2,000 ML ONE (08:22)
--- NOTE | 2018-11-30 08:50 | Pulmonology Progress Note ---
Date of Encounter: 11/30/18 Time of Encounter: 08:00 Assessment and Plan (1) Pneumonia Current Visit: Yes Status: Acute Patient is recovering from Stenotrophomonas maltophilia pneumonia. To continue with the current regimen of the antibiotics patient is responding well Qualifiers: Pneumonia type: due to other aerobic Gram-negative bacteria Laterality: unspecified laterality Lung location: unspecified part of lung Qualified Code(s): J15.6 - Pneumonia due to other Gram-negative bacteria (2) Acute respiratory failure with hypoxia Current Visit: Yes Status: Acute Has acceptable oxygenation and ventilation on BiPAP complicated by pneumonia and hydrostatic pulmonary edema with underlying COPD patient is slowly getting better with antibiotics and bronchodilators and fluid removal through dialysis. (3) ANY (acute kidney injury) Current Visit: Yes Status: Acute Continue with the hemodialysis and ultrafiltration according to nephrology. (4) DVT prophylaxis Current Visit: Yes Status: Acute To continue the current regimen. (5) Septic shock Current Visit: Yes Status: Acute Septic shock resolved. Subjective Principal diagnosis: Sepsis Interval history: Patient currently intubated due to worsening Stenotrophomonas maltophilia pneumonia. Patient got extubated recently patient is doing well on BiPAP patient is getting hemodialysis and ultrafiltration today will reassess tomorrow we will keep him on BiPAP today and overnight. Objective PUL Vital signs: Last Vital Signs Temp 99.1 F 11/30/18 07:58 Pulse 114 11/30/18 08:39 Resp 20 11/30/18 08:00 BP 160/73 11/30/18 08:00 Pulse Ox 95 11/30/18 08:00 General appearance: no acute distress Eyes: nonicteric ENT: oropharynx moist Effort: mildly labored Auscultation: bilateral: diminished breath sounds (Bilateral basilar), rales (Scattered rales) Cardiovascular: regular rate and rhythm Gastrointestinal: hypoactive bowel sounds non-focal exam, other (waking up to commands and following simple commands) Results - Laboratory Findings CBC and BMP: 11/30/18 03:55 11/30/18 03:55 ABG ABG pH 7.42 pH Units (7.32-7.45) 11/29/18 04:48 ABG pCO2 47 mmHg (35-45) H 11/29/18 04:48 ABG pO2 72 mmHg (85-104) L 11/29/18 04:48 ABG O2 Saturation 95 % (95-98) 11/29/18 04:48 PT/INR, D-dimer PT 11.1 Seconds (9.4-12.1) 11/30/18 03:55 Abnormal lab findings: Abnormal lab results WBC 11.9 K/mcL (4.3-11.1) H 11/29/18 15:51 RBC 2.89 M/mcL (4.19-5.50) L 11/30/18 03:55 Hgb 8.5 g/dL (12.9-16.9) L 11/30/18 03:55 Hct 26.4 % (37.5-50.1) L 11/30/18 03:55 MCHC 31.1 g/dL (31.6-35.5) L 11/20/18 12:43 RDW 17.1 % (11.5-14.5) H 11/30/18 03:55 Plt Count 59 K/mcL (140-400) L D 11/30/18 03:55 MPV 13.2 fL (9.4-12.4) H 11/29/18 15:51 Reticulocyte # 0.13 M/mcL (0.05-0.10) H 11/28/18 11:20 10.0 % (0-4) H 11/29/18 03:40 10.0 K/mcL (1.6-8.9) H 11/30/18 03:55 0.4 K/mcL (0.6-4.6) L 11/30/18 03:55 Nucleated RBCs/100 WBC 0.2 /100 WBC (0) H 11/29/18 03:40 Present (Not Present) A 11/28/18 22:00 Decreased (Normal) L 11/30/18 03:55 Present (Not Present) A 11/28/18 22:00 Immature Plt Fraction 11.6 % (1.1-6.1) H 11/29/18 15:51 1+ (Not Present) A 11/25/18 03:40 Present (Not Present) A 11/25/18 03:40 1+ (Not Present) A 11/27/18 22:30 Percent Retic 4.3 % (1.6-2.8) H 11/28/18 11:20 PT 12.6 Seconds (9.4-12.1) H 11/23/18 11:15 568 mg/dL (169-393) H 11/28/18 11:20 ABG pH 7.31 pH Units (7.32-7.45) L 11/27/18 04:48 ABG pCO2 47 mmHg (35-45) H 11/29/18 04:48 ABG pO2 72 mmHg (85-104) L 11/29/18 04:48 ABG HCO3 30 mEq/L (21-27) H 11/29/18 04:48 ABG Total CO2 32 mEq/L (20-26) H 11/29/18 04:48 ABG O2 Saturation 92 % (95-98) L 11/28/18 04:55 ABG Base Excess 5 mEq/L (-2 to 3) H 11/29/18 04:48 Potassium 5.6 mEq/L (3.5-5.1) H 11/26/18 03:32 Chloride 97 mEq/L (98-107) L 11/26/18 03:32 Carbon Dioxide 30 mEq/L (23-29) H 11/23/18 11:15 BUN 62 mg/dL (8-23) H 11/30/18 03:55 3.65 mg/dL (0.70-1.30) H 11/30/18 03:55 Est GFR ( Amer) 20 (> 60) L 11/30/18 03:55 Est GFR (Non-Af Amer) 17 (> 60) L 11/30/18 03:55 Glucose 107 mg/dL (70-105) H 11/30/18 03:55 POC Glucose 133 mg/dL (70-99) H 11/29/18 23:36 6.5 % (-5.6) H 11/20/18 13:04 306 (280-300) H 11/30/18 03:55 Lactic Acid 3.3 mmol/L (0.5-2.2) H 11/22/18 04:45 Calcium 8.0 mg/dL (8.6-10.3) L 11/29/18 03:40 Venous Ioniz Calcium 1.07 mmol/L (1.15-1.35) L 11/30/18 05:06 Phosphorus 5.3 mg/dL (2.7-4.5) H 11/30/18 03:55 Iron 64 mcg/dL (65-175) L 11/28/18 11:20 158 mg/dL (203-362) L 11/28/18 11:20 1.3 mg/dL (0.3-1.0) H 11/30/18 03:55 0.8 mg/dL (0.0-0.2) H 11/30/18 03:55 AST 51 Units/L (13-39) H 11/30/18 03:55 ALT 111 Units/L (7-52) H 11/30/18 03:55 108 Units/L (34-104) H 11/26/18 03:32 379 Units/L (140-271) H 11/28/18 11:20 0.21 ng/mL (< 0.04) H* 11/21/18 13:15 5.0 g/dL (6.4-8.9) L 11/30/18 03:55 2.9 g/dL (3.5-5.7) L 11/30/18 03:55 2.1 g/dL (2.4-3.5) L 11/30/18 03:55 Turbid (Clear) A 11/21/18 08:50 Trace mg/dL (Negative) H 11/21/18 08:50 Small (Negative) H 11/21/18 08:50 5-15 per hpf (0-3) H 11/21/18 08:50 Ur Squamous Epith Cells Many per lpf (None-Few) H 11/21/18 08:50 Ur Culture Indicated? YES (NO) A 11/21/18 08:50 Fluid Appearance Cloudy (Clear) A 11/22/18 12:23 Vancomycin Trough 23 mcg/mL (5-10) H 11/22/18 04:45 Hep Bs Antibody < 3.10 mIU/mL (10.00-) L 11/24/18 09:35 Crossmatch See Detail 11/25/18 14:51 - Microbiology Findings Microbiology Findings: Microbiology, Last 48 Hours 11/23/18 11:15 Blood Culture - Final Peripheral Venipuncture No growth. Final report. 11/23/18 11:15 Blood Culture - Final Peripheral Venipuncture No growth. Final report. - Clinical Findings Intake & Output: Intake & Output 11/29/18 11/30/18 11/30/18 23:59 07:59 15:59 Intake Total 300 / 1405 402 / 402 Output Total 25 / 4290 65 / 65 Balance 275 / -2885 337 / 337 Weight 105.8 kg Consult Discharge Plan - Plan [facility]errals: [facility] [Primary Care Provider] - Critical Care Time Critical Care Time: Yes Total Critical Care Time: 40 Attestation: I spent 40 minutes of Critical Care time with this patient. It involved decision making of high complexity to assess, manipulate, and support vital organ system failure and/or to prevent further life threatening deterioration of the patient's condition. The time involved in the performance of separately reportable procedures was not counted toward critical care time.
[2018-11-30] MEDS ORDERED: Milk and Molasses Enema 200 ML RC ONE (11:41)
--- NOTE | 2018-11-30 12:13 | Nephrology Progress Note ---
Date of Encounter: 11/30/18 Time of Encounter: 10:00 - Assessment and Plan (1) ANY (acute kidney injury) Current Visit: Yes Status: Acute He needs ongoing clearance and fluid removal, so after reviewing his labs, vitals, medications, progress notes, and imaging, I have a performed a complex level of medical decision-making plus evaluation and management all in the effort to order his hemodialysis treatment for today. I have ordered an Anti PLA2 receptor, which if abnormal would suggest membranous nephropahty (he has ANY, anasarca and VTE, all of which could be seen in Membranous). I updated the ICU team: He will need ongoing daily treatments to remove edema as he remains with anasarca. Tentatively planning on ultrafiltration for Friday. I recommends following a renal protective strategy: Strict I's and O's, daily weights, avoidance of nephrotoxic agents, renal dosing. Thank you (2) Anasarca Current Visit: Yes Status: Acute He is hypervolemic on exam, and will likely need daily renal replacement therapy options such as alternating HD with UF to maintain his volume status. (3) COPD (chronic obstructive pulmonary disease) Current Visit: Yes Status: Acute As per primary Qualifiers: COPD type: emphysema Emphysema type: unspecified Qualified Code(s): J43.9 - Emphysema, unspecified (4) Right leg DVT Current Visit: Yes Status: Acute IVC filter placed by Vascular surgery. Qualifiers: Affected thrombotic vein of extremity: unspecified vein of extremity Chronicity: unspecified Qualified Code(s): I82.401 - Acute embolism and thrombosis of unspecified deep veins of right lower extremity (5) Anemia Current Visit: Yes Status: Acute Goal hemoglobin 10-11, and we will monitor. Transfusion parameters as per primary. Thrombocytopneia: Appreciate Heme/Onc Qualifiers: Anemia type: other cause Other causes of anemia: other cause, not classified Qualified Code(s): D64.89 - Other specified anemias (6) Acute respiratory failure with hypoxia Current Visit: Yes Status: Acute He remains on BiPAP (7) Septic shock Current Visit: Yes Status: Acute Subjective Principal diagnosis: Sepsis Interval history: He was S/E today. He was wearing BiPAP, and was able to awaken to my verbal commands, but because of his fatigue and work of breathing, and so again this limited the subjective portion of this note Objective - Vital Signs Vital signs: Vital Signs Temp Pulse Resp BP Pulse Ox 11/30/18 12:00 120/61 11/30/18 11:45 115/64 11/30/18 11:33 26 97 11/30/18 11:31 98.8 F 118 21 129/70 97 11/30/18 11:30 111/69 11/30/18 11:15 108/62 11/30/18 11:00 118/81 11/30/18 10:45 123/75 11/30/18 10:30 132/70 11/30/18 10:21 121 21 127/81 97 11/30/18 10:15 139/77 11/30/18 10:00 118/81 11/30/18 09:45 99.3 F 22 160/72 11/30/18 09:13 115 21 158/68 95 11/30/18 08:39 114 11/30/18 08:00 113 20 160/73 95 11/30/18 07:58 99.1 F 11/30/18 06:00 104 19 95 11/30/18 05:00 117 16 142/75 97 11/30/18 04:16 97.4 F L 11/30/18 04:08 118 11/30/18 04:00 117 18 141/101 97 11/30/18 03:34 16 154/72 98 11/30/18 03:00 119 19 145/72 98 11/30/18 02:00 112 15 146/87 97 11/30/18 01:00 112 15 132/95 95 11/30/18 00:50 98.7 F 11/30/18 00:40 18 146/72 95 11/30/18 00:04 98.2 F 106 17 144/74 97 11/29/18 23:59 111 11/29/18 23:00 107 16 151/74 98 11/29/18 22:00 114 17 147/79 100 11/29/18 21:58 98.4 F 115 17 147/79 97 11/29/18 21:46 15 147/70 98 11/29/18 21:43 98.5 F 112 15 147/70 98 11/29/18 21:25 98.5 F 17 147/70 98 11/29/18 21:00 114 15 138/73 100 11/29/18 20:00 118 16 143/76 100 11/29/18 19:35 98.5 F 11/29/18 19:12 118 11/29/18 19:00 118 18 136/78 98 11/29/18 18:35 118 21 145/75 100 11/29/18 18:00 88 21 159/59 95 11/29/18 17:00 120 21 127/61 91 11/29/18 16:10 98.8 F 11/29/18 16:00 119 25 143/69 98 11/29/18 15:31 24 97 11/29/18 15:00 98.1 F 118 25 131/76 98 11/29/18 14:45 126/72 11/29/18 14:30 113/63 11/29/18 14:15 128/68 11/29/18 14:00 119 16 131/71 94 11/29/18 13:45 129/75 11/29/18 13:30 135/73 11/29/18 13:15 139/68 11/29/18 13:00 151/78 11/29/18 12:45 142/76 11/29/18 12:35 97.0 F L 11/29/18 12:30 135/87 11/29/18 12:15 147/73 Intake and Output 11/29/18 11/30/18 11/30/18 23:59 07:59 15:59 Intake Total 300 / 1405 402 / 1002 600 / 1002 Output Total 25 / 4290 65 / 90 25 / 90 Balance 275 / -2885 337 / 912 575 / 912 Intake: IV Fluids 100 / 605 110 / 110 Calcium Gluconate 1,000 MG In 0 110 / 110 .9 % Sodium Chloride 100 ML @ 220 mls/hr IVPB Q6HR PRN Rx#: [id number] Levaquin Premix 500mg/100mL 500 100 / 100 mg In 100 ml @ 100 mls/hr IVPB Q48H [facility] Rx#:[id number] Oral 0 / 0 0 / 0 0 / 0 Blood Product 200 / 200 292 / 292 Platelet Pheresis Lp Irr 1st 0 / 0 292 / 292 Unit [id number] Platelet Pheresis Lp Irr 3rd 200 / 200 Unit [id number] Intake, Rinseback and Flushes 600 / 600 Output: Urine 0 / 0 Straight Cath 25 / 25 Catheter 25 / 190 65 / 65 Other: Weight 105.8 kg 105.8 kg Blood Glucose* 108 90 Hemodialysis Net Fluid Removed 2329 (mL) Patient Weight 11/30/18 23:59 Weight 105.8 kg - General Appearance General appearance: Present: well-developed, well-nourished, appears started age, obese, fatigue, frail EENT: Present: ATNC, PERRL, mucous membranes moist Additional Comments: wearing BiPAP mask Neck: Present: supple Respiratory: Present: rales, course breath sounds, rhonchi Cardiology: Present: edema (consistent with anasarca), regular rate, regular rhythm, normal S1, normal S2 Gastrointestinal: Present: normoactive bowel sounds, no tenderness, no guarding, obese Integumentary: Present: warm and dry, ecchymotic Neurologic: Present: no focal deficit, no asterixis Musculoskeletal: Present: no cyanosis, no clubbing Psychiatric: Present: mood/affect appropriate, cooperative - Lab 11/30/18 03:55 11/30/18 03:55 Most recent lab results 11/30/18 03:55 Calcium 8.6 Phosphorus 5.3 H Magnesium 2.3 Consult Discharge Plan - Plan Referrals: [facility] [Primary Care Provider] -
[2018-11-30 12:18] LABS: VBG Ionized Calcium 1.08 mmol/L (1.15-1.35)
[2018-11-30] MEDS: Nitroglycerin 25 MG/250 ML INFUS..BTL IVC SCH (12:24)
--- NOTE | 2018-11-30 12:34 | Oncology Inp Progress Note ---
<NelSathish - Last Filed: 11/30/18 17:44> Date of Encounter: 11/30/18 Oncology: Obj Data - Labs CBC & Chem 7: 11/30/18 03:55 11/30/18 03:55 Consult Discharge Plan - Plan Referrals: [facility] [Primary Care Provider] - Inpatient Charges Provider: Dr. Spencer Neumann Follow up - Inpatient: [id number] - Attending Attestation I examined this patient and my medical decision-making was reviewed with the Advanced Practice Nurse. I agree with the documented findings, disposition and treatment plan as described except to the extent set forth below. -Patient seen in the ICU as they are a critically ill patient requiring close monitoring and a higher level of care. We are happy to participate in their management. -H/H stabilizing and Plts 59 -He continues to remain on BIPAP and HD -HIT Ab pending, haptoglobin pending -Will check C3, C4, CH50 and [id number] <Merary Mills - Last Filed: 12/01/18 07:45> Date of Encounter: 11/30/18 Time of Encounter: 12:15 Oncology: Subj Interval history: Jarocho is now on bipap. He is awake and able to nod his head to answer direct questions. He is currently receiving hemodialysis. No family at bedside. Hgb is stable at 8.5 and platelets increased to 59,000. No signs of bleeding or oozing from IV insertions sites. - Head Head exam: Present: normal inspection, normocephalic - Respiratory Additional comments: on bipap. - Cardiovascular Cardiovascular exam: Present: tachycardia - GI/Abdominal GI/Abdominal exam: Present: normal bowel sounds, soft - Extremities Exam Additional comments: 3+ pitting edema BLE - Neurological Exam Neurological exam: Present: alert - Skin Skin exam: Present: pallor Additional comments: ecchymosis to flank, improving per nursing staff Oncology: Obj Data - Labs CBC & Chem 7: 12/01/18 03:30 12/01/18 03:30
[2018-11-30 17:24] LABS: Complement C3 93 mg/dL (87-200)
[2018-11-30 18:27] LABS: VBG Ionized Calcium 1.09 mmol/L (1.15-1.35)
[2018-11-30 20:03] LABS: Kappa Qnt Free Light Chains 5.39 mg/dL (0.33-1.94); Lambda Qnt Free Light Chains 3.08 mg/dL (0.57-2.63)
[2018-12-01] MEDS: Ipratropium/Albuterol Neb 3 ML IH SCH ×4 (03:33→21:45)
[2018-12-01 03:54] LABS: Mean Platelet Volume 11.2 fL (9.4-12.4)
[2018-12-01 03:56] LABS: Hemoglobin 9.1 g/dL (12.9-16.9); Immature Platelets 6.8 % (1.1-6.1); Mean Corpuscular HGB Conc 32.5 g/dL (31.6-35.5); Mean Corpuscular Hemoglobin 29.5 pg (28.0-33.3); Mean Corpuscular Volume 90.9 fL (83.0-100.0); Nucleated Red Blood Cells 0.2 /100 WBC (0); Red Blood Count 3.08 M/mcL (4.19-5.50)
[2018-12-01 04:00] LABS: Platelet Count 58 K/mcL (140-400)
[2018-12-01 04:05] LABS: VBG Ionized Calcium 1.05 mmol/L (1.15-1.35)
[2018-12-01 04:14] LABS: Calcium 8.3 mg/dL (8.6-10.3); Potassium 4.4 mEq/L (3.5-5.1)
[2018-12-01 04:30] LABS: Lymphocytes # 0.4 K/mcL (0.6-4.6); Monocytes # 0.2 K/mcL (0.0-1.3); Neutrophils # 9.9 K/mcL (1.6-8.9)
[2018-12-01 04:32] LABS: Platelet Estimate Decreased (Normal)
[2018-12-01] MEDS: Pantoprazole 40 MG VIAL IVP SCH ×2 (06:14→17:54)
[2018-12-01] MEDS: Hydrocortisone Sodium Succ 100 MG/2 ML VIAL IVP SCH ×2 (06:14→17:54)
[2018-12-01] MEDS: Insulin LISPRO 300 UNITS/3 ML VIAL SQ SCH ×3 (06:14→18:04)
[2018-12-01] MEDS ORDERED: *HR* Heparin 10,000 UNIT/10 ML VIAL IV PRN ×3 (06:53→15:24)
[2018-12-01] MEDS ORDERED: 0.9 % Sodium Chloride 250 ML IVC PRN (06:53)
[2018-12-01] MEDS ORDERED: 0.9 % Sodium Chloride 1,000 ML PRIME SCH (07:00)
[2018-12-01] MEDS ORDERED: 0.9 % Sodium Chloride 2,000 ML ONE (07:01)
[2018-12-01] MEDS: Docusate Oral Soln 100 MG/10 ML UDC GTUBE SCH ×2 (08:31→19:30)
--- NOTE | 2018-12-01 10:04 | Nephrology Progress Note ---
Date of Encounter: 12/02/18 Time of Encounter: 10:04 - Assessment and Plan (1) ANY (acute kidney injury) Current Visit: Yes Status: Acute He would not need clearance support today from HD, but d/t his anasarca, I recommend UF today: orders placed. He is complex required a high degree of medical decision-making plus evaluation and management. Pending the Anti PLA2 receptor, which I had ordered if abnormal, this could suggest membranous nephropahty (he has ANY, anasarca and VTE, all of which could be seen in Membranous). As always, I recommends following a renal protective strategy: Strict I's and O's, daily weights, avoidance of nephrotoxic agents, renal dosing. Thank you (2) Anasarca Current Visit: Yes Status: Acute Ongoing hypervoolemic volume status, which is why he has indications for further fluid removal. I am concerned that his blood pressures are dropping with recent sessions of hemodialysis, which is making it harder to remove volume. He appears to be completely third spaced, and intravascularly dry. He may need albumin infusions and/or consideration for CRRT again. (3) COPD (chronic obstructive pulmonary disease) Current Visit: Yes Status: Acute Qualifiers: COPD type: emphysema Emphysema type: unspecified Qualified Code(s): J43.9 - Emphysema, unspecified (4) Right leg DVT Current Visit: Yes Status: Acute Qualifiers: Affected thrombotic vein of extremity: unspecified vein of extremity Chronicity: unspecified Qualified Code(s): I82.401 - Acute embolism and thrombosis of unspecified deep veins of right lower extremity (5) Anemia Current Visit: Yes Status: Acute Qualifiers: Anemia type: other cause Other causes of anemia: other cause, not classified Qualified Code(s): D64.89 - Other specified anemias (6) Acute respiratory failure with hypoxia Current Visit: Yes Status: Acute (7) Septic shock Current Visit: Yes Status: Acute Subjective Principal diagnosis: Sepsis Interval history: He was S/E today. He was wearing BiPAP, and was again able to awaken to my verbal commands, but because of his fatigue and work of breathing, and so again this limited the subjective portion of this note Objective - Vital Signs Vital signs: Vital Signs Temp Pulse Resp BP Pulse Ox 12/01/18 09:00 115 22 165/87 97 12/01/18 08:21 99.1 F 12/01/18 08:00 100 26 158/82 97 05 07:00 111 26 143/74 97 05 06:00 122 24 111/84 94 05 05:11 99.7 F H 12/01/18 05:00 118 24 138/72 98 05 04:00 120 19 160/82 98 05 03:33 21 150/129 94 05 03:00 122 18 133/78 95 05 02:00 123 26 141/85 96 05 01:00 117 21 147/94 93 05 00:00 106 20 130/82 97 05 23:00 100.3 F H 121 23 136/113 92 05 22:00 119 18 155/75 96 05 21:59 20 139/88 95 05 21:00 118 22 145/75 98 05 20:00 120 21 154/80 93 05 19:00 100 F H 112 19 154/92 92 05 18:05 117 19 128/67 94 05/ 16:47 99.2 F 11/30/18 16:31 118 21 114/71 95 05 16:05 25 95 05 14:08 119 20 123/92 96 0520/ 13:31 98.3 F 22 103/70 05/20/19 13:25 123 20 111/58 98 0520/19 13:15 107/61 05/20/19 13:00 130/69 05/20/19 12:45 121/56 05/20/19 12:30 111/76 05/20/19 12:25 95/76 05/20/19 12:20 113 18 88/63 100 05/20/19 12:15 88/63 05/20/19 12:00 120/61 05/20/19 11:45 115/64 05/20/19 11:33 26 97 05/20/19 11:31 98.8 F 118 21 129/70 97 05/20/ 11:30 111/69 05/20/19 11:15 108/62 05/20/19 11:00 118/81 11/30/18 10:45 123/75 11/30/18 10:30 132/70 11/30/18 10:21 121 21 127/81 97 11/30/18 10:15 139/77 Intake and Output 11/30/18 12/01/18 12/01/18 23:59 07:59 15:59 Intake Total 220 / 1222 110 / 110 0 / 110 Output Total 0 / 4190 15 0 / 15 Balance 220 / -2968 95 / 95 0 / 95 Intake: IV Fluids 220 / 330 110 / 110 Calcium Gluconate 1,000 MG In 0 220 / 330 110 / 110 .9 % Sodium Chloride 100 ML @ 220 mls/hr IVPB Q6HR PRN Rx#: [id number] Oral 0 / 0 0 / 0 Output: Urine 0 / 0 Catheter 0 / 65 0 / 15 Urethral (Reynaga) 0 / 0 0 / 0 0 / 0 Other: Meal NPO Blood Glucose* 92 - General Appearance Exam: General appearance: Present: well-developed, well-nourished, appears started age, obese, fatigue, frail EENT: Present: ATNC, PERRL, mucous membranes moist Additional Comments: wearing BiPAP mask Neck: Present: supple Respiratory: Present: course breath sounds Cardiology: Present: 1-2+ LE pitting edema, regular rate, regular rhythm, normal S1, normal S2 Gastrointestinal: Present: normoactive bowel sounds, no tenderness, no guarding, obese Integumentary: Present: warm and dry, ecchymotic Neurologic: Present: no focal deficit, no asterixis Musculoskeletal: Present: no cyanosis, no clubbing Psychiatric: Present: mood/affect appropriate, cooperative - Lab 12/02/18 03:31 12/02/18 03:31 Most recent lab results 12/01/18 03:30 Calcium 8.3 L Consult Discharge Plan - Plan [facility]errals: [facility] [Primary Care Provider] -
[2018-12-01 12:14] LABS: Urine Collection Volume RANDOM mL
--- NOTE | 2018-12-01 13:57 | Oncology Inp Progress Note ---
<Corinne Montiel L - Last Filed: 12/01/18 16:44> Date of Encounter: 12/01/18 Time of Encounter: 11:00 (1) ANY (acute kidney injury) Current Visit: Yes Status: Acute Assessment and plan: Nephrology following Received UF today due to anasarca Anti PLA2 receptor-pending (2) Anemia Current Visit: Yes Status: Acute Assessment and plan: Likely 2/2 underlying sepsis, rectus sheath hematoma, and possible GIB LDH 379, haptoglobin normal PT/INR/aPTT normal. Fibrinogen 568. Reticulocyte count 0.13 and responding appropriately. B12/folate/iron replete Blood smear reveals rare nucleated RBC and rare promyelocyte -CT A/P w/o contrast shows left rectus abdominus intramuscular hematoma has significantly decreased in size. However, there is severe diffuse progressive body wall edema and probable disseminated hemorrhage. There is no new acute intramuscular hematoma seen. A centrally stable, mild pelvic properitoneal hemorrhage that is dissected from the left rectus hematoma is seen as well. Plan: Transfuse for Hgb <7.0 Anticoagulation on hold, IVC filter in place as discussed below Reported melena at [facility], consider GI consultation for endoscopy once stabilized and out of ICU Qualifiers: Anemia type: other cause Other causes of anemia: other cause, not classified Qualified Code(s): D64.89 - Other specified anemias (3) Right leg DVT Current Visit: Yes Status: Acute Assessment and plan: RLE DVT diagnosed at the [facility] RLE doppler DVT R posterior tibial vein IVC filter placed 11/22/18 Plan: Hold anticoagulation as platelets recover, and in light of rectus sheath hematoma and concern for GIB Qualifiers: Affected thrombotic vein of extremity: unspecified vein of extremity Chronicity: unspecified Qualified Code(s): I82.401 - Acute embolism and thrombosis of unspecified deep veins of right lower extremity (4) Thrombocytopenia Current Visit: Yes Status: Acute Assessment and plan: Decreased likely 2/2 to underlying sepsis/ PNA/Acute blood loss Increased to 57 s/p 7 total platelet transfusions Fibrinogen elevated appropriately Plan: Transfuse 1 unit of plts for plts < 50 in light of recent rectus sheath hematoma and concern for possible GIB HIT Ab is negative Low suspicion for TMA- LDH slightly elevated 379, indirect bili is normal, no schistocytes noted on [id number] pending, recheck LDH in AM Oncology: Subj Interval history: Mr. Gomez is resting in bed, utilizing BiPap which makes his communication difficult. I did give him a piece and of paper and pen but he did not utilize. He is somewhat agitated and asking me to "help him get up." No s/s bleeding noted. Nephrology recommending UF today due to anasarca. NO family at bedside during my assessment - Constitutional General appearance: no acute distress, no febrile Exam: Bipap in place, does not follow commands well - Respiratory Respiratory exam: Present: rhonchi. Absent: respiratory distress - Cardiovascular Cardiovascular exam: Present: RRR, tachycardia - GI/Abdominal GI/Abdominal exam: Present: normal bowel sounds, soft. Absent: tenderness - Extremities Exam Additional comments: generalized edema/anasarca BLE pitting edema R>L - Neurological Exam Neurological exam: Present: alert, no focal deficits Additional comments: unable to assess orientation - Psychiatric Psychiatric exam: Present: agitated - Skin Skin exam: Present: dry, pallor, warm Oncology: Obj Data - Labs CBC & Chem 7: 12/01/18 03:30 12/01/18 03:30 Consult Discharge Plan - Plan [facility]errals: [facility] [Primary Care Provider] - Inpatient Charges Provider: Dr. Spencer Neumann <Sarah Neumannmsi - Last Filed: 12/01/18 17:15> Date of Encounter: 12/01/18 Oncology: Obj Data - Labs CBC & Chem 7: 12/01/18 03:30 12/01/18 03:30 Inpatient Charges Provider: Dr. Spencer Neumann Follow up - Inpatient: [id number] - Attending Attestation I examined this patient and my medical decision-making was reviewed with the Advanced Practice Nurse. I agree with the documented findings, disposition and treatment plan as described except to the extent set forth below. -Patient remains critically ill and is being monitored closely in the ICU. -He is receiving UF today and is now off of pressors -H/H and platelets stable -HIT AB negative -C3 93 and C4 19, haptoglobin 43. All within normal limits -[id number] pending
[2018-12-01] MEDS: Nitroglycerin 25 MG/250 ML INFUS..BTL IVC SCH (14:38)
[2018-12-01] MEDS: OXYCODONE Oral CONC 10 MG/0.5 ML ORAL.SYG SL PRN (16:02)
[2018-12-01 17:38] LABS: Beta Globulin (PEP) 0.41 g/dL (0.48-1.10)
[2018-12-01] MEDS: Levofloxacin 500 MG/100 ML 500 MG/100 ML BAG IVPB SCH (17:54)
[2018-12-01 18:00] LABS: ABG Base Excess -2 mEq/L (-2 to 3); ABG HCO3 22 mEq/L (21-27); ABG Oxygen Saturation 100 % (95-98); ABG PCO2 36 mmHg (35-45); ABG PO2 348 mmHg (85-104); ABG TCO2 23 mEq/L (20-26); Blood Gas Modality NIV; Blood Gas PEEP 10 cm H2O; Blood Gas Respiration Rate 12; Blood Gas VT 600 cc
--- NOTE | 2018-12-01 19:16 | Pulmonology Progress Note ---
Date of Encounter: 12/01/18 Time of Encounter: 09:00 Assessment and Plan (1) Acute respiratory failure with hypoxia Current Visit: Yes Status: Acute Has acceptable oxygenation and ventilation on BiPAP complicated by pneumonia and hydrostatic pulmonary edema with underlying COPD patient is slowly getting better with antibiotics and bronchodilators and fluid removal through dialysis. 12/01 patient has acceptable oxygenation and ventilation will need more diuresis as patient is fluid overload hydrostatic pulmonary edema will get better as we go with ultrafiltration with dialysis. (2) Pneumonia Current Visit: Yes Status: Acute Patient is recovering from Stenotrophomonas maltophilia pneumonia. To continue with the current regimen of the antibiotics patient is responding well De-escalate antibiotics patient acute hypoxic respiratory failure is complicated by a hydrostatic pulmonary edema. Patient is almost 12-15 L positive. Qualifiers: Pneumonia type: due to other aerobic Gram-negative bacteria Laterality: unspecified laterality Lung location: unspecified part of lung Qualified Code(s): J15.6 - Pneumonia due to other Gram-negative bacteria (3) ANY (acute kidney injury) Current Visit: Yes Status: Acute Continue with the hemodialysis and ultrafiltration according to nephrology. (4) DVT prophylaxis Current Visit: Yes Status: Acute To continue the current regimen. (5) Septic shock Current Visit: Yes Status: Acute Septic shock resolved. Subjective Principal diagnosis: Sepsis Interval history: Patient currently intubated due to worsening Stenotrophomonas maltophilia pneumonia. Patient got extubated recently patient is doing well on BiPAP patient is getting hemodialysis and ultrafiltration today will reassess tomorrow we will keep him on BiPAP today and overnight. 12/01 patient getting intermittent hemodialysis and during ultrafiltration patient had be hypotensive episode she had a transient loss of consciousness with ataxic breathing with hypoventilation and hypoxia patient breathing stabilized and ventilation stabilized . Objective PUL Vital signs: Last Vital Signs Temp 98.3 F 12/01/18 17:20 Pulse 118 12/01/18 18:00 Resp 24 12/01/18 18:00 BP 95/55 12/01/18 18:00 Pulse Ox 98 12/01/18 18:00 General appearance: no acute distress Effort: mildly labored Auscultation: bilateral: diminished breath sounds, wheezes (scattered wheezes ) Cardiovascular: regular rate and rhythm Gastrointestinal: hypoactive bowel sounds Extremities: edema, anasarca other (Patient is lethargic following commands no obvious focal neurological deficit.) Results - Laboratory Findings CBC and BMP: 12/01/18 03:30 12/01/18 03:30 ABG ABG pH 7.40 pH Units (7.32-7.45) 12/01/18 17:56 ABG pCO2 36 mmHg (35-45) 12/01/18 17:56 ABG pO2 348 mmHg (85-104) H 12/01/18 17:56 ABG O2 Saturation 100 % (95-98) H 12/01/18 17:56 PT/INR, D-dimer PT 11.1 Seconds (9.4-12.1) 11/30/18 03:55 Abnormal lab findings: Abnormal lab results WBC 11.9 K/mcL (4.3-11.1) H 11/29/18 15:51 RBC 3.08 M/mcL (4.19-5.50) L 12/01/18 03:30 Hgb 9.1 g/dL (12.9-16.9) L 12/01/18 03:30 Hct 28.0 % (37.5-50.1) L 12/01/18 03:30 MCHC 31.1 g/dL (31.6-35.5) L 11/20/18 12:43 RDW 17.0 % (11.5-14.5) H 12/01/18 03:30 Plt Count 58 K/mcL (140-400) L 12/01/18 03:30 MPV 13.2 fL (9.4-12.4) H 11/29/18 15:51 Reticulocyte # 0.13 M/mcL (0.05-0.10) H 11/28/18 11:20 18.0 % (0-4) H 12/01/18 03:30 9.9 K/mcL (1.6-8.9) H 12/01/18 03:30 0.4 K/mcL (0.6-4.6) L 12/01/18 03:30 Nucleated RBCs/100 WBC 0.2 /100 WBC (0) H 12/01/18 03:30 Present (Not Present) A 11/28/18 22:00 Decreased (Normal) L 12/01/18 03:30 Present (Not Present) A 11/28/18 22:00 Immature Plt Fraction 6.8 % (1.1-6.1) H 12/01/18 03:30 1+ (Not Present) A 11/25/18 03:40 Present (Not Present) A 11/25/18 03:40 1+ (Not Present) A 11/27/18 22:30 Percent Retic 4.3 % (1.6-2.8) H 11/28/18 11:20 PT 12.6 Seconds (9.4-12.1) H 11/23/18 11:15 568 mg/dL (169-393) H 11/28/18 11:20 ABG pH 7.31 pH Units (7.32-7.45) L 11/27/18 04:48 ABG pCO2 47 mmHg (35-45) H 11/29/18 04:48 ABG pO2 348 mmHg (85-104) H 12/01/18 17:56 ABG HCO3 30 mEq/L (21-27) H 11/29/18 04:48 ABG Total CO2 32 mEq/L (20-26) H 11/29/18 04:48 ABG O2 Saturation 100 % (95-98) H 12/01/18 17:56 ABG Base Excess 5 mEq/L (-2 to 3) H 11/29/18 04:48 Potassium 5.6 mEq/L (3.5-5.1) H 11/26/18 03:32 Chloride 97 mEq/L (98-107) L 11/26/18 03:32 Carbon Dioxide 30 mEq/L (23-29) H 11/23/18 11:15 BUN 56 mg/dL (8-23) H 12/01/18 03:30 2.81 mg/dL (0.70-1.30) H 12/01/18 03:30 Est GFR ( Amer) 27 (> 60) L 12/01/18 03:30 Est GFR (Non-Af Amer) 22 (> 60) L 12/01/18 03:30 Glucose 107 mg/dL (70-105) H 11/30/18 03:55 POC Glucose 108 mg/dL (70-99) H 11/30/18 05:24 6.5 % (-5.6) H 11/20/18 13:04 305 (280-300) H 12/01/18 03:30 Lactic Acid 3.3 mmol/L (0.5-2.2) H 11/22/18 04:45 Calcium 8.3 mg/dL (8.6-10.3) L 12/01/18 03:30 Venous Ioniz Calcium 1.10 mmol/L (1.15-1.35) L 12/01/18 13:21 Phosphorus 5.3 mg/dL (2.7-4.5) H 11/30/18 03:55 Iron 64 mcg/dL (65-175) L 11/28/18 11:20 158 mg/dL (203-362) L 11/28/18 11:20 1.3 mg/dL (0.3-1.0) H 11/30/18 03:55 0.8 mg/dL (0.0-0.2) H 11/30/18 03:55 AST 51 Units/L (13-39) H 11/30/18 03:55 ALT 111 Units/L (7-52) H 11/30/18 03:55 108 Units/L (34-104) H 11/26/18 03:32 379 Units/L (140-271) H 11/28/18 11:20 0.21 ng/mL (< 0.04) H* 11/21/18 13:15 5.0 g/dL (6.4-8.9) L 11/30/18 03:55 2.9 g/dL (3.5-5.7) L 11/30/18 03:55 2.1 g/dL (2.4-3.5) L 11/30/18 03:55 Turbid (Clear) A 11/21/18 08:50 Trace mg/dL (Negative) H 11/21/18 08:50 Small (Negative) H 11/21/18 08:50 5-15 per hpf (0-3) H 11/21/18 08:50 Ur Squamous Epith Cells Many per lpf (None-Few) H 11/21/18 08:50 Ur Culture Indicated? YES (NO) A 11/21/18 08:50 U Free Keachi Light Ch 17.80 mg/dL (0.14-2.42) H 11/28/18 14:32 U Free Lambda Light Ch 4.35 mg/dL (0.02-0.67) H 11/28/18 14:32 Fluid Appearance Cloudy (Clear) A 11/22/18 12:23 Vancomycin Trough 23 mcg/mL (5-10) H 11/22/18 04:45 Free Keachi LC, Quant 5.39 mg/dL (0.33-1.94) H 11/28/18 11:20 Free Lambda LC, Quant 3.08 mg/dL (0.57-2.63) H 11/28/18 11:20 Free Keachi/Lambda Ratio 1.75 (0.26-1.65) H 11/28/18 11:20 Hep Bs Antibody < 3.10 mIU/mL (10.00-) L 11/24/18 09:35 Crossmatch See Detail 11/25/18 14:51 - Clinical Findings Intake & Output: Intake & Output 12/01/18 12/01/18 12/01/18 07:59 15:59 23:59 Intake Total 110 / 910 600 / 910 200 / 910 Output Total 15 / 6 0 / 2256 2241 / 2256 Balance 95 / -1346 600 / -1346 -2041 / -1346 Consult Discharge Plan - Plan [facility]errals: [facility] [Primary Care Provider] - Critical Care Time Critical Care Time: Yes Total Critical Care Time: 45 Attestation: I spent 45 minutes of Critical Care time with this patient. It involved decision making of high complexity to assess, manipulate, and support vital organ system failure and/or to prevent further life threatening deterioration of the patient's condition. The time involved in the performance of separately reportable procedures was not counted toward critical care time.
[2018-12-02] MEDS: Insulin LISPRO 300 UNITS/3 ML VIAL SQ SCH ×4 (00:37→18:27)
[2018-12-02] MEDS: Norepinephrine 8 MG in D5% in Water 250 ML IVC SCH (01:01)
[2018-12-02] MEDS: OXYCODONE Oral CONC 10 MG/0.5 ML ORAL.SYG SL PRN ×2 (01:21→05:30)
[2018-12-02 03:38] LABS: Mean Corpuscular Volume 91.7 fL (83.0-100.0)
[2018-12-02 03:39] LABS: Hematocrit 23.1 % (37.5-50.1); Hemoglobin 7.6 g/dL (12.9-16.9); Immature Platelets 7.7 % (1.1-6.1); Lymphocytes # 0.5 K/mcL (0.6-4.6); Mean Corpuscular HGB Conc 32.9 g/dL (31.6-35.5); Mean Corpuscular Hemoglobin 30.2 pg (28.0-33.3); Mean Platelet Volume 11.9 fL (9.4-12.4); Monocytes # 0.5 K/mcL (0.0-1.3); Nucleated Red Blood Cells 0.2 /100 WBC (0); Red Blood Count 2.52 M/mcL (4.19-5.50); Red Cell Distribution Width 17.1 % (11.5-14.5)
[2018-12-02 03:46] LABS: Platelet Count 40 K/mcL (140-400)
[2018-12-02] MEDS: Ipratropium/Albuterol Neb 3 ML IH SCH ×4 (03:47→22:02)
[2018-12-02 03:57] LABS: Calcium 8.6 mg/dL (8.6-10.3)
[2018-12-02 04:06] LABS: Neutrophils # 7.9 K/mcL (1.6-8.9); Platelet Estimate Decreased (Normal)
[2018-12-02 04:07] LABS: Toxic Granulation Present (Not Present)
[2018-12-02] MEDS: Hydrocortisone Sodium Succ 100 MG/2 ML VIAL IVP SCH ×2 (05:30→18:28)
[2018-12-02] MEDS: Pantoprazole 40 MG VIAL IVP SCH ×2 (05:30→18:28)
[2018-12-02] MEDS: Docusate Oral Soln 100 MG/10 ML UDC GTUBE SCH ×2 (08:08→19:32)
[2018-12-02] MEDS ORDERED: 0.9 % Sodium Chloride 250 ML IVC PRN (08:57)
[2018-12-02] MEDS ORDERED: Albumin 25% 25gram/100mL 25 GM/100 ML IV.SOLN IVPB PRN (08:57)
--- NOTE | 2018-12-02 08:57 | Nephrology Progress Note ---
Date of Encounter: 12/02/18 Time of Encounter: 08:45 - Assessment and Plan (1) ANY (acute kidney injury) Current Visit: Yes Status: Acute Because of the severe hypervolemic volume status (consistent with pronounced anasarca), I recommend more renal replacement therapy today. He is very likely intravascularly dry, and this is inducing intradialytic hypotension)during the last few HD/UF treatments, so I recommend giving albumin during dialysis today. His dialysis treatment did not go well today, and was cut short due to poor hemodynamics. The last few days of intermittent dialysis alternating with ultrafiltration have not been able to keep up with his hypervolemic volume status. I may consider giving albumin infusions because he is very likely third spaced. Alternatively, he may need to return to [facility] for more continuous fluid removal. As always I recommend following a renal protective strategy: Strict I's and O's, daily weights, avoidance of nephrotoxic agents, renal dosing. Thank you (2) Anasarca Current Visit: Yes Status: Acute He remains persistently hypervolemic on exam, and will likely need daily renal replacement therapy options such as alternating HD with UF to maintain his volume status. (3) COPD (chronic obstructive pulmonary disease) Current Visit: Yes Status: Acute Qualifiers: COPD type: emphysema Emphysema type: unspecified Qualified Code(s): J43.9 - Emphysema, unspecified (4) Right leg DVT Current Visit: Yes Status: Acute Qualifiers: Affected thrombotic vein of extremity: unspecified vein of extremity Chronicity: unspecified Qualified Code(s): I82.401 - Acute embolism and thrombosis of unspecified deep veins of right lower extremity (5) Anemia Current Visit: Yes Status: Acute Qualifiers: Anemia type: other cause Other causes of anemia: other cause, not classified Qualified Code(s): D64.89 - Other specified anemias (6) Acute respiratory failure with hypoxia Current Visit: Yes Status: Acute (7) Septic shock Current Visit: Yes Status: Acute Subjective Principal diagnosis: Sepsis Interval history: He was Seen and examined earlier today. His ICU room was changed. He remains on BiPAP and so this limits his ability to give a subjective history. The [employer] updated me that his HR is running higher. Objective - Vital Signs Vital signs: Vital Signs Temp Pulse Resp BP Pulse Ox 12/02/18 08:00 117 28 120/71 98 12/02/18 07:58 114 12/02/18 07:10 98.6 F 12/02/18 07:00 114 20 106/67 96 12/02/18 06:00 107 17 157/76 100 12/02/18 05:00 112 18 120/66 100 12/02/18 04:00 102 21 119/65 95 12/02/18 03:53 97.9 F 12/02/18 03:47 21 119/69 95 12/02/18 03:00 110 20 119/69 97 12/02/18 02:00 105 19 105/55 90 12/02/18 01:04 98.7 F 12/02/18 01:00 112 21 119/72 91 12/02/18 00:00 110 18 129/57 96 12/01/18 23:00 112 17 123/63 96 12/01/18 22:00 107 18 116/57 96 12/01/18 21:45 20 92 12/01/18 21:00 108 20 121/70 94 12/01/18 20:00 110 19 138/59 96 12/01/18 19:41 98.3 F 12/01/18 19:00 107 19 113/61 91 12/01/18 18:00 118 24 95/55 98 12/01/18 17:20 98.3 F 19 132/65 12/01/18 17:05 120/66 12/01/18 17:00 117 21 132/65 91 12/01/18 16:55 103/57 12/01/18 16:40 97/48 12/01/18 16:37 98.6 F 12/01/18 16:25 87/54 12/01/18 16:15 20 100 12/01/18 16:10 104/71 12/01/18 16:00 125 27 89/51 100 12/01/18 15:55 104/63 05 15:40 128/69 12/01/18 15:25 144/95 12/01/18 15:00 125 24 104/63 100 12/01/18 14:55 122/71 12/01/18 14:40 127/59 12/01/18 14:25 98.2 F 15 134/69 12/01/18 14:00 111 22 141/74 98 12/01/18 13:00 109 22 97 05/21/19 12:26 98.2 F 12/01/18 12:00 115 22 95 12/01/18 11:00 109 24 94 12/01/18 10:00 112 20 96 12/01/18 09:30 26 151/82 92 12/01/18 09:00 115 22 165/87 97 Intake and Output 12/01/18 12/02/18 12/02/18 23:59 07:59 15:59 Intake Total 200 / 910 Output Total 2266 / 2281 0 / 0 Balance -2066 / -1371 0 / 0 Intake: IV Fluids 200 / 310 Flexbumin 25 gm In 100 ml @ 60 100 / 100 mls/hr IVPB ONCE PRN Rx#: [id number] Levaquin Premix 500mg/100mL 500 100 / 100 mg In 100 ml @ 100 mls/hr IVPB Q48H [facility] Rx#:[id number] Oral 0 / 0 Output: Total Dialysis (HD) Output 2241 / 2241 Catheter 25 / 40 0 / 0 Urethral (Reynaga) 0 / 0 0 / 0 Other: Weight 98.6 kg Blood Glucose* 112 Hemodialysis Net Fluid Removed 1641 (mL) Patient Weight 12/02/18 23:59 Weight 98.6 kg - General Appearance General appearance: Present: well-developed, appears started age, obese, fatigue, frail EENT: Present: ATNC, PERRL, mucous membranes dry Additional Comments: Wearing BiPAP Neck: Present: supple Respiratory: Present: rales, course breath sounds Cardiology: Present: edema (3-4+ pedal edema and 1+ hand edema b/l), normal S1, normal S2 Dialysis Vascular Access: Venous Catheter (RIJ temporary HD catheter appeared to have a well adhered tegaderm) Gastrointestinal: Present: normoactive bowel sounds, no tenderness, no guarding, obese, distended Integumentary: Present: warm and dry, cool/clammy Neurologic: Present: no focal deficit, no asterixis Musculoskeletal: Present: no cyanosis, no clubbing Psychiatric: Present: mood/affect appropriate, cooperative - Lab 12/02/18 03:31 12/02/18 03:31 Most recent lab results 12/02/18 03:31 Calcium 8.6 Consult Discharge Plan - Plan Referrals: [facility] [Primary Care Provider] -
[2018-12-02] MEDS: Nitroglycerin 25 MG/250 ML INFUS..BTL IVC SCH (11:06)
[2018-12-02] MEDS: *HR* FentaNYL (PF) 100 MCG/2 ML VIAL IVP PRN ×2 (11:07→15:36)
--- NOTE | 2018-12-02 11:32 | Pulmonology Progress Note ---
Date of Encounter: 12/02/18 Time of Encounter: 10:00 Assessment and Plan (1) Pneumonia Current Visit: Yes Status: Acute Patient is recovering from Stenotrophomonas maltophilia pneumonia. To continue with the current regimen of the antibiotics patient is responding well De-escalate antibiotics patient acute hypoxic respiratory failure is complicated by a hydrostatic pulmonary edema. Patient is almost 12-15 L positive. 12/02 patient V/Q mismatch is complicated by recovering stenotrophomonas pneumonia and also hydrostatic pulmonary edema because of his acute kidney injury very difficult to remove fluid even with dialysis as patient gets sick to intermittent hemodynamic instability. For the past few dialysis except for yesterday be able to remove quite a bit of fluid yesterday was a setback. Qualifiers: Pneumonia type: due to other aerobic Gram-negative bacteria Laterality: unspecified laterality Lung location: unspecified part of lung Qualified Code(s): J15.6 - Pneumonia due to other Gram-negative bacteria (2) Acute respiratory failure with hypoxia Current Visit: Yes Status: Acute Has acceptable oxygenation and ventilation on BiPAP complicated by pneumonia and hydrostatic pulmonary edema with underlying COPD patient is slowly getting better with antibiotics and bronchodilators and fluid removal through dialysis. 12/01 patient has acceptable oxygenation and ventilation will need more diuresis as patient is fluid overload hydrostatic pulmonary edema will get better as we go with ultrafiltration with dialysis. 12/02 patient is still dependent on BiPAP patient has other reasons for this V/Q mismatch pneumonia and hydrostatic pulmonary edema still Pisa possible BX patient has high risk for recurrent DVT in spite of IVC filter but now I will stick with the diagnosis of pneumonia and the hydrostatic pulmonary edema will need to ultrafiltrate as tolerated. (3) ANY (acute kidney injury) Current Visit: Yes Status: Acute Continue with the hemodialysis and ultrafiltration according to nephrology. (4) DVT prophylaxis Current Visit: Yes Status: Acute To continue the current regimen. (5) Septic shock Current Visit: Yes Status: Acute Septic shock resolved. Subjective Principal diagnosis: Sepsis Interval history: Patient currently intubated due to worsening Stenotrophomonas maltophilia pneumonia. Patient got extubated recently patient is doing well on BiPAP patient is getting hemodialysis and ultrafiltration today will reassess tomorrow we will keep him on BiPAP today and overnight. 12/01 patient getting intermittent hemodialysis and during ultrafiltration margarette ent had be hypotensive episode she had a transient loss of consciousness with ataxic breathing with hypoventilation and hypoxia patient breathing stabilized and ventilation stabilized . 12/02 we will attempt intermittent hemodialysis with some vasopressors on board patient is still fluid overloaded unable to liberated from BiPAP Objective PUL Vital signs: Last Vital Signs Temp 98.6 F 12/02/18 07:10 Pulse 118 12/02/18 10:00 Resp 28 12/02/18 10:00 BP 125/70 12/02/18 10:00 Pulse Ox 99 12/02/18 10:00 General appearance: appears uncomfortable Eyes: nonicteric Effort: mildly labored Auscultation: bilateral: diminished breath sounds (Bilateral diminished breath sounds) Cardiovascular: regular rate and rhythm Gastrointestinal: hypoactive bowel sounds Extremities: anasarca non-focal exam, other (Following simple commands) anxious Results - Laboratory Findings CBC and BMP: 12/02/18 03:31 12/02/18 03:31 ABG ABG pH 7.40 pH Units (7.32-7.45) 12/01/18 17:56 ABG pCO2 36 mmHg (35-45) 12/01/18 17:56 ABG pO2 348 mmHg (85-104) H 12/01/18 17:56 ABG O2 Saturation 100 % (95-98) H 12/01/18 17:56 PT/INR, D-dimer PT 11.1 Seconds (9.4-12.1) 11/30/18 03:55 Abnormal lab findings: Abnormal lab results WBC 11.9 K/mcL (4.3-11.1) H 11/29/18 15:51 RBC 2.52 M/mcL (4.19-5.50) L 12/02/18 03:31 Hgb 7.6 g/dL (12.9-16.9) L D 12/02/18 03:31 Hct 23.1 % (37.5-50.1) L 12/02/18 03:31 MCHC 31.1 g/dL (31.6-35.5) L 11/20/18 12:43 RDW 17.1 % (11.5-14.5) H 12/02/18 03:31 Plt Count 40 K/mcL (140-400) L 12/02/18 03:31 MPV 13.2 fL (9.4-12.4) H 11/29/18 15:51 Reticulocyte # 0.13 M/mcL (0.05-0.10) H 11/28/18 11:20 34.0 % (0-4) H 12/02/18 03:31 9.9 K/mcL (1.6-8.9) H 12/01/18 03:30 0.5 K/mcL (0.6-4.6) L 12/02/18 03:31 Nucleated RBCs/100 WBC 0.2 /100 WBC (0) H 12/02/18 03:31 Present (Not Present) A 12/02/18 03:31 Decreased (Normal) L 12/02/18 03:31 Present (Not Present) A 11/28/18 22:00 Immature Plt Fraction 7.7 % (1.1-6.1) H 12/02/18 03:31 1+ (Not Present) A 11/25/18 03:40 Present (Not Present) A 11/25/18 03:40 1+ (Not Present) A 11/27/18 22:30 Percent Retic 4.3 % (1.6-2.8) H 11/28/18 11:20 PT 12.6 Seconds (9.4-12.1) H 11/23/18 11:15 568 mg/dL (169-393) H 11/28/18 11:20 ABG pH 7.31 pH Units (7.32-7.45) L 11/27/18 04:48 ABG pCO2 47 mmHg (35-45) H 11/29/18 04:48 ABG pO2 348 mmHg (85-104) H 12/01/18 17:56 ABG HCO3 30 mEq/L (21-27) H 11/29/18 04:48 ABG Total CO2 32 mEq/L (20-26) H 11/29/18 04:48 ABG O2 Saturation 100 % (95-98) H 12/01/18 17:56 ABG Base Excess 5 mEq/L (-2 to 3) H 11/29/18 04:48 Potassium 5.6 mEq/L (3.5-5.1) H 11/26/18 03:32 Chloride 97 mEq/L (98-107) L 11/26/18 03:32 Carbon Dioxide 30 mEq/L (23-29) H 11/23/18 11:15 BUN 90 mg/dL (8-23) H 12/02/18 03:31 4.32 mg/dL (0.70-1.30) H 12/02/18 03:31 Est GFR ( Amer) 16 (> 60) L 12/02/18 03:31 Est GFR (Non-Af Amer) 14 (> 60) L 12/02/18 03:31 Glucose 106 mg/dL (70-105) H 12/02/18 03:31 POC Glucose 121 mg/dL (70-99) H 12/02/18 11:06 6.5 % (-5.6) H 11/20/18 13:04 320 (280-300) H 12/02/18 03:31 Lactic Acid 3.3 mmol/L (0.5-2.2) H 11/22/18 04:45 Calcium 8.3 mg/dL (8.6-10.3) L 12/01/18 03:30 Venous Ioniz Calcium 1.10 mmol/L (1.15-1.35) L 12/01/18 13:21 Phosphorus 5.3 mg/dL (2.7-4.5) H 11/30/18 03:55 Iron 64 mcg/dL (65-175) L 11/28/18 11:20 158 mg/dL (203-362) L 11/28/18 11:20 1.3 mg/dL (0.3-1.0) H 11/30/18 03:55 0.8 mg/dL (0.0-0.2) H 11/30/18 03:55 AST 51 Units/L (13-39) H 11/30/18 03:55 ALT 111 Units/L (7-52) H 11/30/18 03:55 108 Units/L (34-104) H 11/26/18 03:32 341 Units/L (140-271) H 12/02/18 03:31 0.21 ng/mL (< 0.04) H* 11/21/18 13:15 5.0 g/dL (6.4-8.9) L 11/30/18 03:55 2.9 g/dL (3.5-5.7) L 11/30/18 03:55 2.1 g/dL (2.4-3.5) L 11/30/18 03:55 Turbid (Clear) A 11/21/18 08:50 Trace mg/dL (Negative) H 11/21/18 08:50 Small (Negative) H 11/21/18 08:50 5-15 per hpf (0-3) H 11/21/18 08:50 Ur Squamous Epith Cells Many per lpf (None-Few) H 11/21/18 08:50 Ur Culture Indicated? YES (NO) A 11/21/18 08:50 U Free [place] Ch 17.80 mg/dL (0.14-2.42) H 11/28/18 14:32 U Free [place] Ch 4.35 mg/dL (0.02-0.67) H 11/28/18 14:32 Fluid Appearance Cloudy (Clear) A 11/22/18 12:23 Vancomycin Trough 23 mcg/mL (5-10) H 11/22/18 04:45 Free [place] LC, Quant 5.39 mg/dL (0.33-1.94) H 11/28/18 11:20 Free [place] LC, Quant 3.08 mg/dL (0.57-2.63) H 11/28/18 11:20 Free [place]/Lambda Ratio 1.75 (0.26-1.65) H 11/28/18 11:20 Hep Bs Antibody < 3.10 mIU/mL (10.00-) L 11/24/18 09:35 Crossmatch See Detail 11/25/18 14:51 - Clinical Findings Intake & Output: Intake & Output 12/01/18 12/02/18 12/02/18 23:59 07:59 15:59 Intake Total 200 / 910 Output Total 2266 / 2281 0 / 0 Balance -2066 / -1371 0 / 0 Weight 98.6 kg Consult Discharge Plan - Plan [facility]errals: [facility] [Primary Care Provider] - Critical Care Time Critical Care Time: Yes Total Critical Care Time: 33 Attestation: I spent 33 minutes of Critical Care time with this patient. It involved decision making of high complexity to assess, manipulate, and support vital organ system failure and/or to prevent further life threatening deterioration of the pat ient's condition. The time involved in the performance of separately reportable procedures was not counted toward critical care time.
[2018-12-02] MEDS ORDERED: *HR* Heparin 10,000 UNIT/10 ML VIAL IV PRN ×2 (12:43)
[2018-12-02 14:31] LABS: Immunoglobulin G 364 mg/dL (768-1632); Immunoglobulin M 60 mg/dL (35-263)
[2018-12-02 14:32] LABS: IFE Reflexed IFE Done; Immunoglobulin A 122 mg/dL (68-408)
[2018-12-02] MEDS ORDERED: Methylnaltrexone 12 MG/0.6 ML SYRINGE SQ ONE (18:33)
[2018-12-02] MEDS: Ondansetron 4 MG/2 ML VIAL IVP PRN (19:39)
[2018-12-03] MEDS: Norepinephrine 8 MG in D5% in Water 250 ML IVC SCH (01:05)
[2018-12-03] MEDS: Insulin LISPRO 300 UNITS/3 ML VIAL SQ SCH ×4 (01:05→18:36)
[2018-12-03] MEDS: Ipratropium/Albuterol Neb 3 ML IH SCH ×4 (03:19→21:21)
[2018-12-03 04:07] LABS: Basophils % 0.1 %; Hematocrit 23.9 % (37.5-50.1); Hemoglobin 7.5 g/dL (12.9-16.9); Mean Corpuscular HGB Conc 31.4 g/dL (31.6-35.5); Mean Platelet Volume 11.4 fL (9.4-12.4)
[2018-12-03 04:08] LABS: Eosinophils # 0.1 K/mcL (0.0-0.6); Eosinophils % 0.7 %; Immature Granulocytes % 1.4 % (0-4); Immature Platelets 6.9 % (1.1-6.1); Lymphocytes # 0.5 K/mcL (0.6-4.6); Lymphocytes % 5.4 %; Mean Corpuscular Hemoglobin 29.1 pg (28.0-33.3); Mean Corpuscular Volume 92.6 fL (83.0-100.0); Monocytes # 0.6 K/mcL (0.0-1.3); Monocytes % 5.9 %; Neutrophils # 8.3 K/mcL (1.6-8.9); Red Blood Count 2.58 M/mcL (4.19-5.50); Red Cell Distribution Width 17.4 % (11.5-14.5); Segmented Neutrophils % 86.5 %
[2018-12-03 04:12] LABS: Platelet Count 54 K/mcL (140-400)
[2018-12-03 04:24] LABS: Calcium 8.4 mg/dL (8.6-10.3); Potassium 5.5 mEq/L (3.5-5.1)
[2018-12-03 04:32] LABS: Anisocytosis 1+ (Not Present); Macrocytosis Present (Not Present); Microcytosis Present (Not Present); Platelet Estimate Decreased (Normal)
[2018-12-03] MEDS: Hydrocortisone Sodium Succ 100 MG/2 ML VIAL IVP SCH (06:16)
[2018-12-03] MEDS: Pantoprazole 40 MG VIAL IVP SCH (06:16)
[2018-12-03] MEDS: Docusate Oral Soln 100 MG/10 ML UDC GTUBE SCH ×3 (08:08→20:04)
[2018-12-03] MEDS: Nitroglycerin 25 MG/250 ML INFUS..BTL IVC SCH (12:01)
[2018-12-03] MEDS ORDERED: Isovue-370 500 ML BOTTLE IVP ONE ×2 (12:25→12:27)
--- NOTE | 2018-12-03 13:33 | Nephrology Progress Note ---
Date of Encounter: 12/03/18 Time of Encounter: 08:30 - Assessment and Plan (1) ANY (acute kidney injury) Current Visit: Yes Status: Acute His edema has trended better with consistent net-negative I/Os over the last several days. Last week he was taken off CVVHDF and converted to daily HD alternative with UF. Yesterday after back to back several treatments his BPs were lower with high HRs, so he may be intravascularlly dry at this point. I recommend periodic albumin, but primarily will rest today without HD or UF. I had considered resuming Mallorie, but this would be a step backwards. Tomorrow, he should be restarted on HD. Hyperkalemia: In terms of tube feeds, please ensure it is low K+. As always I recommend following a renal protective strategy: Strict I's and O's, daily weights, avoidance of nephrotoxic agents, renal dosing. My colleague Dr. Huber will be on-call/on-service starting tomorrow. Thank you (2) Anasarca Current Visit: Yes Status: Acute Trending better: his UEs are no longer edematous, though he still has doughy LE edema bilaterally. (3) COPD (chronic obstructive pulmonary disease) Current Visit: Yes Status: Acute As per primary Qualifiers: COPD type: emphysema Emphysema type: unspecified Qualified Code(s): J43.9 - Emphysema, unspecified (4) Right leg DVT Current Visit: Yes Status: Acute IVC filter placed by Vascular surgery. The IVC filter can promote a higher chance of developing bilateral lower extremity edema. I have also already ordered a screening test for Membranous Nephropathy, which is still pending, and should be followed up. My colleague Dr. Huber will be on- service starting tomorrow. Qualifiers: Affected thrombotic vein of extremity: unspecified vein of extremity Chronicity: unspecified Qualified Code(s): I82.401 - Acute embolism and thrombosis of unspecified deep veins of right lower extremity (5) Anemia Current Visit: Yes Status: Acute Goal hemoglobin 10-11, and we will monitor. Transfusion parameters as per primary. Thrombocytopneia: Appreciate Heme/Onc. Qualifiers: Anemia type: other cause Other causes of anemia: other cause, not classified Qualified Code(s): D64.89 - Other specified anemias Subjective Principal diagnosis: Sepsis Interval history: He was Seen and examined earlier today. He remains on BiPAP, and tried to vocalize words. He did not affirm N/V/D. Objective - Vital Signs Vital signs: Vital Signs Temp Pulse Resp BP Pulse Ox 12/03/18 13:00 114 21 135/68 95 12/03/18 12:24 98.9 F 12/03/18 12:00 98.9 F 115 24 141/69 94 12/03/18 11:00 113 22 103/60 91 12/03/18 10:00 112 22 129/56 96 12/03/18 09:00 109 19 125/68 96 12/03/18 08:41 98.6 F 12/03/18 08:00 98.6 F 83 20 94/53 96 12/03/18 07:00 113 22 107/60 96 12/03/18 06:00 116 24 105/72 96 12/03/18 05:00 117 28 110/53 92 12/03/18 04:00 97.9 F 114 22 127/66 96 12/03/18 03:55 112 12/03/18 03:20 20 126/73 90 12/03/18 03:00 115 20 124/67 97 12/03/18 02:00 117 22 116/78 92 12/03/18 01:00 118 24 99/68 95 12/03/18 00:00 116 21 126/73 95 12/02/18 23:35 98.1 F 12/02/18 23:00 112 17 124/62 93 12/02/18 22:02 26 131/69 92 12/02/18 22:00 110 21 131/69 91 12/02/18 21:00 112 20 116/68 91 12/02/18 20:00 114 20 131/71 97 12/02/18 19:40 119 12/02/18 19:24 98.7 F 12/02/18 19:00 119 25 123/72 99 12/02/18 18:00 115 22 117/84 95 12/02/18 17:00 112 23 151/69 90 12/02/18 16:18 21 113/95 97 12/02/18 16:00 116 26 113/95 95 12/02/18 15:20 98.0 F 12/02/18 15:05 98.4 F 25 113/65 12/02/18 15:00 114 24 126/73 94 12/02/18 14:45 105/65 12/02/18 14:30 118/68 12/02/18 14:15 98 F 20 143/65 12/02/18 14:00 113 22 138/77 96 Intake and Output 12/02/18 12/03/18 12/03/18 23:59 07:59 15:59 Output Total 150 / 930 45 / 45 Balance -150 / -282 -45 / -45 Output: Catheter 150 / 150 45 / 45 Other: Stool Size Moderate Small Stool Consistency loose loose liquid liquid liquid Stool Color Brown Brown Brown Aubrey Colored # Bowel Movements 1 1 Weight 98 kg Blood Glucose* 107 105 Patient Weight 12/03/18 23:59 Weight 98 kg - General Appearance General appearance: Present: well-developed, obese, chronically ill, fatigue, frail EENT: Present: ATNC, PERRL, mucous membranes dry Additional Comments: wearing a BiPAP mask Neck: Present: supple Respiratory: Present: rhonchi Cardiology: Present: edema (LE edema doughy appearing with 1-2+ pitting up to thighs bilaterally), regular rate, regular rhythm, normal S1, normal S2 Dialysis Vascular Access: Venous Catheter (temporary HD catheter was C/D/I) Gastrointestinal: Present: normoactive bowel sounds, no guarding, obese Integumentary: Present: warm and dry Neurologic: Present: no focal deficit, no asterixis Musculoskeletal: Present: no cyanosis, no clubbing Psychiatric: Present: mood/affect appropriate, cooperative - Lab 12/03/18 03:46 12/03/18 03:46 Most recent lab results 12/03/18 03:46 Calcium 8.4 L Consult Discharge Plan - Plan [facility]errals: [facility] [Primary Care Provider] -
[2018-12-03] MEDS: Levofloxacin 500 MG/100 ML 500 MG/100 ML BAG IVPB SCH (16:02)
[2018-12-03] MEDS: OXYCODONE Oral CONC 10 MG/0.5 ML ORAL.SYG SL PRN (17:10)
[2018-12-03] MEDS ORDERED: *HR* LORazepam 2 MG/ML VIAL IVP ONE (17:53)
[2018-12-03] MEDS ORDERED: Lidocaine Viscous Oral Soln 15 ML SOLUTION MM PRN (18:03)
[2018-12-03] MEDS: Acetylcysteine 10% 2 ML INHSOL IH SCH ×2 (18:51→21:21)
--- NOTE | 2018-12-03 19:57 | Pulmonology Progress Note ---
Date of Encounter: 12/03/18 Time of Encounter: 07:00 Assessment and Plan (1) Acute respiratory failure with hypoxia Current Visit: Yes Status: Acute Has acceptable oxygenation and ventilation on BiPAP complicated by pneumonia and hydrostatic pulmonary edema with underlying COPD patient is slowly getting better with antibiotics and bronchodilators and fluid removal through dialysis. 12/01 patient has acceptable oxygenation and ventilation will need more diuresis as patient is fluid overload hydrostatic pulmonary edema will get better as we go with ultrafiltration with dialysis. 12/02 patient is still dependent on BiPAP patient has other reasons for this V/Q mismatch pneumonia and hydrostatic pulmonary edema still Pisa possible BX patient has high risk for recurrent DVT in spite of IVC filter but now I will stick with the diagnosis of pneumonia and the hydrostatic pulmonary edema will need to ultrafiltrate as tolerated. 12/03 in spite of all treatment treating pneumonia and doing ultrafiltration patient still is hypoxic since patient has significant risk for PE given he has IVC filter will do a CT angiogram. (2) Pneumonia Current Visit: Yes Status: Acute Patient is recovering from Stenotrophomonas maltophilia pneumonia. To continue with the current regimen of the antibiotics patient is responding well De-escalate antibiotics patient acute hypoxic respiratory failure is complicated by a hydrostatic pulmonary edema. Patient is almost 12-15 L positive. 12/02 patient V/Q mismatch is complicated by recovering stenotrophomonas pneumonia and also hydrostatic pulmonary edema because of his acute kidney injury very difficult to remove fluid even with dialysis as patient gets sick to intermittent hemodynamic instability. For the past few dialysis except for y be able to remove quite a bit of fluid yesterday was a setback. 12/03 to continue Levaquin for stenotrophomonas. Qualifiers: Pneumonia type: due to other aerobic Gram-negative bacteria Laterality: unspecified laterality Lung location: unspecified part of lung Qualified Code(s): J15.6 - Pneumonia due to other Gram-negative bacteria (3) ANY (acute kidney injury) Current Visit: Yes Status: Acute Continue with the hemodialysis and ultrafiltration according to nephrology. (4) DVT prophylaxis Current Visit: Yes Status: Acute To continue the current regimen. (5) Septic shock Current Visit: Yes Status: Acute Septic shock resolved. Subjective Principal diagnosis: Sepsis Interval history: Patient currently intubated due to worsening Stenotrophomonas maltophilia pneumonia. Patient got extubated recently patient is doing well on BiPAP patient is getting hemodialysis and ultrafiltration today will reassess tomorrow we will keep him on BiPAP today and overnight. 12/01 patient getting intermittent hemodialysis and during ultrafiltration patient had be hypotensive episode she had a transient loss of consciousness with ataxic breathing with hypoventilation and hypoxia patient breathing stabilized and ventilation stabilized . 12/02 we will attempt intermittent hemodialysis with some vasopressors on board patient is still fluid overloaded unable to liberated from BiPAP 12/03 patient still on BiPAP will do CT angiography to rule out PE Objective PUL Vital signs: Last Vital Signs Temp 98.1 F 12/03/18 16:00 Pulse 113 12/03/18 18:00 Resp 21 12/03/18 19:00 BP 121/64 12/03/18 19:00 Pulse Ox 93 12/03/18 19:00 General appearance: appears uncomfortable Effort: mildly labored Auscultation: bilateral: diminished breath sounds (Basilar diminished breath sounds) Cardiovascular: regular rate and rhythm Gastrointestinal: hypoactive bowel sounds Extremities: anasarca normal mental status, non-focal exam anxious Results - Laboratory Findings CBC and BMP: 12/03/18 03:46 12/03/18 03:46 ABG ABG pH 7.40 pH Units (7.32-7.45) 12/01/18 17:56 ABG pCO2 36 mmHg (35-45) 12/01/18 17:56 ABG pO2 348 mmHg (85-104) H 12/01/18 17:56 ABG O2 Saturation 100 % (95-98) H 12/01/18 17:56 PT/INR, D-dimer PT 11.1 Seconds (9.4-12.1) 11/30/18 03:55 Abnormal lab findings: Abnormal lab results WBC 11.9 K/mcL (4.3-11.1) H 11/29/18 15:51 RBC 2.58 M/mcL (4.19-5.50) L 12/03/18 03:46 Hgb 7.5 g/dL (12.9-16.9) L 12/03/18 03:46 Hct 23.9 % (37.5-50.1) L 12/03/18 03:46 MCHC 31.4 g/dL (31.6-35.5) L 12/03/18 03:46 RDW 17.4 % (11.5-14.5) H 12/03/18 03:46 Plt Count 54 K/mcL (140-400) L 12/03/18 03:46 MPV 13.2 fL (9.4-12.4) H 11/29/18 15:51 Reticulocyte # 0.13 M/mcL (0.05-0.10) H 11/28/18 11:20 34.0 % (0-4) H 12/02/18 03:31 9.9 K/mcL (1.6-8.9) H 12/01/18 03:30 0.5 K/mcL (0.6-4.6) L 12/03/18 03:46 Nucleated RBCs/100 WBC 0.2 /100 WBC (0) H 12/02/18 03:31 Present (Not Present) A 12/02/18 03:31 Decreased (Normal) L 12/03/18 03:46 Present (Not Present) A 11/28/18 22:00 Immature Plt Fraction 6.9 % (1.1-6.1) H 12/03/18 03:46 1+ (Not Present) A 11/25/18 03:40 Present (Not Present) A 11/25/18 03:40 1+ (Not Present) A 12/03/18 03:46 Present (Not Present) A 12/03/18 03:46 Present (Not Present) A 12/03/18 03:46 Percent Retic 4.3 % (1.6-2.8) H 11/28/18 11:20 PT 12.6 Seconds (9.4-12.1) H 11/23/18 11:15 568 mg/dL (169-393) H 11/28/18 11:20 ABG pH 7.31 pH Units (7.32-7.45) L 11/27/18 04:48 ABG pCO2 47 mmHg (35-45) H 11/29/18 04:48 ABG pO2 348 mmHg (85-104) H 12/01/18 17:56 ABG HCO3 30 mEq/L (21-27) H 11/29/18 04:48 ABG Total CO2 32 mEq/L (20-26) H 11/29/18 04:48 ABG O2 Saturation 100 % (95-98) H 12/01/18 17:56 ABG Base Excess 5 mEq/L (-2 to 3) H 11/29/18 04:48 Potassium 5.5 mEq/L (3.5-5.1) H 12/03/18 03:46 Chloride 97 mEq/L (98-107) L 11/26/18 03:32 Carbon Dioxide 30 mEq/L (23-29) H 11/23/18 11:15 BUN 98 mg/dL (8-23) H 12/03/18 03:46 4.70 mg/dL (0.70-1.30) H 12/03/18 03:46 Est GFR ( Amer) 15 (> 60) L 12/03/18 03:46 Est GFR (Non-Af Amer) 12 (> 60) L 12/03/18 03:46 Glucose 106 mg/dL (70-105) H 12/02/18 03:31 POC Glucose 107 mg/dL (70-99) H 12/02/18 23:37 6.5 % (-5.6) H 11/20/18 13:04 323 (280-300) H 12/03/18 03:46 Lactic Acid 3.3 mmol/L (0.5-2.2) H 11/22/18 04:45 Calcium 8.4 mg/dL (8.6-10.3) L 12/03/18 03:46 Venous Ioniz Calcium 1.10 mmol/L (1.15-1.35) L 12/01/18 13:21 Phosphorus 5.3 mg/dL (2.7-4.5) H 11/30/18 03:55 Iron 64 mcg/dL (65-175) L 11/28/18 11:20 158 mg/dL (203-362) L 11/28/18 11:20 1.3 mg/dL (0.3-1.0) H 11/30/18 03:55 0.8 mg/dL (0.0-0.2) H 11/30/18 03:55 AST 51 Units/L (13-39) H 11/30/18 03:55 ALT 111 Units/L (7-52) H 11/30/18 03:55 108 Units/L (34-104) H 11/26/18 03:32 341 Units/L (140-271) H 12/02/18 03:31 0.21 ng/mL (< 0.04) H* 11/21/18 13:15 5.0 g/dL (6.4-8.9) L 11/30/18 03:55 4.60 g/dL (6.00-8.30) L 11/28/18 11:20 2.9 g/dL (3.5-5.7) L 11/30/18 03:55 2.71 g/dL (3.75-5.01) L 11/28/18 11:20 2.1 g/dL (2.4-3.5) L 11/30/18 03:55 0.58 g/dL (0.19-0.46) H 11/28/18 11:20 0.41 g/dL (0.48-1.10) L 11/28/18 11:20 0.40 g/dL (0.62-1.51) L 11/28/18 11:20 Turbid (Clear) A 11/21/18 08:50 Trace mg/dL (Negative) H 11/21/18 08:50 Small (Negative) H 11/21/18 08:50 5-15 per hpf (0-3) H 11/21/18 08:50 Ur Squamous Epith Cells Many per lpf (None-Few) H 11/21/18 08:50 Ur Culture Indicated? YES (NO) A 11/21/18 08:50 U Free [place] Light Ch 17.80 mg/dL (0.14-2.42) H 11/28/18 14:32 U Free [place] Ch 4.35 mg/dL (0.02-0.67) H 11/28/18 14:32 Fluid Appearance Cloudy (Clear) A 11/22/18 12:23 Vancomycin Trough 23 mcg/mL (5-10) H 11/22/18 04:45 IgG 364 mg/dL (768-1632) L 11/28/18 11:20 Free [place] LC, Quant 5.39 mg/dL (0.33-1.94) H 11/28/18 11:20 Free [place] LC, Quant 3.08 mg/dL (0.57-2.63) H 11/28/18 11:20 Free [place]/Lambda Ratio 1.75 (0.26-1.65) H 11/28/18 11:20 Hep Bs Antibody < 3.10 mIU/mL (10.00-) L 11/24/18 09:35 Crossmatch See Detail 11/25/18 14:51 - Clinical Findings Intake & Output: Intake & Output 12/03/18 12/03/18 12/03/18 07:59 15:59 23:59 Output Total 45 / 182 137 / 182 Balance -45 / -182 -137 / -182 Weight 98 kg Consult Discharge Plan - Plan Referrals: [facility] [Primary Care Provider] -
[2018-12-04] MEDS: Insulin LISPRO 300 UNITS/3 ML VIAL SQ SCH ×5 (00:13→23:29)
[2018-12-04] MEDS: Norepinephrine 8 MG in D5% in Water 250 ML IVC SCH (00:19)
[2018-12-04] MEDS: *HR* FentaNYL (PF) 100 MCG/2 ML VIAL IVP PRN ×2 (00:23→19:32)
[2018-12-04] MEDS: Ipratropium/Albuterol Neb 3 ML IH SCH ×4 (03:45→21:27)
[2018-12-04] MEDS: Acetylcysteine 10% 2 ML INHSOL IH SCH ×4 (03:45→21:27)
[2018-12-04 04:22] LABS: Basophils % 0.1 %; Eosinophils % 1.2 %; Hematocrit 23.5 % (37.5-50.1); Immature Granulocytes % 1.5 % (0-4); Red Cell Distribution Width 17.2 % (11.5-14.5)
[2018-12-04 04:24] LABS: Eosinophils # 0.1 K/mcL (0.0-0.6); Hemoglobin 7.5 g/dL (12.9-16.9); Immature Platelets 4.7 % (1.1-6.1); Lymphocytes # 0.5 K/mcL (0.6-4.6); Lymphocytes % 5.6 %; Mean Corpuscular HGB Conc 31.9 g/dL (31.6-35.5); Mean Corpuscular Hemoglobin 29.8 pg (28.0-33.3); Mean Corpuscular Volume 93.3 fL (83.0-100.0); Mean Platelet Volume 11.2 fL (9.4-12.4); Monocytes # 0.5 K/mcL (0.0-1.3); Monocytes % 5.5 %; Red Blood Count 2.52 M/mcL (4.19-5.50); Segmented Neutrophils % 86.1 %
[2018-12-04 04:28] LABS: Magnesium 2.6 mg/dL (1.6-2.6)
[2018-12-04 04:28] LABS: Calcium 8.4 mg/dL (8.6-10.3); Potassium 5.5 mEq/L (3.5-5.1)
[2018-12-04 04:40] LABS: Neutrophils # 7.8 K/mcL (1.6-8.9); Platelet Count 84 K/mcL (140-400)
[2018-12-04 05:17] LABS: Platelet Estimate Decreased (Normal)
[2018-12-04 05:18] LABS: Anisocytosis 1+ (Not Present)
[2018-12-04] MEDS ORDERED: Albumin 25% 25gram/100mL 25 GM/100 ML IV.SOLN IVPB PRN (06:49)
[2018-12-04] MEDS ORDERED: 0.9 % Sodium Chloride 250 ML IVC PRN (06:49)
[2018-12-04] MEDS ORDERED: *HR* Heparin 10,000 UNIT/10 ML VIAL IV PRN ×2 (08:00)
--- NOTE | 2018-12-04 08:26 | Pulmonology Progress Note ---
<AmeenaDonny W - Last Filed: 12/04/18 11:15> Date of Encounter: 12/04/18 Objective PUL Vital signs: Last Vital Signs Temp 97.6 F 12/04/18 10:19 Pulse 114 12/04/18 11:00 Resp 24 12/04/18 11:00 BP 116/54 12/04/18 11:00 Pulse Ox 88 12/04/18 11:00 Results - Laboratory Findings CBC and BMP: 12/04/18 03:58 12/04/18 04:00 ABG ABG pH 7.40 pH Units (7.32-7.45) 12/01/18 17:56 ABG pCO2 36 mmHg (35-45) 12/01/18 17:56 ABG pO2 348 mmHg (85-104) H 12/01/18 17:56 ABG O2 Saturation 100 % (95-98) H 12/01/18 17:56 PT/INR, D-dimer PT 11.1 Seconds (9.4-12.1) 11/30/18 03:55 Abnormal lab findings: Abnormal lab results WBC 11.9 K/mcL (4.3-11.1) H 11/29/18 15:51 RBC 2.52 M/mcL (4.19-5.50) L 12/04/18 03:58 Hgb 7.5 g/dL (12.9-16.9) L 12/04/18 03:58 Hct 23.5 % (37.5-50.1) L 12/04/18 03:58 MCHC 31.4 g/dL (31.6-35.5) L 12/03/18 03:46 RDW 17.2 % (11.5-14.5) H 12/04/18 03:58 Plt Count 84 K/mcL (140-400) L D 12/04/18 03:58 MPV 13.2 fL (9.4-12.4) H 11/29/18 15:51 Reticulocyte # 0.13 M/mcL (0.05-0.10) H 11/28/18 11:20 34.0 % (0-4) H 12/02/18 03:31 9.9 K/mcL (1.6-8.9) H 12/01/18 03:30 0.5 K/mcL (0.6-4.6) L 12/04/18 03:58 Nucleated RBCs/100 WBC 0.2 /100 WBC (0) H 12/02/18 03:31 Present (Not Present) A 12/02/18 03:31 Decreased (Normal) L 12/04/18 03:58 Present (Not Present) A 11/28/18 22:00 Immature Plt Fraction 6.9 % (1.1-6.1) H 12/03/18 03:46 1+ (Not Present) A 11/25/18 03:40 Present (Not Present) A 11/25/18 03:40 1+ (Not Present) A 12/04/18 03:58 Present (Not Present) A 12/03/18 03:46 Present (Not Present) A 12/03/18 03:46 Percent Retic 4.3 % (1.6-2.8) H 11/28/18 11:20 PT 12.6 Seconds (9.4-12.1) H 11/23/18 11:15 568 mg/dL (169-393) H 11/28/18 11:20 ABG pH 7.31 pH Units (7.32-7.45) L 11/27/18 04:48 ABG pCO2 47 mmHg (35-45) H 11/29/18 04:48 ABG pO2 348 mmHg (85-104) H 12/01/18 17:56 ABG HCO3 30 mEq/L (21-27) H 11/29/18 04:48 ABG Total CO2 32 mEq/L (20-26) H 11/29/18 04:48 ABG O2 Saturation 100 % (95-98) H 12/01/18 17:56 ABG Base Excess 5 mEq/L (-2 to 3) H 11/29/18 04:48 Potassium 5.5 mEq/L (3.5-5.1) H 12/04/18 04:00 Chloride 97 mEq/L (98-107) L 11/26/18 03:32 Carbon Dioxide 22 mEq/L (23-29) L 12/04/18 04:00 BUN 123 mg/dL (8-23) H 12/04/18 04:00 6.03 mg/dL (0.70-1.30) H 12/04/18 04:00 Est GFR ( Amer) 11 (> 60) L 12/04/18 04:00 Est GFR (Non-Af Amer) 9 (> 60) L 12/04/18 04:00 Glucose 106 mg/dL (70-105) H 12/02/18 03:31 POC Glucose 105 mg/dL (70-99) H 12/03/18 11:28 6.5 % (-5.6) H 11/20/18 13:04 335 (280-300) H 12/04/18 04:00 Lactic Acid 3.3 mmol/L (0.5-2.2) H 11/22/18 04:45 Calcium 8.4 mg/dL (8.6-10.3) L 12/04/18 04:00 Venous Ioniz Calcium 1.10 mmol/L (1.15-1.35) L 12/01/18 13:21 Phosphorus 8.0 mg/dL (2.7-4.5) H 12/04/18 03:58 Iron 64 mcg/dL (65-175) L 11/28/18 11:20 158 mg/dL (203-362) L 11/28/18 11:20 1.3 mg/dL (0.3-1.0) H 11/30/18 03:55 0.8 mg/dL (0.0-0.2) H 11/30/18 03:55 AST 51 Units/L (13-39) H 11/30/18 03:55 ALT 111 Units/L (7-52) H 11/30/18 03:55 108 Units/L (34-104) H 11/26/18 03:32 341 Units/L (140-271) H 12/02/18 03:31 0.21 ng/mL (< 0.04) H* 11/21/18 13:15 5.0 g/dL (6.4-8.9) L 11/30/18 03:55 4.60 g/dL (6.00-8.30) L 11/28/18 11:20 2.9 g/dL (3.5-5.7) L 11/30/18 03:55 2.71 g/dL (3.75-5.01) L 11/28/18 11:20 2.1 g/dL (2.4-3.5) L 11/30/18 03:55 0.58 g/dL (0.19-0.46) H 11/28/18 11:20 0.41 g/dL (0.48-1.10) L 11/28/18 11:20 0.40 g/dL (0.62-1.51) L 11/28/18 11:20 Amylase 197 Units/L (29-103) H 12/04/18 09:35 Turbid (Clear) A 11/21/18 08:50 Trace mg/dL (Negative) H 11/21/18 08:50 Small (Negative) H 11/21/18 08:50 5-15 per hpf (0-3) H 11/21/18 08:50 Ur Squamous Epith Cells Many per lpf (None-Few) H 11/21/18 08:50 Ur Culture Indicated? YES (NO) A 11/21/18 08:50 U Free Lind Light Ch 17.80 mg/dL (0.14-2.42) H 11/28/18 14:32 U Free Lambda Light Ch 4.35 mg/dL (0.02-0.67) H 11/28/18 14:32 Fluid Appearance Cloudy (Clear) A 11/22/18 12:23 Vancomycin Trough 23 mcg/mL (5-10) H 11/22/18 04:45 IgG 364 mg/dL (768-1632) L 11/28/18 11:20 Free Lind LC, Quant 5.39 mg/dL (0.33-1.94) H 11/28/18 11:20 Free Lambda LC, Quant 3.08 mg/dL (0.57-2.63) H 11/28/18 11:20 Free Lind/Lambda Ratio 1.75 (0.26-1.65) H 11/28/18 11:20 Hep Bs Antibody < 3.10 mIU/mL (10.00-) L 11/24/18 09:35 Crossmatch See Detail 11/25/18 14:51 - Clinical Findings Intake & Output: Intake & Output 12/03/18 12/04/18 12/04/18 23:59 07:59 15:59 Intake Total 100 / 100 Output Total 157 / 202 25 / 275 250 / 275 Balance -57 / -102 -25 / -275 -250 / -275 Weight 96.1 kg Consult Discharge Plan - Plan [facility]errals: [facility] [Primary Care Provider[facility] - - Attending Attestation I examined this patient and my medical decision-making was reviewed with the Resident Physician. I agree with the documented findings, disposition and treatment plan as described except to the extent set forth below. We independently had [id number] contact with the patient Patient seen and examined at bedside Labs, radiology, chart personally reviewed. Management was reviewed during multidisciplinary critical care rounds. [employer]ER: Suspect delirium but patient without focal neurological deficit Pulm: Hypoxic hypercapnic respiratory failure Tolerating high flow but at high risk for further deterioration he is a large component of hydrostatic pulmonary edema as well as mucus plugging will need to continue aggressive bronchopulmonary hygiene and start working with PT/OT and hopefully get him out of the bed will continue BiPAP at night high risk for further decline requiring reintubation Cards: Blood pressure monitored and stable he remains persistently tachycardic GI: Once he has been weaned off BiPAP and oxygen requirements have come down we can do bedside swallow eval and hopefully get her diet started Renal: Acute kidney injury requiring renal replacement therapy and nephrology following plan for dialysis today blood pressure is noted to drop precipitously during this event we have vasopressor available and we will also administer albumin prior to the procedure UOP Monitored, Cont to Trend sCr and monitor Electrolytes. ID: Patient is on broad-spectrum antibiotics for pneumonia Heme/Onc: Persistent thrombocytopenia with the acute blood loss anemia both of which are stable appreciate hematology recommendations Endo: Glucose Monitored Integ/MSK: Skin Care per routine ICU Nursing Protocol to prevent ulcers. Lines: All lines examined without evidence of infection : Dispo: Monitor in ICU for respiratory failure CODE: DNAR <Ciera Henry - Last Filed: 12/04/18 14:17> Date of Encounter: 12/04/18 Time of Encounter: 08:00 Assessment and Plan (1) Acute respiratory failure with hypoxia Current Visit: Yes Status: Acute Some of the information is obtained from chart review for data consistency On BiPAP last night and this morning. Tolerating high flow oxygenation therapy On 12/01 there is volume overload and requiring continuous BiPAP On 12/02 ongoing requirement of BiPAP due to VQ mismatch from pneumonia and pulmonary edema. On 12/03 continuing pneumonia treatments to continue to remain hypoxic due to the concern of ongoing hypoxia and tachycardia he underwent CTA CTA was negative for pulmonary embolism but did show mucus plugging On 12/04 on BiPAP tolerating high flow oxygenation therapy. Also received Mucomyst therapy yesterday which is improving his oxygenation. (2) Pneumonia Current Visit: Yes Status: Acute Has Stenotrophomonas maltophilia pneumonia. De-escalate his antibiotics. Symptoms are complicated by pulmonary edema was requiring ongoing BiPAP due to patient mismatch from pneumonia and pulmonary along with acute renal failure. Completed Zosyn for 7 days will continue Levaquin at this time. Oxygenation demand has improved with high flow nasal cannula. Qualifiers: Pneumonia type: due to other aerobic Gram-negative bacteria Laterality: unspecified laterality Lung location: unspecified part of lung Qualified Code(s): J15.6 - Pneumonia due to other Gram-negative bacteria (3) COPD (chronic obstructive pulmonary disease) Current Visit: Yes Status: Acute History of COPD, exacerbation due to ongoing pneumonia. Currently on hydrocortisone due to presentation of septic shock. Tapering on hydrocortisone. Continue Mucomyst and scheduled DuoNeb. Qualifiers: COPD type: emphysema Emphysema type: unspecified Qualified Code(s): J43.9 - Emphysema, unspecified (4) Constipation Current Visit: Yes Status: Acute Was not having any bowel movements since admission regardless of had a KUB which showed suspected ileus He was started on methylnaltrexone concern of Wellbutrin to his constipation Qualifiers: Constipation type: drug induced constipation Qualified Code(s): K59.03 - Drug induced constipation (5) ANY (acute kidney injury) Current Visit: Yes Status: Acute Urine was noted to be 1.4 at admission unsure of baseline. Could be chronic versus worsening renal function due to septic shock. Nephrology is following. On hemodialysis based on nephrology's discretion. (6) Anemia Current Visit: Yes Status: Acute Was on anticoagulation at outside facility due to underlying DVT Unsure of baseline at admission was 7.3 at this time 7.5 unchanged for the past 2 days. No evidence of acute blood loss. Qualifiers: Anemia type: other cause Other causes of anemia: other cause, not classified Qualified Code(s): D64.89 - Other specified anemias (7) Thrombocytopenia Current Visit: Yes Status: Acute At presentation platelets are within normal limits at 190 platelets slowly decreased likely secondary to septic shock. Lowest platelet count was 13. Platelets have been improving the past 5 days this morning was noted to be 84. (8) DVT prophylaxis Current Visit: Yes Status: Acute scds and on PRN heparin for dialysis Subjective Principal diagnosis: Sepsis Interval history: Jarocho was seen at bedside this morning. His vitals are reviewed and he remained tachycardic. He was on the BiPAP overnight but tolerated high flow this morning. We will continue to decrease FiO2 to keep O2 saturation of 88%. He was awake, alert and was following commands. Complained of abdominal pain does have been ongoing left-sided rectus sheath hematoma. Objective PUL Vital signs: Last Vital Signs Temp 96.7 F L 12/04/18 06:54 Pulse 112 12/04/18 07:00 Resp 25 12/04/18 07:00 BP 103/56 12/04/18 07:00 Pulse Ox 94 12/04/18 07:00 General appearance: no acute distress, alert Eyes: nonicteric ENT: oropharynx moist Neck: supple, no JVD Effort: mildly labored Auscultation: bilateral: diminished breath sounds (Lower bases) Cardiovascular: other (Regular rhythm with tachycardia) Gastrointestinal: hypoactive bowel sounds, tender, other (cyanosis around the left lower abdomen) Extremities: no ischemia or petechiae, edema, anasarca Musculoskeletal: no deformities pupils equal and round mood appropriate, affect normal Results - Laboratory Findings CBC and BMP: 12/04/18 03:58 12/04/18 04:00 ABG ABG pH 7.40 pH Units (7.32-7.45) 12/01/18 17:56 ABG pCO2 36 mmHg (35-45) 12/01/18 17:56 ABG pO2 348 mmHg (85-104) H 12/01/18 17:56 ABG O2 Saturation 100 % (95-98) H 12/01/18 17:56 PT/INR, D-dimer PT 11.1 Seconds (9.4-12.1) 11/30/18 03:55 Abnormal lab findings: Abnormal lab results WBC 11.9 K/mcL (4.3-11.1) H 11/29/18 15:51 RBC 2.52 M/mcL (4.19-5.50) L 12/04/18 03:58 Hgb 7.5 g/dL (12.9-16.9) L 12/04/18 03:58 Hct 23.5 % (37.5-50.1) L 12/04/18 03:58 MCHC 31.4 g/dL (31.6-35.5) L 12/03/18 03:46 RDW 17.2 % (11.5-14.5) H 12/04/18 03:58 Plt Count 84 K/mcL (140-400) L D 12/04/18 03:58 MPV 13.2 fL (9.4-12.4) H 11/29/18 15:51 Reticulocyte # 0.13 M/mcL (0.05-0.10) H 11/28/18 11:20 34.0 % (0-4) H 12/02/18 03:31 9.9 K/mcL (1.6-8.9) H 12/01/18 03:30 0.5 K/mcL (0.6-4.6) L 12/04/18 03:58 Nucleated RBCs/100 WBC 0.2 /100 WBC (0) H 12/02/18 03:31 Present (Not Present) A 12/02/18 03:31 Decreased (Normal) L 12/04/18 03:58 Present (Not Present) A 11/28/18 22:00 Immature Plt Fraction 6.9 % (1.1-6.1) H 12/03/18 03:46 1+ (Not Present) A 11/25/18 03:40 Present (Not Present) A 11/25/18 03:40 1+ (Not Present) A 12/04/18 03:58 Present (Not Present) A 12/03/18 03:46 Present (Not Present) A 12/03/18 03:46 Percent Retic 4.3 % (1.6-2.8) H 11/28/18 11:20 PT 12.6 Seconds (9.4-12.1) H 11/23/18 11:15 568 mg/dL (169-393) H 11/28/18 11:20 ABG pH 7.31 pH Units (7.32-7.45) L 11/27/18 04:48 ABG pCO2 47 mmHg (35-45) H 11/29/18 04:48 ABG pO2 348 mmHg (85-104) H 12/01/18 17:56 ABG HCO3 30 mEq/L (21-27) H 11/29/18 04:48 ABG Total CO2 32 mEq/L (20-26) H 11/29/18 04:48 ABG O2 Saturation 100 % (95-98) H 12/01/18 17:56 ABG Base Excess 5 mEq/L (-2 to 3) H 11/29/18 04:48 Potassium 5.5 mEq/L (3.5-5.1) H 12/04/18 04:00 Chloride 97 mEq/L (98-107) L 11/26/18 03:32 Carbon Dioxide 22 mEq/L (23-29) L 12/04/18 04:00 BUN 123 mg/dL (8-23) H 12/04/18 04:00 6.03 mg/dL (0.70-1.30) H 12/04/18 04:00 Est GFR ( Amer) 11 (> 60) L 12/04/18 04:00 Est GFR (Non-Af Amer) 9 (> 60) L 12/04/18 04:00 Glucose 106 mg/dL (70-105) H 12/02/18 03:31 POC Glucose 105 mg/dL (70-99) H 12/03/18 11:28 6.5 % (-5.6) H 11/20/18 13:04 335 (280-300) H 12/04/18 04:00 Lactic Acid 3.3 mmol/L (0.5-2.2) H 11/22/18 04:45 Calcium 8.4 mg/dL (8.6-10.3) L 12/04/18 04:00 Venous Ioniz Calcium 1.10 mmol/L (1.15-1.35) L 12/01/18 13:21 Phosphorus 8.0 mg/dL (2.7-4.5) H 12/04/18 03:58 Iron 64 mcg/dL (65-175) L 11/28/18 11:20 158 mg/dL (203-362) L 11/28/18 11:20 1.3 mg/dL (0.3-1.0) H 11/30/18 03:55 0.8 mg/dL (0.0-0.2) H 11/30/18 03:55 AST 51 Units/L (13-39) H 11/30/18 03:55 ALT 111 Units/L (7-52) H 11/30/18 03:55 108 Units/L (34-104) H 11/26/18 03:32 341 Units/L (140-271) H 12/02/18 03:31 0.21 ng/mL (< 0.04) H* 11/21/18 13:15 5.0 g/dL (6.4-8.9) L 11/30/18 03:55 4.60 g/dL (6.00-8.30) L 11/28/18 11:20 2.9 g/dL (3.5-5.7) L 11/30/18 03:55 2.71 g/dL (3.75-5.01) L 11/28/18 11:20 2.1 g/dL (2.4-3.5) L 11/30/18 03:55 0.58 g/dL (0.19-0.46) H 11/28/18 11:20 0.41 g/dL (0.48-1.10) L 11/28/18 11:20 0.40 g/dL (0.62-1.51) L 11/28/18 11:20 Turbid (Clear) A 11/21/18 08:50 Trace mg/dL (Negative) H 11/21/18 08:50 Small (Negative) H 11/21/18 08:50 5-15 per hpf (0-3) H 11/21/18 08:50 Ur Squamous Epith Cells Many per lpf (None-Few) H 11/21/18 08:50 Ur Culture Indicated? YES (NO) A 11/21/18 08:50 U Free Lind Light Ch 17.80 mg/dL (0.14-2.42) H 11/28/18 14:32 U Free Lambda Light Ch 4.35 mg/dL (0.02-0.67) H 11/28/18 14:32 Fluid Appearance Cloudy (Clear) A 11/22/18 12:23 Vancomycin Trough 23 mcg/mL (5-10) H 11/22/18 04:45 IgG 364 mg/dL (768-1632) L 11/28/18 11:20 Free Lind LC, Quant 5.39 mg/dL (0.33-1.94) H 11/28/18 11:20 Free Lambda LC, Quant 3.08 mg/dL (0.57-2.63) H 11/28/18 11:20 Free Lind/Lambda Ratio 1.75 (0.26-1.65) H 11/28/18 11:20 Hep Bs Antibody < 3.10 mIU/mL (10.00-) L 11/24/18 09:35 Crossmatch See Detail 11/25/18 14:51 - Clinical Findings Intake & Output: Intake & Output 12/03/18 12/04/18 12/04/18 23:59 07:59 15:59 Output Total Balance -157 / - - Weight 96.1 kg
[2018-12-04] MEDS ORDERED: 0.9 % Sodium Chloride 2,000 ML ONE (08:45)
[2018-12-04] MEDS: Docusate Oral Soln 100 MG/10 ML UDC GTUBE SCH ×2 (08:52→19:32)
[2018-12-04] MEDS ORDERED: Pantoprazole 40 MG VIAL IVP SCH (09:00)
[2018-12-04] MEDS ORDERED: Hydrocortisone Sodium Succ 100 MG/2 ML VIAL IVP SCH (09:00)
[2018-12-04 11:03] LABS: Amylase 197 Units/L (29-103); Lipase 14 Units/L (11-82)
[2018-12-04] MEDS: Nitroglycerin 25 MG/250 ML INFUS..BTL IVC SCH (11:25)
[2018-12-04] MEDS: Dexmedetomidine HCl 400 MCG/100 ML MLS IVC SCH ×2 (15:10→19:59)
[2018-12-04] MEDS ORDERED: Dexmedetomidine HCl 400 MCG/100 ML MLS IVC ONE (15:10)
[2018-12-04] MEDS ORDERED: 0.9 % Sodium Chloride 1,000 ML PRIME SCH (16:30)
[2018-12-04] MEDS: PrismaSATE BGK 4/2.5 5,000 ML CRRT SCH ×6 (18:19→21:32)
--- NOTE | 2018-12-04 20:41 | Oncology Inp Progress Note ---
Date of Encounter: 12/04/18 Time of Encounter: 16:15 (1) Anemia Current Visit: Yes Status: Acute Assessment and plan: Acute on chronic anemia. Has had GI hemorrhage and rectus sheath hematoma. No evidence of active bleeding and H/H stable. No evidence of hemolysis. Continue supportive transfusions as needed. Qualifiers: Anemia type: other cause Other causes of anemia: other cause, not classified Qualified Code(s): D64.89 - Other specified anemias (2) Thrombocytopenia Current Visit: Yes Status: Acute Assessment and plan: Thrombocytopenia secondary to sepsis. No evidence of microangiopathic process (TTP,etc). Platelet count recovering. Once patient stabilizes and platelet count is over 100,000, could consider reintroduction of anticoagulation for right leg DVT. (3) Right leg DVT Current Visit: Yes Status: Acute Assessment and plan: Had recent rectus sheath hematoma and GI bleed. Not a candidate for anticoagulation at the current juncture and is s/p IVC filter. If/when patient stabilizes we can reconsider anticoagulation down the road. Qualifiers: Affected thrombotic vein of extremity: unspecified vein of extremity Chronicity: unspecified Qualified Code(s): I82.401 - Acute embolism and thrombosis of unspecified deep veins of right lower extremity Oncology: Subj Interval history: Remains on bipap and is undergoing HD. Complains of abdominal pain which has been noted previous and for which he has had a CT. Rectal tube in place. No fever overnight or past few days. Tachycardic. No acute issue. Pulmonary culture with stenotrophomonas. - Constitutional General appearance: cooperative, mild distress - Head Head exam: Present: atraumatic, normal inspection, normocephalic - Eye Eye exam: Present: normal appearance, sclera anicteric - ENT ENT exam: Present: mucous membranes moist, normal exam - Neck Neck exam: Present: full ROM, normal inspection - Respiratory Respiratory exam: Present: prolonged expiratory phase, rhonchi - Cardiovascular Cardiovascular exam: Present: tachycardia - GI/Abdominal GI/Abdominal exam: Present: diminished bowel sounds, distended - Extremities Exam Extremities exam: Present: pedal edema - Neurological Exam Neurological exam: Present: alert, altered Oncology: Obj Data - Labs CBC & Chem 7: 12/04/18 03:58 12/04/18 04:00 - Imaging and cardiology CT scan - abdomen Status: image reviewed by me Additional comments: CT OF THE ABDOMEN AND PELVIS WITH CONTRAST 12/03/2018 2:12 pm FINDINGS: Lower Chest: A small left pleural effusion is noted with bibasilar atelectasis. Heart size is normal. No epicardial adenopathy is noted. Trace pericardial fluid is present. Organs: A left hepatic cyst of 2.2 cm is noted with other smaller hypodensities likely cysts. Spleen and adrenals are unremarkable. Gallbladder contains several gallstones and is distended without pericholecystic fluid. Pancreas contains some fluid around the distal end of the pancreas. Pancreatic margins appear hazy suggestive of pancreatitis. Kidneys demonstrate no nephrolithiasis, mass or hydronephrosis. GI/Bowel: Moderate stool burden is noted. There is a large amount of liquid and stool in a distended rectosigmoid. There is injection into the perirectal fat which may be related to colitis or secondary inflammation from suspected pancreatitis. Mild distention of some small bowel loops is noted without a transition zone noted. Overall appearance favors ileus. No free air is evident. Pelvis: There is no evidence of appendicitis. Bladder contains a Reynaga catheter but is decompressed. No inguinal adenopathy is noted. There is fluid in the pelvis measuring Hounsfield numbers consistent with fluid rather than blood component. Both inguinal rings are dilated and fat containing without strangulation. Peritoneum/Retroperitoneum: Inferior vena cava umbrella is noted. No aortic aneurysm, retroperitoneal mass, retroperitoneal or mesenteric adenopathy is present. Atherosclerotic calcification of the aorta is noted. Stranding is present in the mesentery in the left hemiabdomen and around the left pericolic gutter extending from the tail of the pancreas. Bones/Soft Tissues: Marked enlargement of the left rectus muscle is noted consistent with rectus sheath hematoma of 14.5 x 5.0 x 31.6 cm. Subcutaneous edema is noted around the pelvis and anterior abdominal wall. CT/CT abd pelvis w iv no oral IMPRESSION: 1. Large left rectus sheath hematoma. 2. Fluid around the tail of the pancreas and down the left pericolic gutter. This may be related to pancreatitis; clinical correlation is advised. 3. Left pleural effusion and trace pericardial effusion. 4. Gallstones. 5. Fluid in the pelvis with Hounsfield numbers more typical of fluid. Some heme component is difficult to exclude given the large rectus sheath hematoma. 6. Other incidental findings as above. Consult Discharge Plan - Plan [facility]errals: [facility] [Primary Care Provider] - Inpatient Charges Provider: Dr. Gely Clarke
[2018-12-04] MEDS: Phenylephrine 10 MG in D5% in Water 250 ML IVC SCH (21:19)
--- NOTE | 2018-12-04 23:24 | Nephrology Progress Note ---
Date of Encounter: 12/04/18 Time of Encounter: 12:00 - Assessment and Plan (1) ANY (acute kidney injury) Current Visit: Yes Status: Acute HD planned today but if unable to tolerate might need CRRT yet again (2) COPD (chronic obstructive pulmonary disease) Current Visit: Yes Status: Acute Qualifiers: COPD type: emphysema Emphysema type: unspecified Qualified Code(s): J43.9 - Emphysema, unspecified (3) Right leg DVT Current Visit: Yes Status: Acute Qualifiers: Affected thrombotic vein of extremity: unspecified vein of extremity Chronicity: unspecified Qualified Code(s): I82.401 - Acute embolism and thrombosis of unspecified deep veins of right lower extremity (4) Anemia Current Visit: Yes Status: Acute Qualifiers: Anemia type: other cause Other causes of anemia: other cause, not classified Qualified Code(s): D64.89 - Other specified anemias (5) Anasarca Current Visit: Yes Status: Acute Subjective Principal diagnosis: Sepsis Interval history: Iterim noted, pt seen and examined Objective - Vital Signs Vital signs: Vital Signs Temp Pulse Resp BP Pulse Ox 12/04/18 23:00 70 26 60/50 95 12/04/18 22:00 90 32 72/54 100 12/04/18 21:27 18 90 12/04/18 21:00 94 29 67/53 100 12/04/18 20:00 97.1 F L 94 22 80/48 100 12/04/18 19:40 95 12/04/18 19:00 95 30 80/59 100 12/04/18 18:00 94 28 93/82 95 12/04/18 17:00 114 28 112/37 99 12/04/18 16:09 97.7 F 12/04/18 16:00 119 29 95/62 98 12/04/18 15:50 97.9 F 26 74/52 12/04/18 15:30 31 97/71 98 12/04/18 15:25 112/79 12/04/18 15:20 74/52 12/04/18 15:15 106/72 12/04/18 15:10 144/132 12/04/18 15:05 144/130 12/04/18 15:00 126 31 169/143 87 12/04/18 14:45 146/11 12/04/18 14:30 146/68 12/04/18 14:15 97.3 F L 22 160/106 12/04/18 14:00 114 26 131/85 93 12/04/18 13:00 108 25 116/63 95 12/04/18 12:00 108 23 105/53 94 12/04/18 11:00 114 24 116/54 88 12/04/18 10:19 97.6 F 12/04/18 10:00 112 23 119/56 91 12/04/18 09:22 22 92 12/04/18 09:00 112 23 129/63 91 12/04/18 08:00 107 25 111/59 93 12/04/18 07:00 112 25 103/56 94 12/04/18 06:54 96.7 F L 12/04/18 06:00 113 23 123/72 95 12/04/18 05:00 111 21 97/56 94 12/04/18 04:51 98.2 F 12/04/18 04:05 111 12/04/18 04:00 112 21 95/56 93 12/04/18 03:45 27 120/70 95 12/04/18 03:00 111 24 108/56 93 12/04/18 02:00 106 25 97/45 94 12/04/18 01:00 112 23 106/63 91 12/04/18 00:56 98.5 F 12/04/18 00:19 24 117/57 96 12/04/18 00:00 109 20 117/57 94 Intake and Output 12/04/18 12/04/18 12/04/18 07:59 15:59 23:59 Intake Total 700 / 1019.8 319.8 / 1019.8 Output Total / 976 898 / 976 53 / 976 Balance -25 / 43.8 -198 / 43.8 266.8 / 43.8 Intake: IV Fluids 100 / 299.8 199.8 / 299.8 PrismaSATE BGK 4/2.5 5,000 ML @ 0 / 0 1500 mls/hr CRRT CONT [facility] Rx#: [id number] PRECEDEX Premix 400 mcg In 100 158.3 / 158.3 ml @ 0.2 MCG/KG/HR 4.805 mls/hr IVC .[id number] [facility] Rx#: [id number] Phenylephrine 10 MG In Dextrose 41.5 / 41.5 5% 250 ML @ 100 MCG/MIN 150.6 mls/hr IVC CONT [facility] Rx#: [id number] Flexbumin 25 gm In 100 ml @ 60 100 / 100 mls/hr IVPB ONCE PRN Rx#: [id number] Oral 0 / 0 Other 120 / 120 Intake, Rinseback and Flushes 600 / 600 Output: Urine 0 / 0 Total Dialysis (HD) Output 648 / 648 Mallorie 18 / 18 Rectal Tube 0 / 200 200 / 200 0 / 200 Catheter 25 / 110 50 / 110 35 / 110 Other: Stool Color Brown Blood Tinged Weight 96.1 kg 96.1 kg 96.1 kg Blood Glucose* 90 97 Hemodialysis Net Fluid Removed 48 (mL) Fluid Removed by Prismaflex 13 Patient Weight 12/04/18 23:59 Weight 96.1 kg - Lab 12/04/18 03:58 12/04/18 04:00 Consult Discharge Plan - Plan Referrals: [facility] [Primary Care Provider] -
[2018-12-05] MEDS: Dexmedetomidine HCl 400 MCG/100 ML MLS IVC SCH (00:34)
[2018-12-05] MEDS: PrismaSATE BGK 4/2.5 5,000 ML CRRT SCH ×9 (00:50→08:47)
[2018-12-05] MEDS: Norepinephrine 8 MG in D5% in Water 250 ML IVC SCH ×2 (00:51→09:45)
[2018-12-05] MEDS: Phenylephrine 10 MG in D5% in Water 250 ML IVC SCH ×2 (02:55→07:58)
[2018-12-05 03:37] LABS: Hemoglobin 7.9 g/dL (12.9-16.9)
[2018-12-05 03:39] LABS: Basophils % 0.2 %; Eosinophils % 0.4 %; Immature Granulocytes % 4.7 % (0-4); Immature Platelets 9.5 % (1.1-6.1); Lymphocytes # 0.7 K/mcL (0.6-4.6); Lymphocytes % 6.3 %; Mean Corpuscular HGB Conc 31.6 g/dL (31.6-35.5); Mean Corpuscular Hemoglobin 29.5 pg (28.0-33.3); Mean Corpuscular Volume 93.3 fL (83.0-100.0); Mean Platelet Volume 11.6 fL (9.4-12.4); Monocytes # 0.4 K/mcL (0.0-1.3); Monocytes % 3.4 %; Neutrophils # 9.4 K/mcL (1.6-8.9); Red Blood Count 2.68 M/mcL (4.19-5.50); Red Cell Distribution Width 17.3 % (11.5-14.5)
[2018-12-05 03:40] LABS: Platelet Count 89 K/mcL (140-400)
[2018-12-05] MEDS: Acetylcysteine 10% 2 ML INHSOL IH SCH ×2 (03:41→10:31)
[2018-12-05] MEDS: Ipratropium/Albuterol Neb 3 ML IH SCH ×2 (03:41→10:31)
[2018-12-05 03:55] LABS: Albumin 3.2 g/dL (3.5-5.7); Albumin/Globulin Ratio 1.3 (1.1-2.2); Bilirubin,Direct 0.8 mg/dL (0.0-0.2); Bilirubin,Indirect 0.7 mg/dL (0.0-1.2); Bilirubin,Total 1.5 mg/dL (0.3-1.0); Calcium 8.2 mg/dL (8.6-10.3); Globulin 2.4 g/dL (2.4-3.5); Potassium 4.8 mEq/L (3.5-5.1); Total Protein 5.6 g/dL (6.4-8.9)
[2018-12-05 04:04] LABS: Anisocytosis 1+ (Not Present); Hypochromasia Present (Not Present); Platelet Estimate Decreased (Normal)
[2018-12-05] MEDS ORDERED: *HR* Heparin 5,000 UNIT/ML VIAL ONE ×2 (04:16→10:12)
[2018-12-05] MEDS: Insulin LISPRO 300 UNITS/3 ML VIAL SQ SCH (04:52)
[2018-12-05 05:07] LABS: ABG Base Excess -2 mEq/L (-2 to 3); ABG HCO3 24 mEq/L (21-27); ABG Oxygen Saturation 94 % (95-98); ABG PCO2 40 mmHg (35-45); ABG PH 7.37 pH Units (7.32-7.45); ABG PO2 73 mmHg (85-104); ABG TCO2 25 mEq/L (20-26); Blood Gas Modality AVAPS; Blood Gas PEEP 8 cm H2O; Blood Gas Respiration Rate 12; Blood Gas VT 600 cc
[2018-12-05] MEDS ORDERED: Albumin 25% 25gram/100mL 25 GM/100 ML IV.SOLN ONE (07:53)
[2018-12-05] MEDS ORDERED: FentaNYL (PF) 1,000 MCG in 0.9 % Sodium Chloride 80 ML IVC SCH (08:00)
[2018-12-05] MEDS ORDERED: *HR* Midazolam HCl 2 MG/2 ML VIAL ONE (08:13)
--- NOTE | 2018-12-05 08:19 | Pulmonology Progress Note ---
<LeonorachagoDonny diaz W - Last Filed: 12/05/18 13:01> Date of Encounter: 12/05/18 Objective PUL Vital signs: Last Vital Signs Temp 94.0 F L 12/05/18 09:00 Pulse 80 12/05/18 10:00 Resp 22 12/05/18 10:00 BP 92/78 12/05/18 10:00 Pulse Ox 67 12/05/18 10:00 Ventilator Settings Ventilator Settings: Ventilator Settings, Last 8 Hours Ventilator Tidal Volume 450 Setting Ventilator Tidal Volume 450 Setting Ventilator Respiratory Rate 14 Setting Ventilator Respiratory Rate 14 Setting Positive End Expiratory 10 Pressure Positive End Expiratory 10 Pressure Peak Inspiratory Airway 22 Pressure Peak Inspiratory Airway 25 Pressure Results - Laboratory Findings CBC and BMP: 12/05/18 03:24 12/05/18 03:24 ABG ABG pH 7.23 pH Units (7.32-7.45) L D 12/05/18 10:19 ABG pCO2 70 mmHg (35-45) H* D 12/05/18 10:19 ABG pO2 47 mmHg (85-104) L* 12/05/18 10:19 ABG O2 Saturation 73 % (95-98) L 12/05/18 10:19 PT/INR, D-dimer PT 11.5 Seconds (9.4-12.1) 12/05/18 09:47 Abnormal lab findings: Abnormal lab results WBC 11.9 K/mcL (4.3-11.1) H 11/29/18 15:51 RBC 2.68 M/mcL (4.19-5.50) L 12/05/18 03:24 Hgb 7.9 g/dL (12.9-16.9) L 12/05/18 03:24 Hct 25.0 % (37.5-50.1) L 12/05/18 03:24 MCHC 31.4 g/dL (31.6-35.5) L 12/03/18 03:46 RDW 17.3 % (11.5-14.5) H 12/05/18 03:24 Plt Count 89 K/mcL (140-400) L 12/05/18 03:24 MPV 13.2 fL (9.4-12.4) H 11/29/18 15:51 Reticulocyte # 0.13 M/mcL (0.05-0.10) H 11/28/18 11:20 Immature Gran % 4.7 % (0-4) H 12/05/18 03:24 34.0 % (0-4) H 12/02/18 03:31 9.4 K/mcL (1.6-8.9) H 12/05/18 03:24 0.5 K/mcL (0.6-4.6) L 12/04/18 03:58 Nucleated RBCs/100 WBC 0.2 /100 WBC (0) H 12/02/18 03:31 Present (Not Present) A 12/02/18 03:31 Decreased (Normal) L 12/05/18 03:24 Present (Not Present) A 11/28/18 22:00 Immature Plt Fraction 9.5 % (1.1-6.1) H 12/05/18 03:24 1+ (Not Present) A 11/25/18 03:40 Present (Not Present) A 12/05/18 03:24 1+ (Not Present) A 12/05/18 03:24 Present (Not Present) A 12/03/18 03:46 Present (Not Present) A 12/03/18 03:46 Percent Retic 4.3 % (1.6-2.8) H 11/28/18 11:20 PT 12.6 Seconds (9.4-12.1) H 11/23/18 11:15 568 mg/dL (169-393) H 11/28/18 11:20 ABG pH 7.23 pH Units (7.32-7.45) L D 12/05/18 10:19 ABG pCO2 70 mmHg (35-45) H* D 12/05/18 10:19 ABG pO2 47 mmHg (85-104) L* 12/05/18 10:19 ABG HCO3 29 mEq/L (21-27) H 12/05/18 10:19 ABG Total CO2 31 mEq/L (20-26) H 12/05/18 10:19 ABG O2 Saturation 73 % (95-98) L 12/05/18 10:19 ABG Base Excess 5 mEq/L (-2 to 3) H 11/29/18 04:48 Potassium 5.5 mEq/L (3.5-5.1) H 12/04/18 04:00 Chloride 97 mEq/L (98-107) L 11/26/18 03:32 Carbon Dioxide 22 mEq/L (23-29) L 12/04/18 04:00 BUN 57 mg/dL (8-23) H 12/05/18 03:24 2.75 mg/dL (0.70-1.30) H 12/05/18 03:24 Est GFR ( Amer) 28 (> 60) L 12/05/18 03:24 Est GFR (Non-Af Amer) 23 (> 60) L 12/05/18 03:24 Glucose 114 mg/dL (70-105) H 12/05/18 03:24 POC Glucose 104 mg/dL (70-99) H 12/04/18 23:08 6.5 % (-5.6) H 11/20/18 13:04 305 (280-300) H 12/05/18 03:24 Lactic Acid 3.3 mmol/L (0.5-2.2) H 11/22/18 04:45 Calcium 8.2 mg/dL (8.6-10.3) L 12/05/18 03:24 Venous Ioniz Calcium 1.10 mmol/L (1.15-1.35) L 12/01/18 13:21 Phosphorus 8.0 mg/dL (2.7-4.5) H 12/04/18 03:58 Iron 64 mcg/dL (65-175) L 11/28/18 11:20 158 mg/dL (203-362) L 11/28/18 11:20 1.5 mg/dL (0.3-1.0) H 12/05/18 03:24 0.8 mg/dL (0.0-0.2) H 12/05/18 03:24 AST 51 Units/L (13-39) H 11/30/18 03:55 ALT 111 Units/L (7-52) H 11/30/18 03:55 108 Units/L (34-104) H 11/26/18 03:32 341 Units/L (140-271) H 12/02/18 03:31 0.21 ng/mL (< 0.04) H* 11/21/18 13:15 5.6 g/dL (6.4-8.9) L 12/05/18 03:24 4.60 g/dL (6.00-8.30) L 11/28/18 11:20 3.2 g/dL (3.5-5.7) L 12/05/18 03:24 2.71 g/dL (3.75-5.01) L 11/28/18 11:20 2.1 g/dL (2.4-3.5) L 11/30/18 03:55 0.58 g/dL (0.19-0.46) H 11/28/18 11:20 0.41 g/dL (0.48-1.10) L 11/28/18 11:20 0.40 g/dL (0.62-1.51) L 11/28/18 11:20 Amylase 197 Units/L (29-103) H 12/04/18 09:35 Turbid (Clear) A 11/21/18 08:50 Trace mg/dL (Negative) H 11/21/18 08:50 Small (Negative) H 11/21/18 08:50 5-15 per hpf (0-3) H 11/21/18 08:50 Ur Squamous Epith Cells Many per lpf (None-Few) H 11/21/18 08:50 Ur Culture Indicated? YES (NO) A 11/21/18 08:50 U Free [place] Light Ch 17.80 mg/dL (0.14-2.42) H 11/28/18 14:32 U Free Lambda Light Ch 4.35 mg/dL (0.02-0.67) H 11/28/18 14:32 Fluid Appearance Cloudy (Clear) A 11/22/18 12:23 Positive (Negative) A 12/05/18 03:33 Vancomycin Trough 23 mcg/mL (5-10) H 11/22/18 04:45 IgG 364 mg/dL (768-1632) L 11/28/18 11:20 Free [place] LC, Quant 5.39 mg/dL (0.33-1.94) H 11/28/18 11:20 Free Lambda LC, Quant 3.08 mg/dL (0.57-2.63) H 11/28/18 11:20 Free [place]/Lambda Ratio 1.75 (0.26-1.65) H 11/28/18 11:20 Hep Bs Antibody < 3.10 mIU/mL (10.00-) L 11/24/18 09:35 Crossmatch See Detail 11/25/18 14:51 - Clinical Findings Intake & Output: Intake & Output 12/04/18 12/05/18 12/05/18 23:59 07:59 15:59 Intake Total 319.8 / 1080.8 950.9 / 1844.5 893.6 / 1844.5 Output Total 53 / 976 0 Balance 266.8 / 104.8 933.9 / 1827.5 893.6 / 1827.5 Weight 96.1 kg 96.1 kg 96.1 kg Consult Discharge Plan - Plan [facility]errals: [facility] [Primary Care Provider[facility] - - Attending Attestation I examined this patient and my medical decision-making was reviewed with the Resident Physician. I agree with the documented findings, disposition and treatment plan as described except to the extent set forth below. We independently had [id number] contact with the patient I spent 65min of Critical Care time with this patient. It involved decision making of high complexity to assess, manipulate, and support vital organ system failure and/or to prevent further life threatening deterioration of the patient's condition. The time involved in the performance of separately reportable procedures was not counted toward critical care time. Patient seen and examined at bedside Labs, radiology, chart personally reviewed. Management was reviewed during multidisciplinary critical care rounds. Unfortunately Mr. Gomez's clinical course deteriorated rapidly over the course of the morning. He had really not tolerated any form of renal replacement therapy with volume removal including Mallorie and had been with fluctuating atrial fibrillation throughout the course of the evening and into the morning. Upon my arrival to the ICU I was notified by the nursing staff his oxygen sat uration have been in the 60s I evaluated the patient and correlated the pulse oximetry was several sources and did not appear to be artificial patient was also noted to be extremely anxious and had labored breathing along with noted hypotension. Vasopressors were started and patient had to be emergently endotracheally intubated. Unfortunately clinical course deteriorated further despite maximal vent support patient had persistent hypoxemia eventually patient was paralyzed and even with this remained persistently hypoxemic. He had 2 occasions of bradycardia one of which responded to use of atropine the second however with persistent hypoxemia did not respond. Patient was also on 2 vasopressors for hypotension which were running a very high levels (dopamine and norepinephrine). Abdomen conversation with the patient's healthcare power of securities attorney next of kin his daughter Gabby and she expresses full understanding that prognosis was grave and did not want any heroic measures undertaken it became clear that the patient was likely going to experience additional cardiac arrest while I was on the phone with her and she asked me to transition to comfort measures at that time. Patient subsequently lost a pulse and This unfortunately appears to be the culmination of multiple insults possibly precipitated by complications including possibly developing new infectious process such as pneumonia complicated by significant hydrostatic pulmonary edema which was unamenable to volume removal with renal replacement therapy in addition patient remained at very high risk for pulmonary embolus and is quite possible that he had developed pulmonary embolus acutely - unfortunately with recent history of life-threatening hemorrhage and patient's bleeding risk he was not a candidate for anticoagulation and had concern for active GI bleeding during my assessment. I did provide emotional support to the daughter while I was on the phone and all questions were answered to the best of my ability <Mandi Pérez N - Last Filed: 12/05/18 14:19> Date of Encounter: 12/05/18 Time of Encounter: 08:18 Assessment and Plan (1) Acute respiratory failure with hypoxia Current Visit: Yes Status: Acute Suspect secondary to pneumonia. Patient did require reintubation this morning secondary to worsening hypoxia. Chest x-ray performed on 12/05/2018 at 0 400 demonstrated no significant interval change with 3 demonstration of left greater than right heterogeneous opacities and small bilateral pleural effusions. ABG demonstrated pH 7.37, PCO2 40, PO2 73, and HCO3 24. - Continue mechanical ventilation and sedation. - Continue antibiotic therapy for pneumonia as detailed below. (2) Pneumonia Current Visit: Yes Status: Acute Has Stenotrophomonas maltophilia pneumonia. Patient has completed a seven-day course of Zosyn. - Continue Levaquin. Qualifiers: Pneumonia type: due to other aerobic Gram-negative bacteria Laterality: unspecified laterality Lung location: unspecified part of lung Qualified Code(s): J15.6 - Pneumonia due to other Gram-negative bacteria (3) COPD (chronic obstructive pulmonary disease) Current Visit: Yes Status: Acute History of COPD, exacerbation due to ongoing pneumonia. - Continue Mucomyst and scheduled DuoNeb. Qualifiers: COPD type: emphysema Emphysema type: unspecified Qualified Code(s): J43.9 - Emphysema, unspecified (4) ANY (acute kidney injury) Current Visit: Yes Status: Acute Urine was noted to be 1.4 at admission unsure of baseline. Could be chronic versus worsening renal function due to septic shock. Nephrology is following. - Continue hemodialysis per nephrology recommendation. (5) DVT prophylaxis Current Visit: Yes Status: Acute - SCDs. Subjective Principal diagnosis: Sepsis Interval history: Mr. Gomez was seen and evaluated at the bedside. Vital signs and laboratory studies were reviewed. Patient was noted to have worsening hypoxia, prompting subsequent intubation for respiratory decline. This morning, patient was noted to have blood in stool, with positive Hemoccult. Nursing staff reports no other significant overnight events. Objective PUL Vital signs: Last Vital Signs Temp 96.7 F L 12/05/18 06:00 Pulse 90 12/05/18 06:51 Resp 23 12/05/18 06:51 BP 102/74 12/05/18 06:51 Pulse Ox 97 12/05/18 06:51 General appearance: no acute distress, other (Currently sedated; does not follow commands) Eyes: nonicteric Auscultation: bilateral: diminished breath sounds Cardiovascular: regular rate and rhythm Gastrointestinal: normoactive bowel sounds, non-distended Extremities: no cyanosis, pink and warm, edema Musculoskeletal: no deformities unable to assess due to mental status Ventilator Settings Ventilator Settings: Ventilator Settings, Last 8 Hours Ventilator Tidal Volume 500 Setting Ventilator Respiratory Rate 12 Setting Results - Laboratory Findings CBC and BMP: 12/05/18 03:24 12/05/18 03:24 ABG ABG pH 7.37 pH Units (7.32-7.45) 12/05/18 05:04 ABG pCO2 40 mmHg (35-45) 12/05/18 05:04 ABG pO2 73 mmHg (85-104) L 12/05/18 05:04 ABG O2 Saturation 94 % (95-98) L 12/05/18 05:04 PT/INR, D-dimer PT 11.1 Seconds (9.4-12.1) 11/30/18 03:55 Abnormal lab findings: Abnormal lab results WBC 11.9 K/mcL (4.3-11.1) H 11/29/18 15:51 RBC 2.68 M/mcL (4.19-5.50) L 12/05/18 03:24 Hgb 7.9 g/dL (12.9-16.9) L 12/05/18 03:24 Hct 25.0 % (37.5-50.1) L 12/05/18 03:24 MCHC 31.4 g/dL (31.6-35.5) L 12/03/18 03:46 RDW 17.3 % (11.5-14.5) H 12/05/18 03:24 Plt Count 89 K/mcL (140-400) L 12/05/18 03:24 MPV 13.2 fL (9.4-12.4) H 11/29/18 15:51 Reticulocyte # 0.13 M/mcL (0.05-0.10) H 11/28/18 11:20 Immature Gran % 4.7 % (0-4) H 12/05/18 03:24 34.0 % (0-4) H 12/02/18 03:31 9.4 K/mcL (1.6-8.9) H 12/05/18 03:24 0.5 K/mcL (0.6-4.6) L 12/04/18 03:58 Nucleated RBCs/100 WBC 0.2 /100 WBC (0) H 12/02/18 03:31 Present (Not Present) A 12/02/18 03:31 Decreased (Normal) L 12/05/18 03:24 Present (Not Present) A 11/28/18 22:00 Immature Plt Fraction 9.5 % (1.1-6.1) H 12/05/18 03:24 1+ (Not Present) A 11/25/18 03:40 Present (Not Present) A 12/05/18 03:24 1+ (Not Present) A 12/05/18 03:24 Present (Not Present) A 12/03/18 03:46 Present (Not Present) A 12/03/18 03:46 Percent Retic 4.3 % (1.6-2.8) H 11/28/18 11:20 PT 12.6 Seconds (9.4-12.1) H 11/23/18 11:15 568 mg/dL (169-393) H 11/28/18 11:20 ABG pH 7.31 pH Units (7.32-7.45) L 11/27/18 04:48 ABG pCO2 47 mmHg (35-45) H 11/29/18 04:48 ABG pO2 73 mmHg (85-104) L 12/05/18 05:04 ABG HCO3 30 mEq/L (21-27) H 11/29/18 04:48 ABG Total CO2 32 mEq/L (20-26) H 11/29/18 04:48 ABG O2 Saturation 94 % (95-98) L 12/05/18 05:04 ABG Base Excess 5 mEq/L (-2 to 3) H 11/29/18 04:48 Potassium 5.5 mEq/L (3.5-5.1) H 12/04/18 04:00 Chloride 97 mEq/L (98-107) L 11/26/18 03:32 Carbon Dioxide 22 mEq/L (23-29) L 12/04/18 04:00 BUN 57 mg/dL (8-23) H 12/05/18 03:24 2.75 mg/dL (0.70-1.30) H 12/05/18 03:24 Est GFR ( Amer) 28 (> 60) L 12/05/18 03:24 Est GFR (Non-Af Amer) 23 (> 60) L 12/05/18 03:24 Glucose 114 mg/dL (70-105) H 12/05/18 03:24 POC Glucose 104 mg/dL (70-99) H 12/04/18 23:08 6.5 % (-5.6) H 11/20/18 13:04 305 (280-300) H 12/05/18 03:24 Lactic Acid 3.3 mmol/L (0.5-2.2) H 11/22/18 04:45 Calcium 8.2 mg/dL (8.6-10.3) L 12/05/18 03:24 Venous Ioniz Calcium 1.10 mmol/L (1.15-1.35) L 12/01/18 13:21 Phosphorus 8.0 mg/dL (2.7-4.5) H 12/04/18 03:58 Iron 64 mcg/dL (65-175) L 11/28/18 11:20 158 mg/dL (203-362) L 11/28/18 11:20 1.5 mg/dL (0.3-1.0) H 12/05/18 03:24 0.8 mg/dL (0.0-0.2) H 12/05/18 03:24 AST 51 Units/L (13-39) H 11/30/18 03:55 ALT 111 Units/L (7-52) H 11/30/18 03:55 108 Units/L (34-104) H 11/26/18 03:32 341 Units/L (140-271) H 12/02/18 03:31 0.21 ng/mL (< 0.04) H* 11/21/18 13:15 5.6 g/dL (6.4-8.9) L 12/05/18 03:24 4.60 g/dL (6.00-8.30) L 11/28/18 11:20 3.2 g/dL (3.5-5.7) L 12/05/18 03:24 2.71 g/dL (3.75-5.01) L 11/28/18 11:20 2.1 g/dL (2.4-3.5) L 11/30/18 03:55 0.58 g/dL (0.19-0.46) H 11/28/18 11:20 0.41 g/dL (0.48-1.10) L 11/28/18 11:20 0.40 g/dL (0.62-1.51) L 11/28/18 11:20 Amylase 197 Units/L (29-103) H 12/04/18 09:35 Turbid (Clear) A 11/21/18 08:50 Trace mg/dL (Negative) H 11/21/18 08:50 Small (Negative) H 11/21/18 08:50 5-15 per hpf (0-3) H 11/21/18 08:50 Ur Squamous Epith Cells Many per lpf (None-Few) H 11/21/18 08:50 Ur Culture Indicated? YES (NO) A 11/21/18 08:50 U Free [place] Light Ch 17.80 mg/dL (0.14-2.42) H 11/28/18 14:32 U Free [place] Light Ch 4.35 mg/dL (0.02-0.67) H 11/28/18 14:32 Fluid Appearance Cloudy (Clear) A 11/22/18 12:23 Positive (Negative) A 12/05/18 03:33 Vancomycin Trough 23 mcg/mL (5-10) H 11/22/18 04:45 IgG 364 mg/dL (768-1632) L 11/28/18 11:20 Free [place] LC, Quant 5.39 mg/dL (0.33-1.94) H 11/28/18 11:20 Free [place]ambda LC, Quant 3.08 mg/dL (0.57-2.63) H 11/28/18 11:20 Free [place]/Lambda Ratio 1.75 (0.26-1.65) H 11/28/18 11:20 Hep Bs Antibody < 3.10 mIU/mL (10.00-) L 11/24/18 09:35 Crossmatch See Detail 11/25/18 14:51 - Clinical Findings Intake & Output: Intake & Output 12/04/18 12/05/18 12/05/18 23:59 07:59 15:59 Intake Total 319.8 / 1080.8 864.4 / 864.4 Output Total 53 / 976 Balance 266.8 / 104.8 847.4 / 847.4 Weight 96.1 kg 96.1 kg
[2018-12-05] MEDS ORDERED: *HR* Midazolam HCl 2 MG/2 ML VIAL IVP ONE (08:52)
[2018-12-05] MEDS ORDERED: Albumin 25% 25gram/100mL 25 GM/100 ML IV.SOLN IVPB PRN (08:53)
--- NOTE | 2018-12-05 08:59 | Procedure Note ---
Date of procedure: 12/05/18 Pre-op diagnosis: Respiratory Failure Post-op diagnosis: same Surgeon: Donny Lindquist Was there an librarian assistant present: No Estimated blood loss (cc): 0 Specimen: none Pathology: none sent Condition: critical Disposition: no change Procedures: Internal Med - Intubation Time out performed: No (emergent) Sedative: Etomidate Amount Given: 20 Laryngoscope: glidescope ET tube size: 7.5 Tube secured depth (cm): 24 Tube placement confirmation: visualized tube passing through cords, equal breath sounds bilaterally, no breath sounds over epigastrium, confirmation by capnometry Patient tolerated procedure: no complications
[2018-12-05] MEDS ORDERED: Phenylephrine 20 MG in D5% in Water 250 ML IVC SCH (09:45)
[2018-12-05 10:06] LABS: Prothrombin Time 11.5 Seconds (9.4-12.1)
[2018-12-05 10:23] LABS: ABG Base Excess 1 mEq/L (-2 to 3); ABG HCO3 29 mEq/L (21-27); ABG Oxygen Saturation 73 % (95-98); ABG PCO2 70 mmHg (35-45); ABG PH 7.23 pH Units (7.32-7.45); ABG PO2 47 mmHg (85-104); ABG TCO2 31 mEq/L (20-26); Blood Gas Modality ASSIST CONTROL; Blood Gas PEEP 10 cm H2O; Blood Gas Respiration Rate 14; Blood Gas VT 450 cc
[2018-12-05] MEDS ORDERED: *HR* Rocuronium Bromide 50 MG/5 ML VIAL IVP ONE (10:26)
[2018-12-05] MEDS: Docusate Oral Soln 100 MG/10 ML UDC GTUBE SCH (10:33)
[2018-12-05] MEDS: Nitroglycerin 25 MG/250 ML INFUS..BTL IVC SCH (10:38)
[2018-12-05] MEDS ORDERED: *HR* LORazepam 2 MG/ML VIAL IVP ONE (10:58)
[2018-12-05] MEDS ORDERED: *HR* Midazolam HCl 5 MG/5 ML VIAL IVP ONE (10:58)
[2018-12-05] MEDS ORDERED: *HR* Rocuronium Bromide 100 MG/10 ML VIAL IVC ONE (10:58)
[2018-12-05] MEDS ORDERED: *HR* Etomidate 20 MG/10 ML AMPUL IVP ONE (10:58)
[2018-12-05 11:10] LABS: Magnesium 2.4 mg/dL (1.6-2.6)
--- NOTE | 2018-12-05 11:17 | Death Note ---
<Mandi Pérez N - Last Filed: 12/05/18 14:58> Discharge Sum: Summary - Date and Time Date of admission: 11/20/18 12:14 Date of : 12/05/18 Time of : 10:59 - Summary Details: Mr. Gomez was a 73-year-old male with a past medical history of COPD, hypertension, hyperlipidemia, and multiple previous CVAs. He was admitted to the ID on 11/17/2018 for treatment of pneumonia; during that admission, he was found to have a subacute DVT in the right lower extremity and was started on Lovenox, after which he was switched to apixaban for further anticoagulation. Patient became acutely hypotensive and unresponsive, with a noted drop in hemoglobin from 13.4 to 8.9. He was subsequently transferred to [facility] for management of sepsis secondary to pneumonia. CT of the abdomen and pelvis performed on 11/20/2018 was significant for hazy opacities at lung bases consistent with atelectasis or pneumonia, as well as a very large left-sided rectus sheath hematoma. Patient was noted to have very labile pressures, ultimately requiring use of pressors to maintain appropriate blood pressure. Patient ultimately required intubation for respiratory failure. Hospital course was further complicated by BAL positive forced stenotrophomonas maltophilia and AKA requiring renal replacement therapy and subsequent hemodialysis. He also became thrombocytopenic, requiring multiple platelet transfusions. Patient was intubated and extubated twice during this admission, and was ultimately reintubated on 12/05/2018 for worsening hypoxia with oxygen saturation in the 60s. Prior to intubation, patient was noted to be extremely anxious with labored breathing. Patient was also noted to be hypotensive, prompting increase in pressor support. Following intubation, patient was initially stabilized; however, he did continue to deteriorate, becoming again hypoxic. Patient went on to have 2 occasions of bradycardia, the first which responded to atropine and: However, there atropine was given during the second event, patient continued to have persistent hypoxemia and hypotension, despite high levels of both dopamine and norepinephrine. Patient's POA was contacted, and the attending physician, Dr. Lindquist, was able to explain the patient's serious condition and grave prognosis. Patient's POA then voiced that she did not want any heroic measures to be undertaken, and requested transitioned to comfort care measures. Soon after transition to comfort measures, patient experienced cardiac arrest and lost a pulse, and subsequently at 1059. No CODE BLUE was called in alignment with daughter's wishes for comfort care measures. was confirmed by absence of breath sounds, heartbeat, and pupils that were fixed and dilated. - Additional Data Confirmation of as documented by pronouncing clinician: no pulse, no respirations, no heart sounds, pupils fixed and dilated Family: contacted Attending/PCP notified?: Yes Attending physician: Kika Yang MD Was code activated?: No Hospice patient?: No Discharge Sum: Diag - PCOD Probable Cause of : Cardiac arrest Discharge Sum: Prov - Provider [facility] physician: [facility] Attending physician on admission: Kris Owusu Consults: 11/20/18 13:03 Consult to Gastroenterology [CONS] Routine Consulting Provider: Gastroenterology Lianet Reason for Consult: [facility]. Acute drop in hgb from 13.4-8.9 48 hours, occult blood pos. Hypotensive prior to transfer here Time Notified: 13:07 Call Completed: Yes 11/20/18 15:37 Consult to Surgery [CONS] Routine Consulting Provider: Niranjan Ruiz Reason for Consult: [facility]. Acute drop in hgb 13-9, gi bleed vs large rectus sheath hematoma on CT Time Notified: 15:39 Call Completed: Yes 11/22/18 08:52 Consult to Nephrology [CONS] Routine Consulting Provider: [facility] [place]/LEMUEL/RAIN/ABIEL Reason for Consult: large rectus sheath hematoma with significant decline in renal function Call Completed: No Consult to Urology [CONS] Routine Consulting Provider: Urology [place] Reason for Consult: large scrotal swelling and ecchymosis Call Completed: No 11/22/18 09:53 Consult to Vascular Surgery [CONS] Routine Consulting Provider: Vascular Surgery Lianet Reason for Consult: Pt with known RLE DVT, off anticoagulation due to bleed Time Notified: 09:54 Call Completed: Yes 11/24/18 07:45 Consult to Dialysis [CONS] ONCE 11/24/18 12:54 Consult to Interventional Radiology [CONS] Routine Consulting Provider: Radiology Interventional Cols Reason for Consult: HD Catheter insertion Time Notified: 12:55 Call Completed: Yes 11/25/18 08:15 Consult to Dialysis [CONS] ONCE 11/25/18 12:20 Consult to Interventional Radiology [CONS] Routine Consulting Provider: Radiology Interventional Cols Reason for Consult: HD catheter insertion/ concerns Time Notified: 12:21 Call Completed: Yes 11/27/18 09:00 Consult to Dialysis [CONS] ONCE 11/28/18 07:30 Consult to Dialysis [CONS] ONCE 11/28/18 08:34 Consult to Oncology Hematology [CONS] Routine Consulting Provider: Niranjan Ruiz Reason for Consult: Persistent thrombocytopenia Time Notified: 08:35 Call Completed: No 11/29/18 10:30 Consult to Dialysis [CONS] ONCE 11/30/18 07:15 Consult to Dialysis [CONS] ONCE 12/01/18 06:53 Consult to Dialysis [CONS] Stat 12/02/18 09:00 Consult to Dialysis [CONS] ONCE 12/04/18 07:00 Consult to Dialysis [CONS] ONCE 12/04/18 09:41 Consult to Occupational Therapy [CONS] Routine Comment: Evaluate, develop and implement POC Reason for Consult: To aid in regaining occupational mobility Does patient have active BEDREST order?: No Is patient medically & hemodynamically stable?: Yes Consult to Physical Therapy [CONS] Routine Comment: Evaluate, develop and implement POC Reason for Consult: Physical rehab after being in bed for days Does patient have active BEDREST order?: No Is patient medically & hemodynamically stable?: Yes 12/05/18 09:30 Consult to Palliative Care [CONS] Routine Comment: Consulting Provider: Palliative Care Lianet Reason for Consult: Ongoing goals of care discussion; worsening hypoxic respiratory failure requiring reintubation this morning. Time Notified: 09:33 Call Completed: No Pronouncing clinician: Donny Lindquist <Donny Lindquist - Last Filed: 12/06/18 06:42> Discharge Sum: Summary - Date and Time Date of admission: 11/20/18 12:14 - Additional Data Attending physician: Kika Yang MD Discharge Sum: Prov - Provider [facility] physician: [facility] Consults: 11/20/18 13:03 Consult to Gastroenterology [CONS] Routine Consulting Provider: Gastroenterology Lianet Reason for Consult: [facility]. Acute drop in hgb from 13.4-8.9 48 hours, occult blood pos. Hypotensive prior to transfer here Time Notified: 13:07 Call Completed: Yes 11/20/18 15:37 Consult to Surgery [CONS] Routine Consulting Provider: Niranjan Ruiz Reason for Consult: [facility]. Acute drop in hgb 13-9, gi bleed vs large rectus sheath hematoma on CT Time Notified: 15:39 Call Completed: Yes 11/22/18 08:52 Consult to Nephrology [CONS] Routine Consulting Provider: Kidney Lian[facility]/ORIMI/RAIN/BROWN Reason for Consult: large rectus sheath hematoma with significant decline in renal function Call Completed: No Consult to Urology [CONS] Routine Consulting Provider: Urology Lianet Reason for Consult: large scrotal swelling and ecchymosis Call Completed: No 11/22/18 09:53 Consult to Vascular Surgery [CONS] Routine Consulting Provider: Vascular Surgery [place] Reason for Consult: Pt with known RLE DVT, off anticoagulation due to bleed Time Notified: 09:54 Call Completed: Yes 11/24/18 07:45 Consult to Dialysis [CONS] ONCE 11/24/18 12:54 Consult to Interventional Radiology [CONS] Routine Consulting Provider: Radiology Interventional Cols Reason for Consult: HD Catheter insertion Time Notified: 12:55 Call Completed: Yes 11/25/18 08:15 Consult to Dialysis [CONS] ONCE 11/25/18 12:20 Consult to Interventional Radiology [CONS] Routine Consulting Provider: Radiology Interventional Cols Reason for Consult: HD catheter insertion/ concerns Time Notified: 12:21 Call Completed: Yes 11/27/18 09:00 Consult to Dialysis [CONS] ONCE 11/28/18 07:30 Consult to Dialysis [CONS] ONCE 11/28/18 08:34 Consult to Oncology Hematology [CONS] Routine Consulting Provider: Niranjan Ruiz Reason for Consult: Persistent thrombocytopenia Time Notified: 08:35 Call Completed: No 11/29/18 10:30 Consult to Dialysis [CONS] ONCE 11/30/18 07:15 Consult to Dialysis [CONS] ONCE 12/01/18 06:53 Consult to Dialysis [CONS] Stat 12/02/18 09:00 Consult to Dialysis [CONS] ONCE 12/04/18 07:00 Consult to Dialysis [CONS] ONCE 12/04/18 09:41 Consult to Occupational Therapy [CONS] Routine Comment: Evaluate, develop and implement POC Reason for Consult: To aid in regaining occupational mobility Does patient have active BEDREST order?: No Is patient medically & hemodynamically stable?: Yes Consult to Physical Therapy [CONS] Routine Comment: Evaluate, develop and implement POC Reason for Consult: Physical rehab after being in bed for days Does patient have active BEDREST order?: No Is patient medically & hemodynamically stable?: Yes 12/05/18 09:30 Consult to Palliative Care [CONS] Routine Comment: Consulting Provider: Palliative Care Lianet Reason for Consult: Ongoing goals of care discussion; worsening hypoxic respiratory failure requiring reintubation this morning. Time Notified: 09:33 Call Completed: No - Attending Attestation I examined this patient and my medical decision-making was reviewed with the Resident Physician. I agree with the documented findings, disposition and treatment plan as described except to the extent set forth below. We independently had [id number] contact with the patient
== END 2018-12-05 10:59 | disposition expired | DRG 853 ==
LOC: ICNU 12:14 → SUATTDRO 12:14 → ICNU 12-01 20:38
PROVIDERS: ADMIT Internal Medicine Pulmonary Disease; ATTEND Internal Medicine Pulmonary Disease